=== PATIENT | male | born 1960 | race Caucasian/White ===

== ENCOUNTER 2016-06-16 16:20 | Emergency (ER) | payer MEDICAID ==
[~2016-06-16] VITALS: Ht 177.8 cm; Wt 90.7 kg
[~2016-06-16 16:20] MED LIST: AMITRIPTYLINE100 M2 PO; BREO ELLIPTA1 POW IH; INSULIN GL100 UNITS/ SC; LEVOFLOXACIN 7750 M1 PO; LOVENOX 10100 MG/11 SC; METOPROLOL 25 M25 MG PO; ONDANSETRON8 M1 PO; OXYCODONE SR 2020 MG PO; SENNA8.6 MG PO; TAMSULOSIN HYD0.4 MG PO; VENTOLIN H0.09 MG/AC IH
--- NOTE | 2016-06-16 16:41 | Emergency Room Report ---
History of Present Illness Time Seen by MD Fry Presenting Problem in Triage Pt arrived:Wheelchair Presenting Problem:PT BROUGHT DOWN FROM WOUND CARE C/O DIZZINESS AND FEELING LIGHTHEADED. 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 N Clinical Suspician of Infection? N Mental Status: 1 - Regular (Normal Baseline) Sepsis Risk:Low Sepsis Risk Have you (or family members/close friends) recently traveled outside the [place]? N If Yes, where/when: Have you had exposure to infectious disease within the past month? N TB? Other? Specify: Source patient, RN notes reviewed, RN/MD Exam Limitations no limitations Comment This is a 56-year-old male that was sent to the emergency room for wound care clinic for evaluation of lethargy. Apparently he was in the clinic, for treatment of his diabetic foot, and he was extremely sleepy. Patient drove himself here. He is awake and alert, denies any acute complaints. He does appear somewhat lethargic. ALLERGIES Coded Allergies: Sulfa (Sulfonamide Antibiotics) (01/23/16) Home Medications Reported Medications AMITRIPTYLINE HCL (Amitriptyline Hydrochloride) 100 MG PO DAILY TAMSULOSIN HCL (Tamsulosin 0.4MG) 0.4 MG PO QHS Oxycodone Hcl Sr (Oxycodone Sr 20MG) 10-20 MG PO Q4HP PRN PAIN ONDANSETRON HCL (Ondansetron) 8 MG PO Q8HP PRN N/V Levofloxacin (Levofloxacin 750MG) 750 MG PO DAILY SENNOSIDES (Senna) 2 EACH PO BID INSULIN GLARGINE (Lantus 3ML Solostar Pen) 25 UNITS SC QAM ENOXAPARIN SODIUM (Lovenox) 100 MG SC BID FLUTICASONE/VILANTEROL (Breo Ellipta 100-25 Mcg INH) 1 POW IH DAILY ALBUTEROL (Ventolin Hfa) 2 PUFFS IH Q6H6 Metoprolol Tartrate (Metoprolol 25MG) 25 MG PO BID History Medical History General CAD? No Angina: No [place]: No Hypertension? Yes Hyperlipidemia? Yes CHF? No DVT? Yes PE? No COPD? Yes Asthma? Yes Anemia? No GERD? No Gastric ulcers? No GI Bleed? No Hernia? No Thyroid Problems? No Hypothyroidism? No CVA? No Seizures? No Diabetes? Yes Insulin Dependent: Yes Insulin Pump: No Home FSBS? Yes Renal Insuffiency? No End Stage Renal Disease? No UTI? No Stones? No BPH? Yes GB Disease: No Nephritic Syndrome? No Asplenia? No Hepatitis? No Sickle Cell Disease? No Arthritis? No Migraines? No Cataracts? No Glaucoma? No MRSA? No HIV? No TB? No Anxiety? Yes Depression? Yes Cancer? Yes Site: THROAT More? Yes Additional hx: RHABDOMYOLOSIS, ATRIAL FIB Immunization Hx DT/Tetanus > 10 Years Ago Pneumonia Unknown Surgical Hx Previous Surgery?Y TONSILLECTOMY PEG TUBE Social History Smoking Hx Smoker: Current Every Day Smoker Tobacco: Yes Type Cigarettes Packs/day < 1 Pack Alcohol Alcohol: No Review of Systems All Other Systems Reviewed and Negative Psychiatric/Neurological weakness, other (dizziness) Physical Exam Vital Signs Vital Signs Date Time Temp Pulse Resp B/P Pulse O2 O2 Flow FiO2 Ox Delivery Rate 06/16 1940 97 16 132/86 100 06/16 1906 97 16 132/86 100 06/16 1756 95 18 161/85 100 2 06/16 1718 96 16 130/79 97 06/16 1630 98.5 98 16 128/80 98 General Appearance normal appearance, WD/WN, no apparent distress Neck normal inspection, non-tender, supple, full range of motion Respiratory Status Yes: trachea midline, chest symmetrical, non tender chest. No: respiratory distress. Lung Sounds bilateral: normal breath sounds, lungs clear. 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 No Comment After administration of IV naloxone the patient started waking up gradually. He was able to stand up and walk to the bathroom, asking for food and eventually to be discharged home on reevaluation he appears in absolutely no distress, his mentation is intact. I believe the patient's symptoms are mostly related to that he takes pain medications and benzodiazepines which can obviously make him lethargic. Advised patient to take those medications as needed only from now on. Instructed the patient to see his PCP in the morning for review of his medications and their obvious adverse effects. Results/Orders Laboratory Tests 06/16/16 1722: ABG pH 7.34 L, ABG pCO2 (Temp Corrct 61.7 H, ABG pO2 (Temp Correct 52.6 L, ABG HCO3 32.3 H, ABG Total CO2 34.2 H, ABG O2 Sat (Calculated) 85 *L, ABG Base Excess 6.5 H, Hakeem Test Y, Blood Gas Comments R/R 06/16/16 164: Lactic Acid 1.2 06/16/16 164: Sodium 138, Potassium 4.1, Chloride 98, Carbon Dioxide 36 H, BUN 15, Creatinine 0.8, Estimated Creat Clear 131, Estimated GFR (MDRD) 100, Glucose 109 H, Calcium 9.3, Total Bilirubin 0.4, AST 23, ALT 34, Alkaline Phosphatase 99, Creatine Kinase 26 L, CK-MB (CK-2) Rel Index 3.1, CK and CKMB Interp 0.8, Troponin I < 0.02, Total Protein 7.4, Albumin 3.1 L, Globulin 4.3 H, Albumin/ Globulin Ratio 0.7 L, WBC 8.8, RBC 4.58 L, Hgb 13.8 L, Hct 41.9 L, MCV 91.4, RDW 15.8, Plt Count 366, MPV 8.7, Gran % 73.7, Gran # 6.5, Lymphocytes % 14.8, Monocytes % 5.6, Eosinophils % 5.0, Basophils % 0.9, Lymphocytes # 1.3, Monocytes # 0.5, Eosinophils # 0.4, Basophils # 0.1, PUBS MCHC 32.9, MCH 30.1, Alcohols 0 06/16/16 164: Opiates Screen Cancelled, Urine Methadone Screen Cancelled, Barbiturates Cancelled, Phencyclidine Screen Cancelled, Amphetamines Screen Cancelled, Benzodiazepines Screen Cancelled, Cocaine Screen Cancelled, Marijuana (THC) Screen Cancelled 06/16/16 1630: POC Glucose 144 H Current Medication Orders Sig/Sebastian Start time Last Medication Dose Route Stop Time Status Admin Albuterol/Ipratropium 0 .STK-MED ONE 06/16 1746 DC INH Albuterol/Ipratropium 3 ML ONCE ONE 06/16 1745 DC 06/16 INH 06/16 1746 1745 Naloxone HCl 2 MG ONCE ONE 06/16 1730 DC 06/16 IV 06/16 1731 1720 Naloxone HCl 0 .STK-MED ONE 06/16 1717 DC .ROUTE Sodium Chloride 10 ML PRN PRN 06/16 1645 DCD IV 06/17 1637 Orders Procedure Date/time Status DIET-NOTHING BY MOUTH 06/16 D Active RT REQUEST DUONEB 06/16 1741 Active ARTERIAL BLOOD GAS REQUEST 06/16 1712 Active ORTHOSTATIC B/P 06/16 1641 Active ALCOHOL 06/16 1641 Complete ELECTROCARDIOGRAM REQUEST 06/[address] HEAD REQ 06/16 1638 Complete IV SALINE LOCK 06/16 1638 Active CULTURE, BLOOD 06/16 1638 Active LACTIC ACID 06/16 1638 Complete CBC WITH AUTO DIFF 06/16 1638 Complete CARDIAC ENZYMES 06/16 1638 Complete CHEM 12 PROFILE 06/16 1638 Complete FINGERSTICK BLOOD SUGAR 06/16 1630 Complete 12 LEAD EKG-VENITA (INITIAL) 06/16 UNK Active CM/EKG CM/knifeman Rhythm Normal Sinus Rhythm Rate 85 Ectopy No Comments No acute ischemic changes EKG rate, NSR, rhythm, no evid. of ischemic chgs, no ectopy, normal QRS, normal MI, normal EKG, no EKG for comparison, non-spec. ST/Twave chgs, ST elevation, ST depression, LBBB, RBBB, ectopy, abnormal Q waves XRAY/CT/US XRAY/CT/US [address] interpretation by discussed w/radiologist CT Results normal/NAD, no fracture seen XRAY/CT/US 2 XRAY chest XR interpretation by discussed w/radiologist Xray Results no infiltrates, normal heart size, normal lung inflation darrin Departure Departure Time of Disposition 1915 Disposition DC Home or Self Care(routine) Clinical Impression Primary Impression: Lethargy Condition STABLE Referrals TALYA ANTONIO APRN: Tomorrow-Call Office for re-evaluation of your meds Patient Instructions DI for Adverse Drug Reaction -- Other Additional Instructions Please take your oxycodone, amitriptyline, and Xanax as directed only!!!! This medications can make excessively sleepy. Please see Talya Antonio in the morning for review of your medications, in order to prevent similar episodes in the past where curative doses of above mentioned medications can make excessively sleepy. Discharge Counseling Counseled pt/family regarding diagnosis, test results, medications/RX, home care, follow up needs Comment Please take your oxycodone, amitriptyline, and Xanax as directed only!!!! This medications can make excessively sleepy. Please see Talya Antonio in the morning for review of your medications, in order to prevent similar episodes in the past where curative doses of above mentioned medications can make excessively sleepy. ED Critical Care Critical Care No at [id number]
[2016-06-16 16:56] LABS: HEMOGLOBIN 13.8 g/dL (14.1-18.0); LYMPH # 1.3 K/mm3 (0.7-4.5); LYMPH % 14.8 % (10-50)
[2016-06-16 17:18] LABS: BUN 15 mg/dL (7-18)
--- NOTE | 2016-06-16 17:18 | RADIOLOGY REPORT PS360 ---
CHEST-AP VIEW ONLY HISTORY: Dizziness DIZZY COMPARISON: 01/23/2016 FINDINGS: The cardiomediastinal silhouette and pulmonary vascularity are within normal limits. The lungs are clear without infiltrates, suspicious nodules, or pleural effusions. No acute bony abnormalities. IMPRESSION: Negative chest, no acute finding
--- NOTE | 2016-06-16 17:18 | RADIOLOGY REPORT PS360 ---
CT HEAD W/O CONTRAST HISTORY: Lethargy, dizziness DIZZY COMPARISON: 01/23/2016 TECHNIQUE: Axial images obtained without contrast. Brain and bone windows reviewed. FINDINGS: No midline shift, mass effect, intracranial hemorrhage, hydrocephalus, or extra-axial fluid collection is evident. There is mild generalized atrophy with nonspecific hypoattenuation in the deep white matter consistent with ischemic gliotic change from microvascular disease. The calvarium has an unremarkable appearance. There is moderate opacification left mastoid sinus. Mild mucosal thickening right maxillary sinus... . IMPRESSION: 1. No acute intracranial pathology with no significant change from 1116. 2. Vica-qx-qdyrcvgo atrophy with ischemic gliotic change from microvascular disease. 3. Left mastoid sinus opacification
[2016-06-16 17:19] LABS: GFR (ESTIMATED) 100 ML/MIN (>60)
[2016-06-16 17:24] LABS: ALLEN'S TEST Y; ARTERIAL ABE 6.5 MMOL/L (-2.4-+2.3); ARTERIAL PO2 52.6 MMHG (80-100); ARTERIAL TCO2 34.2 MMOL/L (23-27); OXYGEN R/A
[2016-06-16 19:40] VITALS: BP 132/86
[2016-09-03] MEDS ORDERED: OXYCODONE/APAP1 TA2 PO (00:31)
[2016-09-03] MEDS ORDERED: XANAX 1MG TABLET1 MG PO (12:54)
[2016-09-05] MEDS ORDERED: CLEOCIN HCL300 MG PO (11:09)
[2016-09-05] MEDS ORDERED: LEVOFLOXACIN 7750 M1 PO (11:09)
== END 2016-06-16 19:40 | disposition home or self-care (01) ==
LOC: ER 16:20
PROVIDERS: Emergency Medicine
DX: R53.83 Other fatigue (principal); L97.519 Non-pressure chronic ulcer of other part of right foot with unspecified severity; I10 Essential (primary) hypertension; J44.9 Chronic obstructive pulmonary disease, unspecified; F41.8 Other specified anxiety disorders; I48.91 Unspecified atrial fibrillation; Z72.0 Tobacco use
CPT/HCPCS: G6040; J2310

== ENCOUNTER 2017-03-18 16:49 | Inpatient (IN) | payer MEDICAID ==
[~2017-03-18] VITALS: Ht 180.3 cm; Wt 81.8 kg
[~2017-03-18 16:49] MED LIST changes: +CLEOCIN HCL300 MG PO; +OXYCODONE/APAP1 TA2 PO; +XANAX 1MG TABLET1 MG PO
[2017-03-18 17:09] VITALS: BP 81/52
--- NOTE | 2017-03-18 17:37 | Emergency Room Report ---
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 N Clinical Suspician of Infection? N Mental Status: 1 - Regular (Normal Baseline) Sepsis Risk:Low Sepsis Risk Have you (or family members/close friends) recently traveled outside the [place]? N If Yes, where/when: Have you had exposure to infectious disease within the past month? N TB? Other? Specify: 56 years old white male who is in remission from stage IV cancer, he has been experiencing weakness and repeated falls for the last few days. He presented to the ED and is found to be hypotensive blood pressure 80/50 MMHG. he is sitting in the bed alert and provided history. He has a GASTROSTOMY FEEDING TUBE IN PLACE. Source patient, RN notes reviewed Exam Limitations no limitations ALLERGIES Coded Allergies: Sulfa (Sulfonamide Antibiotics) (03/18/17) Home Medications Active Scripts Levofloxacin (Levofloxacin 750MG) 750 MG PO DAILY #3 TABLET Prov: 09/05/16 Clindamycin Hcl (Cleocin 300MG Capsule) 300 MG PO QID #20 CAP Ref 1 Prov: 09/05/16 Reported Medications Alprazolam (Xanax 1MG) 1 MG PO TID AMITRIPTYLINE HCL (Amitriptyline Hydrochloride) 100 MG PO DAILY TAMSULOSIN HCL (Tamsulosin 0.4MG) 0.4 MG PO QHS ONDANSETRON HCL (Ondansetron) 8 MG PO Q8HP PRN N/V SENNOSIDES (Senna) 2 EACH PO BID INSULIN GLARGINE (Lantus 3ML Solostar Pen) 25 UNITS SC QAM FLUTICASONE/VILANTEROL (Breo Ellipta 100-25 Mcg INH) 1 POW IH DAILY ALBUTEROL (Ventolin Hfa) 2 PUFFS IH Q6H6 OXYCODONE HCL/ACETAMINOPHEN (Oxycodon-Acetaminophen 7.5-325) 1 TAB PO QID History Medical History General CAD? No Angina: No [place]: No Hypertension? Yes Hyperlipidemia? Yes CHF? No DVT? Yes PE? No COPD? Yes Asthma? Yes Anemia? No GERD? No Gastric ulcers? No GI Bleed? No Hernia? No Thyroid Problems? No Hypothyroidism? No CVA? No Seizures? No Diabetes? Yes Insulin Dependent: Yes Insulin Pump: No Home FSBS? Yes Renal Insuffiency? No End Stage Renal Disease? No UTI? No Stones? No BPH? Yes GB Disease: No Nephritic Syndrome? No Asplenia? No Hepatitis? No Sickle Cell Disease? No Arthritis? No Migraines? No Cataracts? No Glaucoma? No MRSA? No HIV? No TB? No Anxiety? Yes Depression? Yes Cancer? Yes Site: THROAT More? Yes Additional hx: RHABDOMYOLOSIS, ATRIAL FIB; REMISSION FROM THROAT CA Immunization Hx Ped.Immunizations UTD Yes DT/Tetanus Unknown Flu Refused Pneumonia Refuses Surgical Hx Previous Surgery?Y TONSILLECTOMY PEG TUBE Social History Smoking Hx Smoker: Current Every Day Smoker Tobacco: Yes Type Cigarettes Packs/day 2 1/2 - 3 Packs Are you/the child exposed to second-hand smoke: Yes Alcohol Alcohol: No Review of Systems All Other Systems Reviewed and Negative Constitutional see HPI, weakness Eyes no symptoms reported ENT no symptoms reported. Respiratory no symptoms reported Cardiovascular no symptoms reported Gastrointestinal no symptoms reported Genitourinary no symptoms reported. Musculoskeletal see HPI, joint pain (HIS HIPS HURTS) Skin no symptoms reported Psychiatric/Neurological no symptoms reported Physical Exam Vital Signs Vital Signs Date Time Temp Pulse Resp B/P Pulse O2 O2 Flow FiO2 Ox Delivery Rate 03/18 1726 97.8 90 18 85/48 96 03/18 1709 97.9 87 18 81/52 93 The patient has multiple bruises on the scalp and the LEFT orbital region. (Melonie LU,Gavin) - WBC >12,000 or <4,000 or 10% bands? 2 or more SIRS Criteria Met? B/P:/48 MAP:61 Creatinine >2.0? UA output<0.5ml/kg/hr for 2 hrs? Platelet count >100,000? Lactate >2.0mmol/1? INR >1.2 or PTT > than 60 sec? Evidence of Organ Dysfunction? Provider documented clinical suspician of infection? N Sepsis Criteria Count: 1 Sepsis Risk: Low Sepsis Risk General Appearance normal appearance, WD/WN Eye Exam - bilateral eye normal exam, bilateral eye PERRL, bilateral eye EOMI Ear, Nose, Throat hearing grossly normal, normal ENT inspection Neck normal inspection, non-tender, supple, full range of motion Respiratory Status Yes: trachea midline, chest symmetrical, non tender chest. No: respiratory distress. Lung Sounds bilateral: normal breath sounds, lungs clear. Cardiovascular normal exam, regular rate/rhythm, no peripheral edema, no gallop, no JVD, no murmur, no rub, normal peripheral pulses Peripheral Pulses Pulses normal Yes Gastrointestinal normal bowel sounds, normal exam, non tender, soft, no organomegaly Back normal inspection, no CVA tenderness, no vertebral tenderness Extremities non-tender, normal range of motion, normal inspection Rectal normal exam, normal rectal tone, RECTUM FULL OF HARD STOOL. 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 No Results/Orders Laboratory Tests 03/18/17 1730: Stool Occult Blood NEGATIVE 03/18/17 1705: Sodium 132 L, Potassium 5.2 H, Chloride 96 L, Carbon Dioxide 29, BUN 64 H, Creatinine 1.8 H, Estimated Creat Clear 49 L, Estimated GFR (MDRD) 39, Glucose 105, Calcium 8.9, Total Bilirubin 0.9, AST 50 H, ALT 29, Alkaline Phosphatase 66, Creatine Kinase 2106 H, CK-MB (CK-2) Rel Index 0.2, CK and CKMB Interp 5.2 H, Troponin I < 0.02, Total Protein 6.8, Albumin 3.2 L, Globulin 3.6 H, Albumin/Globulin Ratio 0.9 L, WBC 13.6 H, RBC 3.66 L, Hgb 10.8 L, Hct 34.7 L, MCV 94.8, RDW 14.3, Plt Count 208, MPV 8.7, Gran % 90.1 H, Gran # 12.2 H, Total Counted Pending, Lymphocytes % 5.2 L, Monocytes % 4.3, Eosinophils % 0.2, Basophils % 0.2, Neutrophils Pending, Lymphocytes (Manual) Pending, Lymphocytes # 0.7, Monocytes # 0.6, Eosinophils # 0.0, Basophils # 0.0, Platelet Estimate Pending, PUBS MCHC 31.2 L, MCH 29.6 Current Medication Orders Sig/Sebastian Start time Last Medication Dose Route Stop Time Status Admin Azithromycin 500 MG ONCE ONE 03/18 1830 AC PO 03/18 1831 Ceftriaxone Sodium 1 GM ONCE ONE 03/18 1830 AC Sodium Chloride 50 ML IV 03/18 1859 Ceftriaxone Sodium 1 GM ONCE ONE 03/18 1830 AC Sodium Chloride 50 ML IV 03/18 185 Sodium Chloride 1,000 ML .Q1H1M 03/18 183 AC IV 03/18 193 Sodium Chloride 10 ML PRN PRN 03/18 183 AC IV 03/19 182 Sodium Chloride 1,000 ML .Q1H1M 03/18 173 DC 03/18 IV 03/18 183 1726 Sodium Chloride 10 ML PRN PRN 03/18 173 AC IV 03/19 1724 Sodium Chloride 10 ML PRN PRN 03/18 173 AC IV 03/19 1725 Sodium Chloride 1,000 ML .STK-MED ONE 03/18 1722 DC IV Orders Procedure Date/time Status DIET-NOTHING BY MOUTH 03/19 B Active CULTURE, SPUTUM 03/18 1826 Active CULTURE, BLOOD 03/18 1826 Active LACTIC ACID 03/[address] HEAD REQ 03/[address] SCAN REQUEST 03/18 1733 Active PELVIS AP ONLY 03/18 1733 Active CHEST-PORTABLE 03/18 1733 Active ABDOMEN-FLAT & UPRIGHT 03/18 1730 Active STOOL OCCULT BLOOD 03/18 1728 Complete ELECTROCARDIOGRAM REQUEST 03/[address] HEAD REQ 03/18 1725 Complete IV SALINE LOCK 03/18 172 Active URINALYSIS/COMPLETE 03/18 1725 Active COMPLETE METABOLIC PANEL 03/18 172 Complete CBC WITH AUTO DIFF 03/18 1725 Active CARDIAC ENZYMES 03/18 1725 Complete DIFFERENTIAL-WBC 03/18 1705 Active CM/EKG CM/EKG EKG NORMAL SINUS RHYTHM 92 PER MINUTE. FIRST DEGREEE av BLOCK NO ACUTE FINDINGS XRAY/CT/US XRAY/CT/US XRAY chest, abdomen, pelvis XR interpretation by reviewed by me Xray Results no fracture seen Comment rll PNEUMONIA CT head CT interpretation by discussed w/radiologist Time results known: 1829 Departure Departure Time of Disposition 1822 Disposition Still a Patient Clinical Impression Primary Impression: Hypotension Secondary Impressions: RML pneumonia Condition STABLE Referrals JANKI ANTONIO APRN (Family) Additional Instructions DISCUSSED WITH DR BUCK WHO AGREED TO ADMIT FOR IV ABX AND IVF Discharge Counseling Counseled pt/family regarding diagnosis, medications/RX, follow up needs ED Critical Care Critical Care No If Critical Care minutes are documented, the time involved in the performance of seperately reportable procedures was not counted toward critical care time documented. I directly delivered medical care to this critically ill and/or injured patient. Timely evaluation and treatment was necessary to address the significant organ system(s) dysfunction present in this patient. at 1831
[2017-03-18 17:46] LABS: LYMPH # 0.7 K/mm3 (0.7-4.5); LYMPH % 5.2 % (10-50)
[2017-03-18 17:51] LABS: STOOL OCCULT BLOOD NEGATIVE (NEG)
[2017-03-18 17:53] LABS: HEMOGLOBIN 10.8 g/dL (14.1-18.0)
--- NOTE | 2017-03-18 18:04 | RADIOLOGY REPORT PS360 ---
CT HEAD WITHOUT CONTRAST CT BONE WINDOWS included ORDERING PHYSICIAN : Gavin Wilhelm MD PATIENT AGE: 56 years GENDER: Male PROCEDURE: Routine axial images headwithout contrast. Brain & bone windows HISTORY: FALLS AND HEADACHE head trauma COMPARISON: July 03, 2016 and September 03, 2016 FINDINGS: No acute intracranial findings. No hemorrhage. No subdural collection. No mass No significant change in June 2016. Subtle low-density periventricular deep white matter cerebral hemispheres stable since prior study. Most likely Reflects chronic small vessel deep white matter ischemic changes despite patient's a relatively younger age. Mild diffuse cerebral atrophy again noted The posterior fossa appear satisfactory and unremarkable. The skull is intact. No skull fracture evident. No prominent scalp hematoma. Mild mucosal thickening with likely small small air-fluid levels at the posterior maxillary sinuses bilaterally. Could reflect cortical sinusitis. Questionable correlation. Opacification LEFT mastoid air cells reflect a left mastoid effusion. This is been seen previously but with slight progression since prior study. Possible developing left mastoiditis.? Requires clinical correlation New finding of Fluid filling middle ear compatible left left otitis media. Correlation required. This is a change since August 2016 Right Mastoid air cells right middle ear appear clear and normal. IACs are unremarkable. IMPRESSION: No acute intracranial findings. Stable CT head since a June and August 2016. Chronic small vessel deep white matter changes cerebral hemispheres bilaterally Fluid fills left middle ear compatible with left otitis media, new since August 2016. Opacification left mastoid air cells with slight progression of this left mastoid effusion. These features require clinical correlation. Also small air-fluid levels in maxillary sinuses partially imaged bilaterally.
[2017-03-18 18:05] LABS: BUN 64 mg/dL (7-18); GFR (ESTIMATED) 39 ML/MIN (>60)
--- NOTE | 2017-03-18 18:15 | RADIOLOGY REPORT PS360 ---
CT CERVICAL SPINE W/O CONT HISTORY: FALL fall with neck pain and headache. Patient Age: 56 years: Male Ordering Physician: Gavin Wilhelm MD TECHNIQUE: Helical CT scanning performed the cervical spine with sagittal and coronal reconstructions on CT workstation COMPARISON :No CT cervical available FINDINGS Cervical spine intact with No acute fracture nor subluxation Prevertebral soft tissues appear satisfactory. Normal. C1-C2 relationships and appears normal. Cervical vertebral bodies intact . There are degenerative changes throughout the cervical spine . C2/3 mild central spurring and disc prominence. C3/4. Disc intact. C4/5. Minor posterior hypertrophic ridging. . C5/6 anterior marginal osteophytes as well as mild posterior endplate hypertrophic spurring/ridging most evident at this level. Slight additional uncovertebral joint hypertrophy to the to the left and right. Features indenting anterior aspect of thecal sac at. Paracentral region C5-C6 C6/7 mild posterior hypertrophic ridging with mild additional central spurring and disc evident. C7/T1 intact T1/T2 minor posterior spurring. The facets appear intact normal relationships with only scant degenerative changes. Patient does has some additional calcifications at the posterior soft tissues at midline thickening posterior to the C5 and C6 level. Apices the lungs with no pneumothorax. COPD changes evident. Again the opacification throughout the left mastoid air cells and left middle ear noted as discussed on head CT report with the left otitis media with progressive left mastoid effusion since prior studies. In the prominent thickness of the aryepiglottic foldsand epiglottis. Require correlation. If the patient hoarseness consider ENT follow-up. Question upper normal/generous thickness at at vocal cords also as well. IMPRESSION: 1. Cervical spine intact with no fracture nor subluxation. 2. Degenerative changes as outlined above. Cervical spondylosis most evident C5/6 followed by C6/7 3. Other observations: -Fluid-filled middle air suggesting left Otitis media, new since prior study Progressive opacification entire left mastoid air cell, reflect progressive mastoid effusion. This requires correlation to exclude developing mastoiditis -Small bilateral air-fluid levels maxillary sinuses may reflect minimal acute maxillary sinusitis -Prominent aryepiglottic folds in generous epiglottis. If Patient has hoarseness consider ENT follow-up
[2017-03-18 18:50] LABS: NEUTROPHILS 69 % (42-76)
[2017-03-18 20:58] VITALS: BP 97/58
[2017-03-18 22:29] VITALS: BP 119/72
[2017-03-18 23:51] VITALS: BP 85/51
[2017-03-19 04:30] VITALS: BP 101/62
--- NOTE | 2017-03-19 07:17 | PHARMACY CLINIC NOTE ---
Patient Demographics Patient Demographics Admission date: 03/18/17 Date: 03/19/17 Time: 0716 Allergies Coded Allergies: Sulfa (Sulfonamide Antibiotics) (03/18/17) HEIGHT- FT: 5 IN: 11.00 [id number] VTE General Information Labs: Laboratory Tests 03/18 1705 Hematology Hgb (14.1 - 18.0 g/dL) 10.8 L Hct (42.0 - 52.0 %) 34.7 L Plt Count (142 - 424 K/mm3) 208 Disclaimer The following section includes nursing documentation that has been pulled in for pharmacy review. Patient's VTE score: 3 Patient's VTE Risk: LOW RISK Clinical trial participant? No VTE prophylaxis NQF [id number] VTE prophylaxis ordered? Yes Type of prophylaxis/treatment: JESSE at 0716
--- NOTE | 2017-03-19 07:47 | HISTORY AND PHYSICAL REPORT ---
Demographics: Admit date: 03/18/17 Chief complaint: Weakness and falls PRIMARY DIAGNOSIS: HYPOTENSION; FALLS; CA; PNEUMONIA Allergies: Coded Allergies: Sulfa (Sulfonamide Antibiotics) (03/18/17) History of present illness: History of present illness: 56-year-old male without a local primary care physician presented to the emergency department yesterday with his sister over concern of frequent falls and weakness. Workup revealed hypotension along with RIGHT lower lobe pneumonia. Patient denied infectious symptoms as well as symptoms of cough, shortness of breath, sputum production. He has a long history of smoking. He has a history of a head and neck cancer diagnosed recently and underwent radiation treatments. He has a PEG tube because of this. However he is still taking foods by mouth. In the emergency department he was started on IV fluids as well as Rocephin and azithromycin to treat community acquired pneumonia and admitted. This morning the patient states he is ready to leave the hospital. He does not like being in hospitals and apparently his sister told the nursing staff the same thing. Past medical history: Family HX Family Hx Insignificant No Immunization HX Ped.Immunizations UTD Yes DT/Tetanus Unknown Flu Refused Pneumonia Refuses TB Test in last year No General CAD? No Angina: No DE: No Hypertension? Yes Hyperlipidemia? Yes CHF? No DVT? Yes PE? No COPD? Yes Asthma? Yes Anemia? No GERD? No Gastric ulcers? No GI Bleed? No Hernia? No Thyroid Problems? No Hypothyroidism? No CVA? No Seizures? No Diabetes? Yes Insulin Dependent: Yes Insulin Pump: No Home FSBS? Yes Renal Insuffiency? No UTI? No Stones? No BPH? Yes GB Disease: No Nephritic Syndrome? No Asplenia? No Hepatitis? No Sickle Cell Disease? No Arthritis? No Migraines? No Cataracts? No Glaucoma? No MRSA? No HIV? No TB? No Anxiety? Yes Depression? Yes Cancer? Yes Site: THROAT More? Yes Additional hx: RHABDOMYOLOSIS, ATRIAL FIB; REMISSION FROM THROAT CA Past Surgical HX Previous Surgery?Y TONSILLECTOMY PEG TUBE Current home meds: Reported Medications Alprazolam (Xanax 1MG) 1 MG PO TID AMITRIPTYLINE HCL (Amitriptyline Hydrochloride) 100 MG PO DAILY INSULIN GLARGINE (Lantus 3ML Solostar Pen) 25 UNITS SC QAM Social Hx: Smoking HX Tobacco Yes Type Cigarettes Packs/day 2 1/2 - 3 PACKS Are you/the child exposed to second-hand smoke: Yes Alcohol Alcohol: No Hx of Drug Use Drug Use? No Patien't marital status is single Review of systems: Constitutional weakness. No: chills, fever. Respiratory no symptoms reported. Cardiovascular no symptoms reported Gastrointestinal/Abdominal no symptoms reported Genitourinary no symptoms reported. Musculoskeletal see HPI. Neurological Yes: no symptoms reported. Exam: Lab data for last 24 hours: Laboratory Tests 03/18/17 2142: Emesis for Blood POSITIVE 03/18/171843: Lactic Acid 1.9 03/18/17 1730: Stool Occult Blood NEGATIVE 03/18/17 1705: Sodium 132 L, Potassium 5.2 H, Chloride 96 L, Carbon Dioxide 29, BUN 64 H, Creatinine 1.8 H, Estimated Creat Clear 49 L, Estimated GFR (MDRD) 39, Glucose 105, Calcium 8.9, Total Bilirubin 0.9, AST 50 H, ALT 29, Alkaline Phosphatase 66, Creatine Kinase 2106 H, CK-MB (CK-2) Rel Index 0.2, CK and CKMB Interp 5.2 H, Troponin I < 0.02, Total Protein 6.8, Albumin 3.2 L, Globulin 3.6 H, Albumin/Globulin Ratio 0.9 L, WBC 13.6 H, RBC 3.66 L, Hgb 10.8 L, Hct 34.7 L, MCV 94.8, RDW 14.3, Plt Count 208, MPV 8.7, Gran % 90.1 H, Gran # 12.2 H, Total Counted 100, Lymphocytes % 5.2 L, Monocytes % 4.3, Eosinophils % 0.2, Basophils % 0.2, Neutrophils 69, Band Neutrophils 14 H, Lymphocytes (Manual) 6 L, Lymphocytes # 0.7, Monocytes (Manual) 8, Monocytes # 0.6, Eosinophils # 0.0, Basophils # 0.0, Metamyelocytes 3 H, Platelet Estimate NORMAL, PUBS MCHC 31.2 L, MCH 29.6 Microbiology 03/18 1844 BLOOD: Anaerobic Blood Culture - RECD 03/18 1844 BLOOD: Aerobic Blood Culture - RECD 03/18 1844 BLOOD: Anaerobic Blood Culture - RECD 03/18 1844 BLOOD: Aerobic Blood Culture - RECD 03/18 1826 SPUTUM: Sputum Culture - ORD 03/18 1826 SPUTUM: Gram Stain - ORD Admission vital signs: 1ST Vital Signs Result Date Time Pulse Ox 93 03/18 1709 B/P 81/52 03/18 1709 Temp 97.9 03/18 1709 Pulse 87 03/18 1709 Resp 18 03/18 1709 O2 Delivery ROOM AIR 03/18 2058 Vital Signs Date Time Temp Pulse Resp B/P Pulse O2 O2 Flow FiO2 Ox Delivery Rate 03/19 0430 98.2 82 18 101/62 93 ROOM AIR 03/18 2351 97.5 92 16 85/51 91 ROOM AIR Exam General appearance: active, awake, no acute distress Eyes: conjunctiva clear ENT: mucous membranes moist Neck: no carotid bruit, no JVD Cardiovascular: regular rate & rhythm Respiratory: clear except for rhonchi at RIGHT lung base ABD: soft, no tenderness, GT site (clean and w/o inflammation) Extremities: moves all Musculoskeletal: motor intact, sensation intact Plan: Problem List 1. RML pneumonia 2. Hypotension 3. Type 2 diabetes mellitus Status Chronic 4. Throat cancer Status Chronic Plan: 1. IV fluids for hypotension 2. Rocephin and azithromycin IV 3. Fingersticks before meals and at bedtime 4. Swallowing evaluation 5. Patient is threatening to leave AGAINST MEDICAL ADVICE. Physically I do not believe he is going to be capable of this without 8 from family. I have recommended he not do that at 0747
--- NOTE | 2017-03-19 07:57 | RADIOLOGY REPORT PS360 ---
PELVIS AP ONLY COMPARISON: AP pelvis 01/23/2016 HISTORY: Pelvic pain after a fall TECHNIQUE: AP pelvis FINDINGS: The iliac bones and pubic bones appear intact. Both hips are normally articulated with no evidence of fracture. The sepsis pubis is somewhat obscured by overlying stool in the rectum but is likely normal. There is degenerative disc disease at the L4-5 level with disc space narrowing and osteophytic spurring. IMPRESSION: Pelvis negative for acute fracture
[2017-03-19] MEDS ORDERED: TAMSULOSIN HCL0.4 MG PO (08:03)
[2017-03-19] MEDS ORDERED: LEVOTHYROXINE0.05 M2 PO (08:03)
[2017-03-19] MEDS ORDERED: CLARITIN 10MG T10 MG PO (08:03)
[2017-03-19] MEDS ORDERED: AMITRIPTYLINE150 M1 PO (08:04)
[2017-03-19] MEDS ORDERED: GABAPENTIN 600600 MG PO (08:04)
[2017-03-19] MEDS ORDERED: METFORMIN ER500 MG PO (08:05)
--- NOTE | 2017-03-19 08:06 | RADIOLOGY REPORT PS360 ---
CHEST-PORTABLE COMPARISON: Portable upright chest 09/02/2016 HISTORY: Chest pain after a fall TECHNIQUE: AP upright chest FINDINGS: The lung coats are well expanded. There is a somewhat ill-defined opacity in right perihilar region and right lower lobe. This could represent a mild diffuse pulmonary contusion but a pneumonic infiltrate is a possibility as well. There is no pneumothorax. Right upper lung field and left lung field are clear. Cardiac size is normal and the vascularity is normal. There are multilevel degenerative changes of the mid and lower thoracic spine. IMPRESSION: Possible right lower lung field, pulmonary contusion versus underlying pneumonic infiltrate and suggest clinical correlation and follow-up films as indicated.
--- NOTE | 2017-03-19 08:09 | RADIOLOGY REPORT PS360 ---
ABDOMEN-FLAT UPRIGHT COMPARISON: None HISTORY: Abdominal pain after a fall TECHNIQUE: KUB and upright abdomen FINDINGS: Is a somewhat curious diffuse opacity overlying the lower mid abdomen likely artifactual. There is a moderate amount stool in the distal transverse colon and splenic flexure and descending colon. There is no significant small bowel gas. Is no free air. There are multilevel degenerative changes of the lumbar spine. IMPRESSION: Probably negative abdomen other than mild constipation
[2017-03-19 08:45] VITALS: BP 101/57
[2017-03-19 08:47] VITALS: BP 101/61
[2017-03-19 12:09] VITALS: BP 101/57
[2017-03-19 16:02] VITALS: BP 94/51
[2017-03-19 20:19] VITALS: BP 110/60
[2017-03-20 04:24] VITALS: BP 115/66
[2017-03-20 08:00] VITALS: BP 145/86
--- NOTE | 2017-03-20 08:08 | Discharge Summary ---
Demographics Admit date: 03/18/17 Discharge date: 03/20/17 Discharge diagnoses Problem List 1. RML pneumonia 2. Hypotension 3. Type 2 diabetes mellitus Status Chronic 4. Throat cancer Status Chronic History of present illness History of present illness 56-year-old male without a local primary care physician presented to the emergency department yesterday with his sister over concern of frequent falls and weakness. Workup revealed hypotension along with RIGHT lower lobe pneumonia. Patient denied infectious symptoms as well as symptoms of cough, shortness of breath, sputum production. He has a long history of smoking. He has a history of a head and neck cancer diagnosed recently and underwent radiation treatments. He has a PEG tube because of this. However he is still taking foods by mouth. In the emergency department he was started on IV fluids as well as Rocephin and azithromycin to treat community acquired pneumonia and admitted. Patient was admitted and rehydrated with normal saline at a rate 150 an hour. After 24 hours of rehydration patient became more alert and was able to ambulate. He actually ambulated off the floor of the hospital to go outside and was suspected of trying to smoke cigarettes. Patient denied shortness of breath. He did not require assistance with ambulating. On the morning of the seventh the patient was able to transfer from laying to sitting to standing under his own power. He was ambulating without assistance. Lung exam continued to have loose rhonchi which I suspect is baseline for the patient due to underlying chronic obstructive pulmonary disease. Patient was discharged home and will finish a course of antibiotics. He is to follow-up with his primary care provider, Talya Antonio, this week Medications Medications: Discharge meds are as noted. Follow up Follow up in office in: 4 DAYS with: TALYA ANTONIO APRN at [phone]
[2017-03-20] MEDS ORDERED: AVPAK AZITHROM250 MG PO (08:09)
[2017-03-20] MEDS ORDERED: TRAMADOL50 M1 PO (08:10)
[2017-03-20 12:00] VITALS: BP 110/65
--- OUTSIDE RECORDS SUMMARY | 2017-03-25 21:24 | External Medical Summary Rpt | CCD ---
Author Author , MACIEJ Organization MACIEJ Address Unknown Phone [email or web address] Care Team Providers Care Silverware Etcher Name Role Phone [facility], ABLECARE Unavailable Unavailable [facility], [facility] Unavailable Unavailable ADVANCED TISSUE Unavailable Unavailable MANAGEMENT, AD[facility] TISSUE MANAGEMENT AD[facility]ANC[facility] TISSUE Unavailable Unavailable MANAGEMENT, ADVANCED TISSUE MANAGEMENT [facility]VINE, Unavailable Unavailable [facility] [place], Unavailable Unavailable [facility] [place] ENZO LOW, ENZO Unavailable Unavailable LOW AOUAD, AOUAD Unavailable Unavailable AOUAD LAN, AOUAD LAN Unavailable Unavailable ARNOLD, ARNOLD Unavailable Unavailable WALE LES, WALE Unavailable Unavailable LES AZIZ, AZIZ Unavailable Unavailable BALE JAIDEN, BALE JAIDEN Unavailable Unavailable BASTIN ADA, BASTIN Unavailable Unavailable ADA JOHN FRA, JOHN Unavailable Unavailable FRA BESSON, BESSON Unavailable Unavailable ALYSA BEAU, Unavailable Unavailable ALYSA BEAU ADAM, ADAM Unavailable Unavailable ADAM ALL, ADAM ALL Unavailable Unavailable [facility] Unavailable Unavailable [facility], [facility] Unavailable [facility], [facility] NEETA, NEETA Unavailable Unavailable NEETA, NEETA Unavailable Unavailable NEETA JAMES, NEETA Unavailable Unavailable JAMES NEETA KEN, NEETA Unavailable Unavailable JAMES SHARI STARLA, MCCARTHY Unavailable Unavailable STARLA EDDA DEE, EDDA Unavailable Unavailable DEE PO[facility] PH[facility], Unavailable Unavailable [facility] Unavailable Unavailable ADULT & PED, [facility] CLARKE JAG, CLARKE Unavailable Unavailable JAG [facility], Unavailable Unavailable [facility] ERICK JR, ERICK Unavailable Unavailable JR ERICK JR ANY, Unavailable Unavailable ERICK JR JESSICA SAVAGE Unavailable Unavailable DIIULIO ELIJAH, DIIULIO Unavailable Unavailable ELIJAH EL KHOULI RIH, EL Unavailable Unavailable KHOULI RIH [facility] Unavailable Unavailable [facility], [facility] ENDEAN, ENDEAN Unavailable Unavailable TORRES BUDDY, Unavailable Unavailable TORRES BUDDY YOU NAN, YOU Unavailable Unavailable NAN FRYMAN, FRYMAN Unavailable Unavailable FRYMAN EUG, FRYMAN Unavailable Unavailable EUG MOURA, JR, MOURA, Unavailable Unavailable JR KAREN STARLA, KAREN Unavailable Unavailable STARLA JJ ROMEL, JJ Unavailable Unavailable ROMEL VINCENT, VINCENT [facility]available Unavailable [facility] Un[facility] Unavailable INC, [facility] Unavailable Unavailable HOSPITAL P, [facility] P POLY MIR, Unavailable Unavailable POLY MIR CURTIS-MURILLO ELSIE, Unavailable Unavailable CURTIS-MURILLO ELSIE [facility], Unavailable Unavailable [facility] MASTERSON, MASTERSON Unavailable Unavailable PACO, PACO Unavailable Unavailable [facility]available [facility]available [place], [facility] Unavailable [facility]available [place], [facility] VONDA BROADDUS CHR, VONDA Unavailable Unavailable BROADDUS CHR JUSTICE, JUSTICE Unavailable Unavailable [facility] Un[facility] Un[facility], [facility] NURSE Unavailable Unavailable PRACTITIONER GR, [facility]MSF NURSE PRACTITIONER GR KUDRIMOTI ASTON, Unavailable Unavailable KUDRIMOTI ASTON [facility], [facility] Un[facility] LAUSE FED, LAUSE FED Unavailable Unavailable [facility], [facility] Unavailable Unavailable MISBAH, MISBAH Unavailable Unavailable MISBAH, MISBAH Unavailable Unavailable LUKINS BRANDON, LUKINS Unavailable Unavailable BRANDON MINION JACK, MINION Unavailable Unavailable JACK MIRRAKHIMOV AIB, Unavailable Unavailable MIRRAKHIMOV AIB PALOMA MONTOYA, Unavailable Unavailable DOWOLGA PIERCE FIDELINA, KARI Unavailable Unavailable FIDELINA CALLIE USM, CALLIE USM Unavailable Unavailable NICKELS JACK, NICKELS Unavailable Unavailable JACK GRACIELA, GRACIELA Unavailable Unavailable GRACIELA KWA, GRACIELA KWA Unavailable Unavailable LUIS NAYELI, LUIS Unavailable Unavailable NAYELI CORDERO BUDDY, CORDERO BUDDY Unavailable Unavailable QUETA BEAU, QUETA BEAU Unavailable [facility]available [facility] PARASRAMKA NOMAN, Unavailable Unavailable PARASRAMKA NOMAN [facility] Unavailable Unavailable EMS, [facility] Unavailable Unavailable EMS, [facility], [facility]available Unavailable PLLC, [facility], [facility] Unavailable Unavailable [facility], [facility], Unavailable Unavailable [facility], [facility]available Unavailable [facility] RENUSCH, RENUSCH Unavailable Unavailable [facility] Unavailable Unavailable [facility], [facility] HYACINTH NAYELI, Unavailable Unavailable HYACINTH NAYELI LIONEL SHARON, LIONEL Unavailable Unavailable SHARON SEKKATH-VEEDU RONNI, Unavailable Unavailable SEKKATH-VEEDU RONNI SELL TON, SELL TON Unavailable Unavailable [facility], [facility] Unavailable Unavailable [facility] Unavailable Unavailable [facility], [facility] Unavailable Unavailable [facility], [facility] SOTINGEANU, Unavailable Unavailable SOTINGEANU [facility] Unavailable Unavailable EMERGENCY PHYS, [facility] CHRISTIAN CAR, CHRISTIAN Unavailable Unavailable CAR [facility] Un[facility], [facility] SHAH STARLA, SHAH Unavailable Unavailable STARLA BAUTISTA JOSUE, BAUTISTA Unavailable Unavailable JOSUE JOSELINE, JOSELINE Unavailable Unavailable JOSELINE ERIKA, JOSELINE ERIKA Unavailable Unavailable SOTO MOL, SOTO MOL Unavailable Unavailable TRUE LILLY, TRUE LILLY Unavailable Unavailable [facility] Unavailable Unavailable HOSPITALS, [facility], Unavailable [facility]available [facility] Un[facility] [place] [facility], [facility] PLUMMER TEREZA, PLUMMER TEREZA Unavailable Unavailable [facility] Unavailable Unavailable [facility], [facility] SUTHERLAND MAN, SUTHERLAND MAN Unavailable Unavailable XENOS JACY, XENOS JACY Unavailable Unavailable ZAGUROVSKAYA MAR, Unavailable Unavailable ZAGUROVSKAYA MAR Purpose Continuity of Care Document - 07-13-2013 through 2016 Problems Code Diagnosis DOS Provider Status E1165 TYPE 2 02-19-2017 [facility] DIAB[facility]ES [facility] MELLITUS SOLUTIONS WITH IN HYPERGLYCEM IA E782 MIXED 02-19-2017 [facility] HYPERLIPIDE HEALTH MARIA TERESA SOLUTIONS IN N400 BENIGN 02-19-2017 [facility] PROSTATIC HEALTH HYPERPLASIA SOLUTIONS WO LW URIN IN TRACT SX D485 NEOPLASM OF 02-08-2017 [facility] UNCERTAIN HEALTH BEHAVIOR OF SOLUTIONS SKIN IN J301 ALLERGIC 02-08-2017 [facility] RHINITIS HEALTH DUE TO SOLUTIONS POLLEN IN L84 CORNS AND 02-08-2017 [facility] CALLOSITIES HEALTH SOLUTIONS IN C760 MALIGNANT 01-13-2017 INF[facility]ION NEOPLASM OF PARTNERS OF HEAD FACE [place] AND NECK C159 MALIGNANT 11-20-2016 [facility] NEOPLASM OF HOME ESOPHAGUS MEDICAL UNSPECIFIED EQUIPME J449 CHRONIC 11-20-2016 [facility] OBSTRUCTIVE HOME PULMONARY MEDICAL DISEASE UNS EQUIPME C321 MALIGNANT 11-19-2016 [facility] NEOPLASM OF [facility]ARE H[facility]PITALS SUPRAGLOTTI S E1141 TYPE 2 11-06-2016 [facility] DIABETES HEALTH MELLITUS SOLUTIONS W/DIAB IN MONONEUROPA THY C140 MALIGNANT 09-03-2016 [facility] NEOPLASM OF [facility]OS[facility] PHARYNX INC UNSPECIFIED E119 TYPE 2 09-03-2016 [facility] DIABETES [facility] MELLITUS INC WITHOUT COMPLICATIO NS J189 PNEUMONIA 09-03-2016 [place] UNSPECIFIED MEDICAL ORGANISM IMAGING ASS J432 CENTRILOBUL 09-03-2016 [place] MEDICAL EMPHYSEMA IMAGING ASS R05 COUGH 09-03-2016 [facility] R0902 HYPOXEMIA 09-03-2016 [facility] [id number] POISONING 09-03-2016 [facility] UNS [facility] NARCOTICS INC ACCIDENTAL INIT ENC Z931 GASTROSTOMY 09-03-2016 [facility] STATUS [facility] INC C101 MALIGNANT 09-02-2016 [place] [facility] SERV ANTERIOR [facility]ATION SURFACE EPIGLOTTIS C7989 SECONDARY 09-02-2016 [place] [facility] MAL[place] SERV NEOPLASM FOUNDATION OT SPECIFIED SITES I10 ESSENTIAL 09-02-2016 [facility] N R404 TRANSIENT 09-02-2016 [facility] AWARENESS R413 OTHER 09-02-2016 [place] AMNESIA MEDICAL IMAGING ASS R4182 ALTERED 09-02-2016 [facility] MENTAL PHYSICIANS, STATUS PLLC UNSPECIFIED Z08 ENCOUNTER 09-02-2016 [place] [facility] F/U EXAM SERV AFTER CMPL FOUNDATION TX MALIG NEOPLASM Z8619 PERSONAL 09-02-2016 [place] [facility] H[place] OTH SERV INFECTIOUS FOUNDATION & PARASITIC DZ Z923 PERSONAL 09-02-2016 [place] [facility] [place] OF SERV IRRADIATION FOUNDATION P65654 WRIST DROP 08-19-2016 [facility] PHYS Q17014 PAIN IN 08-19-2016 [facility] RIGHT WRIST HEALTH SOLUTIONS IN U35474 PAIN IN 08-19-2016 [facility] [place] [facility] FOREARM R04327 PAIN IN 08-19-2016 [facility] RIGHT HAND HEALTH SOLUTIONS IN M19715 PAIN IN 08-12-2016 [facility] RIGHT ARM [facility] INC R202 PARESTHESIA 08-12-2016 [facility] OF SKIN [facility] INC I9589 OTHER 07-28-2016 [facility] HYPOTENSION HEALTH SOLUTIONS IN F85590 FLAIL JOINT 07-28-2016 [facility] RIGHT HEALTH WRIST SOLUTIONS IN D210 SAIRA 07-21-2016 [facility] NEOPLASM HEALTH CNCTV OTH SOLUTIONS SOFT TISS IN HEAD FACE NECK R000 TACHYCARDIA 07-21-2016 [facility] UNSPECIFIED SOLUTIONS IN G68871 NON-PRSS 07-08-2016 [facility]OS[facility]ITALS UNS FOOT UNS SEVERITY I348 OTHER 07-04-2016 [place] [facility] NONRHEUMATI SERV C MITRAL FOUNDATION VALVE DISORDERS I350 NONRHEUMATI 07-04-2016 [place] [facility] C AORTIC SERV VALVE FOUNDATION STENOSIS I4891 UNSPECIFIED 07-04-2016 [place] [facility] ATRIAL SERV FIBRILLATIO FOUNDATION N A45143 FACIAL 07-04-2016 [place] [facility] WEAKNESS SERV [facility] R531 WEAKNESS 07-04-2016 [place] [facility] E1169 TYPE 2 07-03-2016 [facility] DIABETES PHYSICIANS, MELLITUS PLLC W/OTH SPEC COMPLICATIO N E669 OBESITY 07-03-2016 [facility] UNSPECIFIED PHYSICIANS, PLLC G459 TRANSIENT 07-03-2016 [place] [facility] CEREBRAL SERV ISCHEMIC FOUNDATION ATTACK UNSPECIFIED G8191 HEMIPLEGIA 07-03-2016 [facility] P RIGHT DOMINANT SIDE I440 ATRIOVENTRI 07-03-2016 [place] [facility] CULAR BLOCK SERV FIRST FOUND[facility] DEGREE I498 OTHER 07-03-2016 [place] [facility] SPECIFIED SERV CARDIAC FOUNDATION ARRHYTHMIAS I639 CEREBRAL 07-03-2016 [facility] INFARCTION PHYSICIANS, UNSPECIFIED PLLC I6523 OCCLUSION & 07-03-2016 [place] [facility] STENOSIS SERV BILATERAL FOUNDATION CAROTID ARTERIES J984 OTHER 07-03-2016 [place] [facility] DISORDERS SERV OF LUNG FOUNDATION R9431 ABNORMAL 07-03-2016 [place] [facility] [place]LECTROCARD SERV IOGRAM FOUNDATION Z720 TOBACCO USE 07-03-2016 [facility] P Z7401 BED 07-03-2016 [facility] CONFINEMENT [place] STATUS Z794 CIVIL RIGHTS INVESTIGATOR 07-03-2016 [place] CURRENT USE MEM [facility] OF INSULIN INC T31146 NON-PRSS 06-16-2016 [facility] P FT W/UNS SEVERITY R42 DIZZINESS 06-16-2016 [facility] AND PHYSICIANS, GIDDINESS PLLC R5383 OTHER 06-16-2016 [facility] FATIGUE PHYSICIANS, PLLC G8929 OTHER 05-27-2016 [facility] O05401 OTHER 05-27-2016 [place] [facility] SECONDARY SERV CATARACT FOUNDATION LEFT EYE Z961 PRESENCE OF 05-27-2016 [place] [facility] INTRAOCULAR [facility]OUND[facility] LENS E1100 TYPE 2 DM 05-18-2016 [facility] W/HYPEROSMO PHYSICIANS LARITY W/O GROUP NKHC I739 PERIPHERAL 05-18-2016 [facility] VASCULAR PHYSICIANS DISEASE GROUP UNSPECIFIED R221 LOCALIZED 04-22-2016 [facility] MASS AND LUMP NECK R599 ENLARGED 04-22-2016 [place] [facility] LYMPH NODES SERV FOUNDATION UNSPECIFIED E99125 TYPE 2 04-08-2016 [place] [facility] DIABETES SERV MELLITUS FOUNDATION WITH OTHER SKIN ULCER R490 DYSPHONIA 04-08-2016 [facility] C770 SEC & UNS 04-03-2016 [facility] LYMPH NODES HOSPITALS HEAD FACE & NECK J3489 OTHER 04-03-2016 [place] [facility] SPECIFIED SERV DISORDERS FOUNDATION NOSE AND NASAL SINUSES R1310 DYSPHAGIA 04-03-2016 [facility] R918 OTHER 04-03-2016 [place] [facility] NONSPECIFIC SERV ABNORMAL FOUNDATION FINDING OF LUNG FIELD M6281 MUSCLE 03-16-2016 [facility] GENERALIZED AGENCY N23780 OTHER ACUTE 03-16-2016 [facility] OSTEOMYELIT AGENCY IS RIGHT ANKLE AND FOOT R269 UNSPECIFIED 03-16-2016 [facility] ABNORMALITI AGENCY ES OF GAIT AND MOBILITY A72930F UNSPECIFIED 03-16-2016 [facility] W[facility] HEALTH RIGHT FOOT AGENCY SUBSEQUENT ENC Z431 ENCOUNTER 03-16-2016 [facility] ATTENTION AGENCY TO GASTROSTOMY Z4800 ENCOUNTER 03-16-2016 [facility] CHANGE/[facility] RINKU NONSURG AGENCY WOUND DRESSING M1990 UNSPECIFIED 03-12-2016 [facility] OSTEOARTHRI TIS UNSPECIFIED SITE P97807 ACQUIRED 03-12-2016 [place] [facility] ABSENCE OF SERV OTHER RIGHT FOUNDATION TOES A419 SEPSIS 02-19-2016 [facility] UNSPECIFIED PRACTITIONE ORGANISM R GR C4442 SQUAMOUS 02-19-2016 [facility]SE CELL PRACTITIONE CARCINOMA R GR OF SKIN OF SCALP & NECK I17699 TYPE 2 02-19-2016 [facility] N[facility]SE DIABETES PRACTITIONE MELLITUS R GR WITH FOOT ULCER E41783 OTHER 02-18-2016 [place] [facility] CHRONIC SERV OSTEOMYELIT FOUNDATION IS RIGHT ANKLE AND FOOT R609 EDEMA 02-18-2016 [place] [facility] UNSPECIFIED SERV FOUNDATION R7989 OTHER SPEC 02-18-2016 [place] [facility] ABNORMAL SERV FINDINGS [facility] BLOOD CHEMISTRY E1140 TYPE 2 DM 02-14-2016 [facility] DIABETIC NEUROPATHY UNSPECIFIED M2011 HALLUX 02-14-2016 [place] [facility] VALGUS SERV ACQUIRED FOUNDATION RIGHT FOOT M609 MYOSITIS 02-14-2016 [place] [facility] UNSPECIFIED SERV FOUNDATION M7989 OTHER 02-14-2016 [place] [facility] SPECIFIED SERV SOFT TISSUE FOUNDATION DISORDERS R600 LOCALIZED 02-14-2016 [place] [facility] EDEMA SERV [facility]OUNDATION I214 NON-ST 02-13-2016 [place] [facility] E[place]ATION SERV MYOCARDIAL FOUNDATION INFARCTION I2510 [facility] [place] 02-13-2016 [place] [facility] CORONARY SERV 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 I959 HYPOTENSION 02-13-2016 [facility] JAMES UNSPECIFIED T53781 PERSONAL 02-13-2016 [place] [facility] HISTORY SERV OTHER FOUNDATION MALIGNANT NEOPLASM SKIN A21042 PERSONAL 02-13-2016 [place] [facility] OF SERV PULMONARY FOUNDATION EMBOLISM E1122 TYPE 2 01-24-2016 [facility] DIABETES PHYSICIANS MELLITUS GROUP W/DIAB CHRON KIDNEY DZ I129 HYPERTENSIV 01-24-2016 [facility] E CKD PHYSICIANS W/STAGE 1-4 GROUP CKD OR UNS CKD N189 CHRONIC 01-24-2016 [facility] KIDNEY PHYSICIANS DISEASE GROUP UNSPECIFIED D649 ANEMIA 01-23-2016 [facility] UNSPECIFIED PHYSICIANS, PLLC M1711 UNILATERAL 01-23-2016 [place] PRIMARY [facility]ICAL OSTEOARTHRI IMAGING ASS TIS RIGHT KNEE M57443 PAIN IN 01-23-2016 [place] UNSPECIFIED MEDICAL HIP IMAGING ASS K87668 PAIN IN 01-23-2016 [place] RIGHT KNEE MEDICAL IMAGING ASS N289 DISORDER OF 01-23-2016 [facility] KIDNEY AND PHYSICIANS, URETER PLLC UNSPECIFIED R079 CHEST PAIN 01-23-2016 [place] UNSPECIFIED MEDICAL IMAGING ASS R51 HEADACHE 01-23-2016 [place] [facility] ASS T4847EL UNSPECIFIED 01-23-2016 [place] INJURY OF MEDICAL HEAD IMAGING ASS INITIAL ENCOUNTER Q9433UM UNSPECIFIED 01-23-2016 [place] INJURY OF MEDICAL PELVIS IMAGING ASS INITIAL ENCOUNTER Z90532E LACERATION 01-23-2016 [place] W/O FOREIGN MEDICAL BODY RT IMAGING ASS KNEE INITIAL ENC T148 OTHER 01-23-2016 [facility] INJURY OF PHYSICIANS, UNSPECIFIED PLLC BODY REGION Z9181 HISTORY OF 01-23-2016 [facility] INC A4189 OTHER 01-03-2016 [place] [facility] SPECIFIED SERV SEPSIS FOUNDATION I6782 CEREBRAL 01-03-2016 [place] [facility] ISCHEMIA SERV FOUNDATION J341 CYST AND 01-03-2016 [place] [facility] MUCOCELE OF SERV NOSE AND FOUNDATION NASAL SINUS L598 OTH SPEC 01-03-2016 [place] [facility] D/O THE SERV SKIN & SUBQ FOUNDATION TISS RELATED TO RAD L8990 PRESSURE 01-03-2016 [facility] UNS AMBULANCE SITE UNSPECIFIED STAGE F21207 SPONDYLOSIS 01-03-2016 [place] [facility] W/O SERV MYELOPATH/R FOUNDATION ADICULOPATH Y LUMB RGN M869 OSTEOMYELIT 01-03-2016 [place] [facility] IS SERV UNSPECIFIED FOUNDATION N179 ACUTE 01-03-2016 [place] [facility] [place]ID[place] SERV FAILURE FOUNDATION UNSPECIFIED B05OVVR UNSPECIFIED 01-03-2016 [place] [facility] FALL SERV INITIAL FOUNDATION ENCOUNTER Z043 ENCOUNTER 01-03-2016 [place] [facility] EXAM & SERV OBSERVATION FOUNDATION FOLLOW OTH ACCIDENT I82C12 ACUTE 01-02-2016 [place] [facility] EMBOLISM & SERV THROMB LT FOUNDATION INTERNAL JUGULAR VEIN M6282 RHABDOMYOLY 01-02-2016 [facility] SIS N170 ACUTE RENAL 01-02-2016 [place] [facility] FAILURE [place] WITH FOUNDATION TUBULAR NECROSIS T31596 CELLULITIS 12-30-2015 [place] [facility] OF RIGHT SERV LOWER LIMB FOUNDATION D696 THROMBOCYTO 12-24-2015 [place] [facility] PENIA SERV UNSPECIFIED FOUNDATION J690 PNEUMONITIS 12-24-2015 [place] [facility] DUE TO SERV INHALATION FOUNDATION OF FOOD AND VOMIT R63JKXD RADIATION 12-23-2015 [place] [facility] SICKNESS SERV UNSPECIFIED FOUNDATION INITIAL ENCOUNTER E876 HYPOKALEMIA 12-20-2015 [place] [facility] R509 FEVER 12-16-2015 [place] [facility] UNSPECIFIED SERV FOUNDATION K121 OTHER FORMS 12-15-2015 [place] [facility] OF SERV STOMATITIS FOUNDATION R339 RETENTION 12-15-2015 [place] [facility] OF URINE SERV UNSPECIFIED FOUNDATION I64808 NON-PRSS 12-10-2015 [place] [facility] CHR ULCR SERV UNS PART RT FOUNDATION LOW LEG UNS SEV I96 GANGRENE 12-03-2015 [place] [facility] NOT [place] ELSEWHERE FOUNDATION CLASSIFIED M868X6 OTHER 12-03-2015 [place] [facility] OSTEOMYELIT SERV IS LOWER FOUNDATION LEG C4492 SQUAMOUS 12-02-2015 [place] [facility] CELL [place] CARCINOMA FOUNDATION OF SKIN, UNSPECIFIED K82162 ACUTE 12-02-2015 [place] [facility] EMBOLISM & SERV THROMBOSIS FOUNDATION DEEP VEINS LT UP EXT K5909 OTHER 12-02-2015 [place] [facility] CONSTIPATIO SERV N FOUNDATION I56715 PERSONAL 12-02-2015 [place] [facility] H[place] OF SERV NICOTINE FOUNDATION DEPENDENCE Z466 ENCOUNTER 12-01-2015 [place] [facility] [place] SERV ADJUSTMENT FOUNDATION URINARY DEVICE N44449 PAIN IN 11-30-2015 [place] [facility] LEFT SERV FOREARM FOUNDATION M868X7 OTHER 11-28-2015 [place] [facility] OSTEOMYELIT SERV IS ANKLE FOUNDATION AND FOOT R740 NONSPECIFIC 11-21-2015 [place] [facility] E[place] SERV LEVELS FOUNDATION TRANSAMINAS E & LDH I444 LEFT 11-20-2015 [place] [facility] ANTERIOR SERV FASCICULAR FOUNDATION BLOCK G8918 OTHER ACUTE 11-19-2015 [place] [facility] [place] POSTPROCEDU FOUNDATION RAL PAIN L929 GRANULOMATO 11-19-2015 [place] [facility] THE SKIN & HOSPI SUBQ TISS UNS V17532 ELEVATED 11-18-2015 [place] [facility] WHITE BLOOD SERV CELL COUNT FOUNDATION UNSPECIFIED G92 TOXIC 11-18-2015 [facility] THY B27078 PRIMARY 11-18-2015 [place] [facility] OSTEOARTHRI SERV TIS RIGHT FOUNDATION ANKLE AND FOOT R6520 SEVERE 11-18-2015 [place] [facility] SEPSIS SERV WITHOUT FOUNDATION SEPTIC SHOCK R748 ABNORMAL 11-18-2015 [place] [facility] LEVELS OF SERV OTHER SERUM FOUNDATION ENZYMES W183PED TRAUMATIC 11-18-2015 [facility] S EMPHYSEMA INITIAL ENCNTR Z510 ENCOUNTER 11-15-2015 [facility] ANTINEOPLAS TIC RADIATION THERAPY C320 MALIGNANT 11-12-2015 NEETA JAMES NEOPLASM OF GLOTTIS M545 LOW BACK 11-12-2015 NEET[facility] JAMES PAIN G893 NEOPLASM 11-07-2015 [facility] NURSE RELATED PRACTITIONE PAIN ACUTE R GR CHRONIC Z809 FAMILY 11-07-2015 [facility] NURSE HISTORY OF PRACTITIONE MALIGNANT R GR NEOPLASM UNSPECIFIED D020 CARCINOMA 10-22-2015 [place] [facility] IN SITU OF SERV LARYNX FOUNDATION D0008 CARCINOMA 10-08-2015 [facility] S[facility] OF [facility] PHARYNX C100 MALIGNANT 10-02-2015 [place] NEOPLASM OF [facility] J387 OTHER 10-02-2015 [place] DISEASES OF PHYSCIAN LARYNX PRACTICE LL R590 LOCALIZED 10-02-2015 [place] ENLARGED PHYSCIAN LYMPH NODES PRACTICE LL T85221 PRESSURE 09-24-2015 PROGR[facility] ULCER OF PODIATRY OTHER SITE STAGE 3 B351 TINEA 07-25-2015 PROGRESSIVE UNGUIUM PODIATRY I890 LYMPHEDEMA 07-25-2015 PRO[facility] NOT PODIATRY ELSEWHERE CLASSIFIED T59262 SPONTANEOUS 07-25-2015 PROGRESSIVE RUPTURE PODIATRY FLEXOR TENDONS RT ANKLE FOOT W04500 PAIN IN 07-25-2015 [facility] RIGHT FOOT PODIATRY E51811 PAIN IN 07-25-2015 [facility] RIGHT TOES PODIATRY E69132 PAIN IN 07-25-2015 [facility] LEFT TOES PODIATRY K24299 FURUNCLE 07-16-2015 [facility] RIGHT HAND M7731 CALCANEAL 07-04-2015 [facility] SPUR RIGHT MEDICAL FOOT IMAGING ASS R07939 NON-PRSS 05-29-2015 [facility] ULCR TISSUE OTH PART RT MANAGEMENT FOOT NECROS MUSC G629 POLYNEUROPA 05-24-2015 NEETA RAMIREZ THY UNSPECIFIED N3281 OVERACTIVE 05-02-2015 [facility] [place] [facility] P[facility] N3941 URGE 05-02-2015 [facility] INCONTINENC [place] E ADULT & PED E18017 POSTPROCEDU 05-02-2015 [facility] RAL [place] URETHRAL ADULT & PED STRICTURE MALE MEATAL R3914 FEELING OF 05-02-2015 [facility] INCOMPLETE [place] BLADDER ADULT & PED EMPTYING N401 BENIGN 04-11-2015 [facility] PROSTATIC [place] HYPERPLASIA ADULT & PED LW URINARY TRACT SX G4700 INSOMNIA 04-08-2015 NEETA RAMIREZ UNSPECIFIED G5790 UNSPECIFIED 04-03-2015 [facility] MONONEUROPA THY UNS LOWER LIMB 63210 DIAB W/O 03-13-2015 [facility] COMP TYPE II/UNS NOT STATED UNCNTRL 3572 POLYNEUROPA 03-13-2015 [facility] THY IN DIABETES 6827 CELLULITIS 03-13-2015 [facility] AND ABSCESS OF FOOT EXCEPT TOES 56502 ULCER OF 03-13-2015 [facility] OTHER PART OF FOOT 17093 SECONDARY 02-25-2015 [facility] DM W/OTH TISSUE SPEC MANAGEMENT MANIFEST NOT UNCONTROL 4011 ESSENTIAL 01-31-2015 NEETA RAMIREZ HYPERTENSIO N, BENIGN 7242 LUMBAGO 01-31-2015 NEETA RAMIREZ 01897 INSOMNIA 01-31-2015 NEETA RAMIREZ UNSPECIFIED 07477 HORDEOLUM 01-01-2015 NEET[facility] RAMIREZ EXTERNUM 6826 CELLULITIS 10-09-2014 NEETA RAMIREZ AND ABSCESS OF LEG EXCEPT FOOT 65406 HYPERTROPHY 09-14-2014 NEETA RAMIREZ PROSTATE W/O UR OBST & OTH LUTS 30719 UNSPECIFIED 08-20-2014 NEETA RAMIREZ ARTHROPATHY SITE UNSPECIFIED 7264 ENTHESOPATH 05-25-2014 NEETA RAMIREZ Y OF WRIST AND CARPUS 1101 DERMATOPHYT 05-08-2014 [facility] OSIS OF NAIL 7295 PAIN IN 04-27-2014 NEETAREZA RAMIREZ SOFT TISSUES OF LIMB 4779 ALLERGIC 03-30-2014 NEETA JAMES RHINITIS CAUSE UNSPECIFIED 2724 OTHER AND 03-08-2014 [place] UNSPECIFIED [facility] HYPERLIPIDE MARIA TERESA 4619 ACUTE 07-24-2013 PRIMARY SINUSITIS, [place] [id number] OTHER AND 07-13-2013 [place] [facility] FORMS OF [employer] SENILE CATARACT Allergies, Adverse Reactions, Alerts Clinical Alert Notifications Alert Diabetes: no A1C in the last 6 months Diabetes: no eye exam in the last 365 days Diabetes: no influenza vaccine in the last 365 days Medications Na ND Rx Da Fi Fi Am Da Di Ph RX Ph St me C No te ll ll ou ys ag ar # ys at rm s nt no ma ic us Or Da si cy ia de te s n re d LE 00 09 10 20 20 00 CA Ac VO 78 -1 -0 .0 00 RL ti TH 15 2- 6- 00 00 IS ve YR 18 20 20 78 LE OX 11 17 17 [address] Chon UG 50 S MC G TA BL ET NA 68 09 09 60 30 00 CA Ac IN 46 -0 -2 .0 00 RL ti OX 20 5- 9- 00 00 IS ve EN 19 20 20 78 LE 00 17 17 02 50 5 95 0 UG MG S TA BL ET ME 23 09 09 60 30 00 CA Ac TF 15 -0 -2 .0 00 RL ti OR 50 5- 9- 00 00 IS ve NJ 10 20 20 78 LE N 21 17 [address] L UG 50 S 0 MG TA BL ET AL 59 09 09 90 30 00 CA Ac IN 76 -0 -2 .0 00 RL ti AZ 23 5- 9- 00 00 IS ve OL 72 20 20 78 LE AM 10 17 17 [address] UG MG S TA BL ET GA 69 09 09 90 30 00 CA Ac BA 09 -0 -2 .0 00 RL ti PE 70 2- 9- 00 00 IS ve NT 81 20 20 77 LE IN 21 17 [address] 60 UG 0 S MG TA BL ET TA 57 09 09 60 30 00 CA Ac MS 23 -0 -2 .0 00 RL ti UL 70 2- 9- 00 00 IS ve OS 01 20 20 77 LE IN 40 17 [address] DAVIS UG L S 0. 4 MG CA PS UL E LO 45 08 09 30 30 00 CA Ac RA 80 -2 -2 .0 00 RL ti TA 20 8- 2- 00 00 IS ve DI 65 20 20 77 LE NE 08 17 [address] 10 UG S MG TA BL ET LE 55 08 09 10 10 00 CA Ac VO 11 -2 -2 .0 00 RL ti FL 10 8- 2- 00 00 IS ve OX 28 20 20 77 LE AC 05 17 17 98 IN 0 95 UG 50 S 0 MG TA BL ET AM 16 08 09 30 30 00 CA Ac IT 72 -3 -2 .0 00 RL ti RI 90 0- 2- 00 00 IS ve PT 17 20 20 77 LE YL 60 17 [address] Chon BACH HC S L 15 0 MG TA B CH 00 08 09 53 28 00 CA Ac AN 06 -2 -2 .0 00 RL ti TI 90 9- 2- 00 00 IS ve X 47 [address] 10 17 [address] THORNTON UG NG S MO NT H KYM X TA 57 08 09 36 18 00 CA Ac MS 23 -1 -0 .0 00 RL ti UL 70 6- 8- 00 00 IS ve OS 01 20 20 77 LE IN 40 17 17 75 5 98 HC UG L S 0. 4 MG CA PS UL E AL 59 08 09 90 30 00 CA Ac IN 76 -0 -0 .0 00 RL ti AZ 23 8- 1- 00 00 IS ve OL 72 20 20 77 LE AM 10 17 17 89 1 3 03 UG MG S TA BL ET [place] 00 08 09 [address] 60 -0 -0 0. 00 RL ti AT 31 8- 1- 00 00 IS ve IN 48 20 20 0 77 LE 15 17 17 [address] 0, UG 00 S 0 UN IT /M L AVENDANO SP CE 00 08 09 40 10 00 CA Ac PH 09 -0 -0 .0 00 RL ti AL 33 8- 1- 00 00 IS ve EX 14 20 20 77 LE IN 70 17 [address] 50 UG 0 S MG CA PS UL E GA 68 08 09 90 30 00 CA Ac BA 46 -0 -0 .0 00 RL ti PE 20 4- 1- 00 00 IS ve NT 12 20 20 77 LE IN 60 17 [address] 60 UG 0 S MG TA BL ET AM 16 08 09 30 30 00 CA Ac IT 72 -0 -0 .0 00 RL ti RI 90 4- 1- 00 00 IS ve PT 17 20 20 77 LE YL 60 17 17 [address] Chon B[facility] HC S L 15 0 MG TA B TA 00 07 08 60 30 00 CA Ac MS 78 -2 -1 .0 00 RL ti UL 12 0- 8- 00 00 IS ve OS 07 20 20 77 LE IN 60 17 [address] DAVIS UG L S 0. 4 MG CA PS UL E GL 70 07 08 46 30 00 IN Ac UC 07 -1 21 05 FU ti ER 40 4- 1- 5. 00 SI ve NA 53 20 20 00 10 ON 53 17 17 0 61 1. 5 26 PA 5 RT CA NE L RS LI QU OF ID LE XI NG TO N GA 68 07 08 90 30 00 CA Ac BA 46 -0 -1 .0 00 RL ti PE 20 6- 1- 00 00 IS ve NT 12 20 20 77 LE IN 60 17 17 34 5 26 60 UG 0 S MG TA BL ET AM 16 07 08 30 30 00 CA Ac IT 72 -0 -1 .0 00 RL ti RI 90 6- 1- 00 00 IS ve PT 17 20 20 77 LE YL 60 17 17 [address] Chon BACH HC S L 15 0 MG TA B AL 59 07 08 90 30 00 CA Ac IN 76 -1 -0 .0 00 RL ti AZ 23 0- 4- 00 00 IS ve OL 72 20 20 77 LE AM 10 17 17 75 1 3 83 UG MG S TA BL ET CE 16 07 08 30 30 00 CA Ac TI 57 -1 -0 .0 00 RL ti RI 10 0- 4- 00 00 IS ve ZI 40 20 20 77 LE NE 25 17 17 75 0 84 HC UG L S 10 MG TA BL ET [place] 00 07 08 15 [address] 60 -1 -0 0. 00 RL ti AT 31 0- 4- 00 00 IS ve IN 48 20 20 0 77 LE 15 17 17 75 10 8 85 0, UG 00 S 0 UN IT /M L AVENDANO SP TA 00 06 07 60 30 00 CA Ac MS 78 -1 -1 .0 00 RL ti UL 12 6- 4- 00 00 IS ve OS 07 20 20 76 LE IN 60 17 [address] DAVIS UG L S 0. 4 MG CA PS UL E OX 65 06 07 56 14 00 ME Ac YC 16 -0 -0 .0 00 DI ti OD 20 8- 7- 00 06 CI ve ON 20 20 20 73 NE -A 75 17 [address] TA OP [place] NO PH PH AR EN MA CY 7. 5- 32 5 AL 59 06 07 90 30 00 CA Ac IN 76 -0 -0 .0 00 RL ti AZ 23 9- 7- 00 00 IS ve OL 72 20 20 77 LE AM 10 17 17 61 1 3 72 UG MG S TA BL ET GA 68 06 07 90 30 00 CA Ac BA 46 -0 -0 .0 00 RL ti PE 20 8- 7- 00 00 IS ve NT 12 20 20 77 LE IN 60 17 17 34 5 26 60 UG 0 S MG TA BL ET AM 16 06 07 30 30 00 CA Ac IT 72 -0 -0 .0 00 RL ti RI 90 8- 7- 00 00 IS ve PT 17 20 20 77 LE YL 60 17 17 [address] Chon B[facility] HC S L 15 0 MG TA B GA 68 05 06 90 30 00 CA Ac BA 46 -1 -0 .0 00 RL ti PE 20 1- 9- 00 00 IS ve NT 12 20 20 77 LE IN 60 17 17 34 5 26 60 UG 0 S MG TA BL ET AM 00 05 06 30 30 00 CA Ac IT 78 -1 -0 .0 00 RL ti RI 11 2- 9- 00 00 IS ve PT 49 20 20 77 LE YL 10 17 17 [address] Chon B[facility] HC S L 15 0 MG TA B CI 16 05 06 20 10 00 CA Ac IN 57 -1 -0 .0 00 RL ti OF 10 2- 9- 00 00 IS ve LO 41 20 20 77 LE XA 25 17 [address] Valderrama UG HC S L 50 0 MG TA B CE 16 05 06 14 14 00 CA Ac TI 57 -1 -0 .0 00 RL ti RI 10 2- 9- 00 00 IS ve ZI 40 20 20 77 LE NE 25 17 17 48 0 04 HC UG L S 10 MG TA BL ET AL 59 05 06 90 30 00 CA Ac IN 76 -1 -0 .0 00 RL ti AZ 23 2- 9- 00 00 IS ve OL 72 20 20 77 LE AM 10 17 17 48 1 3 09 UG MG S TA BL ET AM 16 05 05 30 30 00 CA Ac IT 72 -0 -2 .0 00 RL ti RI 90 1- 6- 00 00 IS ve PT 17 20 20 76 LE YL 50 17 17 [address] Chon BACH HC S L 10 0 MG TA B AL 00 04 05 30 30 00 ME Ac LE 90 -2 -2 .0 00 DI ti RG 45 8- 6- 00 06 CI ve Y 72 20 20 73 NE 10 88 17 [address] MG OP TA PH BL AR ET MA CY TA 00 04 05 60 30 00 CA Ac MS 78 -2 -1 .0 00 RL ti UL 12 5- 9- 00 00 IS ve OS 07 20 20 76 LE IN 60 17 17 47 1 97 HC UG L S 0. 4 MG CA PS UL E GL 70 04 05 46 30 00 IN Ac UC 2 -1 21 05 FU ti ER 40 0- 9- 5. 00 SI ve NA 53 20 20 00 10 ON 53 17 17 0 61 1. 5 26 PA 5 RT CA NE L RS LI QU OF ID LE XI NG TO N AL 59 04 05 90 30 00 CA Ac IN 76 -1 -1 .0 00 RL ti AZ 23 4- 2- 00 00 IS ve OL 72 20 20 77 LE AM 10 17 17 34 1 3 24 UG MG S TA BL ET BD 08 04 04 10 30 00 CA Ac 29 -0 -2 0. 00 RL ti UL 03 4- 8- 00 00 IS ve TR 20 20 20 0 76 LE A- 10 17 17 49 FI 9 74 NE UG S PE N ND L 8M MX 31 G BA 00 04 04 15 30 00 CA Ac SA 00 -0 -2 .0 00 RL ti GL 27 4- 8- 00 00 IS ve AR 71 20 20 77 LE 55 17 17 [address] 0 UG UN S IT /M L KW IK PE N AM 16 04 04 30 30 00 CA Ac IT 72 -0 -2 .0 00 RL ti RI 90 4- 8- 00 00 IS ve PT 17 20 20 76 LE YL 50 17 [address] Givens UG HC S L 10 0 MG TA B GA 68 04 04 90 30 00 CA Ac BA 46 -0 -2 .0 00 RL ti PE 20 4- 8- 00 00 IS ve NT 12 20 20 76 LE IN 60 17 [address] 60 UG 0 S MG TA BL ET CL 00 03 04 20 5 00 CA Ac IN 71 -2 -2 .0 00 RL ti DA 35 5- 1- 00 00 IS ve MY 25 20 20 77 LE CI 60 17 [address] HC UG L S 30 0 MG CA PS UL E LE 55 03 04 3. 3 00 CA Ac VO 11 -2 -2 00 00 RL ti FL 10 5- 1- 0 00 IS ve OX 28 20 20 77 LE AC 13 17 [address] UG 75 S 0 MG TA BL ET [place] 51 03 04 30 [address] 67 -2 -1 0. 00 RL ti AT 24 2- 4- 00 00 IS ve IN 11 20 20 0 77 LE 70 17 17 [address] 0, UG 00 S 0 UN IT /M L AVENDANO SP OX 47 03 04 84 21 00 CA Ac YC 78 -2 -1 .0 00 RL ti OD 10 2- 4- 00 00 IS ve ON 22 20 20 77 LE -A 90 17 17 22 CE 5 45 TA UG NJ S NO PH EN 7. 5- 32 5 AL 59 03 04 90 30 00 CA Ac IN 76 -1 -1 .0 00 RL ti AZ 23 7- 4- 00 00 IS ve OL 72 20 20 77 LE AM 10 17 17 [address] UG MG S TA BL ET TA 00 02 03 60 30 00 CA Ac MS 78 -2 -2 .0 00 RL ti UL 12 8- 4- 00 00 IS ve OS 07 20 20 76 LE IN 60 17 17 47 1 97 HC UG L S 0. 4 MG CA PS UL E LA 00 02 03 15 30 00 CA Ac NT 08 -2 -2 .0 00 RL ti US 82 8- 4- 00 00 IS ve 21 20 20 76 LE SO 90 17 [address] UG AR S 10 0 UN IT /M L GA 68 02 03 90 30 00 CA Ac BA 46 -2 -2 .0 00 RL ti PE 20 8- 4- 00 00 IS ve NT 12 20 20 76 LE IN 60 17 [address] 60 UG 0 S MG TA BL ET AM 16 02 03 30 30 00 CA Ac IT 72 -2 -2 .0 00 RL ti RI 90 8- 4- 00 00 IS ve PT 17 20 20 76 LE YL 50 17 [address] hCon UG HC S L 10 0 MG TA B GL 70 02 03 46 30 00 IN Ac UC 07 -2 -2 21 05 FU ti ER 40 2- 4- 5. 00 SI ve NA 53 20 20 00 10 ON 53 17 17 0 61 1. 5 26 PA 5 RT CA NE L RS LI QU OF ID LE XI NG TO N AL 59 02 03 90 30 00 CA Ac IN 76 -2 -1 .0 00 RL ti AZ 23 0- 7- 00 00 IS ve OL 72 20 20 77 LE AM 10 17 17 [address] UG MG S TA BL ET AM 65 02 03 20 10 00 CA Ac OX 86 -2 -1 0. 00 RL ti IC 20 0- 7- 00 00 IS ve IL 07 20 20 0 77 LE LI 10 17 17 06 N 1 05 40 UG 0 S MG /5 ML AVENDANO SP AM 16 02 02 30 30 00 CA Ac IT 72 -0 -2 .0 00 RL ti RI 90 1- 4- 00 00 IS ve PT 17 20 20 76 LE YL 50 17 17 [address] Givens UG HC S L 10 0 MG TA B TA 00 01 02 60 30 00 CA Ac MS 78 -3 -2 .0 00 RL ti UL 12 1- 4- 00 00 IS ve OS 07 20 20 76 LE IN 60 17 17 47 1 97 HC UG L S 0. 4 MG CA PS UL E GA 68 01 02 90 30 00 CA Ac BA 46 -3 -2 .0 00 RL ti PE 20 1- 4- 00 00 IS ve NT 12 20 20 76 LE IN 60 17 17 48 5 02 60 UG 0 S MG TA BL ET LA 00 01 02 15 30 00 CA Ac NT 08 -3 -2 .0 00 RL ti US 82 1- 4- 00 00 IS ve 21 20 20 76 LE SO 90 17 17 [address] UG AR S 10 0 UN IT /M L AL 59 01 02 90 30 00 CA Ac IN 76 -2 -1 .0 00 RL ti AZ 23 0- 7- 00 00 IS ve OL 72 20 20 76 LE AM 10 17 17 90 1 3 11 UG MG S TA BL ET AM 00 01 02 20 10 00 ME Ac OX 14 -1 -1 .0 00 DI ti IC 39 7- 0- 00 06 CI ve IL 95 20 20 72 NE LI 10 17 [address] 87 OP 5 MG PH AR TA MA BL CY ET IN 00 01 02 12 2 00 ME Ac OM 60 -1 -1 0. 00 DI ti ET 31 7- 0- 00 06 CI ve CELESTIN 58 20 20 0 72 NE ZI 65 17 17 [address] -D OP M SY PH RU AR P MA CY AM 00 01 02 18 18 00 CA Ac IT 37 -1 -0 .0 00 RL ti RI 82 1- 3- 00 00 IS ve PT 68 20 20 76 LE YL 50 17 [address] Chon BACH HC S L 10 0 MG TA B GL 70 12 01 46 30 00 IN Ac UC 07 -2 -2 21 05 FU ti ER 40 7- 7- 5. 00 SI ve NA 53 20 20 00 10 ON 53 16 17 0 61 1. 5 26 PA 5 RT CA NE L RS LI QU OF ID LE XI NG TO N TA 00 12 01 60 30 00 CA Ac MS 78 -3 -2 .0 00 RL ti UL 12 0- 7- 00 00 IS ve OS 07 20 20 76 LE IN 60 16 17 47 1 97 HC UG L S 0. 4 MG CA PS UL E GA 68 12 01 90 30 00 CA Ac BA 46 -3 -2 .0 00 RL ti PE 20 0- 7- 00 00 IS ve NT 12 20 20 76 LE IN 60 16 [address] 60 UG 0 S MG TA BL ET LA 00 12 01 15 30 00 CA Ac NT 08 -3 -2 .0 00 RL ti US 82 0- 7- 00 00 IS ve 21 20 20 76 LE SO 90 16 17 [address] UG AR S 10 0 UN IT /M L AM 65 12 01 20 10 00 CA Ac OX 86 -2 -2 .0 00 RL ti IC 20 3- 0- 00 00 IS ve IL 01 20 20 76 LE LI 50 16 17 [address] 87 UG 5 S MG TA BL ET IN 00 12 01 11 6 00 CA Ac OM 60 -2 -2 8. 00 RL ti ET 31 3- 0- 00 00 IS ve CELESTIN 58 20 20 0 76 LE ZI 65 16 17 [address] -Mary Lou UG M S SY RU P AL 59 12 01 90 30 00 CA Ac IN 76 -2 -2 .0 00 RL ti AZ 23 3- 0- 00 00 IS ve OL 72 20 20 76 LE AM 10 16 17 77 1 3 99 UG MG S TA BL ET OX 68 12 01 12 30 00 ME Ac YC 38 -1 -1 0. 00 DI ti OD 20 5- 3- 00 06 CI ve ON 79 20 20 0 71 NE E 40 16 [address] L OP 10 PH MG AR MA TA CY BL ET AM 00 12 01 30 30 00 CA Ac IT 37 -1 -0 .0 00 RL ti RI 82 2- 9- 00 00 IS ve PT 68 20 20 75 LE YL 50 16 [address] Givens UG HC S L 10 0 MG TA B Results Labs Lab Lab Date Result Refere Interp Status Commen Order Detail nces retati t Range on Hemoglobin.gastrointestinal [Presence] in Stool (03-18-2017 17:30) Hemoglo NEGATIV NEG complet bin.gas 017 E ed trointe 17:30 stinal [Presen ce] in Stool --1st specime n Differential panel, method unspecified - (03-18-2017 17:05) LYMPH 6 % 10% - Low complet 017 50% ed 17:05 Platele NORMAL complet ts 017 ed [Presen 17:05 ce] in Blood by Light microsc opy Prealb SerPl-mCnc (11-19-2016 15:56) Prealb 20.0 20-41 complet SerPl-m 017 mg/dL ed Cnc 15:56 TSH SerPl DL<=0.005 mIU/L-aCnc (11-19-2016 15:56) TSH 5.83 0.4-4.2 complet SerPl 017 uIU/mL ed DL<=0.0 15:56 05 mIU/L-a Cnc T4 Free SerPl-mCnc (09-02-2016 11:39) T4 Free 1.0 0.8-1.7 complet 017 ng/dL ed SerPl-m 11:39 Cnc TSH SerPl DL<=0.005 mIU/L-aCnc (09-02-2016 11:39) TSH 3.67 0.4-4.2 complet SerPl 017 uIU/mL ed DL<=0.0 11:39 05 mIU/L-a Cnc T3 SerPl-mCnc (09-02-2016 11:39) T3 82 87-187 complet SerPl-m 017 ng/dL ed Cnc 11:39 Procedures Procedure DOS Code Location Performer Comment COLLECTIO [id number] [facility] [place] N VENOUS 7 HEALTH BLOOD SOLUTIONS VENIPUNCT IN URE TOBACCO 1000F SANDY [place]IO USE 7 HEALTH ASSESSED SOLUTIONS IN CURRENT 1034F [place] [place] TOBACCO 7 HEALTH SMOKER SOLUTIONS IN BODY MASS 3008F [facility] INDEX 7 HEALTH DOCUMENTE SOLUTIONS D IN HOME [place]; S9341 INFUSION INFUSION ENTERAL 7 PARTNERS PARTNERS NUTRITION OF OF [place]; [employer]; [id number] INFUSION INFUSION ENTERAL 7 [employer] NUTRITION OF OF [place]; [employer]; [id number] INFUSION INFUSION ENTERAL 7 [employer]NERS PARTNERS NUTRITION OF OF [place]; [place]; [id number] INFUSION INFUSION ENTERAL 7 [employer]NERS PARTNERS NUTRITION OF OF [place]; [place]; [id number] INFUSION INFUSION ENTERAL 7 [employer]NERS PARTNERS NUTRITION OF OF [place]; [place]; [id number] INFUSION INFUSION ENTERAL 7 [employer]NERS PARTNERS NUTRITION OF OF [place]; [place]; [id number] INFUSION INFUSION ENTERAL 7 [employer]NERS PARTNERS NUTRITION OF OF [place]; [place]; [id number] INFUSION INFUSION ENTERAL 7 [employer]NERS PARTNERS NUTRITION OF OF [place]; [place]; [id number] INFUSION INFUSION ENTERAL 7 [employer] PARTNERS NUTRITION OF OF [place]; [employer]; [id number] INFUSION INFUSION ENTERAL 7 [employer] PARTNERS NUTRITION OF OF [place]; [place]; [id number] INFUSION INFUSION ENTERAL 7 [employer]NERS PARTNERS NUTRITION OF OF [place]; [id number] INFUSION INFUSION ENTERAL 7 [employer]ERS PARTNERS NUTRITION OF OF [place]; [place]; S9341 INFUSION INFUSION ENTERAL 7 [employer]NERS PARTNERS NUTRITION OF OF [place]; [place] [place]; [id number] INFUSION INFUSION ENTERAL 7 [employer]ERS PARTNERS NUTRITION OF OF [place]; S934 INFUSION INFUSION ENTERAL 7 [employer]ERS PARTNERS NUTRITION OF OF [place]; [employer]; S934 INFUSION INFUSION ENTERAL 7 [employer]ERS PARTNERS NUTRITION OF OF [place]; [employer]; S934 INFUSION INFUSION ENTERAL 7 [employer]ERS PARTNERS NUTRITION OF OF [place]; [place] [place]; S9341 INFUSION INFUSION ENTERAL 7 [employer] PARTNERS NUTRITION OF OF [place]; [place] [place]; S934 INFUSION INFUSION ENTERAL 7 [employer]ERS PARTNERS NUTRITION OF OF [place]; [place] [place]; S9341 INFUSION INFUSION ENTERAL 7 [employer]ERS PARTNERS NUTRITION OF OF [place]; [place] [place]; S934 INFUSION INFUSION ENTERAL 7 [employer]NERS NUTRITION OF OF [place]; [place] [place]; S934 INFUSION INFUSION ENTERAL 7 [employer] PARTNERS NUTRITION OF OF [place]; [place] [place]; S934 INFUSION INFUSION ENTERAL 7 [employer] PARTNERS NUTRITION OF OF [place]; [place] [place]; S934 INFUSION INFUSION ENTERAL 7 [employer]NERS NUTRITION OF OF [place]; [place] [place]; S934 INFUSION INFUSION ENTERAL 7 [employer]ERS PARTNERS NUTRITION OF OF [place]; [place] [place]; S9341 INFUSION INFUSION ENTERAL 7 [employer]ERS PARTNERS NUTRITION OF OF [place]; [place]; S9341 INFUSION INFUSION ENTERAL 7 PARTNERS PARTNERS NUTRITION OF OF [place]; [place]; S9341 INFUSION INFUSION ENTERAL 7 [employer]ERS PARTNERS NUTRITION OF OF [place]; [place] [place]; S9341 INFUSION INFUSION ENTERAL 7 [employer]ERS PARTNERS NUTRITION OF OF [place]; [place] [place]; S9341 INFUSION INFUSION ENTERAL 7 [employer] NUTRITION OF OF [place]; [facility] HOS BED E0260 [facility] SEMI-ELEC 7 HOME HOME W/ANY MEDICAL MEDICAL TYPE SIDE EQUIPME EQUIPME RAIL W/[place] [address] [place] THYROID 7 HEALTHCAR HEALTHCAR STIMULATI E E NG [facility] HORMONE TSH RENAL 79745 [place] FUNCTION 7 HEALTHCAR [facility]ALTHCAR PANEL E [facility] COLLECTIO 34825 [place] N VENOUS 7 HEALTHCAR HEALTHCAR BLOOD E E VENIPUNCT [facility] URE PREALBUMI 58062 [place] N 7 HEALTHCAR HEALTHCAR E E [facility] BLOOD 83013 [facility] COUNT 7 HEALTHCAR HEALTHCAR COMPLETE E E AUTO&AUTO [facility] DIFRNTL WBC FOOT 2027F S[place]Y [place] EXAMINATI 7 HEALTH ON SOLUTIONS PERFORMED IN HOME [place]; S9341 INFUSION INFUSION ENTERAL 7 [employer] NUTRITION OF OF [place]; [place]; S9341 INFUSION INFUSION ENTERAL 7 [employer]ERS PARTNERS NUTRITION OF OF [place]; [place]; S9341 INFUSION INFUSION ENTERAL 7 [employer]ERS PARTNERS NUTRITION OF OF [place]; [place]; S9341 INFUSION INFUSION ENTERAL 7 [employer]NERS PARTNERS NUTRITION OF OF [place] [place]; S9341 INFUSION INFUSION ENTERAL 7 PARTNERS PARTNERS NUTRITION OF OF [place]; [place]; S9341 INFUSION INFUSION ENTERAL 7 [employer]NERS PARTNERS NUTRITION OF OF [place]; [place]; S9341 INFUSION INFUSION ENTERAL 7 PARTNERS PARTNERS NUTRITION OF OF [place]; [place] [place]; S9341 INFUSION INFUSION ENTERAL 7 [employer]NERS PARTNERS NUTRITION OF OF [place]; [place]; S9341 INFUSION INFUSION ENTERAL 7 PARTNERS PARTNERS NUTRITION OF OF [place]; [place] [place]; S9341 INFUSION INFUSION ENTERAL 7 [employer]NERS PARTNERS NUTRITION OF OF [place] [place]; S9341 INFUSION INFUSION ENTERAL 7 [employer] PARTNERS NUTRITION OF OF [place]; [place] [place]; S9341 INFUSION INFUSION ENTERAL 7 [employer] PARTNERS NUTRITION OF OF [place]; [place] [place]; S9341 INFUSION INFUSION ENTERAL 7 [employer] PARTNERS NUTRITION OF OF [place]; [place] [place]; S9341 INFUSION INFUSION ENTERAL 7 [employer]ERS NUTRITION OF OF [place]; [employer] [facility] BED E0260 [facility] SHEPHERD SEMI-ELEC 7 HOME HOME W/ANY MEDICAL MEDICAL TYPE SIDE EQUIPME EQUIPME RAIL W/MATTRSS [place]; S9341 INFUSION INFUSION ENTERAL 7 [employer]ERS NUTRITION OF OF [place]; [place] [place]; S9341 INFUSION INFUSION ENTERAL 7 PARTNERS PARTNERS NUTRITION OF OF [place]; [place] [place]; S9341 INFUSION INFUSION ENTERAL 7 PARTNERS PARTNERS NUTRITION OF OF [place]; [place] [place]; S9341 INFUSION INFUSION ENTERAL 7 [employer]ERS PARTNERS NUTRITION OF OF [place]; [place] [place]; S9341 INFUSION INFUSION ENTERAL 7 [employer]ERS PARTNERS NUTRITION OF OF [place]; [place] [place]; S9341 INFUSION INFUSION ENTERAL 7 [employer] PARTNERS NUTRITION OF OF [place]; [place] [place]; S9341 INFUSION INFUSION ENTERAL 7 [employer]NERS PARTNERS NUTRITION OF OF [place]; [place] [place]; S9341 INFUSION INFUSION ENTERAL 7 [employer]NERS PARTNERS NUTRITION OF OF [place]; [place] [place]; S9341 INFUSION INFUSION ENTERAL 7 [employer] PARTNERS NUTRITION OF OF [place]; [place] [place]; S9341 INFUSION INFUSION ENTERAL 7 [employer]ERS PARTNERS NUTRITION OF OF [place]; [place] [place]; S9341 INFUSION INFUSION ENTERAL 7 [employer]NERS PARTNERS NUTRITION OF OF [place]; [place] [place]; S9341 INFUSION INFUSION ENTERAL 7 [employer]NERS PARTNERS NUTRITION OF OF [place]; [place] [place]; S9341 INFUSION INFUSION ENTERAL 7 [employer]NERS PARTNERS NUTRITION OF OF [place]; [place] [place]; S9341 INFUSION INFUSION ENTERAL 7 [employer]ERS NUTRITION OF OF [place]; [employer] [facility] BED E0260 [facility] [place] SEMI-ELEC 7 HOME HOME W/ANY MEDICAL MEDICAL TYPE SIDE EQUIPME EQUIPME RAIL W/MATTRSS [place]; S9341 INFUSION INFUSION ENTERAL 7 [employer] NUTRITION OF OF [place]; [place] [place]; S9341 INFUSION INFUSION ENTERAL 7 [employer]ERS NUTRITION OF OF [place]; [place] [place]; S9341 INFUSION INFUSION ENTERAL 7 [employer] PART[employer]ERS NUTRITION OF OF [place]; [place] [place]; S9341 INFUSION INFUSION ENTERAL 7 [employer] PARTNERS NUTRITION OF OF [place]; [place] [place]; S9341 INFUSION INFUSION ENTERAL 7 [employer] PART[employer]ERS NUTRITION OF OF [place]; [place] [place]; S9341 INFUSION INFUSION ENTERAL 7 [employer] PART[employer]ERS NUTRITION OF OF [place]; [place] [place]; S9341 INFUSION INFUSION ENTERAL 7 [employer]ERS NUTRITION OF OF [place]; [place]; S9341 INFUSION INFUSION ENTERAL 7 [employer] NUTRITION OF OF [place]; [employer] FINAL RPT [id number] [place] [address]/MRI 7 MEDICAL CHEST/NCK IMAGING /U/S NO ASS THR NOD<1.[address] THORAX [id number] [employer] ADAM 7 MEDICAL W/CONTRAS IMAGING T ASS MATERIAL FINAL G9638 MIHAI ADAM REPORTS 7 MEDICAL W/O DOC IMAGING 1/MORE ASS DOSE REDUCTION TECH FINAL G9638 MIHAI ADAM REPORTS 7 MEDICAL W/O DOC IMAGING 1/MORE ASS DOSE REDUCTION TECH GROUND A0425 [facility] MILEAGE 7 [facility] STATUTE EMS EMS MILE AMBULANCE A0429 [facility] SERVICE 7 [facility] EMS TRANSPORT COLLECTIO 27659 [place] N VENOUS 7 HEALTHCAR HEALTHCAR BLOOD E E VENIPUNCT [facility] URE COMPREHEN 01785 [place] SIVE 7 HEALTHCAR HEALTHCAR METABOLIC E E PANEL [facility] BLOOD 09192 [place] COUNT 7 HEALTHCAR HEALTHCAR COMPLETE E E AUTO&AUTO [facility] DIFRNTL WBC CRITICAL 69304 [facility] 7 PHYSICIAN ILL/INJUR S, [facility] ED PATIENT INIT 30-[address] [place] [address] MIHAI ADAM HEAD/BRAI 7 MEDICAL N W/O IMAGING CONTRAST ASS MATERIAL RADIOLOGI 10597 MIHAI ADAM C 7 MEDICAL EXAMINATI IMAGING ON [place] [address] [place] TRIIODOTH 7 HEALTHCAR HEALTHCAR YRONINE E E T3 TOTAL [facility] [place] [place] [address] [facility] THYROID 7 HEALTHCAR HEALTHCAR STIMULATI E E NG [facility] [place] [address] [facility] FREE 7 HEALTHCAR HEALTHCAR THYROXINE E E [facility] [place]; S9341 INFUSION INFUSION ENTERAL 7 [employer] NUTRITION OF OF [place]; [facility] [place]; S9341 INFUSION INFUSION ENTERAL 7 [employer] NUTRITION OF OF [place]; [facility] [place]; S9341 INFUSION INFUSION ENTERAL 7 [employer] NUTRITION OF OF [place]; [facility] [place]; S9341 INFUSION INFUSION ENTERAL 7 [employer] NUTRITION OF OF [place]; [facility] [place]; S9341 INFUSION INFUSION ENTERAL 7 [employer] NUTRITION OF OF [place]; [facility] [place]; S9341 INFUSION INFUSION ENTERAL 7 [employer] NUTRITION OF OF [place]; [facility] [place]; S9341 INFUSION INFUSION ENTERAL 7 [employer] NUTRITION OF OF [place]; [facility] [place]; S9341 INFUSION INFUSION ENTERAL 7 [employer] NUTRITION OF OF [place]; [facility] [place]; S9341 INFUSION INFUSION ENTERAL 7 [employer] NUTRITION OF OF [place]; [facility] [place]; S9341 INFUSION INFUSION ENTERAL 7 [employer] NUTRITION OF OF [place]; [facility] [place]; S9341 INFUSION INFUSION ENTERAL 7 [employer] NUTRITION OF OF [place]; [facility] [place]; S9341 INFUSION INFUSION ENTERAL 7 [employer] NUTRITION OF OF [place]; [facility] [place]; S9341 INFUSION INFUSION ENTERAL 7 [employer]ERS NUTRITION OF OF [place]; [facility] [place]; S9341 INFUSION INFUSION ENTERAL 7 [employer] NUTRITION OF OF [place]; [facility] HOS BED E0260 [facility]PH[facility]D SEMI-ELEC 7 HOME HOME W/ANY MEDICAL MEDICAL TYPE SIDE EQUIPME EQUIPME RAIL W/MATTRSS HOME [place]; S9341 INFUSION INFUSION ENTERAL 7 [employer] NUTRITION OF OF [place]; [facility] RADEX 98006 [facility] [place] [facility] HAND 7 RADIOLOGY MINIMUM 3 VIEWS RADEX 46677 [facility] [place] [facility] FOREARM 2 7 RADIOLOGY VIEWS RADEX 77573 [facility] [place] [facility] WRIST 7 RADIOLOGY COMPLETE MINIMUM 3 VIEWS GROUND [id number] [facility]BULANCE A[address] [facility] EMS TRANSPORT HOME [place]; S9341 INFUSION INFUSION ENTERAL 7 [employer] NUTRITION OF OF [place]; [facility] [place]; S9341 INFUSION INFUSION ENTERAL 7 [employer] NUTRITION OF OF [place]; [facility] [place]; S9341 INFUSION INFUSION ENTERAL 7 [employer] NUTRITION OF OF [place]; [facility] [place]; S9341 INFUSION INFUSION ENTERAL 7 [employer] NUTRITION OF OF [place]; [facility] [place]; S9341 INFUSION INFUSION ENTERAL 7 [employer] NUTRITION OF OF [place]; [facility] THERAPEUT 87849 MARY HERNANDEZ IC PX 1/> 7 [facility] AREAS INC INC EACH 15 MIN EXERCISES MANUAL 02093 MARY HERNANDEZ THERAPY 7 MEM H[facility] TQS 1/> INC INC REGIONS EACH 15 MINUTES HOS BED E0260 CORA SHEPHERD SEMI-ELEC 7 HOME HOME W/ANY MEDICAL MEDICAL TYPE SIDE EQUIPME EQUIPME RAIL W/MATTRSS DUP-SCAN 26962 [facility] LXTR [address] [facility] ART/ARTL E E [facility] COMPL BI STUDY HOME [place]; S9341 INFUSION INFUSION ENTERAL 7 PARTNERS PARTNERS NUTRITION OF OF [place]; [facility] [place] HOME [place]; S9341 INFUSION JUSTICE ENTERAL 7 PARTNERS NUTRITION OF [place]; [facility] HOME [place]; S9341 INFUSION INFUSION ENTERAL 7 PARTNERS PARTNERS NUTRITION OF OF [place]; [place] [place] HOME [place]; S9341 INFUSION INFUSION ENTERAL 7 PARTNERS PARTNERS NUTRITION OF OF [place]; [employer] TA[employer]OR ECHO 27243 NARENDRA SHEPHERD [facility] R-T 7 MEDICAL 2D SERV W/WOM-MOD FOUNDATIO E COMPL N SPEC&COLR D OBSERVATI 24307 NARENDRA CRAWLEY ON/INPATI 7 MEDICAL ENT SERV HOSPITAL FOUNDATIO CARE 55 N MINUTES CRITICAL 96214 JOHN NOONAN 7 PHYSICIAN JR ILL/INJUR S, PLLC ED PATIENT INIT 30-74 MIN BLOOD 49198 MARY HERNANDEZ COUNT 7 [facility] COMPLETE INC INC AUTO&[place] [address] MARY HERNANDEZ TROPONIN 7 [facility]OSP QUANTITAT INC INC JOJO GLUC BLD 57644 MARY HERNANDEZ GLUC MNTR 7 [facility]OSP DEV INC INC CLEARED FDA SPEC HOME USE ECG 89854 MARY LINARESSON ROUTINE 7 [facility] W/LEAST P 12 LDS I&R ONLY COMPREHEN 41936 MARY HERNANDEZ SIVE 7 [facility]OSP METABOLIC INC INC PANEL FINAL G9638 MIHAI LOPEZ REPORTS 7 MEDICAL W/O DOC IMAGING 1/MORE ASS DOSE REDUCTION TECH [place]; S9341 INFUSION INFUSION ENTERAL 7 PARTNERS PARTNERS NUTRITION OF OF [place]; [employer] TA[employer] AMB A0431 AIR AIR SERVICE 7 METHODS METHODS CONVNTION [facility] AIR SRVC TRANSP[place] [address] [place] [address] [place] ANGIOGRAP 7 MEDICAL HY HEAD SERV W/CONTRAS FOUNDAT[place] T/[place] [address] [place] ANGIOGRAP 7 MEDICAL HY NECK SERV W/CONTRAS FOUNDATIO T/NONCONT N RAST CREATINE 59437 MARY HERNANDEZ KINASE MB 7 [facility]OSP FRACTION INC INC ONLY ECG 93781 MARY HERNANDEZ ROUTINE 7 [facility] ECG INC INC W/LEAST 12 LDS TRCG ONLY W/O I&R THER 73033 MARY HERNANDEZ PROPH/DX 7 [facility]OSP NJX IV INC INC PUSH SINGLE/1S T SBST/DRUG THROMBOPL 37037 MARY HERNANDEZ ASTIN 7 [facility] TIME INC INC PARTIAL PLASMA/WH OLE BLOOD CREATINE 88530 MARY HERNANDEZ KINASE 7 [facility] TOTAL INC INC PROTHROMB 03461 MARY HERNANDEZ IN TIME 7 [facility] INC INC RADIOLOGI 12874 [place] JESSICA C 7 MEDICAL EXAMINATI IMAGING [place] [address] MIHAI LORENZANACHER HEAD/BRAI 7 MEDICAL N W/O IMAGING CONTRAST ASS MATERIAL HOME [place]; S9341 INFUSION INFUSION ENTERAL 7 [employer]ERS PARTNERS NUTRITION OF OF [place]; [place] [place]; S9341 INFUSION INFUSION ENTERAL 7 PARTNERS PARTNERS NUTRITION OF OF [place]; [place] [place]; S9341 INFUSION INFUSION ENTERAL 7 PARTNERS PARTNERS NUTRITION OF OF [place]; [facility] [place]; S9341 INFUSION INFUSION ENTERAL 7 PARTNERS PARTNERS NUTRITION OF OF [place]; [facility] [place] HOME [place]; S9341 INFUSION INFUSION ENTERAL 7 PARTNERS PARTNERS NUTRITION OF OF [place]; [facility] HOS BED E0260 CORA SHEPHERD SEMI-ELEC 7 HOME HOME W/ANY MEDICAL MEDICAL TYPE SIDE EQUIPME EQUIPME RAIL W/[place] [address] MIHAI ADAM HEAD/BRAI 7 MEDICAL N W/O IMAGING CONTRAST ASS MATERIAL RADIOLOGI 79199 [place] ADAM C 7 MEDICAL EXAMINATI IMAGING ON CHEST ASS SINGLE VIEW FRONTAL ECG 35080 JOE SWEENEY ROUTINE 7 PHYSICIAN U ECG S, PLLC W/LEAST 12 LDS I&R ONLY HOME [place]; S9341 INFUSION INFUSION ENTERAL 6 PARTNERS PARTNERS NUTRITION OF OF [place]; [facility] [place]; S9341 INFUSION INFUSION ENTERAL 6 PARTNERS PARTNERS NUTRITION OF OF [place]; [facility] [place]; S9341 INFUSION INFUSION ENTERAL 6 PARTNERS PARTNERS NUTRITION OF OF [place]; [facility] [place]; S9341 INFUSION INFUSION ENTERAL 6 PARTNERS PARTNERS NUTRITION OF OF [place] [address] [place] THYROID 6 HEALTHCAR HEALTHCAR STIMULATI E E [facility] [place] TSH POST-TRINITY 61566 NARENDRA SUAREZ RACT 6 MEDICAL JR LASER SERV SURGERY FOUNDATIO N COMPREHEN 89273 [place] SIVE [address] [facility] METABOLIC E E PANEL [facility] BLOOD 64959 [place] COUNT [address] [facility] COMPLETE E E AUTO&AUTO [facility] DIFRNTL WBC HOS BED E0260 CORA SHEPHERD SEMI-ELEC 6 HOME HOME W/ANY MEDICAL MEDICAL TYPE SIDE EQUIPME EQUIPME RAIL W/MATTRSS HOME [place]; S9341 INFUSION INFUSION ENTERAL 6 PARTNERS PARTNERS NUTRITION OF OF [place]; [place]; S9341 INFUSION INFUSION ENTERAL 6 PARTNERS PARTNERS NUTRITION OF OF [place]; [employer] TA[employer] DRUG TST G0477 MARY HERNANDEZ PRESUMP;C 6 [facility] PBL BEING [place] O[place] [address] MAYR HERNANDEZ FREE 6 [facility] [place] [address] MARY HERNANDEZ THYROID 6 [facility] STIMULATI INC INC NG HORMONE TSH ALBUMIN 41754 MARY HERNANDEZ URINE 6 [facility] MICROALBU INC INC MIN QUANTIATI VE BLOOD 30248 MARY HERNANDEZ COUNT 6 [facility] COMPLETE INC INC AUTO&AUTO DIFRNTL WBC HEMOGLOBI 46911 MARY HERNANDEZ N 6 [facility] GLYCOSYLA INC INC JESSE A1C COMPREHEN 52397 MARY HERNANDEZ SIVE 6 [facility] METABOLIC INC INC PANEL LIPID 78422 MARY HERNANDEZ PANEL 6 [facility]OS[facility] INC INC HOME [place]; S9341 INFUSION INFUSION ENTERAL 6 PARTNERS PARTNERS NUTRITION OF [place]; [place]; S9341 INFUSION INFUSION ENTERAL 6 PARTNERS PARTNERS NUTRITION OF OF [place]; [place]; S9341 INFUSION INFUSION ENTERAL 6 PARTNERS PARTNERS NUTRITION OF OF [place]; [place]; S9341 INFUSION INFUSION ENTERAL 6 PARTNERS PARTNERS NUTRITION OF OF [place]; [place]; S9341 INFUSION INFUSION ENTERAL 6 PARTNERS PARTNERS NUTRITION OF OF [place]; [place] [place]; S934 INFUSION INFUSION ENTERAL 6 PARTNERS PARTNERS NUTRITION OF OF [place]; [place] [place]; S9341 INFUSION INFUSION ENTERAL 6 PARTNERS PARTNERS NUTRITION OF OF [place]; [place]; S9341 INFUSION INFUSION ENTERAL 6 PARTNERS PARTNERS NUTRITION OF OF [place]; [place]; S9341 INFUSION INFUSION ENTERAL 6 PARTNERS PARTNERS NUTRITION OF OF [place]; [facility] [place]; S934 INFUSION INFUSION ENTERAL 6 PARTNERS PARTNERS NUTRITION OF OF [place]; [facility] [place] HOME [place]; S934 INFUSION INFUSION ENTERAL 6 PARTNERS PARTNERS NUTRITION OF OF [place]; [facility] [place]; S934 INFUSION INFUSION ENTERAL 6 PARTNERS PARTNERS NUTRITION OF [place]; [facility] [place]; S934 INFUSION INFUSION ENTERAL 6 PARTNERS PARTNERS NUTRITION OF OF [place]; [place] [place]; S934 INFUSION INFUSION ENTERAL 6 PARTNERS PARTNERS NUTRITION OF OF [place]; [facility] [place]; S9341 INFUSION INFUSION ENTERAL 6 PARTNERS PARTNERS NUTRITION OF OF [place]; [place]; S9341 INFUSION INFUSION ENTERAL 6 PARTNERS PARTNERS NUTRITION OF OF [place]; [place] [place]; S9341 INFUSION INFUSION ENTERAL 6 PARTNERS PARTNERS NUTRITION OF [place]; [facility] [place]; S9341 INFUSION INFUSION ENTERAL 6 PARTNERS PARTNERS NUTRITION OF OF [place]; [facility] [place]; S9341 INFUSION INFUSION ENTERAL 6 PARTNERS PARTNERS NUTRITION OF OF [place]; [facility] [place]; S9341 INFUSION INFUSION ENTERAL 6 PARTNERS PARTNERS NUTRITION OF OF [place]; [facility] [place]; S9341 INFUSION INFUSION ENTERAL 6 PARTNERS PARTNERS NUTRITION OF OF [place]; [facility] [place] HOME [place]; S9341 INFUSION INFUSION ENTERAL 6 PARTNERS PARTNERS NUTRITION OF OF [place]; [facility] [place]; S9341 INFUSION INFUSION ENTERAL 6 PARTNERS PARTNERS NUTRITION OF OF [place]; [facility] [place] HOME [place]; S9341 INFUSION INFUSION ENTERAL 6 PARTNERS PARTNERS NUTRITION OF OF [place]; [facility] [place]; S9341 INFUSION INFUSION ENTERAL 6 PARTNERS PARTNERS NUTRITION OF OF [place]; [facility] [place] HOME [place]; S9341 INFUSION INFUSION ENTERAL 6 PARTNERS PARTNERS NUTRITION OF OF [place]; [facility] HOS BED E0260 CORA SHEPHERD SEMI-ELEC 6 HOME HOME W/ANY MEDICAL MEDICAL TYPE SIDE EQUIPME EQUIPME RAIL W/MATTRSS FLUORODEO A9552 [facility] XYGLUCOSE 6 Y Y F-18 FDG [facility] DX UP TO 45 MCI PET 27762 NARENDRA YANG IMAGING [address] [place] [address] CT SERV ATTENUATI FOUNDATIO ON SKULL N BASE [place]; S9341 INFUSION INFUSION ENTERAL 6 PARTNERS PARTNERS NUTRITION OF [place]; [facility] [place] HOME [place]; S9341 INFUSION INFUSION ENTERAL 6 PARTNERS PARTNERS NUTRITION OF OF [place]; [facility] [place]; S9341 INFUSION INFUSION ENTERAL 6 PARTNERS PARTNERS NUTRITION OF [place]; [facility] [place] HOME [place]; S9341 INFUSION INFUSION ENTERAL 6 PARTNERS PARTNERS NUTRITION OF [place]; [facility] [place] HOME [place]; S9341 INFUSION INFUSION ENTERAL 6 PARTNERS PARTNERS NUTRITION OF OF [place]; [facility] [place] HOME [place]; S9341 INFUSION INFUSION ENTERAL 6 PARTNERS PARTNERS NUTRITION OF OF [place]; [facility] [place]; S9341 INFUSION INFUSION ENTERAL 6 PARTNERS PARTNERS NUTRITION OF OF [place]; [facility] [place] HOME [place]; S934 INFUSION INFUSION ENTERAL 6 PARTNERS PARTNERS NUTRITION OF OF [place]; [facility] [place] HOME [place]; S9341 INFUSION INFUSION ENTERAL 6 PARTNERS PARTNERS NUTRITION OF [place]; [place] [place]; S9341 INFUSION INFUSION ENTERAL 6 PARTNERS PARTNERS NUTRITION OF [place]; [facility] [place]; S9341 INFUSION INFUSION ENTERAL 6 PARTNERS PARTNERS NUTRITION OF [place]; [facility] [place]; S934 INFUSION INFUSION ENTERAL 6 PARTNERS PARTNERS NUTRITION OF OF [place]; [facility] HOME [place]; S9341 INFUSION INFUSION ENTERAL 6 PARTNERS PARTNERS NUTRITION OF OF [place]; [facility]; S934 INFUSION INFUSION ENTERAL 6 PARTNERS PARTNERS NUTRITION OF OF [place]; [employer] TA[employer]OR COLLECTIO 35962 [facility] VENOUS 6 Y Y [facility] HOME [place]; S9341 INFUSION INFUSION ENTERAL 6 PARTNERS PARTNERS NUTRITION OF OF [place]; [facility] [place]; S9341 INFUSION INFUSION ENTERAL 6 PARTNERS PARTNERS NUTRITION OF OF [place]; [facility] HOME [place]; S9341 INFUSION INFUSION ENTERAL 6 PARTNERS PARTNERS NUTRITION OF OF [place]; [facility]; S9341 INFUSION INFUSION ENTERAL 6 PARTNERS PARTNERS NUTRITION OF [place]; [facility]; S9341 INFUSION INFUSION ENTERAL 6 [employer]ERS PARTNERS NUTRITION OF OF [place]; [employer] TA[employer] VOICE G9172 [place] FUNCT 6 HEALTHCAR HEALTHCAR LIMIT E E PROJ GOAL [facility] STATUS [place] EPISODE LARYNGOSC 99563 [facility] OPY 6 HEALTHCAR HEALTHCAR FLX/RGD E E TELESCOPI [facility] C W/STROBOS COPY LOCM Q9967 [facility] [phone] 6 HEALTHCAR HEALTHCAR MG/ML E E [facility]INE [facility] CONCEN[facility] TION PER ML VOICE G9173 [place] FUNCT 6 HEALTHCAR HEALTHCAR LIMIT E E DISCHARGE [facility] STATUS D/C FROM [place] VOICE G9171 [facility] FUNCT 6 HEALTHCAR HEALTHCAR LIMIT E E CURR [facility] STATUS [place] EPISODE OUTSET CREATININ 86306 [facility] E BLOOD 6 HEALTHCAR HEALTHCAR E E [facility] THORAX [address]0890 [place] MASTERSON 6 MEDICAL W/CONTRAS SERV T FOUNDATIO MATERIAL N BEHAVIORA 45900 [facility] L & 6 HEALTHCAR HEALTHCAR QUALIT E E ANALYSIS [facility] VOICE AND RESONANCE CT SOFT 73016 [place] GRAC[place] KWA TISSUE 6 MEDICAL NECK SERV W/CONTRAS FOUNDATIO T N MATERIAL HOME TX; S934 INFUSION INFUSION ENTERAL 6 PART[employer]ERS PARTNERS NUTRITION OF OF [place]; [facility] [place]; S9341 INFUSION INFUSION ENTERAL 6 PARTNERS PARTNERS NUTRITION OF OF [place]; [facility] [place] HOME [place]; S9341 INFUSION INFUSION ENTERAL 6 PARTNERS PARTNERS NUTRITION OF OF [place]; [facility] [place] HOME [place]; S9341 INFUSION INFUSION ENTERAL 6 PARTNERS PARTNERS NUTRITION OF OF [place]; [facility] [place] HOME [place]; S9341 INFUSION INFUSION ENTERAL 6 PARTNERS PARTNERS NUTRITION OF OF [place]; [facility] [place]; S9341 INFUSION INFUSION ENTERAL 6 [employer]NERS PARTNERS NUTRITION OF OF [place]; [facility]; S9341 INFUSION INFUSION ENTERAL 6 PARTNERS PARTNERS NUTRITION OF OF [place]; [facility] [place]; S9341 INFUSION INFUSION ENTERAL 6 PARTNERS PARTNERS NUTRITION OF OF [place]; [facility] HOME [place]; S9341 INFUSION INFUSION ENTERAL 6 [employer]NERS PARTNERS NUTRITION OF OF [place]; [facility] HOS BED E0260 [facility]A SHEPHERD SEMI-ELEC 6 HOME HOME W/ANY MEDICAL MEDICAL TYPE SIDE EQUIPME EQUIPME RAIL W/MATTRSS DIRECT G0299 ABHINAV PEREZ RN 6 HOME HOME HOME HEALTH [facility]/ AGENCY AGENCY SPICE SET EA 15 MIN DEBRIDEME 84631 [facility] NT OPEN 6 Y Y WOUND 20 [facility] SQ CM/< DIRECT G0299 ABHINAV PEREZ RN 6 HOME HOME HOME HEALTH [facility]ALTH/ AGENCY AGENCY SPICE SET EA 15 MIN DIRECT G0299 ABHINAV PEREZ RN 6 HOME HOME HOME HEALTH [facility]/ AGENCY AGENCY SPICE SET EA 15 MIN DIRECT G0299 ABHINAV PEREZ RN 6 HOME HOME HOME [facility]/ AGENCY AGENCY SPICE SET EA 15 MIN HOME [place]; S9341 INFUSION INFUSION ENTERAL 6 [employer] PART[employer]ERS NUTRITION OF OF [place]; [place] [place] HOME [place]; S9341 INFUSION INFUSION ENTERAL 6 [employer]ERS PARTNERS NUTRITION OF OF [place]; [facility] [place] HOME [place]; S9341 INFUSION INFUSION ENTERAL 6 PARTNERS PARTNERS NUTRITION OF OF [place]; [facility] [place] HOME [place]; S9341 INFUSION INFUSION ENTERAL 6 PARTNERS PARTNERS NUTRITION OF OF [place]; [facility] [place] HOME [place]; S9341 INFUSION INFUSION ENTERAL 6 [employer]ERS PARTNERS NUTRITION OF OF [place]; [employer] TA[employer] DIRECT G0299 ABHINAV PEREZ RN 6 HOME HOME HOME HEALTH [facility]/ AGENCY AGENCY SPICE SET EA 15 MIN HOME [place]; S9341 INFUSION INFUSION ENTERAL 6 [employer]ERS PARTNERS NUTRITION OF OF [place]; [place] [place] HOME [place]; S9341 INFUSION INFUSION ENTERAL 6 [employer]ERS PARTNERS NUTRITION OF OF [place]; [facility] [place] HOME [place]; S9341 INFUSION INFUSION ENTERAL 6 [employer]ERS PARTNERS NUTRITION OF OF [place]; [facility] [place] HOME [place]; S9341 INFUSION INFUSION ENTERAL 6 [employer]ERS PARTNERS NUTRITION OF OF [place]; [employer] TA[employer] DIRECT G0299 ABHINAV PEREZ RN 6 HOME HOME HOME [facility]/ AGENCY AGENCY SPICE SET EA 15 MIN HOME TX; S9341 INFUSION INFUSION ENTERAL 6 PARTNERS PARTNERS NUTRITION OF OF [place]; [place] [place] HOME [place]; S9341 INFUSION INFUSION ENTERAL 6 PARTNERS PARTNERS NUTRITION OF OF [place]; [facility] [place] HOME [place]; S9341 INFUSION INFUSION ENTERAL 6 [employer]NERS PARTNERS NUTRITION OF OF [place]; [facility] HOS BED E0260 [facility] SEMI-ELEC 6 HOME HOME W/ANY MEDICAL MEDICAL TYPE SIDE EQUIPME EQUIPME RAIL W/MATTRSS DIRECT G0299 ABHINAV PEREZ RN 6 HOME HOME HOME [facility]/ AGENCY AGENCY SPICE SET EA 15 MIN HOME TX; S9341 INFUSION INFUSION ENTERAL 6 [employer]ERS PARTNERS NUTRITION OF OF [place]; [facility] [place] HOME [place]; S9341 INFUSION INFUSION ENTERAL 6 [employer]ERS PARTNERS NUTRITION OF OF [place]; [facility] [address] [facility] [place] [facility] DISCHARGE 6 NURSE DAY PRACTITIO MANAGEMEN NER GR T 30 MIN/< SBSQ 36714 [place] [address] MEDICAL BEAU CARE/DAY SERV 15 FOUNDATIO MINUTES N HOME [place]; S9341 INFUSION INFUSION ENTERAL 6 [employer]ERS NUTRITION OF OF [place]; [facility] [place] HOME [place]; S9341 INFUSION INFUSION ENTERAL 6 [employer]ERS PARTNERS NUTRITION OF OF [place]; SH[employer] TAILOR SBSQ 78829 [place] [address] MEDICAL JAG CARE/DAY SERV 15 FOUNDATIO MINUTES N MRI ANY [address] [facility] 6 MEDICAL Y JUS EXTREM SERV W/O & FOUNDATIO W/CONTRAS N T MATRL SBSQ 36554 [place] [address] MEDICAL JAG CARE/DAY SERV 15 FOUNDATIO MINUTES N HOME [place]; S9341 INFUSION INFUSION ENTERAL 6 [employer]ERS PARTNERS NUTRITION OF OF [place]; [facility] [place] HOME [place]; S9341 INFUSION INFUSION ENTERAL 6 [employer]NERS PARTNERS NUTRITION OF OF [place]; SH[employer] TAILOR SBSQ 52146 NARENDRA [facility] 6 MEDICAL JAG CARE/DAY SERV 25 FOUNDATIO MINUTES N HOME TX; S9341 INFUSION INFUSION ENTERAL 6 PARTNERS PARTNERS NUTRITION OF OF [place]; [employer] TAILOR INITIAL 10744 [facility] 6 NURSE BROADDUS CARE/DAY PRACTITIO CHR 50 NER GR MINUTES RADEX 78595 [place] MONTGOMER FOOT 6 MEDICAL Y JUS COMPLETE SERV MINIMUM [address] [place] [address] [place] NICKELS ANGIOGRAP 6 MEDICAL JACK HY CHEST SERV W/CONTRAS FOUNDATIO T/NONCONT N RAST RADIOLOGI 71229 [place] TRUE LILLY C EXAM 6 MEDICAL CHEST 2 SERV VIEWS FOUNDATIO FRONTAL&L N ATERAL ECG 36483 [place] YOU ROUTINE 6 MEDICAL NAN ECG SERV W/LEAST FOUNDATIO 12 LDS N I&R ONLY HOME TX; S9341 INFUSION INFUSION ENTERAL 6 [employer]ERS PARTNERS NUTRITION OF OF [place]; [facility] TA[place] HOME [place]; S9341 INFUSION INFUSION ENTERAL 6 PARTNERS PARTNERS NUTRITION OF OF [place]; [facility] TA[place] HOME [place]; S9341 INFUSION INFUSION ENTERAL 6 PARTNERS PARTNERS NUTRITION OF OF [place]; [facility] TA[place] HOME [place]; S9341 INFUSION INFUSION ENTERAL 6 PARTNERS PARTNERS NUTRITION OF OF [place]; [facility] TA[employer] HOME [place]; S9341 INFUSION INFUSION ENTERAL 6 PARTNERS PARTNERS NUTRITION OF OF [place]; [facility] TAIL[place] HOME [place]; S9341 INFUSION INFUSION ENTERAL 6 PARTNERS PARTNERS NUTRITION OF OF [place]; [facility] TAIL[place] HOME [place]; S9341 INFUSION INFUSION ENTERAL 6 PARTNERS PARTNERS NUTRITION OF OF [place]; [facility] TA[place] HOME [place]; S9341 INFUSION INFUSION ENTERAL 6 PARTNERS PARTNERS NUTRITION OF OF [place]; [facility] TAIL[place] HOME [place]; S9341 INFUSION INFUSION ENTERAL 6 PARTNERS PARTNERS NUTRITION OF OF [place]; [facility] TAIL[place] HOME [place]; S9341 INFUSION INFUSION ENTERAL 6 PARTNERS PARTNERS NUTRITION OF OF [place]; [facility] TA[facility] HOME [place]; S9341 INFUSION INFUSION ENTERAL 6 [employer]ERS PARTNERS NUTRITION OF OF [place]; [employer] TA[employer] DIRECT G0299 LEXADELINE PEREZ RN 6 HOME HOME HOME [facility] AGENCY AGENCY SPICE SET EA 15 MIN HOME TX; S9341 INFUSION INFUSION ENTERAL 6 PARTNERS PARTNERS NUTRITION OF OF [place]; [facility] TA[place] HOME [place]; S9341 INFUSION INFUSION ENTERAL 6 PARTNERS PARTNERS NUTRITION OF OF [place]; [facility] TA[employer] HOME [place]; S9341 INFUSION INFUSION ENTERAL 6 PARTNERS PARTNERS NUTRITION OF OF [place]; SH[employer] TAILOR BLOOD 48383 [facility] COUNT 6 Y Y COMPLETE [facility] AUTOMATED COLLECTIO 28640 [facility] N VENOUS 6 Y Y BLOOD [facility] VENIPUNCT URE LARYNGOSC 60965 [facility] OPY 6 Y Y FLEXIBLE [facility] DIAGNOSTI C COMPREHEN 53963 [facility] SIVE 6 Y Y METABOLIC [facility] PANEL DIRECT [id number] ABHINAV PEREZ RN 6 HOME HOME [facility] AGENCY AGENCY SPICE SET EA 15 [place] [id number] [facility] FREE 6 Y Y THYROXINE [facility] [place] [address] [facility] THYROID 6 Y Y STIMULATI [facility] NG [facility] HOME [place]; S9341 INFUSION INFUSION ENTERAL 6 PARTNERS PARTNERS NUTRITION OF OF [place]; [place]; S9341 INFUSION INFUSION ENTERAL 6 PARTNERS PARTNERS NUTRITION OF OF [place]; [place]; S9341 INFUSION INFUSION ENTERAL 6 PARTNERS PARTNERS NUTRITION OF OF [place]; SH[employer] TAILOR GLUC BLD 35102 MARY HERNANDEZ GLUC MNTR 6 [facility] DEV INC INC CLEARED FDA SPEC HOME USE BLOOD 72414 MARY STYLESON COUNT 6 [facility] COMPLETE INC INC AUTO&[place] [address] MARY MARY TROPONIN 6 [facility] QUANTITAT INC INC JOJO NONINVASI 27408 MARY HERNANDEZ VE 6 [facility] EAR/P[place]SE [place] [address] MARY HERNANDEZ INFUSION 6 [facility] THERAPY/P INC INC ROPHYLAXI S /DX 1ST TO 1 HR COLLECTIO 08225 MARY HERNANDEZ N VENOUS 6 [facility] BLOOD INC INC VENIPUNCT URE OBSERVATI 45952 [facility] FRYMAN ON/INPATI 6 PHYSICIAN EUG ENT S [facility] C[facility] 50 MINUTES CREATINE 62156 MARY HERNANDEZ KINASE MB 6 [facility] FRACTION INC INC [facility] [id number] MARY HERNA[facility]DEZ OBSERVATI 6 [facility] [place] [address] MARY HERNANDEZ INFUSION 6 [facility] THERAPY INC INC PROPHYLAX IS/DX EA HOUR PHYSICAL 51158 MARY HERNANDEZ THERAPY 6 [facility] EVALUATIO INC INC N BASIC 58093 MARY HERNANDEZ METABOLIC 6 [facility] PANEL INC INC CALCIUM TOTAL CREATINE 52002 MARY HERNANDEZ KINASE 6 [facility] TOTAL INC INC CREATINE 17640 MARY HERNANDEZ KINASE 6 [facility] TOTAL INC INC RADIOLOGI 73189 [place] ADAM ALL C 6 MEDICAL EXAMINATI IMAGING ON KNEE 3 ASS VIEWS RADIOLOGI 35033 [place] ADAM ALL C 6 MEDICAL EXAMINATI IMAGING [place] [address] [place] ADAM ALL HEAD/BRAI 6 MEDICAL N W/O IMAGING CONTRAST ASS MATERIAL PROTHROMB 82841 MARY HERNANDEZ IN TIME 6 [facility] INC INC CREATINE 61854 MARY HERNANDEZ KINASE MB 6 [facility] FRACTION INC INC ONLY RADIOLOGI 04067 [place] ADAM ALL C 6 MEDICAL EXAMINATI IMAGING ON PELVIS ASS 1/2 VIEWS COLLECTIO 83596 MARY HERNANDEZ N VENOUS 6 [facility] BLOOD INC INC VENIPUNCT URE COMPREHEN 87818 MARY HERNANDEZ SIVE 6 [facility] [address] MARY HERNANDEZ TROPONIN 6 [facility] QUANTITAT INC INC JOJO BLOOD 87900 MARY HERNANDEZ COUNT 6 [facility] COMPLETE INC INC AUTO&AUTO DIFRNTL WBC HOME [place]; S9341 INFUSION INFUSION ENTERAL 6 PARTNERS PARTNERS NUTRITION OF OF [place]; [place]; S9341 INFUSION INFUSION ENTERAL 6 PARTNERS PARTNERS NUTRITION OF OF [place]; SHOP TAILOR HOME [place]; S9341 INFUSION INFUSION ENTERAL 6 PARTNERS PARTNERS NUTRITION OF OF [facility] [place] [facility]; SHOP TAILOR LARYNGOSC 59837 [facility] 6 Y [facility] DIAGNOSTI C BEHAVIORA 38951 [facility] & 6 Y Y [facility] HOSPITAL ANALYSIS VOICE AND RESONANCE HOME [place]; S9341 INFUSION INFUSION ENTERAL 6 PARTNERS PARTNERS NUTRITION OF OF [place]; [place]; S9341 INFUSION INFUSION ENTERAL 6 PARTNERS PARTNERS NUTRITION OF OF [place]; [place] HOME [place]; S9341 INFUSION INFUSION ENTERAL 6 PARTNERS PARTNERS NUTRITION OF OF [place]; [place] HOME [place]; S9341 INFUSION INFUSION ENTERAL 6 PARTNERS PARTNERS NUTRITION OF [place]; [place]; S9341 INFUSION INFUSION ENTERAL 6 PARTNERS PARTNERS NUTRITION OF OF [place]; SHOP TAILOR TAPE A4450 [facility] NON-WATER 6 HOME HOME PROOF PER HEALTH HEALTH 18 AGENCY AGENCY SQUARE INCHES STERILE A4217 [facility] WATER/NATHANAEL 6 HOME HOME INE 500 HEALTH HEALTH ML AGENCY AGENCY GAUZE A6402 [facility] NON-IMPRE 6 HOME HOME [facility] 16 SQ/< AGENCY AGENCY W/O ADHES BORDR CONFORMIN A6446 ABHINAV BURNETTCO G BANDGE 6 HOME HOME [facility] AGENCY AGENCY KNITTED/W OVEN [place] DIRECT G0299 ABHINAV LA SNS RN 6 HOME HOME HOME [facility] AGENCY AGENCY SPICE SET EA 15 MIN HOME [place]; S9341 INFUSION INFUSION ENTERAL 6 PARTNERS PARTNERS NUTRITION OF [place]; [place]; S9341 INFUSION INFUSION ENTERAL 6 PARTNERS PARTNERS NUTRITION OF OF [place]; SHOP TAILOR DIRECT G0299 ABHINAV LA SNS RN 6 HOME HOME HOME [facility] AGENCY AGENCY SPICE SET EA 15 MIN HOME TX; S9341 INFUSION INFUSION ENTERAL 6 PARTNERS PARTNERS NUTRITION OF OF [place]; [place] HOME [place]; S9341 INFUSION INFUSION ENTERAL 6 PARTNERS PARTNERS NUTRITION OF OF [place]; SHOP TAILOR DIRECT G0299 ABHINAV LA SNS RN 6 HOME HOME HOME [facility] AGENCY AGENCY SPICE SET EA 15 MIN DIRECT G0299 ABHINAV LA SNS RN 6 HOME HOME HOME [facility] AGENCY AGENCY SPICE SET EA 15 MIN HOME TX; S9341 INFUSION INFUSION ENTERAL 6 PARTNERS PARTNERS NUTRITION OF OF [place]; [place]; S9341 INFUSION INFUSION ENTERAL 6 PARTNERS PARTNERS NUTRITION OF OF [place] [facility] [address] [place] [facility] DIS[facility] 6 MEDICAL HNSTON DAY SERV ELSIE MANAGEMEN FOUNDATIO T > 30 N MIN HOME TX; S9341 INFUSION INFUSION ENTERAL 6 PARTNERS PARTNERS NUTRITION OF OF [place]; SHOP TAILOR GROUND A0425 [place] 6 [facility]RO METRO [place] [address] [place] GIOVANNY HEAD/BRAI 6 MEDICAL BRANDON N W/O SERV CONTRAST FOUNDATIO MATERIAL N RADEX HIP 99226 [place] JOHN 6 MEDICAL FRA UNILATERA SERV L WITH FOUNDATIO PELVIS N 2-3 VIEWS RADEX 60925 [place] JOHN SPINE 6 MEDICAL FRA LUMBOSACR SERV AL 2/3 FOUNDATIO VIEWS N COMMODE E0163 [facility] ABLECARE CHAIR 6 MOBILE OR STATIONAR Y W/FIXED ARMS SBSQ 04345 [place] [address] MEDICAL HNSTON CARE/DAY SERV ELSIE 25 FOUNDATIO MINUTES N SBSQ 63050 [place] [address] MEDICAL HN[place] CARE/DAY SERV ELSIE 25 FOUNDATIO MINUTES N SBSQ 93263 [place] [address] MEDICAL HNSTON CARE/DAY SERV ELSIE 25 FOUNDATIO MINUTES N SBSQ 38667 [place] [address] MEDICAL CARE/DAY SERV 25 FOUNDATIO MINUTES N SBSQ 95698 [place] [address] MEDICAL CARE/DAY SERV 25 FOUNDATIO MINUTES N SBSQ 83963 [place] [address] MEDICAL CARE/DAY SERV 25 FOUNDATIO MINUTES N SBSQ 98092 [place] [address] MEDICAL CARE/DAY SERV 25 FOUNDATIO MINUTES N SBSQ 62368 [place] [address] MEDICAL CARE/DAY SERV 25 FOUNDATIO MINUTES N SBSQ 88360 [place] [address] MEDICAL CARE/DAY SERV 25 FOUNDATIO MINUTES N INSERTION [id number] 6 Y Y [facility] SUPERIOR VENA CAVA PERQ INSERTION [id number] [facility] FEEDING 6 Y Y DEVICE HOSPITAL [facility] STOMACH PERQ APPROACH EGD 91758 [facility] PERCUTANE 6 MEDICAL JOSUE OUS SERV PLACEMENT FOUNDATIO N GASTROSTO MY TUBE SBSQ 49331 [place] [address] MEDICAL CARE/DAY SERV 25 FOUNDATIO MINUTES N INITIAL 31177 [facility] INPATIENT 6 MEDICAL JOSUE CONSULT SERV NEW/ESTAB FOUNDATIO PT 80 N MIN SBSQ 43392 [place] [facility] 6 MEDICAL HNSTON CARE/DAY SERV ELSIE 25 FOUNDATIO MINUTES N SBSQ 02792 [place] [address] MEDICAL HN[place] CARE/DAY SERV ELSIE 25 FOUNDATIO MINUTES N SBSQ 74231 [place] [address] MEDICAL HNSTON CARE/DAY SERV ELSIE 25 FOUNDATIO MINUTES N SBSQ 25571 [place] [address] MEDICAL HNSTON CARE/DAY SERV ELSIE 25 FOUNDATIO MINUTES N SBSQ 44335 [place] [address] MEDICAL HNSTON CARE/DAY SERV ELSIE 25 FOUNDATIO MINUTES N SBSQ 41384 [place] [address] MEDICAL HNSTON CARE/DAY SERV ELSIE 25 FOUNDATIO MINUTES N RADIOLOGI 71040 [facility] 6 MEDICAL AYA MAR CHEST 2 SERV VIEWS FOUNDATIO FRONTAL&L N ATERAL SBSQ 62079 [place] [address] MEDICAL A NOMAN CARE/DAY SERV 25 FOUNDATIO MINUTES N SBSQ 44769 [place] [address] MEDICAL CARE/DAY SERV 25 FOUNDATIO MINUTES N RADIOLOGI 71502 [facility] 6 MEDICAL EXAMINATI SERV ON CHEST FOUNDATIO SINGLE N VIEW FRONTAL SBSQ 54735 [place] [address] MEDICAL CARE/DAY SERV 25 FOUNDATIO MINUTES N SBSQ 40592 [place] [address] MEDICAL A NOMAN CARE/DAY SERV 15 FOUNDATIO MINUTES N SBSQ 95097 [place] [address] MEDICAL A NOMAN CARE/DAY SERV 25 FOUNDATIO MINUTES N SBSQ 64245 [place] [address] MEDICAL A NOMAN CARE/DAY SERV 25 FOUNDATIO MINUTES N SBSQ 70276 [place] [address] MEDICAL A NOMAN CARE/DAY SERV 25 FOUNDATIO MINUTES N SBSQ 87340 [place] [address] MEDICAL A NOMAN CARE/DAY SERV 25 FOUNDATIO MINUTES N SBSQ 46500 [place] [address] MEDICAL SHARON CARE/DAY SERV 25 FOUNDATIO MINUTES N SBSQ 41568 [place] [address] MEDICAL SHARON CARE/DAY SERV 25 FOUNDATIO MINUTES N SBSQ 30676 [place] [address] MEDICAL SHARON CARE/DAY SERV 25 FOUNDATIO MINUTES N SBSQ 67913 [facility] 6 MEDICAL CARE/DAY SERV 25 FOUNDATIO MINUTES N SBSQ 31122 [place] [address] MEDICAL SHARON CARE/DAY SERV 25 FOUNDATIO MINUTES N SBSQ 77656 [place] [address] MEDICAL SHARON CARE/DAY SERV 25 FOUNDATIO MINUTES N SBSQ 63918 [place] [address] MEDICAL SHARON CARE/DAY SERV 25 FOUNDATIO MINUTES N SBSQ 41869 [place] [address] MEDICAL EEDU RONNI CARE/DAY SERV 25 FOUNDATIO MINUTES N INITIAL 69645 [place] ENZO INPATIENT 6 MEDICAL LOW CONSULT SERV NEW/ESTAB FOUNDATIO PT [address] SOFT 60929 [place] LUK[place] TISSUE 6 MEDICAL BRANDON NECK W/O SERV CONTRAST FOUNDATIO MATERIAL N CT THORAX 96553 [place] MCCARTHY W/O 6 MEDICAL STARLA CONTRAST SERV MATERIAL FOUNDATIO N INSJ TEMP 13731 [facility] 6 MEDICAL BUDDY BLADDER SERV CATHETER FOUNDATIO SIMPLE N SBSQ 36994 [place] [address] MEDICAL BUDDY CARE/DAY SERV 15 FOUNDATIO MINUTES N DUP-SCAN 84499 [place] CORDERO BUDDY XTR VEINS 6 MEDICAL SERV UNILATERA FOUNDATIO L/LIMITED N STUDY SBSQ 45466 [place] [address] MEDICAL EEDU RONNI CARE/DAY SERV 25 FOUNDATIO MINUTES N RADEX 32651 [place] JOHN FOREARM 2 6 MEDICAL FRA VIEWS SERV FOUNDATIO N SBSQ 57899 [facility] 6 MEDICAL EEDU RONNI CARE/DAY SERV 25 FOUNDATIO MINUTES N SBSQ 88550 [place] [address] MEDICAL EEDU RONNI CARE/DAY SERV 25 FOUNDATIO MINUTES N SBSQ 03384 [place] [address] MEDICAL EEDU RONNI CARE/DAY SERV 25 FOUNDATIO MINUTES N SBSQ 70719 [place] [address] MEDICAL EEDU RONNI CARE/DAY SERV 25 FOUNDATIO MINUTES N SBSQ 67794 [place] [address] MEDICAL HNSTON CARE/DAY SERV ELSIE 25 FOUNDATIO MINUTES N SBSQ 73916 [place] [address] MEDICAL HNSTON CARE/DAY SERV ELSIE 25 FOUNDATIO MINUTES N SBSQ 17033 [place] [address] MEDICAL HNSTON CARE/DAY SERV ELSIE 25 FOUNDATIO MINUTES N SBSQ 60287 [place] [address] MEDICAL HNSTON CARE/DAY SERV ELSI[place] [address] [place] ABDOMINAL 6 MEDICAL REAL SERV TIME FOUNDATIO W/IMAGE N DOCUMENTA TION ECG 61849 [place] YOU ROUTINE 6 MEDICAL NAN ECG SERV W/LEAST FOUNDATIO 12 LDS N I&R ONLY INJECTION 18612 [place] [address] MEDICAL CAR ANESTHETI SERV C AGENT FOUNDATIO SCIATIC N NRV SINGLE INJECTION 63171 [place] [address] MEDICAL CAR ANESTHETI SERV C AGENT FOUNDAT[place] [address] [facility] SOTO MOL SURG 6 Y OF PATHOLOGY [place] [facility] GROSS&STARLA ROSCOPIC EXAM DECALCIFI 83578 [facility] SOTO MOL CATION 6 Y OF PROCEDURE [place] [facility] DETACHMEN [id number] [facility] AT 6 Y Y [facility] FOOT PARTIAL 3RD RAY OPEN DETACHMEN [id number] [facility] AT 6 Y Y [facility] FOOT PARTIAL 4TH RAY OPEN INTRO [id number] [facility] 6 Y Y [facility] PERIPH NERVES PLEXI PERQ ANES OPEN 79460 [place] SELL TON PROC 6 MEDICAL BONES SERVICES LOWER LEG/ANKLE /FOOT NOS AMPUTATIO 50541 [place] ENDEAN N 6 MEDICAL METATARSA SERV L W/TOE FOUNDATIO SINGLE N INITIAL 96250 [place] [facility] 6 MEDICAL OV AIB CARE/DAY SERV 70 FOUNDATIO MINUTES N RADEX 56275 [place] TRUE LILLY FOOT 6 MEDICAL COMPLETE SERV MINIMUM 3 FOUNDATIO VIEWS N RADIOLOGI 60002 [place] TRUE LILLY C 6 MEDICAL EXAMINATI SERV ON CHEST FOUNDATIO SINGLE N VIEW FRONTAL INITIAL 04781 [place] XENOS JACY INPATIENT 6 MEDICAL CONSULT SERV NEW/ESTAB FOUNDATIO PT 55 N MIN ECG 92216 [place] HAM CHI ROUTINE 6 MEDICAL ECG SERV W/LEAST FOUNDATIO 12 LDS N I&R ONLY STEREOSCO G6002 [place] KUDRIMOTI PIC X-RAY 6 MEDICAL [facility] GUID SERV LOCALIZ FOUNDATIO TRG VOL N DEL RT INTENSITY 26338 [place] [address] Y Y [facility] RADIATION TX DLVR COMPLEX INTENSITY 55724 [place] [address] Y Y [facility] RADIATION TX DLVR COMPLEX STEREOSCO G6002 [place] KUDRIMOTI PIC X-RAY 6 [facility] GUID SERV LOCALIZ FOUNDATIO TRG VOL N DEL RT STEREOSCO G6002 [place] KUDRIMOTI PIC X-RAY 6 [facility]ICAL [facility] GUID SERV LOCALIZ FOUNDATIO TRG VOL N DEL RT INTENSITY 74101 [place] [address] Y Y [facility] RADIATION TX DLVR COMPLEX INTENSITY 98576 [place] [address] Y Y [facility] RADIATION TX DLVR COMPLEX STEREOSCO G6002 [place] KUDRIMOTI PIC X-RAY 6 [facility] GUID SERV LOCALIZ FOUNDATIO TRG VOL N DEL [place] 60092 [facility] 6 Y Y [facility] FIELD SETTING SIMPLE NTSTY 43896 [place] [address] Y Y [facility] PLN DOSE-VOL HISTOS MLC IMRT 19490 [facility] 6 Y [facility] ION PER IMRT PLAN BASIC 55893 [place] [address] Y Y [facility] [place] [address] [facility]ICES 6 Y Y [facility] [place] [address] [facility] DEVICES 6 Y Y DESIGN & [facility] CONSTRUCT ION COMPLEX CONSLTJ&R 23900 [facility] LUIS EPRT 6 Y OF NAYELI SLIDES [place] PREPARED [facility] ELSEWHERE CT THORAX 69343 [facility] 6 Y Y W/[facility] T MATERIAL CREATININ 70856 [facility] E BLOOD 6 Y Y [facility] LOCM Q9967 [facility] [phone] 6 Y Y MG/ML [facility] IODINE [place] [address] [facility] IMAGING [address] [facility] ATTENUATI ON SKULL BASE MID-THIGH FLUORODEO A9552 [facility] XYGLUCOSE 6 Y Y F-18 FDG [facility] DX UP TO 45 MCI LARYNGOSC 66823 [facility] OPY 6 Y Y FLEXIBLE [facility] HOSPITAL DIAGNOSTI C BEHAVIORA 62836 [facility] L & 6 Y Y QUALIT [facility] ANALYSIS VOICE AND RESONANCE ANES 55778 [facility] ESOPH 6 ANESTHESI FIDELINA THYRD A GROUP LARYNX PS TRACH & LYMPH NECK 1YR CYTP EVAL 20561 [facility], FINE 6 [facility] NEEDLE ASPIRATE INTERP & [place] [address] [facility], SURG 6 [facility] PATHOLOGY GROSS&STARLA ROSCOPIC EXAM COLLECTIO 33907 [facility] N VENOUS [address] [place] [address] VENIPUNCT URE CREATININ 43812 [facility] E BLOOD [address] [place] [address] [place] [address] [facility] UREA [address] [place] [address] [place] [address] [facility] UREA [address] [place] [address] SOFT 91427 [facility] TISSUE [address] [place] [address] W/[facility] T MATERIAL CREATININ 15449 [facility] E BLOOD [address] [place] [address] GONADOTRO 34591 [facility] PIN 6 [facility] COLLECTIO 04238 [facility] N VENOUS [address] [place] [address] VENIPUNCT URE PROSTATE G0103 [facility] CANCER [address] [place] [address] ; PSA TEST LARYNGOSC 47815 [facility] 6 [facility] C ELECTROLY 41456 [facility] TE PANEL 6 [facility] LOCM Q9967 [facility] [phone] 6 [facility] MG/ML [facility] IODINE CONCENTRA TION PER ML HEMOGLOBI 81210 [facility] N [address] [place] [address] JESSE A1C BLOOD 34408 [facility] COUNT [address] [place] [address] AUTOMATED DEBRIDEME 57334 PROGRESSI PROGRESSI NT 6 VE VE SUBCUTANE PODIATRY PODIATRY OUS TISSUE 20 SQ CM/< DEBRIDEME 67054 EDDA EDDA NT 6 DEE DEE SUBCUTANE OUS TISSUE 20 SQ CM/< DEBRIDEME 51405 EDDA EDDA NT 6 DEE DEE SUBCUTANE OUS TISSUE 20 SQ CM/< DEBRIDEME 07035 EDDA EDDA NT NAIL 6 DEE DEE ANY METHOD 6/> ADD LW L2275 PROGRESSI PROGRESSI EXTRM 6 VE VE VARUS/VUL PODIATRY PODIATRY TANGELA MATTY PLSTC MOD PADD/LN AFO L1970 PROGRESSI PROGRESSI PLASTIC 6 VE VE WITH PODIATRY PODIATRY ANKLE JOINT CUSTOM FABRICATE D RADIOLOGI 89072 [place] [facility] C 6 MEDICAL EXAMINATI IMAGING ON FOOT 2 ASS VIEWS DEBRIDEME 84039 EDDA EDDA NT 6 DEE DEE SUBCUTANE OUS TISSUE 20 SQ CM/< RADEX 45327 M[facility] HERNANDEZ FOOT 6 [facility] COMPLETE INC INC MINIMUM 3 VIEWS DEBRIDEME 25549 EDDA EDDA NT 6 DEE DEE SUBCUTANE OUS TISSUE 20 SQ CM/< GAUZE A6266 ADVANCED ADVANCED IMPREG 5 TISSUE TISSUE NOT H2O MANAGEMEN MANAGEMEN SALINE/ZI T T NC PASTE LINR YD HYDROGEL A6248 ADVANCED ADVANCED DRESSING 5 TISSUE TISSUE 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 T T GEL PER FL OZ GAUZE A6402 ADVANCED ADVANCED NON-IMPRE 5 TISSUE TISSUE G STERL MANAGEMEN MANAGEMEN 16 SQ/< T T W/O ADHES BORDR DEBRIDEME 12754 EDDA EDDA NT 5 DEE DEE SUBCUTANE OUS TISSUE 20 SQ CM/< DEBRIDEME 17596 EDDA EDDA NT 5 DEE DEE SUBCUTANE OUS TISSUE 20 SQ CM/< DEBRIDEME 81229 EDDA EDDA NT 5 DEE DEE SUBCUTANE OUS TISSUE 20 SQ CM/< SIMPLE 46110 [facility] UROFLOMET 5 [place] [facility] RY [facility] PED CYSTO 57641 [facility] CALIBRATI 5 [place] PHIL ON DILAT ADULT & URTL PED STRIX/DONN NOSIS SIMPLE 66731 [facility] CYSTOMETR 5 [place] PHIL OGRAM ADULT & PED GAUZE A6402 ADVANCED ADVANCED NON-IMPRE 5 TISSUE TISSUE G STERL MANAGEMEN MANAGEMEN 16 SQ/< T T W/O ADHES BORDR GAUZE A6266 ADVANCED ADVANCED IMPREG 5 TISSUE TISSUE NOT H2O MANAGEMEN MANAGEMEN SALINE/ZI T T NC PASTE LINR YD COLLAGEN A6021 ADVANCED ADVANCED DRESSING 5 TISSUE TISSUE STERILE MANAGEMEN MANAGEMEN SIZE 16 T T SQ IN/LESS EA WALKING L4360 EDDA EDDA BOOT 5 DEE DEE PNEUMATC &/ VACUUM PREFAB CUSTM FIT ENMANUEL 03425 [facility] POST-VOID [facility] PHIL ING ADULT & RESIDUAL PED URINE&/BL ADDER CAP DRUG SCR G0434 [facility] NOT 5 [facility] PHIL CHROMATOG ADULT & RAPHIC; PED ANY NUMBER PT ENC GAUZE A6266 ADVANCED ADVANCED IMPREG 5 TISSUE TISSUE NOT H2O MANAGEMEN MANAGEMEN SALINE/ZI T T NC PASTE LINR YD GAUZE A6402 ADVANCED ADVANCED NON-IMPRE 5 TISSUE TISSUE G STERL MANAGEMEN MANAGEMEN 16 SQ/< T T W/O ADHES BORDR GAUZE A6402 ADVANCED ADVANCED NON-IMPRE 5 TISSUE TISSUE G STERL MANAGEMEN MANAGEMEN 16 SQ/< T T W/O ADHES BORDR GAUZE A6266 ADVANCED ADVANCED IMPREG 5 TISSUE TISSUE NOT H2O MANAGEMEN MANAGEMEN SALINE/ZI T T NC PASTE LINR YD TAPE A4450 ADVANCED ADVANCED NON-WATER 5 TISSUE TISSUE PROOF PER MANAGEMEN MANAGEMEN 18 T T SQUARE INCHES COLLAGEN A6021 ADVANCED ADVANCED DRESSING 5 TISSUE TISSUE STERILE MANAGEMEN MANAGEMEN SIZE 16 T T SQ IN/LESS EA TAPE A4452 ADVANCED ADVANCED WATERPROO 5 TISSUE TISSUE F PER 18 MANAGEMEN MANAGEMEN SQUARE T T INCHES GAUZE A6402 ADVANCED ADVANCED NON-IMPRE 5 TISSUE TISSUE G STERL MANAGEMEN MANAGEMEN 16 SQ/< T T W/O ADHES BORDR GAUZE A6266 ADVANCED ADVANCED IMPREG 5 TISSUE TISSUE NOT H2O MANAGEMEN MANAGEMEN SALINE/ZI T T NC PASTE LINR YD GAUZE A6266 ADVANCED ADVANCED IMPREG 5 TISSUE TISSUE NOT H2O MANAGEMEN MANAGEMEN SALINE/ZI T T NC PASTE LINR YD GAUZE A6402 ADVANCED ADVANCED NON-IMPRE 5 TISSUE TISSUE G STERL MANAGEMEN MANAGEMEN 16 SQ/< T T W/O ADHES BORDR TAPE A4452 ADVANCED ADVANCED WATERPROO 5 TISSUE TISSUE F PER 18 MANAGEMEN MANAGEMEN SQUARE T T INCHES COLLAGEN A6021 ADVANCED ADVANCED DRESSING 5 TISSUE TISSUE STERILE MANAGEMEN MANAGEMEN SIZE 16 T T SQ IN/LESS EA COLLAGEN A6021 ADVANCED ADVANCED DRESSING 5 TISSUE TISSUE STERILE MANAGEMEN MANAGEMEN SIZE 16 T T SQ IN/LESS EA TAPE A4452 ADVANCED ADVANCED WATERPROO 5 TISSUE TISSUE F PER 18 MANAGEMEN MANAGEMEN SQUARE T T INCHES GAUZE A6402 ADVANCED ADVANCED NON-IMPRE 5 TISSUE TISSUE G STERL MANAGEMEN MANAGEMEN 16 SQ/< T T W/O ADHES BORDR GAUZE A6266 ADVANCED ADVANCED IMPREG 5 TISSUE TISSUE NOT H2O MANAGEMEN MANAGEMEN SALINE/ZI T T NC PASTE LINR YD RADEX 72030 LAUSE FED LAUSE FED FOOT 5 COMPLETE MINIMUM 3 VIEWS ALBUMIN 48711 [facility] URINE 5 [facility] MIN QUANTIATI VE BASIC 48726 [facility] METABOLIC 5 [facility] CALCIUM TOTAL COLLECTIO 81800 [facility] N VENOUS 5 [facility] VENIPUNCT URE HEMOGLOBI 82062 [facility] N 5 [facility] JESSE A1C HEMOGLOBI 20141 [facility] N 4 [facility] JESSE A1C PROSTATE G0103 [facility] CANCER [address] [place] [address] ; PSA TEST COLLECTIO 50950 [facility] N VENOUS 4 [facility] VENIPUNCT URE LIPID 47213 [facility] PANEL [address] [place] [address] HEPATIC 16087 [facility]CTION 4 [facility] BASIC 60944 [facility] METABOLIC [address] [place] [address] CALCIUM TOTAL ALBUMIN 74248 [facility] URINE 4 [facility] MIN QUANTIATI VE FOR DIAB A5512 [place] ONLY MX 4 MEDICAL MEDICAL DNSITY SUPPLY SUPPLY [employer] FORMD PRFAB EA DIAB ONLY A5500 [place] FIT CSTM 4 MEDICAL MEDICAL PREP&SPL SUPPLY SUPPLY SHOE [employer] DNSITY INSRT CATARACT 41509 [place] ERICK REMOVAL 4 MEDICAL JR ANY INSERTION SERV OF LENS FOUNDATIO Encounters Encounter Start End Date Code Location Performer Type Date OFFICE 33291 [facility] 7 7 HEALTH T VISIT SOLUTIONS 25 IN MINUTES OFFICE 31415 [facility] T V[facility] 5 E MINUTES [facility] 7 7 [facility] OUTPATIEN E T HOSPITALS OFFICE 27055 [facility] 7 7 HEALTH T VISIT SOLUTIONS 15 IN MINUTES [facility] - 7 7 [facility] INPATIENT INC OFFICE 90873 NARENDRA RUEDAUAMary Lou [facility] 7 7 MEDICAL T VISIT SERV 15 FOUNDATIO MINUTES N [facility]OSP[facility] - 7 7 [facility] OUTPATIEN E T HOSPITALS OFFICE 45561 NARENDRA TREVIZO [facility] 7 7 MEDICAL T VISIT SERV 25 FOUNDATIO MINUTES N OFFICE 87555 OUTPATIEN 7 7 HEALTHCAR T VISIT 5 E MINUTES HOSPITALS OFFICE 95464 [facility] 7 7 HEALTH T VISIT SOLUTIONS 25 IN MINUTES EMERGENCY 54206 [facility] 7 7 GRACIE DEPARTMEN EMERGENCY T VISIT PHYS HIGH/URGE NT SEVERITY HOSPITAL [facility] - 7 7 [facility] OUT[facility] T OFFICE 26985 [facility] 7 7 HEALTH T VISIT SOLUTIONS 15 IN MINUTES OFFICE 39693 [facility] 7 7 HEALTH T VISIT SOLUTIONS 25 IN MINUTES [facility] - 7 7 [facility]ALTHCAR OUTPATIEN E T [facility] MARY - 7 7 [facility] OUTPATIEN INC T EMERGENCY 42567 NARENDRA LOVE DEPT 7 7 MEDICAL VISIT SERV HIGH FOUNDATIO SEVERITY& N THREAT FUNCJ EMERGENCY 73368 [facility] 7 7 [facility] DEPARTMEN INC T VISIT HIGH/URGE NT SEVERITY EMERGENCY 69416 JOE SWEENEY DEPT 7 7 PHYSICIAN U VISIT S, PLLC HIGH SEVERITY& THREAT FUNCJ OFFICE 94298 [facility] T VISIT 5 E MINUTES [facility] [place] - 6 6 HEALTHCAR OUTPATIEN E T HOSPITALS OFFICE 35481 [facility] [place] ROM[place] T VISIT PHYSICIAN 25 S ASSIST MINUTES [facility] - 6 6 [facility] OUTPATIEN E T HOSPITALS OFFICE 60664 OUTPATIEN 6 6 HEALTHCAR T VISIT 5 E MINUTES HOSPITALS OFFICE 04455 [facility] 6 6 PHYSICIAN T VISIT S GROUP 25 MINUTES [facility] - 6 6 [facility] [address]268 [place] [facility] 6 6 MEDICAL T VISIT SERV 25 FOUNDATIO MINUTES N OFFICE 13435 [facility] 6 6 Y T VISIT 5 HOSPITAL MINUTES OFFICE 99295 [facility] 6 6 [place] ADA T VISIT PHYSICIAN 25 S ASSIST MINUTES [facility]OSP[facility] - 6 6 [facility]ALTHCAR OUTPATIEN E HOSPITALS OFFICE 69689 [facility] EMERGENCY DEPARTMENT 6 6 HEALTHCAR T VISIT 5 E MINUTES HOSPITALS HOME [facility], 6 6 HOME [facility] 14985 [place] [facility] 6 6 MEDICAL JACK T VISIT SERV 10 FOUNDATIO MINUTES N OFFICE 83667 [facility] 6 6 Y T VISIT 5 HOSPITAL MINUTES HOME [facility] 6 6 HOME INPATIENT [facility]ALTH [facility] UNIVERSIT - 6 6 Y INPATIENT HOSPITAL EMERGENCY 44885 [place] HYACINTH DEPT 6 6 MEDICAL NAYELI VISIT SERV HIGH FOUNDATIO SEVERITY& N [facility] OFF[facility] 63257 [facility] JAMES JAMES T VISIT 15 MINUTES OFFICE 87825 [facility] 6 6 Y T VISIT 5 HOSPITAL MINUTES HOME [facility], 6 6 HOME INPATIENT HEALTH AGENCY EMERGENCY 00046 JOE JONES DEPT 6 6 PHYSICIAN STARLA VISIT S, PLLC HIGH SEVERITY& THREAT [facility] MARY - 6 6 [facility] OUTPATIEN INC T EMERGENCY 61213 [facility] 6 6 [facility] DEPARTMEN INC T VISIT HIGH/URGE NT SEVERITY OFFICE 81559 [facility] 6 6 JAMES JAMES T VISIT 15 MINUTES HOSPITAL UNIVERSIT - 6 6 Y [facility] T OFFICE 55015 [facility] 6 6 [place] ADA T VISIT PHYSICIAN 15 S ASSIST MINUTES HOSPITAL UNIVERSIT [facility] 6 6 Y [facility] T OFFICE 77245 [facility] 6 6 Y T VISIT 5 HOSPITAL MINUTES HOME [facility], 6 6 HOME INPATIENT [facility] - 6 6 Y INPATIENT HOSPITAL EMERGENCY [id number] NARENDRA SHAH DEPT 6 6 MEDICAL STARLA VISIT SERV HIGH FOUNDATIO SEVERITY& N THREAT [facility] Y [facility] - 6 6 [facility] 33136 [facility]ANTA[facility] OUT[facility] 6 6 JAMES JAMES T VISIT 15 MINUTES OFFICE 02662 [facility] 6 6 NURSE MIR T VISIT PRACTITIO 25 NER GR MINUTES [facility] UNIVERS - 6 6 Y [facility] UNIVERSIT - 6 6 Y [facility] UNIVERSIT - 6 6 [facility] T OFFICE 48784 [facility] 6 6 Y T VISIT 5 HOSPITAL MINUTES OFFICE 44534 N[facility]ENDRA JAMES [facility] 6 6 MEDICAL T NEW 45 SERV MINUT[facility] 6 6 [facility] T OFFICE 34038 NARENDRA MONTENEGRO [facility] 6 6 MEDICAL T VISIT SERV 25 [facility] 6 Y [facility] T OFFICE 08737 [facility] 6 6 [place] ADA ION PHYSICIAN NEW/ESTAB S ASSIST PATIENT 60 MIN OFFICE 32841 [facility] PHYSCIAN LES T VISIT PRACTICE 15 LL MINUTES OFFICE 49860 [facility] J[facility] J[facility] T VISIT 15 MINUTES [facility] [place] [facility] 6 6 [facility] [place] - 6 6 [facility] T OFFICE 06212 [place] [facility] 6 6 PHYSCIAN LES ION PRACTICE NEW/ESTAB LL PATIENT 60 MIN OFFICE 63457 NE[facility] SANTACRUZ OUTPATIEN 6 6 JAMES JAMES T VISIT 15 MINUTES OFFICE 62283 [facility] SANTACRUZ OUTPATIEN 6 6 JAMES JAMES T VISIT 15 MINUTES OFFICE 63649 [facility] NEETA OUTPATI[facility] 6 6 T VISIT 15 MINUTES HOSPITAL [facility] - 6 6 [facility] T OFFICE 40789 NEETA NEETA OUTPATIEN 5 5 JAMES JAMES T VISIT 15 MINUTES OFFICE 82695 [facility] T VISIT ADULT & 25 PED MINUTES OFFICE 95463 [facility] 5 5 [facility] VILLARREAL ION ADULT & NEW/ESTAB PED PATIENT 60 MIN OFFICE 60247 NEETA NEETA OUTPATIEN 5 5 JAMES JAMES T VISIT 15 MINUTES OFFICE 45926 [facility] OUTPATIEN 5 5 T VISIT 15 MINUTES OFFICE 53132 [facility] OUTPATIEN 5 5 T VISIT 15 MINUTES OFFICE 59649 [facility] OUTPATIEN 5 5 T VISIT 15 MINUTES OFFICE 22663 [facility] FED OUTPATIEN 5 5 T VISIT 15 MINUTES OFFICE 22617 NEETA NEETA OUTPATIEN 5 5 JAMES JAMES T VISIT 15 MINUTES OFFICE 44599 [facility] FED OUTPATIEN 5 5 T VISIT 15 MINUTES OFFICE 04779 [facility] FED OUTPATIEN 5 5 T VISIT 15 MINUTES OFFICE 22313 NEETA NEETA OUTPATIEN 5 5 JAMES JAMES T VISIT 25 MINUTES OFFICE 81264 [facility] FED OUTPATIEN 5 5 T VISIT 15 MINUTES OFFICE 69330 [facility] FED LAUSE FED OUTPATIEN 5 5 T VISIT 15 MINUTES OFFICE 64168 NEETA NEETA OUTPATIEN 5 5 JAMES JAMES T VISIT 15 MINUTES OFFICE 24325 [facility] LAUSE FED OUTPATIEN 5 5 T VISIT 15 MINUTES OFFICE 22032 [facility] FED LAUSE FED OUTPATIEN 5 5 T VISIT 15 MINUTES OFFICE 48853 NEETA NEETA OUTPATIEN 5 5 JAMES JAMES T VISIT 15 MINUTES OFFICE 23181 NEETA NEETA OUTPATIEN 5 5 JAMES JAMES T VISIT 25 MINUTES OFFICE 23600 [facility]ETA NEETA OUTPATIEN 5 5 JAMES JAMES T VISIT 15 MINUTES OFFICE 69727 NEETA NEETA OUTPATIEN 5 5 [facility]AMES JAMES T VISIT 15 MINUTES [facility] [place] [facility] 5 5 [facility] T OFFICE 03309 NEETA NEETA OUTPATIEN 5 5 JAMES JAMES T VISIT 15 MINUTES OFFICE 04112 NEETA NEETA OUTPATIEN 4 4 JAMES JAMES T VISIT 15 MINUTES OFFICE 16413 [facility] FED LAUSE FED OUTPATIEN 4 4 T NEW 30 MINUTES OFFICE 93513 NEETA NEETA OUTPATIEN 4 4 JAMES JAMES T VISIT 15 MINUTES OFFICE 20754 NEETA NEETA OUTPATIEN 4 4 JAMES JAMES T VISIT 15 MINUTES [facility] [place] [facility] 4 4 [facility] T OFFICE 79088 PRIMARY NEETA OUTPATIEN 4 4 [facility]ALTH [facility] T VISIT ASSOCIATE 15 S PS MINUTES OFFICE 45002 PRIMARY [facility] OUTPATIEN 4 4 [facility] T VISIT ASSOCIATE 15 S PS MINUTES
--- OUTSIDE RECORDS SUMMARY | 2017-03-25 21:24 | External Medical Summary Rpt | CCD ---
Author Author , MACIEJ Organization MACIEJ Address Unknown Phone [email or web address] Care Team Providers Care Hearing Specialist Name Role Phone [facility], ABLECARE Unavailable Unavailable [facility], [facility] Unavailable Unavailable [facility] Unavailable Unavailable MANAGEMENT, [facility] MANAGEMENT [facility] Unavailable Unavailable MANAGEMENT, [facility] MANAGEMENT [facility], Unavailable Unavailable [facility] [place], Unavailable Unavailable [facility] [place] ENZO LOW, ENZO Unavailable Unavailable LOW AOUAD, [...] Unavailable ADAM ALL, ADAM ALL Unavailable Unavailable [facility] Unavailable Unavailable HOSPITAL, [facility] Unavailable Unavailable [facility], [facility] NEETA, NEETA Unavailable Unavailable NEETA, NEETA Unavailable Unavailable NEETA JAMES, NEETA Unavailable Unavailable JAMES NEETA KEN, NEETA Unavailable Unavailable JAMES SHARI STARLA, MCCARTHY Unavailable Unavailable STARLA EDDA DEE, EDDA Unavailable Unavailable DEE POZO PHIL, Unavailable Unavailable PO[facility] PHIL [facility] Unavailable Unavailable ADULT & PED, [facility] CLARKE JAG, CLARKE [...] Unavailable ROMEL VINCENT, VINCENT Unavailable Unavailable [facility] Unavailable Unavailable INC, [facility] Unavailable Unavailable HOSPITAL P, [facility] POLY MIR, Unavailable Unavailable POLY MIR CURTIS-MURILLO ELSIE, Unavailable Unavailable CURTIS-MURILLO ELSIE [facility], Unavailable Unavailable [facility] MASTERSON, MASTERSON Unavailable Unavailable PACO, PACO Unavailable Unavailable [facility] Unavailable [facility]available [place], [facility] Unavailable Unavailable [place], [facility] VONDA BROADDUS CHR, VONDA Unavailable Unavailable BROADDUS CHR JUSTICE, JUSTICE Unavailable Unavailable [facility] Unavailable Unavailable [facility], [facility] NURSE Unavailable Unavailable [...] Unavailable Unavailable PARASRAMKA NOMAN [facility] Unavailable Unavailable EMS, [facility] Unavailable Unavailable EMS, [facility], Unavailable Unavailable PLLC, [facility], [facility] Unavailable Unavailable ASSOCIATES PS, [facility], Unavailable Unavailable [facility], Unavailable Unavailable [facility] RENUSCH, RENUSCH Unavailable Unavailable [facility] Unavailable Unavailable [facility], [facility] HYACINTH NAYELI, Unavailable Unavailable [facility] NAYELI LIONEL SHARON, LIONEL Unavailable Unavailable SHARON [facility] RONNI, Unavailable Unavailable [facility]ONNI SELL TON, SELL TON Unavailable Unavailable CORA, CORA Unavailable Unavailable [facility] Unavailable Unavailable [facility], [facility] Unavailable Unavailable [facility], [facility] SOTINGEANU, Unavailable Unavailable SOTINGEANU [facility] Unavailable Unavailable EMERGENCY PHYS, [facility] CHRISTIAN CAR, CHRISTIAN Unavailable Unavailable CAR [facility] Unavailable Unavailable [facility], [facility] SHAH STARLA, SHAH Unavailable Unavailable STARLA BAUTISTA JOSUE, BAUTISTA Unavailable Unavailable JOSUE JOSELINE, JOSELINE Unavailable Unavailable JOSELINE ERIKA, JOSELINE ERIKA Unavailable Unavailable SOTO MOL, SOTO MOL Unavailable Unavailable TRUE LILLY, TRUE LILLY Unavailable Unavailable [facility] Unavailable Unavailable HOSPITALS, [facility], Unavailable Unavailable [facility] Unavailable [place] [facility], [facility] PLUMMER TEREZA, PLUMMER TEREZA Unavailable Unavailable [...] INC WITHOUT COMPLICATIO NS J189 PNEUMONIA 09-03-2016 [place] UNSPECIFIED [facility] ORGANISM [facility]ING ASS J432 CENTRILOBUL 09-03-2016 [place] AR [facility]ICAL EMPHYSEMA IMAGING ASS R05 COUGH 09-03-2016 [facility] R0902 HYPOXEMIA 09-03-2016 [facility] ASS [id number] POISONING 09-03-2016 [facility] NARCOT[facility] INC ACCIDENTAL INIT ENC Z931 GASTROSTOMY 09-03-2016 [facility] INC C101 MALIGNANT 09-02-2016 [place] [facility] NEOP[facility] SERV ANTERIOR FOUNDATION SURFACE EPIGLOTTIS C7989 SECONDARY 09-02-2016 [facility] MALIGNANT SERV NEOPLASM FOUNDATION OT SPECIFIED SITES I10 ESSENTIAL 09-02-2016 [facility] N R404 TRANSIENT 09-02-2016 [facility] EMS AWARENESS R413 OTHER 09-02-2016 [place] [facility] ASS R4182 ALTERED 09-02-2016 [facility] MENTAL PH[facility], STATUS PLLC UNSPECIFIED Z08 ENCOUNTER 09-02-2016 [place] [facility] F/U EXAM SERV AFTER CMPL FOUNDATION [place] MALIG NEOPLASM Z8619 PERSONAL 09-02-2016 [place] [facility] HISTORY OTH SERV INFECTIOUS FOUNDATION & PARASITIC DZ Z923 PERSONAL 09-02-2016 [place] [facility] H[facility] OF SERV IRRADIATION FOUNDATION B24388 WRIST DROP 08-19-2016 [facility] PHYS P96112 PAIN IN 08-19-2016 [facility] RIGHT WRIST HEALTH SOLUTIONS IN Q55206 PAIN IN 08-19-2016 [facility] [place] RIGHT RADIOLOGY FOREARM X35573 PAIN IN 08-19-2016 [facility] RIGHT HAND HEALTH SOLUTIONS IN G14413 PAIN IN 08-12-2016 [facility] ARM [facility] INC R202 PARESTHESIA 08-12-2016 [facility] OF SKIN [facility] INC I9589 OTHER 07-28-2016 [facility] HYPOTENSION HEALTH SOLUTIONS IN O88777 FLAIL JOINT 07-28-2016 [facility] RIGHT HEALTH WRIST SOLUTIONS IN D210 SAIRA 07-21-2016 [facility] NEOPLASM HEALTH CNCTV OTH SOLUTIONS SOFT TISS IN HEAD FACE NECK R000 TACHYCARDIA 07-21-2016 [facility] UNSPECIFIED SOLUTIONS IN N31414 NON-PRSS 07-08-2016 [facility] O[facility] PART HOSPITALS UNS FOOT UNS SEVERITY I348 OTHER 07-04-2016 ID MEDICAL NONRHEUMATI SERV C MITRAL FOUNDATION VALVE DISORDERS I350 NONRHEUMATI 07-04-2016 [place] [facility] C AORTIC SERV VALVE FOUNDATION STENOSIS I4891 UNSPECIFIED 07-04-2016 [facility] ATRIAL SERV FIBRILLATIO FOUNDATION N L94883 FACIAL 07-04-2016 [facility] WEAKNESS SERV FOUNDATION R531 WEAKNESS 07-04-2016 [facility] SERV [facility] E1169 TYPE 2 07-03-2016 [facility] DIABETES PHYSICIANS, MELLITUS PLLC W/OTH SPEC COMPLICATIO N E669 OBESITY 07-03-2016 [facility] UNSPECIFIED PHYSICIANS, PLLC G459 TRANSIENT 07-03-2016 [facility] CEREBRAL SERV ISCHEMIC FOUNDATION ATTACK UNSPECIFIED G8191 HEMIPLEGIA 07-03-2016 [facility] P RIGHT DOMINANT SIDE I440 ATRIOVENTRI 07-03-2016 [facility] CULAR BLOCK SERV FIRST FOUNDATION DEGREE I498 OTHER 07-03-2016 [facility] SPECIFIED SERV CARDIAC FOUNDATION ARRHYTHMIAS I639 CEREBRAL 07-03-2016 [facility] INFARCTION PHYSICIANS, UNSPECIFIED PLLC I6523 OCCLUSION & 07-03-2016 [place] [facility] STENOSIS SERV BILATERAL FOUNDATION CAROTID ARTERIES J984 OTHER 07-03-2016 [facility] DISORDERS SERV OF LUNG FOUNDATION R9431 ABNORMAL 07-03-2016 [facility] ELECTROCARD SERV IOGRAM FOUNDATION Z720 TOBACCO USE 07-03-2016 [facility] P Z7401 BED 07-03-2016 [facility] CONFINEMENT [place] STATUS Z794 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 07-03-2016 [facility] OF INSULIN INC D40924 NON-PRSS 06-16-2016 [facility] P FT W/UNS SEVERITY R42 DIZZINESS 06-16-2016 [facility] AND PHYSICIANS, GIDDINESS PLLC R5383 OTHER 06-16-2016 [facility] FATIGUE PHYSICIANS, PLLC G8929 OTHER 05-27-2016 [facility] D03062 OTHER 05-27-2016 [facility] MEDICAL SECONDARY SERV CATARACT FOUNDATION LEFT EYE Z961 PRESENCE OF 05-27-2016 [facility] SERV INTRAOCULAR FOUNDATION LENS E1100 TYPE 2 DM 05-18-2016 [facility] W/HYPEROSMO PHYSICIANS LARITY W/O GROUP NKHC I739 PERIPHERAL 05-18-2016 [facility] VASCULAR PHYSICIANS DISEASE GROUP UNSPECIFIED R221 LOCALIZED 04-22-2016 [facility] MASS AND LUMP NECK R599 ENLARGED 04-22-2016 ID MEDICAL LYMPH NODES SERV FOUNDATION UNSPECIFIED C72906 TYPE 2 04-08-2016 [facility] MED[facility] DIABETES SERV MELLITUS FOUNDATION WITH OTHER SKIN ULCER R490 DYSPHONIA 04-08-2016 [facility] C770 SEC & UNS 04-03-2016 [facility] LYMPH NODES HOSPITALS HEAD FACE & NECK J3489 OTHER 04-03-2016 [facility] SPECIFIED SERV DISORDERS FOUNDATION NOSE AND NASAL SINUSES R1310 DYSPHAGIA 04-03-2016 [facility] R918 OTHER 04-03-2016 [facility] NONSPECIFIC SERV ABNORMAL FOUNDATION FINDING OF LUNG FIELD M6281 MUSCLE 03-16-2016 [facility] GENERALIZED AGENCY F79191 OTHER ACUTE 03-16-2016 [facility] OSTEOMYELIT AGENCY IS RIGHT ANKLE AND FOOT R269 UNSPECIFIED 03-16-2016 [facility] ABNORMALITI AGENCY ES OF GAIT AND MOBILITY [id number] UNSPECIFIED 03-16-2016 [facility] OPEN WOUND HEALTH RIGHT FOOT AGENCY SUBSEQUENT ENC Z431 ENCOUNTER 03-16-2016 [facility] FOR [facility] ATTENTION AGENCY TO GASTROSTOMY Z4800 ENCOUNTER 03-16-2016 [facility] CHANGE/[facility] NONSURG AGENCY WOUND DRESSING M1990 UNSPECIFIED 03-12-2016 [facility] OSTEOARTHRI TIS UNSPECIFIED SITE Y45018 ACQUIRED 03-12-2016 [facility] ABSENCE OF SERV OTHER RIGHT FOUNDATION TOES A419 SEPSIS 02-19-2016 [facility] NURSE UNSPECIFIED PRACTITIONE ORGANISM R GR C4442 SQUAMOUS 02-19-2016 [facility] NURSE CELL PRACTITIONE CARCINOMA R GR OF SKIN OF SCALP & NECK K33515 TYPE 2 02-19-2016 [facility] NURSE DIABETES PRACTITIONE MELLITUS R GR WITH FOOT ULCER E49804 OTHER 02-18-2016 [facility]ICAL CHRONIC SERV OSTEOMYELIT FOUNDATION IS RIGHT ANKLE AND FOOT R609 EDEMA 02-18-2016 ID MEDICAL UNSPECIFIED SERV FOUNDATION R7989 OTHER SPEC 02-18-2016 [facility] ABNORMAL SERV FINDINGS FOUNDATION BLOOD CHEMISTRY E1140 TYPE 2 DM 02-14-2016 [facility] DIABETIC NEUROPATHY UNSPECIFIED M2011 HALLUX 02-14-2016 [facility] VALGUS SERV ACQUIRED FOUNDATION RIGHT FOOT M609 MYOSITIS 02-14-2016 [place] [facility] UNSPECIFIED SERV FOUNDATION M7989 OTHER 02-14-2016 [place] [facility] SPECIFIED SERV SOFT TISSUE FOUNDATION DISORDERS R600 LOCALIZED 02-14-2016 [facility] EDEMA SERV FOUNDATION I214 NON-ST 02-13-2016 [facility] ELEVATION SERV MYOCARDIAL FOUNDATION INFARCTION I2510 ASHD [place] 02-13-2016 [place] [facility] CORONARY SERV 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 I959 HYPOTENSION 02-13-2016 NEETA JAMES UNSPECIFIED W58606 PERSONAL 02-13-2016 [place] [facility] HISTORY SERV OTHER FOUNDATION MALIGNANT NEOPLASM SKIN X31667 PERSONAL 02-13-2016 [place] [facility] OF SERV PULMONARY FOUNDATION EMBOLISM E1122 TYPE 2 01-24-2016 [facility] DIABETES PHYSICIANS MELLITUS GROUP W/DIAB CHRON KIDNEY DZ I129 HYPERTENSIV 01-24-2016 [facility] E CKD PHYSICIANS W/STAGE 1-4 GROUP CKD OR UNS CKD N189 CHRONIC 01-24-2016 [facility] KIDNEY PHYSICIANS DISEASE GROUP UNSPECIFIED D649 ANEMIA 01-23-2016 [facility] UNSPECIFIED PHYSICIANS, PLLC M1711 UNILATERAL 01-23-2016 [place] [facility] OSTEOARTHRI IMAGING ASS TIS RIGHT KNEE Q60566 PAIN IN 01-23-2016 [place] UNSPECIFIED MEDICAL HIP IMAGING ASS Y24216 PAIN IN 01-23-2016 [place] RIGHT KNEE MEDICAL IMAGING ASS N289 DISORDER OF 01-23-2016 [facility] KIDNEY AND PHYSICIANS, URETER PLLC UNSPECIFIED R079 CHEST PAIN 01-23-2016 [place] UNSPECIFIED MEDICAL IMAGING ASS R51 HEADACHE 01-23-2016 [place] [facility] IM[facility] ASS U6130EF UNSPECIFIED 01-23-2016 [place] INJURY OF MEDICAL HEAD IMAGING ASS INITIAL ENCOUNTER C4945YL UNSPECIFIED 01-23-2016 [place] INJURY OF MEDICAL PELVIS IMAGING ASS INITIAL ENCOUNTER C73689W LACERATION 01-23-2016 [place] W/O FOREIGN MEDICAL BODY RT IMAGING ASS KNEE INITIAL ENC T148 OTHER 01-23-2016 [facility] INJURY OF PHYSICIANS, UNSPECIFIED PLLC BODY REGION Z9181 HISTORY OF 01-23-2016 [facility] A4189 OTHER 01-03-2016 [facility] SPECIFIED SERV SEPSIS FOUNDATION I6782 CEREBRAL 01-03-2016 [facility] ISCHEMIA SERV FOUNDATION J341 CYST AND 01-03-2016 ID MEDICAL MUCOCELE OF SERV NOSE AND FOUNDATION NASAL SINUS L598 OTH SPEC 01-03-2016 [facility] D/O THE SERV SKIN & SUBQ FOUNDATION TISS RELATED TO RAD L8990 PRESSURE 01-03-2016 [facility]ER UNS AMBULANCE SITE UNSPECIFIED STAGE V32183 SPONDYLOSIS 01-03-2016 [facility] W/O SERV MYELOPATH/R FOUNDATION ADICULOPATH Y LUMB RGN M869 OSTEOMYELIT 01-03-2016 [facility] IS SERV UNSPECIFIED FOUNDATION N179 ACUTE 01-03-2016 [facility] KIDNEY SERV FAILURE FOUNDATION UNSPECIFIED S33PXYF UNSPECIFIED 01-03-2016 [facility] FALL SERV INITIAL FOUNDATION ENCOUNTER Z043 ENCOUNTER 01-03-2016 [place] [facility] EXAM & SERV OBSERVATION FOUNDATION FOLLOW OTH ACCIDENT I82C12 ACUTE 01-02-2016 [place] [facility] EMBOLISM & SERV THROMB LT FOUNDATION INTERNAL JUGULAR VEIN M6282 RHABDOMYOLY 01-02-2016 [facility] SIS N170 ACUTE RENAL 01-02-2016 [facility] FAILURE SERV WITH FOUNDATION TUBULAR NECROSIS U72293 CELLULITIS 12-30-2015 ID MEDICAL OF RIGHT SERV LOWER LIMB FOUNDATION D696 THROMBOCYTO 12-24-2015 ID MEDICAL PENIA SERV UNSPECIFIED FOUNDATION J690 PNEUMONITIS 12-24-2015 ID MEDICAL DUE TO SERV INHALATION FOUNDATION OF FOOD AND VOMIT Q91UGBP RADIATION 12-23-2015 ID MEDICAL SICKNESS SERV UNSPECIFIED FOUNDATION INITIAL ENCOUNTER E876 HYPOKALEMIA 12-20-2015 [facility] SERV [facility] R509 FEVER 12-16-2015 [place] [facility] UNSPECIFIED SERV FOUNDATION K121 OTHER FORMS 12-15-2015 ID MEDICAL OF SERV STOMATITIS FOUNDATION R339 RETENTION 12-15-2015 ID MEDICAL OF URINE SERV UNSPECIFIED FOUNDATION Y56872 NON-PRSS 12-10-2015 ID MEDICAL CHR ULCR SERV UNS PART RT FOUNDATION LOW LEG UNS SEV I96 GANGRENE 12-03-2015 [place] [facility] NOT SERV ELSEWHERE FOUNDATION CLASSIFIED [id number] OTHER 12-03-2015 ID MEDICAL OSTEOMYELIT SERV IS LOWER FOUNDATION LEG C4492 SQUAMOUS 12-02-2015 ID MED[facility] CELL SERV CARCINOMA FOUNDATION OF SKIN, UNSPECIFIED Q62437 ACUTE 12-02-2015 ID [facility] EMBOLISM & SERV THROMBOSIS FOUNDATION DEEP VEINS LT UP EXT K5909 OTHER 12-02-2015 [facility] CONSTIPATIO SERV N FOUNDATION E34865 PERSONAL 12-02-2015 ID MEDICAL HISTORY OF SERV NICOTINE FOUNDATION DEPENDENCE Z466 ENCOUNTER 12-01-2015 ID MED[facility] FITTING AND SERV ADJUSTMENT FOUNDATION URINARY DEVICE D82585 PAIN IN 11-30-2015 [facility] MEDICAL LEFT SERV FOREARM FOUNDATION [id number] OTHER 11-28-2015 ID MEDICAL OSTEOMYELIT SERV IS ANKLE FOUNDATION AND FOOT R740 NONSPECIFIC 11-21-2015 [place] [facility] E[place]ATION SERV LEVELS FOUNDATION TRANSAMINAS E & LDH I444 LEFT 11-20-2015 [facility]ICAL ANTERIOR SERV FASCICULAR FOUNDATION BLOCK G8918 OTHER ACUTE 11-19-2015 [facility] MEDICAL SERV POSTPROCEDU FOUNDATION RAL PAIN L929 GRANULOMATO 11-19-2015 [facility] [place] THE SKIN & HOSPI SUBQ TISS UNS B08354 ELEVATED 11-18-2015 ID MEDICAL WHITE BLOOD SERV CELL COUNT FOUNDATION UNSPECIFIED G92 TOXIC 11-18-2015 [facility] THY S96738 PRIMARY 11-18-2015 ID MEDICAL OSTEOARTHRI SERV TIS RIGHT FOUNDATION ANKLE AND FOOT R6520 SEVERE 11-18-2015 [facility] MED[facility] SEPSIS SERV WITHOUT FOUNDATION SEPTIC SHOCK R748 ABNORMAL 11-18-2015 ID MEDICAL LEVELS OF SERV OTHER SERUM FOUNDATION ENZYMES R922TAV TRAUMATIC 11-18-2015 [facility] S EMPHYSEMA INITIAL ENCNTR Z510 ENCOUNTER 11-15-2015 [facility] ANTINEOPLAS TIC RADIATION THERAPY C320 MALIGNANT 11-12-2015 NEETA JAMES NEOPLASM OF GLOTTIS M545 LOW BACK 11-12-2015 NEETA JAMES PAIN G893 NEOPLASM 11-07-2015 [facility] NURSE RELATED PRACTITIONE PAIN ACUTE R GR CHRONIC Z809 FAMILY 11-07-2015 [facility] NURSE HISTORY OF PRACTITIONE MALIGNANT R GR NEOPLASM UNSPECIFIED D020 CARCINOMA 10-22-2015 [facility]ICAL IN SITU OF SERV LARYNX FOUNDATION D0008 CARCINOMA 10-08-2015 [facility] PHARYNX C100 MALIGNANT 10-02-2015 [place] NEOPLASM OF [facility] J387 OTHER 10-02-2015 [place] DISEASES OF PHYSCIAN LARYNX PRACTICE LL R590 LOCALIZED 10-02-2015 [place] ENLARGED PHYSCIAN LYMPH NODES PRACTICE LL H12628 PRESSURE 09-24-2015 PROGRESSIVE ULCER OF PODIATRY OTHER SITE STAGE 3 B351 TINEA 07-25-2015 PROGRESSIVE UNGUIUM PODIATRY I890 LYMPHEDEMA 07-25-2015 PROGRESSIVE NOT PODIATRY ELSEWHERE CLASSIFIED N06104 SPONTANEOUS 07-25-2015 PROGRESSIVE RUPTURE PODIATRY FLEXOR TENDONS RT ANKLE FOOT C16515 PAIN IN 07-25-2015 PRO[facility] RIGHT FOOT PODIATRY F85573 PAIN IN 07-25-2015 PRO[facility] RIGHT TOES PODIATRY D03864 PAIN IN 07-25-2015 PRO[facility] LEFT TOES PODIATRY K30687 FURUNCLE 07-16-2015 NEETA RIGHT HAND M7731 CALCANEAL 07-04-2015 [facility] RIGHT MEDICAL FOOT IMAGING ASS J59498 NON-PRSS 05-29-2015 [facility] ULCR TISSUE OTH PART RT MANAGEMENT FOOT NECROS MUSC G629 POLYNEUROPA 05-24-2015 NEETA RAMIREZ THY UNSPECIFIED N3281 OVERACTIVE 05-02-2015 [facility] [place] ADULT [facility] PED N3941 URGE 05-02-2015 [facility] INCONTINENC [place] E ADULT & PED R47328 POSTPROCEDU 05-02-2015 [facility] RAL [place] URETHRAL ADULT & PED STRICTURE MALE MEATAL R3914 FEELING OF 05-02-2015 [facility] INCOMPLETE [place] BLADDER ADULT & PED EMPTYING N401 BENIGN 04-11-2015 [facility] PROSTATIC [place] HYPERPLASIA ADULT & PED LW URINARY TRACT SX G4700 INSOMNIA 04-08-2015 NEETA RAMIREZ UNSPECIFIED G5790 UNSPECIFIED 04-03-2015 [facility] MONONEUROPA THY UNS LOWER LIMB 83580 DIAB W/O 03-13-2015 [facility] COMP TYPE II/UNS NOT STATED UNCNTRL 3572 POLYNEUROPA 03-13-2015 [facility] THY IN DIABETES 6827 CELLULITIS 03-13-2015 [facility] AND ABSCESS OF FOOT EXCEPT TOES 39938 ULCER OF 03-13-2015 [facility] OTHER PART OF FOOT 95525 SECONDARY 02-25-2015 [facility]ED DM W/OTH TISSUE SPEC MANAGEMENT MANIFEST NOT UNCONTROL 4011 ESSENTIAL 01-31-2015 NEETA RAMIREZ HYPERTENSIO N, BENIGN 7242 LUMBAGO 01-31-2015 NEETA RAMIREZ 97446 INSOMNIA 01-31-2015 NET[facility] RAMIREZ UNSPECIFIED 29329 HORDEOLUM 01-01-2015 NEETA RAMIREZ EXTERNUM 6826 CELLULITIS 10-09-2014 NEETA RAMIREZ AND ABSCESS OF LEG EXCEPT FOOT 84262 HYPERTROPHY 09-14-2014 NEETA RAMIREZ PROSTATE W/O UR OBST & OTH LUTS 44521 UNSPECIFIED 08-20-2014 NEETA RAMIREZ ARTHROPATHY SITE UNSPECIFIED 7264 ENTHESOPATH 05-25-2014 NEETA RAMIREZ Y OF WRIST AND CARPUS 1101 DERMATOPHYT 05-08-2014 [facility] OSIS OF NAIL 7295 PAIN IN 04-27-2014 NEETAREZA RAMIREZ SOFT TISSUES OF LIMB 4779 ALLERGIC 03-30-2014 NEETA JAMES RHINITIS CAUSE UNSPECIFIED 2724 OTHER AND 03-08-2014 [place] UNSPECIFIED [facility] HYPERLIPIDE MARIA TERESA 4619 ACUTE 07-24-2013 PRIMARY SINUSITIS, [place] [address] OTHER AND 07-13-2013 [place] [facility] COMBINED SERV [...] 09 09 60 30 00 CA Ac OH 46 -0 -2 .0 00 RL ti OX 20 5- 9- 00 00 IS ve EN 19 20 20 78 LE 00 17 17 02 50 5 95 0 UG MG S TA BL ET ME 23 09 09 60 30 00 CA Ac TF 15 -0 -2 .0 00 RL ti OR 50 5- 9- 00 00 IS ve NM 10 20 20 78 LE N 21 17 [address] L UG 50 S 0 MG TA BL ET AL 59 09 09 90 30 00 CA Ac OH 76 -0 -2 .0 00 RL ti [...] 08 09 90 30 00 CA Ac OH 76 -0 -0 .0 00 RL ti [...] 07 08 90 30 00 CA Ac OH 76 -1 -0 .0 00 RL ti [...] [address] TA OP NM NO PH PH AR EN MA CY 7. 5- 32 5 AL 59 06 07 90 30 00 CA Ac OH 76 -0 -0 .0 00 RL ti [...] 05 06 20 10 00 CA Ac OH 57 -1 -0 .0 00 RL ti [...] 05 06 90 30 00 CA Ac OH 76 -1 -0 .0 00 RL ti [...] 04 05 90 30 00 CA Ac OH 76 -1 -1 .0 00 RL ti [...] 17 22 CE 5 45 TA UG NM S NO PH EN 7. 5- 32 5 AL 59 03 04 90 30 00 CA Ac OH 76 -1 -1 .0 00 RL ti [...] 17 [address] Chon UG HC S L 10 0 MG [...] 02 03 90 30 00 CA Ac OH 76 -2 -1 .0 00 RL ti [...] 01 02 90 30 00 CA Ac OH 76 -2 -1 .0 00 RL ti [...] PH AR TA MA BL CY ET OH 00 01 02 12 2 00 ME [...] UG 5 S MG TA BL ET OH 00 12 01 11 6 00 CA Ac OM 60 -2 -2 8. 00 RL ti ET 31 3- 0- 00 00 IS ve CELESTIN 58 20 20 0 76 LE ZI 65 16 [address] -Mary Lou UG M S SY RU P AL 59 12 01 90 30 00 CA Ac OH 76 -2 -2 .0 00 RL ti [...] Procedure DOS Code Location Performer Comment COLLECTIO 90525 [facility] PACO N VENOUS 7 HEALTH BLOOD SOLUTIONS VENIPUNCT IN URE TOBACCO 1000F SANDY ANTONIO USE 7 HEALTH ASSESSED SOLUTIONS IN CURRENT 1034F S[facility]Y PACO TOBACCO 7 HEALTH SMOKER SOLUTIONS IN BODY MASS 3008F [facility] INDEX 7 HEALTH DOCUMENTE SOLUTIONS D IN HOME [place]; S9341 INFUSION INFUSION ENTERAL 7 PARTNERS PARTNERS NUTRITION OF OF VIA [place] GRAVITY; PROVIDER ENGAGEMENT EXECUTIVE HOME [place]; S9341 INFUSION INFUSION ENTERAL 7 PARTNERS PARTNERS NUTRITION OF OF VIA [place]RA[place]ITY; PROVIDER ENGAGEMENT EXECUTIVE HOME [place]; S9341 INFUSION INFUSION ENTERAL 7 PARTNERS PARTNERS NUTRITION OF OF VIA [place] GRAVITY; PROVIDER ENGAGEMENT EXECUTIVE HOME [place]; S9341 INFUSION INFUSION ENTERAL 7 PARTNERS PARTNERS NUTRITION OF OF VIA [place] GRAVITY; PROVIDER ENGAGEMENT EXECUTIVE HOME [place]; S9341 INFUSION INFUSION ENTERAL 7 PARTNERS PARTNERS NUTRITION OF OF VIA [place] GRAVITY; PROVIDER ENGAGEMENT EXECUTIVE HOME [place]; S9341 INFUSION INFUSION ENTERAL 7 PARTNERS PARTNERS NUTRITION OF OF VIA [place] GRAVITY; PROVIDER ENGAGEMENT EXECUTIVE HOME [place]; S9341 INFUSION INFUSION ENTERAL 7 PARTNERS PARTNERS NUTRITION OF OF VIA [place]RAVITY; PROVIDER ENGAGEMENT EXECUTIVE HOME [place]; S9341 INFUSION INFUSION ENTERAL 7 PARTNERS PARTNERS NUTRITION OF OF VIA [place]RAVITY; PROVIDER ENGAGEMENT EXECUTIVE HOME [place]; S9341 INFUSION INFUSION ENTERAL 7 PARTNERS PARTNERS NUTRITION OF OF VIA [place]RA[place]ITY; PROVIDER ENGAGEMENT EXECUTIVE HOME [place]; S9341 INFUSION INFUSION ENTERAL 7 PARTNERS PARTNERS NUTRITION OF OF VIA [place]RA[place]ITY; PROVIDER ENGAGEMENT EXECUTIVE HOME [place]; S9341 INFUSION INFUSION ENTERAL 7 [employer]ERS PARTNERS NUTRITION OF OF [place]; PROVIDER ENGAGEMENT EXECUTIVE HOME [place]; S9341 INFUSION INFUSION ENTERAL 7 [employer]ERS PARTNERS NUTRITION OF OF [place]; PROVIDER ENGAGEMENT EXECUTIVE HOME [place]; S9341 INFUSION INFUSION ENTERAL 7 PART[employer]ERS PARTNERS NUTRITION OF OF [place]; PROVIDER ENGAGEMENT EXECUTIVE HOME [place]; S9341 INFUSION INFUSION ENTERAL 7 PARTNERS PARTNERS NUTRITION OF OF [place]; PROVIDER ENGAGEMENT EXECUTIVE HOME [place]; S934 INFUSION INFUSION ENTERAL 7 [employer]ERS PARTNERS NUTRITION OF OF [place]; PROVIDER ENGAGEMENT EXECUTIVE HOME [place]; S934 INFUSION INFUSION ENTERAL 7 [employer]ERS PARTNERS NUTRITION OF OF [place]; PROVIDER ENGAGEMENT EXECUTIVE HOME [place]; S934 INFUSION INFUSION ENTERAL 7 [employer]ERS PARTNERS NUTRITION OF OF [place]; PROVIDER ENGAGEMENT EXECUTIVE HOME [place]; S9341 INFUSION INFUSION ENTERAL 7 [employer]ERS PARTNERS NUTRITION OF OF [place]; PROVIDER ENGAGEMENT EXECUTIVE HOME [place]; S934 INFUSION INFUSION ENTERAL 7 [employer]ERS PARTNERS NUTRITION OF OF [place]; PROVIDER ENGAGEMENT EXECUTIVE HOME [place]; S9341 INFUSION INFUSION ENTERAL 7 [employer]ERS PARTNERS NUTRITION OF OF [place]; PROVIDER ENGAGEMENT EXECUTIVE HOME [place]; S934 INFUSION INFUSION ENTERAL 7 [employer]ERS PARTNERS NUTRITION OF OF [place]; PROVIDER ENGAGEMENT EXECUTIVE HOME [place]; S934 INFUSION INFUSION ENTERAL 7 [employer]ERS PARTNERS NUTRITION OF OF [place]; PROVIDER ENGAGEMENT EXECUTIVE HOME [place]; S934 INFUSION INFUSION ENTERAL 7 [employer]ERS PARTNERS NUTRITION OF OF [place]; PROVIDER ENGAGEMENT EXECUTIVE HOME [place]; S934 INFUSION INFUSION ENTERAL 7 [employer]ERS PARTNERS NUTRITION OF OF [place]; PROVIDER ENGAGEMENT EXECUTIVE HOME [place]; S934 INFUSION INFUSION ENTERAL 7 [employer]ERS PARTNERS NUTRITION OF OF [place]; PROVIDER ENGAGEMENT EXECUTIVE HOME [place]; S9341 INFUSION INFUSION ENTERAL 7 [employer]ERS PARTNERS NUTRITION OF OF [place]; PROVIDER ENGAGEMENT EXECUTIVE HOME [place]; S9341 INFUSION INFUSION ENTERAL 7 PARTNERS PARTNERS NUTRITION OF OF [place] [employer]; PROVIDER ENGAGEMENT EXECUTIVE HOME [place]; S9341 INFUSION INFUSION ENTERAL 7 PARTNERS PARTNERS NUTRITION OF OF [place]; PROVIDER ENGAGEMENT EXECUTIVE HOME [place]; S9341 INFUSION INFUSION ENTERAL 7 PARTNERS PARTNERS NUTRITION OF OF [place]; PROVIDER ENGAGEMENT EXECUTIVE HOME [place]; S9341 INFUSION INFUSION ENTERAL 7 PARTNERS PARTNERS NUTRITION OF OF [place]; PROVIDER ENGAGEMENT EXECUTIVE HOS BED E0260 CORA SHEPHERD SEMI-ELEC 7 HOME HOME W/ANY MEDICAL MEDICAL TYPE SIDE EQUIPME EQUIPME RAIL W/[place] [address] [place] THYROID 7 HEALTHCAR HEALTHCAR STIMULATI E E NG [facility] TSH RENAL 63231 [place] FUNCTION 7 [facility] PANEL E E [facility] COLLECTIO 28900 [place] N VENOUS 7 [facility] HEALTHCAR BLOOD E E VENIPUNCT [facility] URE PREALBUMI 86262 [place] UK N 7 HEALTHCAR HEALTHCAR E E [facility] BLOOD 21777 [facility] 7 [facility]CAR COMPLETE E E AUTO&AUTO [facility] DIFRNTL WBC FOOT 2027F [place] EXAMINATI 7 HEALTH ON SOLUTIONS PERFORMED IN HOME [place]; S9341 INFUSION INFUSION ENTERAL 7 PARTNERS PARTNERS NUTRITION OF OF [place]; PROVIDER ENGAGEMENT EXECUTIVE HOME [place]; S9341 INFUSION INFUSION ENTERAL 7 PARTNERS PARTNERS NUTRITION OF OF [place]; PROVIDER ENGAGEMENT EXECUTIVE HOME [place]; S9341 INFUSION INFUSION ENTERAL 7 PARTNERS PARTNERS NUTRITION OF OF [place]; PROVIDER ENGAGEMENT EXECUTIVE HOME [place]; S9341 INFUSION INFUSION ENTERAL 7 PARTNERS PARTNERS NUTRITION OF OF [place]; PROVIDER ENGAGEMENT EXECUTIVE HOME [place]; S9341 INFUSION INFUSION ENTERAL 7 PARTNERS PARTNERS NUTRITION OF OF [place]; PROVIDER ENGAGEMENT EXECUTIVE HOME [place]; S9341 INFUSION INFUSION ENTERAL 7 PARTNERS PARTNERS NUTRITION OF OF [place]; PROVIDER ENGAGEMENT EXECUTIVE HOME [place]; S9341 INFUSION INFUSION ENTERAL 7 PARTNERS PARTNERS NUTRITION OF OF [place]; PROVIDER ENGAGEMENT EXECUTIVE HOME [place]; S9341 INFUSION INFUSION ENTERAL 7 PARTNERS PARTNERS NUTRITION OF OF [place]; PROVIDER ENGAGEMENT EXECUTIVE HOME [place]; S9341 INFUSION INFUSION ENTERAL 7 PARTNERS PARTNERS NUTRITION OF OF [place]; PROVIDER ENGAGEMENT EXECUTIVE HOME [place]; S9341 INFUSION INFUSION ENTERAL 7 PARTNERS PARTNERS NUTRITION OF OF [place]; PROVIDER ENGAGEMENT EXECUTIVE HOME [place]; S9341 INFUSION INFUSION ENTERAL 7 PARTNERS PARTNERS NUTRITION OF OF [place]; PROVIDER ENGAGEMENT EXECUTIVE HOME [place]; S9341 INFUSION INFUSION ENTERAL 7 PARTNERS PARTNERS NUTRITION OF OF [place]; PROVIDER ENGAGEMENT EXECUTIVE HOME [place]; S9341 INFUSION INFUSION ENTERAL 7 PARTNERS PARTNERS NUTRITION OF OF [place]; PROVIDER ENGAGEMENT EXECUTIVE HOME [place]; S9341 INFUSION INFUSION ENTERAL 7 PARTNERS PARTNERS NUTRITION OF OF [place]; PROVIDER ENGAGEMENT EXECUTIVE [facility] BED E0260 CORA SHEPHERD SEMI-ELEC 7 HOME HOME W/ANY MEDICAL MEDICAL TYPE SIDE EQUIPME EQUIPME RAIL W/MATTRSS HOME [place]; S9341 INFUSION INFUSION ENTERAL 7 PARTNERS PARTNERS NUTRITION OF OF [place]; PROVIDER ENGAGEMENT EXECUTIVE HOME [place]; S9341 INFUSION INFUSION ENTERAL 7 PARTNERS PARTNERS NUTRITION OF OF [place]; PROVIDER ENGAGEMENT EXECUTIVE HOME [place]; S9341 INFUSION INFUSION ENTERAL 7 PARTNERS PARTNERS NUTRITION OF OF [place]; PROVIDER ENGAGEMENT EXECUTIVE HOME [place]; S9341 INFUSION INFUSION ENTERAL 7 PARTNERS PARTNERS NUTRITION OF OF [place]; PROVIDER ENGAGEMENT EXECUTIVE HOME [place]; S9341 INFUSION INFUSION ENTERAL 7 PARTNERS PARTNERS NUTRITION OF OF [place]; PROVIDER ENGAGEMENT EXECUTIVE HOME [place]; S9341 INFUSION INFUSION ENTERAL 7 PARTNERS PARTNERS NUTRITION OF OF [place]; PROVIDER ENGAGEMENT EXECUTIVE HOME [place]; S9341 INFUSION INFUSION ENTERAL 7 PARTNERS PARTNERS NUTRITION OF OF [place]; PROVIDER ENGAGEMENT EXECUTIVE HOME [place]; S9341 INFUSION INFUSION ENTERAL 7 PARTNERS PARTNERS NUTRITION OF OF [place]; PROVIDER ENGAGEMENT EXECUTIVE HOME [place]; S9341 INFUSION INFUSION ENTERAL 7 PARTNERS PARTNERS NUTRITION OF OF [place]; PROVIDER ENGAGEMENT EXECUTIVE HOME [place]; S9341 INFUSION INFUSION ENTERAL 7 PARTNERS PARTNERS NUTRITION OF OF [place]; PROVIDER ENGAGEMENT EXECUTIVE HOME [place]; S9341 INFUSION INFUSION ENTERAL 7 PARTNERS PARTNERS NUTRITION OF OF [place] [employer]; PROVIDER ENGAGEMENT EXECUTIVE HOME [place]; S9341 INFUSION INFUSION ENTERAL 7 PARTNERS PARTNERS NUTRITION OF OF [place]; PROVIDER ENGAGEMENT EXECUTIVE HOME [place]; S9341 INFUSION INFUSION ENTERAL 7 PARTNERS PARTNERS NUTRITION OF OF [place] [employer]; PROVIDER ENGAGEMENT EXECUTIVE HOME [place]; S9341 INFUSION INFUSION ENTERAL 7 PARTNERS PARTNERS NUTRITION OF OF [place]; PROVIDER ENGAGEMENT EXECUTIVE [facility] B[facility] E0260 CORA CORA SEMI-ELEC 7 HOME HOME W/ANY MEDICAL MEDICAL TYPE SIDE EQUIPME EQUIPME RAIL W/MATTRSS HOME [place]; S9341 INFUSION INFUSION ENTERAL 7 PARTNERS PARTNERS NUTRITION OF OF [place]; PROVIDER ENGAGEMENT EXECUTIVE HOME [place]; S9341 INFUSION INFUSION ENTERAL 7 PARTNERS PARTNERS NUTRITION OF OF [place]; PROVIDER ENGAGEMENT EXECUTIVE HOME [place]; S9341 INFUSION INFUSION ENTERAL 7 PARTNERS PARTNERS NUTRITION OF OF [place]; PROVIDER ENGAGEMENT EXECUTIVE HOME [place]; S9341 INFUSION INFUSION ENTERAL 7 PARTNERS PARTNERS NUTRITION OF OF [place]; PROVIDER ENGAGEMENT EXECUTIVE HOME [place]; S9341 INFUSION INFUSION ENTERAL 7 PARTNERS PARTNERS NUTRITION OF OF [place]; PROVIDER ENGAGEMENT EXECUTIVE HOME [place]; S9341 INFUSION INFUSION ENTERAL 7 PARTNERS PARTNERS NUTRITION OF OF [place] [employer]; PROVIDER ENGAGEMENT EXECUTIVE HOME [place]; S9341 INFUSION INFUSION ENTERAL 7 PARTNERS PARTNERS NUTRITION OF OF [place]; PROVIDER ENGAGEMENT EXECUTIVE HOME [place]; S9341 INFUSION INFUSION ENTERAL 7 PARTNERS PARTNERS NUTRITION OF OF [place] [employer]; PROVIDER ENGAGEMENT EXECUTIVE FINAL RPT G[address] [place] [address]/MRI 7 MEDICAL CHEST/NCK IMAGING /U/S NO ASS THR NOD<1.[address] THORAX 11894 [place] ADAM 7 MEDICAL W/CONTRAS IMAGING T ASS MATERIAL FINAL G9638 MIHAI ADAM REPORTS 7 MEDICAL W/O DOC IMAGING 1/MORE ASS DOSE REDUCTION TECH FINAL G9638 MIHAI ADAM REPORTS 7 MEDICAL W/O DOC IMAGING 1/MORE ASS DOSE REDUCTION TECH GROUND A0425 [facility] MILEAGE 7 [facility] EMS MILE AMBULANCE A0429 [facility] SERVICE 7 [facility] EMERGENCY EMS EMS TRANSPORT COLLECTIO 88880 [facility] N VENOUS 7 HEALTHCAR HEALTHCAR BLOOD E E VENIPUNCT [facility] URE COMPREHEN 08659 [place] SIVE 7 [facility]ALTHCAR HEALTHCAR METABOLIC E E PANEL [facility] BLOOD 46416 [place] COUNT 7 HEALTHCAR HEALTHCAR COMPLETE E E AUTO&AUTO [facility] DIFRNTL WBC CRITICAL 33170 [facility] 7 PHYSICIAN ILL/INJUR S, [facility] ED PATIENT INIT 30-[address] [address] MIHAI ADAM HEAD/BRAI 7 MEDICAL N W/O IMAGING CONTRAST ASS MATERIAL RADIOLOGI 26303 MIHAI ADAM C 7 MEDICAL EXAMINATI IMAGING ON CHEST [place] [address] UK TRIIODOTH 7 HEALTHCAR HEALTHCAR YRONINE E E T3 TOTAL [facility] [place] [place] [address] [place] [address] [facility] THYROID 7 HE[facility]CAR HEALTHCAR STIMULATI E E NG [facility] [place] [address] [facility] FREE 7 HEALTHCAR HEALTHCAR THYROXINE E E HOSPITALS HOSPITALS HOME [place]; S9341 INFUSION INFUSION ENTERAL 7 PARTNERS PARTNERS NUTRITION OF OF [place]; PROVIDER ENGAGEMENT EXECUTIVE HOME [place]; S9341 INFUSION INFUSION ENTERAL 7 PARTNERS PARTNERS NUTRITION OF OF [place]; PROVIDER ENGAGEMENT EXECUTIVE HOME [place]; S9341 INFUSION INFUSION ENTERAL 7 PARTNERS PARTNERS NUTRITION OF OF [place]; PROVIDER ENGAGEMENT EXECUTIVE HOME [place]; S9341 INFUSION INFUSION ENTERAL 7 PARTNERS PARTNERS NUTRITION OF OF [place]; PROVIDER ENGAGEMENT EXECUTIVE HOME [place]; S9341 INFUSION INFUSION ENTERAL 7 PARTNERS PARTNERS NUTRITION OF OF [place]; PROVIDER ENGAGEMENT EXECUTIVE HOME [place]; S9341 INFUSION INFUSION ENTERAL 7 PARTNERS PARTNERS NUTRITION OF OF [place]; PROVIDER ENGAGEMENT EXECUTIVE HOME [place]; S9341 INFUSION INFUSION ENTERAL 7 PARTNERS PARTNERS NUTRITION OF OF [place]; PROVIDER ENGAGEMENT EXECUTIVE HOME [place]; S9341 INFUSION INFUSION ENTERAL 7 PARTNERS PARTNERS NUTRITION OF OF [place]; PROVIDER ENGAGEMENT EXECUTIVE HOME [place]; S9341 INFUSION INFUSION ENTERAL 7 PARTNERS PARTNERS NUTRITION OF OF [place]; PROVIDER ENGAGEMENT EXECUTIVE HOME [place]; S9341 INFUSION INFUSION ENTERAL 7 PARTNERS PARTNERS NUTRITION OF OF [place]; PROVIDER ENGAGEMENT EXECUTIVE HOME [place]; S9341 INFUSION INFUSION ENTERAL 7 PARTNERS PARTNERS NUTRITION OF OF [place]; PROVIDER ENGAGEMENT EXECUTIVE HOME [place]; S9341 INFUSION INFUSION ENTERAL 7 PARTNERS PARTNERS NUTRITION OF OF [place]; PROVIDER ENGAGEMENT EXECUTIVE HOME [place]; S9341 INFUSION INFUSION ENTERAL 7 PARTNERS PARTNERS NUTRITION OF OF [place]; PROVIDER ENGAGEMENT EXECUTIVE HOME [place]; S9341 INFUSION INFUSION ENTERAL 7 PARTNERS PARTNERS NUTRITION OF OF [place]; PROVIDER ENGAGEMENT EXECUTIVE HOS BED E0260 [facility] SHEPHERD SEMI-ELEC 7 HOME HOME W/ANY MEDICAL MEDICAL TYPE SIDE EQUIPME EQUIPME RAIL W/MATTRSS HOME TX; S9341 INFUSION INFUSION ENTERAL 7 PARTNERS PARTNERS NUTRITION OF OF [place]; PROVIDER ENGAGEMENT EXECUTIVE RADEX 31143 [facility] [place] [facility] HAND 7 RADIOLOGY MINIMUM 3 VIEWS RADEX 11217 [facility] [place] [facility] FOREARM 2 7 RADIOLOGY VIEWS RADEX 75113 [facility] [place] [facility] WRIST 7 RADIOLOGY COMPLETE MINIMUM 3 VIEWS GROUND A[address] [facility] MILE AMBULANCE A[address] EMERGENCY EMS EMS TRANSPORT HOME [place]; S9341 INFUSION INFUSION ENTERAL 7 PARTNERS PARTNERS NUTRITION OF OF [place]; PROVIDER ENGAGEMENT EXECUTIVE HOME [place]; S9341 INFUSION INFUSION ENTERAL 7 PARTNERS PARTNERS NUTRITION OF OF [place]; PROVIDER ENGAGEMENT EXECUTIVE HOME [place]; S9341 INFUSION INFUSION ENTERAL 7 PARTNERS PARTNERS NUTRITION OF OF [place]; PROVIDER ENGAGEMENT EXECUTIVE HOME [place]; S9341 INFUSION INFUSION ENTERAL 7 PARTNERS PARTNERS NUTRITION OF OF [place] [employer]; PROVIDER ENGAGEMENT EXECUTIVE HOME [place]; S9341 INFUSION INFUSION ENTERAL 7 PARTNERS PARTNERS NUTRITION OF OF [place] [employer]; PROVIDER ENGAGEMENT EXECUTIVE THERAPEUT 69100 MARY HERNANDEZ IC PX 1/> 7 [facility] AREAS INC INC EACH 15 MIN EXERCISES MANUAL 27019 MARY HERNANDEZ THERAPY 7 MEM H[facility] TQS 1/> INC INC REGIONS EACH 15 MINUTES HOS BED E0260 [facility] SHEPHERD SEMI-ELEC 7 HOME HOME W/ANY MEDICAL MEDICAL TYPE SIDE EQUIPME EQUIPME RAIL W/MATTRSS DUP-SCAN 98725 [facility] LXTR 7 [facility] ART/ARTL E E [facility] COMPL BI STUDY HOME [place]; S9341 INFUSION INFUSION ENTERAL 7 PARTNERS PARTNERS NUTRITION OF OF [place]; PROVIDER ENGAGEMENT EXECUTIVE HOME [place]; S9341 INFUSION JUSTICE ENTERAL 7 PARTNERS NUTRITION OF [place]; PROVIDER ENGAGEMENT EXECUTIVE HOME [place]; S9341 INFUSION INFUSION ENTERAL 7 PARTNERS PARTNERS NUTRITION OF OF [place] [employer]; PROVIDER ENGAGEMENT EXECUTIVE HOME [place]; S9341 INFUSION INFUSION ENTERAL 7 PARTNERS PARTNERS NUTRITION OF OF [place] [employer]; PROVIDER ENGAGEMENT EXECUTIVE ECHO 55843 NARENDRA SHEPHERD [facility] R-T 7 MEDICAL 2D SERV W/WOM-MOD FOUNDATIO E COMPL N SPEC&COLR D OBSERVATI 67679 NARENDRA CRAWLEY ON/INPATI 7 MEDICAL ENT SERV HOSPITAL FOUNDATIO CARE 55 N MINUTES CRITICAL 01248 JOHN NOONAN 7 PHYSICIAN JR ILL/INJUR S, PLLC ED PATIENT INIT 30-74 MIN BLOOD 73961 MARY HERNANDEZ COUNT 7 [facility] HOSP COMPLETE INC INC AUTO&[place] [address] MARY HERNANDEZ TROPONIN 7 [facility] HOSP QUANTITAT INC INC JOJO GLUC BLD 86610 MARY HERNANDEZ GLUC MNTR 7 [facility] HOSP DEV INC INC CLEARED FDA SPEC HOME USE ECG 73237 MARY LINARESSON ROUTINE 7 [facility] W/LEAST P 12 LDS I&R ONLY COMPREHEN 45747 MARY HERNANDEZ SIVE 7 [facility] HOSP METABOLIC INC INC PANEL FINAL G9638 MIHAI LOPEZ REPORTS 7 MEDICAL W/O DOC IMAGING 1/MORE ASS DOSE REDUCTION TECH [place]; S9341 INFUSION INFUSION ENTERAL 7 PARTNERS PARTNERS NUTRITION OF OF [place] [employer]; PROVIDER ENGAGEMENT EXECUTIVE AMB A0431 AIR AIR SERVICE 7 METHODS METHODS CONVNTION [facility] AIR SRVC TRAN[place] [address] [place] [address] [place] ANGIOGRAP 7 MEDICAL HY HEAD SERV W/CONTRAS FOUNDATIO T/[place] [address] [place] ANGIOGRAP 7 MEDICAL HY NECK SERV W/CONTRAS FOUNDATIO T/NONCONT N RAST CREATINE 75058 MARY HERNANDEZ KINASE MB 7 [facility] HOSP FRACTION INC INC ONLY ECG 32495 MARY HERNANDEZ ROUTINE 7 [facility] ECG INC INC W/LEAST 12 LDS TRCG ONLY W/O I&R THER 60693 MARY HERNANDEZ PROPH/DX 7 [facility]OSP NJX IV INC INC PUSH SINGLE/1S T SBST/DRUG THROMBOPL 26869 MARY HERNANDEZ ASTIN 7 [facility] TIME INC INC PARTIAL PLASMA/WH OLE BLOOD CREATINE 04288 MARY HERNANDEZ KINASE 7 [facility] TOTAL INC INC PROTHROMB 30999 MARY HERNANDEZ IN TIME 7 [facility] INC INC RADIOLOGI 20889 [place] JESSICA C 7 MEDICAL EXAMINATI IMAGING [place] [address] MIHAI LORENZANACHER HEAD/BRAI 7 MEDICAL N W/O IMAGING CONTRAST ASS MATERIAL HOME TX; S9341 INFUSION INFUSION ENTERAL 7 PARTNERS PARTNERS NUTRITION OF OF [place]; PROVIDER ENGAGEMENT EXECUTIVE HOME [place]; S9341 INFUSION INFUSION ENTERAL 7 PARTNERS PARTNERS NUTRITION OF OF [place]; PROVIDER ENGAGEMENT EXECUTIVE HOME [place]; S9341 INFUSION INFUSION ENTERAL 7 PARTNERS PARTNERS NUTRITION OF OF [place]; PROVIDER ENGAGEMENT EXECUTIVE HOME [place]; S9341 INFUSION INFUSION ENTERAL 7 PARTNERS PARTNERS NUTRITION OF OF [place]; PROVIDER ENGAGEMENT EXECUTIVE HOME [place]; S9341 INFUSION INFUSION ENTERAL 7 PARTNERS PARTNERS NUTRITION OF OF [place] [employer]; PROVIDER ENGAGEMENT EXECUTIVE HOS BED E0260 CORA SHEPHERD SEMI-ELEC 7 HOME HOME W/ANY MEDICAL MEDICAL TYPE SIDE EQUIPME EQUIPME RAIL W/[place] [address] MIHAI ADAM HEAD/BRAI 7 MEDICAL N W/O IMAGING CONTRAST ASS MATERIAL RADIOLOGI 35334 [place] ADAM C 7 MEDICAL EXAMINATI IMAGING ON CHEST ASS SINGLE VIEW FRONTAL ECG 00657 JOE SWEENEY ROUTINE 7 PHYSICIAN U ECG S, PLLC W/LEAST 12 LDS I&R ONLY HOME TX; S9341 INFUSION INFUSION ENTERAL 6 PARTNERS PARTNERS NUTRITION OF OF [place]; PROVIDER ENGAGEMENT EXECUTIVE HOME [place]; S9341 INFUSION INFUSION ENTERAL 6 PARTNERS PARTNERS NUTRITION OF OF [place]; PROVIDER ENGAGEMENT EXECUTIVE HOME [place]; S9341 INFUSION INFUSION ENTERAL 6 PARTNERS PARTNERS NUTRITION OF OF [place]; PROVIDER ENGAGEMENT EXECUTIVE HOME [place]; S9341 INFUSION INFUSION ENTERAL 6 PARTNERS PARTNERS NUTRITION OF OF [place] [employer]; [place] [address] [place] UK THYROID 6 HEALTHCAR HEALTHCAR STIMULATI E E [facility] [place] TSH POST-TRINITY 53980 NARENDRA SUAREZ RACT 6 MEDICAL JR LASER SERV SURGERY FOUNDATIO N COMPREHEN 55849 [place] UK SIVE 6 [facility] METABOLIC E E PANEL [facility] BLOOD 40796 UK [place] COUNT 6 [facility] COMPLETE E E AUTO&AUTO [facility] DIFRNTL WBC HOS BED E0260 CORA SHEPHERD SEMI-ELEC 6 HOME HOME W/ANY MEDICAL MEDICAL TYPE SIDE EQUIPME EQUIPME RAIL W/MATTRSS HOME TX; S9341 INFUSION INFUSION ENTERAL 6 PARTNERS PARTNERS NUTRITION OF OF [place]; PROVIDER ENGAGEMENT EXECUTIVE HOME [place]; S9341 INFUSION INFUSION ENTERAL 6 PARTNERS PARTNERS NUTRITION OF OF [place]; PROVIDER ENGAGEMENT EXECUTIVE DRUG TST G0477 MARY HERNANDEZ PRESUMP;C 6 [facility] PBL BEING [place] [address] MARY HERNANDEZ FREE 6 [facility] [place] [address] MARY HERNANDEZ THYROID 6 [facility] MEM HOSP STIMULATI INC INC NG HORMONE TSH ALBUMIN 98745 MARY HERNANDEZ URINE 6 MEM [facility]OS[facility] MICROALBU INC INC MIN QUANTIATI VE BLOOD 65062 MARY HERNANDEZ COUNT 6 [facility]OSP COMPLETE INC INC AUTO&AUTO DIFRNTL WBC HEMOGLOBI 32509 MARY HERNANDEZ N 6 [facility] HOS[facility] GLYCOSYLA INC INC JESSE A1C COMPREHEN 07174 MARY HERNANDEZ SIVE 6 [facility]OS[facility] METABOLIC INC INC PANEL LIPID 84132 MARY HERNANDEZ PANEL 6 [facility]OS[facility] INC INC HOME [place]; S9341 INFUSION INFUSION ENTERAL 6 PARTNERS PARTNERS NUTRITION OF OF [place]ITY; PROVIDER ENGAGEMENT EXECUTIVE HOME [place]; S9341 INFUSION INFUSION ENTERAL 6 PARTNERS PARTNERS NUTRITION OF OF [place]; PROVIDER ENGAGEMENT EXECUTIVE HOME [place]; S9341 INFUSION INFUSION ENTERAL 6 PARTNERS PARTNERS NUTRITION OF OF [place]; PROVIDER ENGAGEMENT EXECUTIVE HOME [place]; S9341 INFUSION INFUSION ENTERAL 6 PARTNERS PARTNERS NUTRITION OF OF [place]; PROVIDER ENGAGEMENT EXECUTIVE HOME [place]; S9341 INFUSION INFUSION ENTERAL 6 PARTNERS PARTNERS NUTRITION OF OF [place]; PROVIDER ENGAGEMENT EXECUTIVE HOME [place]; S934 INFUSION INFUSION ENTERAL 6 PARTNERS PARTNERS NUTRITION OF OF [place]; PROVIDER ENGAGEMENT EXECUTIVE HOME [place]; S9341 INFUSION INFUSION ENTERAL 6 PARTNERS PARTNERS NUTRITION OF OF [place]; PROVIDER ENGAGEMENT EXECUTIVE HOME [place]; S9341 INFUSION INFUSION ENTERAL 6 PARTNERS PARTNERS NUTRITION OF OF [place]; PROVIDER ENGAGEMENT EXECUTIVE HOME [place]; S9341 INFUSION INFUSION ENTERAL 6 PARTNERS PARTNERS NUTRITION OF OF [place]; PROVIDER ENGAGEMENT EXECUTIVE HOME [place]; S934 INFUSION INFUSION ENTERAL 6 PARTNERS PARTNERS NUTRITION OF OF [place]; PROVIDER ENGAGEMENT EXECUTIVE HOME [place]; S934 INFUSION INFUSION ENTERAL 6 PARTNERS PARTNERS NUTRITION OF OF [place]RA[place]ITY; PROVIDER ENGAGEMENT EXECUTIVE HOME [place]; S934 INFUSION INFUSION ENTERAL 6 PARTNERS PARTNERS NUTRITION OF OF [place]; PROVIDER ENGAGEMENT EXECUTIVE HOME [place]; S934 INFUSION INFUSION ENTERAL 6 PARTNERS PARTNERS NUTRITION OF OF [place]; PROVIDER ENGAGEMENT EXECUTIVE HOME [place]; S934 INFUSION INFUSION ENTERAL 6 PARTNERS PARTNERS NUTRITION OF OF [place]; PROVIDER ENGAGEMENT EXECUTIVE HOME [place]; S9341 INFUSION INFUSION ENTERAL 6 PARTNERS PARTNERS NUTRITION OF OF [place]RA[place]; PROVIDER ENGAGEMENT EXECUTIVE HOME [place]; S9341 INFUSION INFUSION ENTERAL 6 PARTNERS PARTNERS NUTRITION OF OF [place]; PROVIDER ENGAGEMENT EXECUTIVE HOME [place]; S9341 INFUSION INFUSION ENTERAL 6 PARTNERS PARTNERS NUTRITION OF OF [place]RAVITY; PROVIDER ENGAGEMENT EXECUTIVE HOME [place]; S9341 INFUSION INFUSION ENTERAL 6 PARTNERS PARTNERS NUTRITION OF OF [place]RAVITY; PROVIDER ENGAGEMENT EXECUTIVE HOME [place]; S9341 INFUSION INFUSION ENTERAL 6 PARTNERS PARTNERS NUTRITION OF OF [place]RAVITY; PROVIDER ENGAGEMENT EXECUTIVE HOME [place]; S9341 INFUSION INFUSION ENTERAL 6 PARTNERS PARTNERS NUTRITION OF OF [place]RAVITY; PROVIDER ENGAGEMENT EXECUTIVE HOME [place]; S9341 INFUSION INFUSION ENTERAL 6 PARTNERS PARTNERS NUTRITION OF OF [place]RAVITY; PROVIDER ENGAGEMENT EXECUTIVE HOME [place]; S9341 INFUSION INFUSION ENTERAL 6 PARTNERS PARTNERS NUTRITION OF OF [place]RAVITY; PROVIDER ENGAGEMENT EXECUTIVE HOME [place]; S9341 INFUSION INFUSION ENTERAL 6 PARTNERS PARTNERS NUTRITION OF OF [place]RAVITY; PROVIDER ENGAGEMENT EXECUTIVE HOME [place]; S9341 INFUSION INFUSION ENTERAL 6 PARTNERS PARTNERS NUTRITION OF OF [place]RAVITY; PROVIDER ENGAGEMENT EXECUTIVE HOME [place]; S9341 INFUSION INFUSION ENTERAL 6 PARTNERS PARTNERS NUTRITION OF OF [place] GRAVITY; PROVIDER ENGAGEMENT EXECUTIVE HOME [place]; S9341 INFUSION INFUSION ENTERAL 6 [employer] NUTRITION OF [facility] [place] [employer]; PROVIDER ENGAGEMENT EXECUTIVE HOS BED [id number] [facility]A SHEPHERD SEMI-ELEC 6 HOME HOME W/ANY MEDICAL MEDICAL TYPE SIDE EQUIPME EQUIPME RAIL W/MATTRSS FLUORODEO [id number] [facility] XYGLUCOSE 6 Y Y F-18 FDG [facility] DX UP TO 45 MCI PET [id number] [facility] [address] [place] [address] CT SERV ATTENUATI FOUNDATIO ON SK[place] N B[place]; S9341 INFUSION INFUSION ENTERAL 6 [employer] NUTRITION OF [facility] [place] [employer]; PROVIDER ENGAGEMENT EXECUTIVE HOME [place]; S9341 INFUSION INFUSION ENTERAL 6 [employer] NUTRITION OF [facility] [place] [employer]; PROVIDER ENGAGEMENT EXECUTIVE HOME [place]; S9341 INFUSION INFUSION ENTERAL 6 [employer] NUTRITION OF [facility] [place] [employer]; PROVIDER ENGAGEMENT EXECUTIVE HOME [place]; S9341 INFUSION INFUSION ENTERAL 6 [employer] PART[employer] NUTRITION OF [facility] [place] [employer]; PROVIDER ENGAGEMENT EXECUTIVE HOME [place]; S9341 INFUSION INFUSION ENTERAL 6 [employer] PARTNERS NUTRITION OF [facility] [place] [employer]; PROVIDER ENGAGEMENT EXECUTIVE HOME [place]; S9341 INFUSION INFUSION ENTERAL 6 [employer] PART[employer]ERS NUTRITION OF [facility] [place] [employer]; PROVIDER ENGAGEMENT EXECUTIVE HOME [place]; S9341 INFUSION INFUSION ENTERAL 6 [employer] PARTNERS NUTRITION OF [facility] [place] [employer]; PROVIDER ENGAGEMENT EXECUTIVE HOME [place]; S934 INFUSION INFUSION ENTERAL 6 [employer] PART[employer]ERS NUTRITION OF [facility] [place] [employer]; PROVIDER ENGAGEMENT EXECUTIVE HOME [place]; S9341 INFUSION INFUSION ENTERAL 6 [employer] PART[employer]ERS NUTRITION OF [facility] [place] [employer]; PROVIDER ENGAGEMENT EXECUTIVE HOME [place]; S9341 INFUSION INFUSION ENTERAL 6 [employer] PARTNERS NUTRITION OF [facility] [place] [employer]; PROVIDER ENGAGEMENT EXECUTIVE HOME [place]; S9341 INFUSION INFUSION ENTERAL 6 [employer] PART[employer]ERS NUTRITION OF [facility] [place] [employer]; PROVIDER ENGAGEMENT EXECUTIVE HOME [place]; S934 INFUSION INFUSION ENTERAL 6 [employer]ERS NUTRITION OF [facility] [place] [employer]; PROVIDER ENGAGEMENT EXECUTIVE HOME [place]; S9341 INFUSION INFUSION ENTERAL 6 [employer]ERS NUTRITION OF [facility] [place] [employer]; PROVIDER ENGAGEMENT EXECUTIVE HOME [place]; S934 INFUSION INFUSION ENTERAL 6 [employer] NUTRITION OF [facility] [place] [employer]; PROVIDER ENGAGEMENT EXECUTIVE COLLECTIO [id number] [facility] VENOUS 6 Y Y [facility] HOME [place]; S9341 INFUSION INFUSION ENTERAL 6 [employer] NUTRITION OF [facility] [place] [place] [employer]; PROVIDER ENGAGEMENT EXECUTIVE HOME [place]; S9341 INFUSION INFUSION ENTERAL 6 [employer] NUTRITION OF [facility] [place] [employer]; PROVIDER ENGAGEMENT EXECUTIVE HOME [place]; S9341 INFUSION INFUSION ENTERAL 6 [employer] NUTRITION OF [facility] [place] [employer]; PROVIDER ENGAGEMENT EXECUTIVE HOME [place]; S9341 INFUSION INFUSION ENTERAL 6 [employer] NUTRITION OF [facility] [place] [employer]; PROVIDER ENGAGEMENT EXECUTIVE HOME [place]; S9341 INFUSION INFUSION ENTERAL 6 [employer] NUTRITION OF [facility] [place] [employer]; PROVIDER ENGAGEMENT EXECUTIVE VOICE [id number] [facility] 6 [facility]ALTH[facility] HEALTHCAR LIMIT E E PROJ GOAL [facility] STATUS [place] EPISODE LARYNGOSC 31535 [facility] 6 [facility] FLX/RGD E E TELESCOPI [facility] C W/STROBOS COPY LOCM Q9967 [facility] [phone] [facility] HE[facility]CAR MG/ML E E IODINE [facility] CONCENTRA TION PER ML VOICE G9173 [place] FUNCT 6 [facility] LIMIT E E DISCHARGE HOSPITALS HOSPITALS STATUS D/C FROM [place] VOICE G9171 [facility] LIMIT E E CURR [facility] HOSPITALS STATUS [place] EPISODE OUTSET CREATININ 32416 [facility] BLOOD 6 [facility] E E [facility]ALS HOSPITALS CT THORAX [address]3693 [place] MASTERSON 6 MEDICAL W/CONTRAS SERV T FOUNDATIO MATERIAL N BEHAVIORA 40706 [facility] L & 6 [facility] QUALIT E E ANALYSIS [facility] HOSPITALS VOICE AND RESONANCE CT SOFT 44093 [place] GRACIELA KWA TISSUE 6 MEDICAL NECK SERV W/CONTRAS FOUNDATIO T N MATERIAL HOME [place]; S934 INFUSION INFUSION ENTERAL 6 PARTNERS PARTNERS NUTRITION OF OF [place]IA [place] GRAVITY; PROVIDER ENGAGEMENT EXECUTIVE HOME [place]; S9341 INFUSION INFUSION ENTERAL 6 PARTNERS PARTNERS NUTRITION OF OF [place]; PROVIDER ENGAGEMENT EXECUTIVE HOME [place]; S9341 INFUSION INFUSION ENTERAL 6 PARTNERS PARTNERS NUTRITION OF OF [place]RAV[place]; PROVIDER ENGAGEMENT EXECUTIVE HOME [place]; S9341 INFUSION INFUSION ENTERAL 6 PARTNERS PARTNERS NUTRITION OF OF [place]RAVITY; PROVIDER ENGAGEMENT EXECUTIVE HOME [place]; S9341 INFUSION INFUSION ENTERAL 6 PARTNERS PARTNERS NUTRITION OF OF [place]RAV[place]; PROVIDER ENGAGEMENT EXECUTIVE HOME [place]; S9341 INFUSION INFUSION ENTERAL 6 PARTNERS PARTNERS NUTRITION OF OF [place]RAV[place]; PROVIDER ENGAGEMENT EXECUTIVE HOME [place]; S9341 INFUSION INFUSION ENTERAL 6 PARTNERS PARTNERS NUTRITION OF OF [place]RAV[place]; PROVIDER ENGAGEMENT EXECUTIVE HOME [place]; S9341 INFUSION INFUSION ENTERAL 6 PARTNERS PARTNERS NUTRITION OF OF [place]; PROVIDER ENGAGEMENT EXECUTIVE HOME [place]; S9341 INFUSION INFUSION ENTERAL 6 [employer]NERS PARTNERS NUTRITION OF OF [place] [employer]; PROVIDER ENGAGEMENT EXECUTIVE HOS BED E0260 CORA SHEPHERD SEMI-ELEC 6 HOME HOME W/ANY MEDICAL MEDICAL TYPE SIDE EQUIPME EQUIPME RAIL W/MATTRSS DIRECT G0299 ABHINAV PEREZ RN 6 HOME HOME [facility]/ AGENCY AGENCY SPICE SET EA 15 MIN DEBRIDEME 03102 [facility] NT OPEN 6 Y Y WOUND 20 [facility] SQ CM/< DIRECT G0299 ABHINAV PEREZ RN 6 HOME HOME HOME [facility]/ AGENCY AGENCY SPICE SET EA 15 MIN DIRECT G0299 ABHINAV PEREZ RN 6 HOME HOME [facility]/ AGENCY AGENCY SPICE SET EA 15 MIN DIRECT G0299 ABHINAV PEREZ RN 6 HOME HOME HOME [facility]/ AGENCY AGENCY SPICE SET EA 15 MIN HOME [place]; S9341 INFUSION INFUSION ENTERAL 6 PARTNERS PARTNERS NUTRITION OF OF [place]; PROVIDER ENGAGEMENT EXECUTIVE HOME [place]; S9341 INFUSION INFUSION ENTERAL 6 PARTNERS PARTNERS NUTRITION OF OF [place]; PROVIDER ENGAGEMENT EXECUTIVE HOME [place]; S9341 INFUSION INFUSION ENTERAL 6 PARTNERS PARTNERS NUTRITION OF OF [place]RAV[employer]; PROVIDER ENGAGEMENT EXECUTIVE HOME [place]; S9341 INFUSION INFUSION ENTERAL 6 PARTNERS PARTNERS NUTRITION OF OF [place] [employer]; PROVIDER ENGAGEMENT EXECUTIVE HOME [place]; S9341 INFUSION INFUSION ENTERAL 6 PARTNERS PARTNERS NUTRITION OF OF [place] [employer]; PROVIDER ENGAGEMENT EXECUTIVE DIRECT G0299 ABHINAV PEREZ RN 6 HOME HOME HOME [facility]/ AGENCY AGENCY SPICE SET EA 15 MIN HOME [place]; S9341 INFUSION INFUSION ENTERAL 6 PARTNERS PARTNERS NUTRITION OF OF [place]; PROVIDER ENGAGEMENT EXECUTIVE HOME [place]; S9341 INFUSION INFUSION ENTERAL 6 PARTNERS PARTNERS NUTRITION OF OF [place]RAV[employer]; PROVIDER ENGAGEMENT EXECUTIVE HOME [place]; S9341 INFUSION INFUSION ENTERAL 6 PARTNERS PARTNERS NUTRITION OF OF [place]RAV[employer]; PROVIDER ENGAGEMENT EXECUTIVE HOME [place]; S9341 INFUSION INFUSION ENTERAL 6 PARTNERS PARTNERS NUTRITION OF OF [place] [employer]RAV[employer]; PROVIDER ENGAGEMENT EXECUTIVE DIRECT G0299 ABHINAV PEREZ RN 6 HOME HOME HOME [facility]/ AGENCY AGENCY SPICE SET EA 15 MIN HOME [place]; S9341 INFUSION INFUSION ENTERAL 6 PARTNERS PARTNERS NUTRITION OF OF [place]; PROVIDER ENGAGEMENT EXECUTIVE HOME [place]; S9341 INFUSION INFUSION ENTERAL 6 PARTNERS PARTNERS NUTRITION OF OF [place]; PROVIDER ENGAGEMENT EXECUTIVE HOME [place]; S9341 INFUSION INFUSION ENTERAL 6 PARTNERS PARTNERS NUTRITION OF OF [place]RAV[employer]; PROVIDER ENGAGEMENT EXECUTIVE HOS BED E0260 CORA CORA SEMI-ELEC 6 HOME HOME W/ANY MEDICAL MEDICAL TYPE SIDE EQUIPME EQUIPME RAIL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 [facility]ANT[facility]CR[facility] 6 6 JAMES JAMES T VISIT 15 MINUTES [facility] 29062 [facility] 6 6 [place] ADA T VISIT PHYSICIAN 15 S ASSIST MINUTES [facility]OSP[facility] 53649 [facility] 6 6 Y T VISIT 5 HOSPITAL MINUTES [facility], 6 6 HOME [facility] - 6 6 Y INPATIENT HOSPITAL EMERGENCY 22692 NARENDRA SHAH DEPT 6 6 MEDICAL STARLA VISIT SERV HIGH FOUNDATIO SEVERITY& N THREAT [facility] - 6 [facility] 45594 NEET[facility] SANTACRUZ OUT[facility]EN 6 6 JAMES JAMES T VISIT 15 MINUTES OFFICE 13029 [facility] 6 6 NURSE MIR T VISIT PRACTITIO 25 NER GR MINUTES [facility] - 6 6 [facility] 6 6 [facility] T OFFICE 45824 [facility] 6 6 Y T VISIT 5 HOSPITAL MINUTES OFFICE 16140 NARENDRA JAMES [facility] 6 6 MEDICAL T NEW 45 SERV MINUTES [facility] 6 6 [facility] T OFFICE 11421 NARENDRA MONTENEGRO [facility] 6 6 MEDICAL T VISIT SERV [address] [facility] - 6 [facility] 90280 [facility] 6 6 [place] ADA ION PHYSICIAN NEW/ESTAB S ASSIST PATIENT 60 MIN OFFICE 05808 [facility]OSPARKLE [facility] 6 6 PHYSCIAN LES T VISIT PRACTICE 15 LL MINUTES OFFICE 11924 [facility]ANT[facility]CR[facility] 6 6 JAMES JAMES T VISIT 15 MINUTES [facility] [facility] 6 6 [facility] - 6 6 [facility] T OFFICE 64695 [facility] 6 6 PHYSCIAN LES ION PRACTICE NEW/ESTAB LL PATIENT 60 MIN OFFICE 45661 [facility] SANTACR[facility] OUTPAT[facility] 6 6 JAMES JAMES T VISIT 15 MINUTES OFFICE 37325 [facility] OUT[facility] 6 6 JAMES JAMES T VISIT 15 MINUTES OFFICE 15750 [facility] OUTPAT[facility] 6 6 T VISIT 15 MINUTES HOSPITAL [facility] - 6 6 [facility] OUTPATIEN INC T OFFICE 59829 [facility]PAT[facility] 5 5 JAMES JAMES T VISIT 15 MINUTES OFFICE 06366 [facility] 5 5 [facility] T VISIT ADULT & 25 PED MINUTES OFFICE 25718 [facility]ON ADULT & NEW/ESTAB PED PATIENT 60 MIN OFFICE 18965 [facility] 5 5 JAMES JAMES T VISIT 15 MINUTES OFFICE 00828 [facility] OUTPATIEN 5 5 T VISIT 15 MINUTES OFFICE 99167 [facility] OUTPATI[facility] 5 5 T VISIT 15 MINUTES OFFICE 29031 [facility] OUTPATI[facility] 5 5 T VISIT 15 MINUTES OFFICE 14600 [facility] OUTPAT[facility] 5 5 T VISIT 15 MINUTES OFFICE 68486 [facility] OUTPAT[facility] 5 5 JAMES JAMES T VISIT 15 MINUTES OFFICE 62427 [facility] OUTPATIEN 5 5 T VISIT 15 MINUTES OFFICE 35781 [facility] OUTPATIEN 5 5 T VISIT 15 MINUTES OFFICE 35942 [facility] OUTPAT[facility] 5 5 JAMES JAMES T VISIT 25 MINUTES OFFICE 40442 [facility] OUTPATIEN 5 5 T VISIT 15 MINUTES OFFICE 27542 [facility] OUTPATIEN 5 5 T VISIT 15 MINUTES OFFICE 01113 [facility] OUTPAT[facility] 5 5 JAMES JAMES T VISIT 15 MINUTES OFFICE 10937 [facility] OUTPATIEN 5 5 T VISIT 15 MINUTES OFFICE 25507 [facility] OUTPATIEN 5 5 T VISIT 15 MINUTES OFFICE 96354 [facility] 5 5 JAMES JAMES T VISIT 15 MINUTES OFFICE 32838 [facility] OUTPATI[facility] 5 5 JAMES JAMES T VISIT 25 MINUTES OFFICE 39153 [facility] 5 5 JAMES JAMES T VISIT 15 MINUTES OFFICE 43369 [facility] 5 5 JAMES JAMES T VISIT 15 MINUTES [facility] - 5 5 [facility] T OFFICE 15267 [facility] OUTPATIEN 5 5 JAMES JAMES T VISIT 15 MINUTES OFFICE 69436 [facility] 4 4 JAMES JAMES T VISIT 15 MINUTES OFFICE 06489 [facility] OUTPATIEN 4 4 T NEW 30 MINUTES OFFICE 20687 [facility] OUTPATI[facility] 4 4 JAMSE JAMES T VISIT 15 MINUTES OFFICE 04669 [facility] 4 4 JAMES JAMES T VISIT 15 MINUTES [facility] 4 4 [facility] T OFFICE 30003 PRIMARY NEETA OUTPATIEN 4 4 HEALTH JAMES T VISIT ASSOCIATE 15 S PS MINUTES OFFICE 19901 [facility] OUTPATI[facility] 4 4 HEALTH [facility]AMES T VISIT ASSOCIATE 15 S PS MINUTES
--- OUTSIDE RECORDS SUMMARY | 2017-03-25 21:35 | External Medical Summary Rpt | CCD ---
Author Author , MACIEJ Organization [facility] Address Unknown Phone [email or web address] Care Team Providers Care Care Coordinator Name Role Phone [facility], [facility] Unavailable Unavailable [facility], [facility] Unavailable Unavailable [facility] Unavailable Unavailable MANAGEMENT, [facility] MANAGEMENT [facility] Unavailable Unavailable MANAGEMENT, [facility] MANAG[facility] [place], Unavailable Unavailable [facility] [place] [facility] [place], Unavailable Unavailable [facility] [...] Unavailable ADAM ALL, ADAM ALL Unavailable Unavailable [facility] Unavailable Unavailable [facility], [facility] Unavailable [facility]available [facility], [facility] NEETA, NEETA Unavailable Unavailable NEETA, NEETA Unavailable Unavailable NETEA JAMES, NEETA Unavailable Unavailable JAMES NEETA JAMES, NEETA Unavailable Unavailable JAMES MCCARTHY STARLA, MCCARTHY Unavailable Unavailable STARLA EDDA DEE, EDDA Unavailable Unavailable DEE [facility], Unavailable Unavailable [facility] Unavailable Unavailable ADULT & PED, [facility] CLARKE JAG, CLARKE Unavailable [...] JR KAREN STARLA, KAREN Unavailable Unavailable STARLA MELANIE RHO, MELANIE Unavailable Unavailable RHO JJ ROMEL, JJ Unavailable Unavailable ROMEL VINCENT, VINCENT Unavailable Unavailable [facility] Unavailable Unavailable INC, [facility] Unavailable Unavailable HOSPITAL P, [facility] POLY MIR, Unavailable Unavailable POLY MIR CURTIS-MURILLO ELSIE, Unavailable Unavailable CURTIS-MURILLO ELSIE [facility], Unavailable Unavailable [facility] MASTERSON, MASTERSON Unavailable Unavailable PACO, PACO Unavailable Unavailable [facility] [place] Unavailable Unavailable [place], [facility] VONDA BROADDUS CHR, VONDA Unavailable Unavailable BROADDUS CHR JUSTICE, JUSTICE Unavailable Unavailable [facility] Unavailable Unavailable [facility], [facility] NURSE Unavailable Unavailable PRACTITIONER [...] MISBAH Unavailable Unavailable MISBAH, MISBAH Unavailable Unavailable LEEDY JEROME, LEEDY JEROME Unavailable Unavailable LUKINS BRANDON, LUKINS Unavailable Unavailable BRANDON MINION JACK, MINION Unavailable Unavailable JACK MIRRAKHIMOV AIB, Unavailable Unavailable MIRRAKHIMOV AIB PALOMA MONTOYA, Unavailable Unavailable PALOMA PIERCE FIDELINA, KARI Unavailable Unavailable FIDELINA CALLIE USM, CALLIE USM Unavailable Unavailable NICKELS JACK, NICKELS Unavailable Unavailable JACK GRACIELA, GRACIELA Unavailable Unavailable LUIS NAYELI, LUIS Unavailable Unavailable NAYELI CORDERO BUDDY, CORDERO BUDDY Unavailable Unavailable QUETA BEAU, QUETA BEAU Unavailable Unavailable [facility] PARASRAMKA NOMAN, Unavailable Unavailable PARASRAMKA NOMAN [facility] Unavailable Unavailable EMS, [facility] Unavailable [facility]available EMS[facility] Unavailable [facility]available [facility], [facility] Un[facility], [facility] Unavailable Unavailable [facility] Unavailable Unavailable [facility] RENUSCH, RENUSCH Unavailable Unavailable [facility], [facility] Unavailable [facility], [facility] HYACINTH NAYELI, Unavailable Unavailable HYACINTH NAYELI LIONEL SHARON, LIONEL Unavailable Unavailable SHARON SEKKATH-VEEDU RONNI, Unavailable Unavailable SEKKATH-VEEDU RONNI SELL TON, SELL TON Unavailable Unavailable RIVAS ANW, RIVAS Unavailable Unavailable ANW CORA, CORA Unavailable Unavailable [facility] Unavailable Unavailable [facility], [facility] Unavailable Unavailable [facility], [facility] SOTINGEANU, Unavailable Unavailable SOTINGEANU [facility] Unavailable Unavailable [facility], [facility] CHRISTIAN CAR, CHRISTIAN Unavailable Unavailable [facility] Unavailable Un[facility] SHAH STARLA, SHAH Unavailable Unavailable STARLA BAUTISTA JOSUE, BAUTISTA Unavailable Unavailable JOSUE JOSELINE, JOSELINE Unavailable Unavailable JOSELINE ERIKA, JOSELINE ERIKA Unavailable Unavailable SOTO MOL, SOTO MOL Unavailable Unavailable TRUE LILLY, TRUE LILLY Unavailable Unavailable [facility] Unavailable Unavailable HOSPITALS, [facility], Unavailable Unavailable [facility] Unavailable Unavailable [place] [facility], [facility] PLUMMER TEREZA, PLUMMER TEREZA Unavailable Unavailable [facility] Unavailable Unavailable [facility], [facility] SUTHERLAND MAN, SUTHERLAND MAN Unavailable Unavailable XENOS JACY, XENOS JACY Unavailable Unavailable YOUNG STARLA, YOUNG STARLA Unavailable Unavailable ZAGUROVSKAYA MAR, Unavailable Unavailable ZAGUROVSKAYA [...] MEDICAL EMPHYSEMA IMAGING ASS R05 COUGH 09-03-2016 [facility] R0902 HYPOXEMIA 09-03-2016 [facility] [id number] POISONING 09-03-2016 [facility] ACCIDENTAL INIT ENC Z931 GASTROSTOMY 09-03-2016 [facility] C101 MALIGNANT 09-02-2016 [place] [facility] NE[facility] ANTERIOR [facility] SURFACE EPIGLOTTIS C7989 SECONDARY 09-02-2016 [place] [facility] MALIG[place] SERV NEOPLASM [facility] OTH SPECIFIED SITES I10 ESSENTIAL 09-02-[address] [facility] N R404 TRANSIENT 09-02-2016 [facility] AWARENESS R413 OTHER 09-02-2016 [place] [facility] R4182 ALTERED 09-02-2016 [facility] M[facility], STATUS PLLC UNSPECIFIED Z08 ENCOUNTER 09-02-2016 [place] [facility] F/U EXAM SERV AFTER CMPL FOUNDATION TX MALIG NEOPLASM Z8619 PERSONAL 09-02-2016 [place] [facility] HISTORY OTH SERV INFECTIOUS FOUNDATION & PARASITIC DZ Z923 PERSONAL 09-02-2016 [place] [facility] H[place] OF SERV IRRADIATION FOUNDATION R69176 WRIST DROP 08-19-2016 [facility] PH[facility] J07919 PAIN IN 08-19-2016 [facility] W[facility] HEALTH SOLUTIONS IN J97798 PAIN IN 08-19-2016 [facility] [place] RIGHT RADIOLOGY FOREARM T73938 PAIN IN 08-19-2016 [facility] RIGHT HAND HEALTH SOLUTIONS IN E11308 PAIN IN 08-12-2016 [facility] ARM [facility] INC R202 PARESTHESIA 08-12-2016 [facility] SKIN [facility] INC I9589 OTHER 07-28-2016 [facility] HYPOTENSION HEALTH SOLUTIONS IN X57159 FLAIL JOINT 07-28-2016 [facility] RIGHT HEALTH WRIST SOLUTIONS IN D210 SAIRA 07-21-2016 [facility] NEOPLASM HEALTH CNCTV OTH SOLUTIONS SOFT TISS IN HEAD FACE NECK R000 TACHYCARDIA 07-21-2016 [facility] UNSPECIFIED SOLUTIONS IN R56312 NON-PRSS 07-08-2016 [facility] UNS FOOT UNS SEVERITY I348 OTHER 07-04-2016 [facility] NONRHEUMATI SERV C MITRAL FOUNDATION VALVE DISORDERS I350 NONRHEUMATI 07-04-2016 [place] [facility] C AORTIC SERV VALVE FOUNDATION STENOSIS I4891 UNSPECIFIED 07-04-2016 [facility] ATRIAL SERV FIBRILLATIO FOUNDATION N P64975 FACIAL 07-04-2016 [facility] WEAKNESS SERV [facility] R531 WEAKNESS 07-04-2016 [facility] SERV [facility] E1169 TYPE 2 07-03-2016 [facility] DIABETES [facility]YSICIANS, MELLITUS PLLC W/OTH SPEC COMPLICATIO N E669 OBESITY 07-03-2016 [facility] UNSPECIFIED PHYSICIANS, PLLC G459 TRANSIENT 07-03-2016 [facility] CEREBRAL SERV ISCHEMIC FOUNDATION ATTACK UNSPECIFIED G8191 HEMIPLEGIA 07-03-2016 [facility] P RIGHT DOMINANT SIDE I440 ATRIOVENTRI 07-03-2016 [facility] CULAR BLOCK SERV FIRST FOUNDATION DEGREE I498 OTHER 07-03-2016 [facility] SPECIFIED SERV CARDIAC FOUNDATION ARRHYTHMIAS I639 CEREBRAL 07-03-2016 [facility] INFARCTION PHYSICIANS, UNSPECIFIED PLLC I6523 OCCLUSION & 07-03-2016 [facility] STENOSIS SERV BILATERAL FOUNDATION CAROTID ARTERIES J984 OTHER 07-03-2016 [facility] DISORDERS SERV OF LUNG FOUNDATION R9431 ABNORMAL 07-03-2016 [facility] ELECTROCARD SERV IOGRAM FOUNDATION Z720 TOBACCO USE 07-03-2016 [facility] P Z7401 BED 07-03-2016 [facility] CONFINEMENT [place] STATUS Z794 MCC 07-03-2016 [facility] OF INSULIN INC H62122 NON-PRSS 06-16-2016 [facility] P FT W/UNS SEVERITY R42 DIZZINESS 06-16-2016 [facility] AND PHYSICIANS, GIDDINESS PLLC R5383 OTHER 06-16-2016 [facility] FATIGUE [facility], PLLC G8929 OTHER 05-27-2016 [facility] D65813 OTHER 05-27-2016 [facility] SECONDARY SERV CATARACT FOUNDATION LEFT EYE Z961 PRESENCE OF 05-27-2016 [facility] INTRAOCULAR [facility] LENS E1100 TYPE 2 DM 05-18-2016 [facility] W/HYPEROSMO PHYSICIANS LARITY W/O GROUP NKHHC I739 PERIPHERAL 05-18-2016 [facility] VASCULAR PHYSICIANS DISEASE GROUP UNSPECIFIED R221 LOCALIZED 04-22-2016 [facility] MASS AND LUMP NECK R599 ENLARGED 04-22-2016 [facility] LYMPH NODES SERV FOUNDATION UNSPECIFIED P25346 TYPE 2 04-08-2016 [facility] DIABETES SERV MELLITUS FOUNDATION WITH OTHER SKIN ULCER R490 DYSPHONIA 04-08-2016 [facility] C770 SEC & UNS 04-03-2016 [facility] LYMPH NODES [facility] HEAD FACE & NECK J3489 OTHER 04-03-2016 [facility] SPECIFIED SERV DISORDERS FOUNDATION NOSE AND NASAL SINUSES R1310 DYSPHAGIA 04-03-2016 [facility] R918 OTHER 04-03-2016 [place] [facility] NONSPECIFIC SERV ABNORMAL FOUNDATION FINDING OF LUNG FIELD M6281 MUSCLE 03-16-2016 [facility] GENERALIZED AGENCY X57698 OTHER ACUTE 03-16-2016 [facility] OSTEOMYELIT AGENCY IS RIGHT ANKLE AND FOOT R269 UNSPECIFIED 03-16-2016 [facility] ABNORMALITI AGENCY ES OF GAIT AND MOBILITY E59397O UNSPECIFIED 03-16-2016 [facility] OPEN WOUND HEALTH RIGHT FOOT AGENCY SUBSEQUENT ENC Z431 ENCOUNTER 03-16-2016 [facility] ATT[facility]ENC[facility] TO GASTROSTOMY Z4800 ENCOUNTER 03-16-2016 [facility] CHANGE/[facility] NONSURG AGENCY WOUND DRESSING M1990 UNSPECIFIED 03-12-2016 [facility] OSTEOARTHRI TIS UNSPECIFIED SITE W14148 ACQUIRED 03-12-2016 [facility] ABSENCE OF SERV OTHER RIGHT FOUNDATION TOES A419 SEPSIS 02-19-2016 [facility] N[facility]SE UNSPECIFIED PRACTITIONE ORGANISM R GR C4442 SQUAMOUS 02-19-2016 [facility] NURSE CELL PRACTITIONE CARCINOMA R GR OF SKIN OF SCALP & NECK N93233 TYPE 2 02-19-2016 [facility] NURSE DIABETES PRACTITIONE MELLITUS R GR WITH FOOT ULCER U53964 OTHER 02-18-2016 [facility] CHRONIC SERV OSTEOMYELIT FOUNDATION IS RIGHT ANKLE AND FOOT R609 EDEMA 02-18-2016 [facility] UNSPECIFIED SERV FOUNDATION R7989 OTHER SPEC 02-18-2016 [place] [facility] ABNORMAL [facility] FINDINGS [facility] BLOOD CHEMISTRY E1140 TYPE 2 DM 02-14-2016 [facility] DIABETIC NEUROPATHY UNSPECIFIED M2011 HALLUX 02-14-2016 [place] [facility] VALGUS SERV ACQUIRED FOUNDATION RIGHT FOOT M609 MYOSITIS 02-14-2016 [place] [facility] UNSPECIFIED SERV FOUNDATION M7989 OTHER 02-14-2016 [place] [facility] SPECIFIED SERV SOFT TISSUE FOUNDATION DISORDERS R600 LOCALIZED 02-14-2016 [place] [facility] EDEMA SERV FOUNDATION I214 NON-ST 02-13-2016 [place] [facility] E[place]ATION SERV MYOCARDIAL FOUNDATION INFARCTION I2510 ASHD MAN[place]OTAK 02-13-2016 [place] [facility] CORONARY SERV 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 I959 HYPOTENSION 02-13-2016 [facility] JAMES UNSPECIFIED E32712 PERSONAL 02-13-2016 [place] [facility] HISTORY SERV OTHER FOUNDATION MALIGNANT NEOPLASM SKIN E50478 PERSONAL 02-13-2016 [facility] OF SERV PULMONARY FOUNDATION EMBOLISM E1122 TYPE 2 01-24-2016 [facility] DIABETES PHYSICIANS MELLITUS GROUP W/DIAB CHRON KIDNEY DZ I129 HYPERTENSIV 01-24-2016 [facility] E CKD PHYSICIANS W/STAGE 1-4 GROUP CKD OR UNS CKD N189 CHRONIC 01-24-2016 [facility] KIDNEY PHYSICIANS DISEASE GROUP UNSPECIFIED D649 ANEMIA 01-23-2016 [facility] UNSPECIFIED PHYSICIANS, PLLC M1711 UNILATERAL 01-23-2016 [place] [facility]IMARY [facility] OSTEOARTHRI IMAGING ASS TIS RIGHT KNEE B40887 PAIN IN 01-23-2016 [place] UNSPECIFIED MEDICAL HIP IMAGING ASS C21827 PAIN IN 01-23-2016 [place] RIGHT KNEE MEDICAL IMAGING ASS N289 DISORDER OF 01-23-2016 [facility] KIDNEY AND PHYSICIANS, URETER PLLC UNSPECIFIED R079 CHEST PAIN 01-23-2016 [place] UNSPECIFIED MEDICAL IMAGING ASS R51 HEADACHE 01-23-2016 [place] [facility] IMAGING ASS B1757KF UNSPECIFIED 01-23-2016 [place] INJURY OF MEDICAL HEAD IMAGING ASS INITIAL ENCOUNTER I8525WN UNSPECIFIED 01-23-2016 [place] INJURY OF MEDICAL PELVIS IMAGING ASS INITIAL ENCOUNTER H24802R LACERATION 01-23-2016 [place] W/O FOREIGN MEDICAL BODY RT IMAGING ASS KNEE INITIAL ENC T148 OTHER 01-23-2016 [facility] INJURY OF PHYSICIANS, UNSPECIFIED PLLC BODY REGION Z9181 HISTORY OF 01-23-2016 [facility] A4189 OTHER 01-03-2016 [place] [facility] SPECIFIED SERV SEPSIS FOUNDATION I6782 CEREBRAL 01-03-2016 [place] [facility] ISCHEMIA SERV FOUNDATION J341 CYST AND 01-03-2016 [place] [facility] MUCOCELE OF SERV NOSE AND FOUNDATION NASAL SINUS L598 OTH SPEC 01-03-2016 [place] [facility] D/O THE SERV SKIN & SUBQ FOUNDATION TISS RELATED TO RAD L8990 PRESSURE 01-03-2016 [facility] UNS AMBULANCE SITE UNSPECIFIED STAGE W03138 SPONDYLOSIS 01-03-2016 [place] [facility] W/O SERV MYELOPATH/R FOUNDATION ADICULOPATH Y LUMB RGN M869 OSTEOMYELIT 01-03-2016 [place] [facility] IS SERV UNSPECIFIED FOUNDATION N179 ACUTE 01-03-2016 [place] [facility] KIDNEY SERV FAILURE FOUNDATION UNSPECIFIED M01DGQM UNSPECIFIED 01-03-2016 [place] [facility] FALL SERV INITIAL FOUNDATION ENCOUNTER Z043 ENCOUNTER 01-03-2016 [place] [facility] EXAM & SERV OBSERVATION FOUNDATION FOLLOW OTH ACCIDENT I82C12 ACUTE 01-02-2016 [facility] EMBOLISM & SERV THROMB LT FOUNDATION INTERNAL JUGULAR VEIN M6282 RHABDOMYOLY 01-02-2016 [facility] SIS N170 ACUTE RENAL 01-02-2016 [place] [facility] FAILURE [facility] WITH FOUNDATION TUBULAR NECROSIS E13008 CELLULITIS 12-30-2015 [facility] OF RIGHT SERV LOWER LIMB FOUNDATION D696 THROMBOCYTO 12-24-2015 [facility] PENIA SERV UNSPECIFIED FOUNDATION J690 PNEUMONITIS 12-24-2015 [facility] DUE TO SERV INHALATION FOUNDATION OF FOOD AND VOMIT C52UFED RADIATION 12-23-2015 [facility] SICKNESS SERV UNSPECIFIED FOUNDATION INITIAL ENCOUNTER E876 HYPOKALEMIA 12-20-2015 [place] [facility] SERV [facility] R509 FEVER 12-16-2015 [place] [facility] UNSPECIFIED SERV FOUNDATION K121 OTHER FORMS 12-15-2015 [facility] OF SERV STOMATITIS FOUNDATION R339 RETENTION 12-15-2015 [facility] OF URINE SERV UNSPECIFIED FOUNDATION E77522 NON-PRSS 12-10-2015 [facility] CHR ULCR SERV UNS PART RT FOUNDATION LOW LEG UNS SEV I96 GANGRENE 12-03-2015 [place] [facility] NOT SERV ELSEWHERE FOUNDATION CLASSIFIED M868X6 OTHER 12-03-2015 [facility] OSTEOMYELIT SERV IS LOWER FOUNDATION LEG C4492 SQUAMOUS 12-02-2015 [facility] CELL SERV CARCINOMA FOUNDATION OF SKIN, UNSPECIFIED N75648 ACUTE 12-02-2015 [facility] EMBOLISM & SERV THROMBOSIS FOUNDATION DEEP VEINS LT UP EXT K5909 OTHER 12-02-2015 [facility] CONSTIPATIO SERV N FOUNDATION Z43728 PERSONAL 12-02-2015 [facility] HISTORY OF SERV NICOTINE FOUNDATION DEPENDENCE Z466 ENCOUNTER 12-01-2015 [facility] FITTING AND SERV ADJUSTMENT FOUNDATION URINARY DEVICE G32355 PAIN IN 11-30-2015 [place] [facility] LEFT SERV FOREARM FOUNDATION M868X7 OTHER 11-28-2015 [facility] OSTEOMYELIT SERV IS ANKLE FOUNDATION AND FOOT R740 NONSPECIFIC 11-21-2015 [place] [facility] E[place] SERV LEVELS FOUNDATION TRANSAMINAS E & LDH I444 LEFT 11-20-2015 [facility] ANTERIOR SERV FASCICULAR FOUNDATION BLOCK G8918 OTHER ACUTE 11-19-2015 [facility] SERV POSTPROCEDU FOUNDATION RAL PAIN L929 GRANULOMATO 11-19-2015 [facility] DISORDER OF [place] THE SKIN & HOSPI SUBQ TISS UNS W98334 ELEVATED 11-18-2015 [facility] WHITE BLOOD SERV CELL COUNT FOUNDATION UNSPECIFIED G92 TOXIC 11-18-2015 [facility] THY X97901 PRIMARY 11-18-2015 [facility] OSTEOARTHRI SERV TIS RIGHT FOUNDATION ANKLE AND FOOT R6520 SEVERE 11-18-2015 [facility] SEPSIS SERV WITHOUT FOUNDATION SEPTIC SHOCK R748 ABNORMAL 11-18-2015 [facility] LEVELS OF SERV OTHER SERUM FOUNDATION ENZYMES H121KMR TRAUMATIC 11-18-2015 [facility] S EMPHYSEMA INITIAL ENCNTR Z510 ENCOUNTER 11-15-2015 [facility] ANTINEOPLAS TIC RADIATION THERAPY C320 MALIGNANT 11-12-2015 NEETA JAMES NEOPLASM OF GLOTTIS M545 LOW BACK 11-12-2015 NEETA JAMES PAIN G893 NEOPLASM 11-07-2015 [facility] NURSE RELATED PRACTITIONE PAIN ACUTE R GR CHRONIC Z809 FAMILY 11-07-2015 [facility] NURSE HISTORY OF PRACTITIONE MALIGNANT R GR NEOPLASM UNSPECIFIED D020 CARCINOMA 10-22-2015 [facility] IN [facility]ITU OF SERV LARYNX FOUNDATION D0008 CARCINOMA 10-08-2015 [facility] OF [facility] PHARYNX C100 MALIGNANT 10-02-2015 [place] NEOPLASM OF [facility] J387 OTHER 10-02-2015 [place] DISEASES OF PHYSCIAN LARYNX PRACTICE LL R590 LOCALIZED 10-02-2015 [place] ENLARGED PHYSCIAN LYMPH NODES PRACTICE LL P30478 PRESSURE 09-24-2015 PRO[facility] ULCER OF PODIATRY OTHER SITE STAGE 3 B351 TINEA 07-25-2015 PROGR[facility] UNGUIUM PODIATRY I890 LYMPHEDEMA 07-25-2015 PRO[facility] NOT PODIATRY ELSEWHERE CLASSIFIED T15214 SPONTANEOUS 07-25-2015 PROGR[facility] RUPTURE PODIATRY FLEXOR TENDONS RT ANKLE FOOT K34825 PAIN IN 07-25-2015 [facility] RIGHT FOOT PODIATRY A87564 PAIN IN 07-25-2015 [facility] RIGHT TOES PODIATRY O63474 PAIN IN 07-25-2015 [facility] LEFT TOES PODIATRY S30533 FURUNCLE 07-16-2015 [facility] RIGHT HAND M7731 CALCANEAL 07-04-2015 [place] [facility] MEDICAL FOOT IMAGING ASS F42775 NON-PRSS 05-29-2015 [facility] ULCR TISSUE OTH PART RT MANAGEMENT FOOT NECROS MUSC G629 POLYNEUROPA 05-24-2015 NEETA RAMIREZ THY UNSPECIFIED N3281 OVERACTIVE 05-02-2015 [facility] N3941 URGE 05-02-2015 [facility] INCONTINENC [facility] E ADULT & PED W07195 POSTPROCEDU 05-02-2015 [facility] RAL [facility] URETHRAL ADULT & PED STRICTURE MALE MEATAL R3914 FEELING OF 05-02-2015 [facility] INCOMPLETE [place] [facility] ADULT & PED EMPTYING N401 BENIGN 04-11-2015 [facility] PROSTATIC [facility] HYPERPLASIA ADULT & PED LW URINARY TRACT SX G4700 INSOMNIA 04-08-2015 NEETA RAMIREZ UNSPECIFIED G5790 UNSPECIFIED 04-03-2015 [facility] MONONEUROPA THY UNS LOWER LIMB 40700 DIAB W/O 03-13-2015 [facility] COMP TYPE II/UNS NOT STATED UNCNTRL 3572 POLYNEUROPA 03-13-2015 [facility] THY IN DIABETES 6827 CELLULITIS 03-13-2015 [facility] AND ABSCESS OF FOOT EXCEPT TOES 45811 ULCER OF 03-13-2015 [facility] OTHER PART OF FOOT 06415 SECONDARY 02-25-2015 [facility] DM W/OTH TISSUE SPEC MANAGEMENT MANIFEST NOT UNCONTROL 4011 ESSENTIAL 01-31-2015 NEETA RAMIREZ HYPERTENSIO N, BENIGN 7242 LUMBAGO 01-31-2015 NEETA RAMIREZ 81677 INSOMNIA 01-31-2015 [facility]ET[facility] RAMIREZ UNSPECIFIED 94169 HORDEOLUM 01-01-2015 NEET[facility] RAMIREZ EXTERNUM 6826 CELLULITIS 10-09-2014 [facility]ET[facility] RAMIREZ AND ABSCESS OF LEG EXCEPT FOOT 38177 HYPERTROPHY 09-14-2014 NEETA ARMIREZ PROSTATE W/O UR OBST & OTH LUTS 19231 UNSPECIFIED 08-20-2014 [facility] RAMIREZ ARTHROPATHY SITE UNSPECIFIED 7264 ENTHESOPATH 05-25-2014 [facility] RAMIREZ Y OF WRIST AND CARPUS 1101 DERMATOPHYT 05-08-2014 [facility] OSIS OF NAIL 7295 PAIN IN 04-27-2014 [facility]ET[facility] RAMIREZ SOFT TISSUES OF LIMB 4779 ALLERGIC 03-30-2014 NEETA RAMIREZ RHINITIS CAUSE UNSPECIFIED 2724 OTHER AND 03-08-2014 [place] UNSPECIFIED [facility] HYPERLIPIDE MARIA TERESA 4619 ACUTE 07-24-2013 PRIMARY SINUSITIS, [place] [address] OTHER AND 07-13-2013 [facility] COMBINED SERV FORMS OF FOUNDATIO SENILE CATARACT Medications Na ND Rx Da Fi Fi [...] 17 [address] E UG 50 S MC G TA BL ET GA 69 09 09 [...] 40 17 [address] HC UG L S 0. 4 MG CA PS UL E NA 68 09 09 60 30 00 CA Ac KS 46 -0 -2 .0 00 RL ti OX 20 5- 9- 00 00 IS ve EN 19 20 20 78 LE 00 17 [address] 0 UG MG S TA BL ET ME 23 09 09 60 30 00 CA Ac TF 15 -0 -2 .0 00 RL ti OR 50 5- 9- 00 00 IS ve GA 10 20 20 78 LE N 21 17 [address] Fartun UG 50 S 0 MG TA BL ET AL 59 09 09 90 30 00 CA Ac KS 76 -0 -2 .0 00 RL ti AZ 23 5- 9- 00 00 IS ve OL 72 20 20 78 LE AM 10 17 17 02 1 3 97 UG MG S TA BL ET LO 45 08 09 30 30 00 [...] 05 17 [address] UG 50 S 0 MG TA BL ET CH 00 08 09 53 28 00 CA Ac AN 06 -2 -2 .0 00 RL ti TI 90 9- 2- 00 00 IS ve X 47 [address] 10 17 [address] NORBERTO BACH NG S MO NT H KYM X AM 16 08 09 30 30 00 CA Ac IT 72 -3 -2 .0 00 RL ti RI 90 0- 2- 00 00 IS ve PT 17 20 20 77 LE YL 60 17 [address] Chon BACH HC S L 15 0 MG TA B TA 57 08 09 36 18 00 [...] IN 60 17 17 48 5 01 60 UG 0 S MG TA BL ET AM 16 08 09 30 30 00 CA Ac IT 72 -0 -0 .0 00 RL ti RI 90 4- 1- 00 00 IS ve PT 17 20 20 77 LE YL 60 17 [address] Chon BACH HC S L 15 0 MG TA B AL 59 08 09 90 30 00 CA Ac KS 76 -0 -0 .0 00 RL ti [...] 0 S MG CA PS UL E TA 00 07 08 60 30 00 CA Ac MS 78 -2 -1 .0 00 RL ti UL 12 0- 8- 00 00 IS ve OS 07 20 20 77 LE IN 60 17 [address] HC UG L S 0. 4 MG CA PS UL E GA 68 07 08 90 30 00 CA Ac BA 46 -0 -1 .0 00 RL ti PE 20 6- 1- 00 00 IS ve NT 12 20 20 77 LE IN 60 17 [address] 60 UG 0 S MG TA BL ET AM 16 07 08 30 30 00 CA Ac IT 72 -0 -1 .0 00 RL ti RI 90 6- 1- 00 00 IS ve PT 17 20 20 77 LE YL 60 17 [address] E UG HC S L 15 0 MG TA B GL 70 07 08 46 30 00 IN Ac UC 07 21 05 FU ti ER 40 4- 1- 5. 00 SI ve NA 53 20 20 00 10 ON 53 17 17 0 61 1. 5 26 PA 5 RT CA NE L RS LI QU OF ID LE XI NG TO N AL 59 07 08 90 30 00 CA Ac KS 76 -1 -0 .0 00 RL ti [...] NE 25 17 [address] HC UG L S 10 MG TA BL ET [place] 00 07 08 [address] 60 -1 -0 0. 00 RL ti AT 31 0- 4- 00 00 IS ve IN 48 20 20 0 77 LE 15 17 [address] 0, UG 00 S 0 UN IT /M L AVENDANO SP TA 00 06 07 60 30 00 CA Ac MS 78 -1 -1 .0 00 RL ti UL 12 6- 4- 00 00 IS ve OS 07 20 20 76 LE IN 60 17 [address] HC UG L S 0. 4 MG CA PS UL E GA 68 06 07 90 30 00 CA Ac BA 46 -0 -0 .0 00 RL ti PE 20 8- 7- 00 00 IS ve NT 12 20 20 77 LE IN 60 17 [address] 60 UG 0 S MG TA BL ET AM 16 06 07 30 30 00 CA Ac IT 72 -0 -0 .0 00 RL ti RI 90 8- 7- 00 00 IS ve PT 17 20 20 77 LE YL 60 17 [address] Chon BACH HC S L 15 0 MG TA B OX 65 06 07 56 14 00 ME Ac YC 16 -0 -0 .0 00 DI ti OD 20 8- 7- 00 06 CI ve ON 20 20 20 73 NE -A 75 17 [address] TA OP GA NO PH PH AR EN MA CY 7. 5- 32 5 AL 59 06 07 90 30 00 CA Ac KS 76 -0 -0 .0 00 RL ti AZ 23 9- 7- 00 00 IS ve OL 72 20 20 77 LE AM 10 17 17 61 1 3 72 UG MG S TA BL ET GA 68 05 06 90 30 00 [...] 05 06 20 10 00 CA Ac KS 57 -1 -0 .0 00 RL ti OF 10 2- 9- 00 00 IS ve LO 41 20 20 77 LE XA 25 17 17 [address] Lavelle BACH HC S L 50 0 MG TA [...] 05 06 90 30 00 CA Ac KS 76 -1 -0 .0 00 RL ti AZ 23 2- 9- 00 00 IS ve OL 72 20 20 77 LE AM 10 17 17 48 1 3 09 UG MG S TA BL ET AL 00 04 05 30 30 00 ME Ac LE 90 -2 -2 .0 00 DI ti RG 45 8- 6- 00 06 CI ve Y 72 20 20 73 NE 10 88 17 [address] MG OP TA PH BL AR ET MA CY AM 16 05 05 30 30 00 CA Ac IT 72 -0 -2 .0 00 RL ti RI 90 1- 6- 00 00 IS ve PT 17 20 20 76 LE YL 50 17 17 [address] Chon BACH HC S L 10 0 MG TA B GL 70 04 05 46 30 00 IN Ac UC 07 -2 -1 21 05 FU ti ER 40 0- 9- 5. 00 SI ve NA 53 20 20 00 10 ON 53 17 17 0 61 1. 5 26 PA 5 RT CA NE L RS LI QU OF ID LE XI NG TO N TA 00 04 05 60 30 00 CA Ac MS 78 -2 -1 .0 00 RL ti UL 12 5- 9- 00 00 IS ve OS 07 20 20 76 LE IN 60 17 [address] DAVIS UG L S 0. 4 MG CA PS UL E AL 59 04 05 90 30 00 CA Ac KS 76 -1 -1 .0 00 RL ti AZ 23 4- 2- 00 00 IS ve OL 72 20 20 77 LE AM 10 17 17 34 1 3 24 UG MG S TA BL ET AM 16 04 04 30 30 00 [...] UG 0 S MG TA BL ET BD 08 04 04 [...] IT /M L KW IK PE N CL 00 03 04 20 5 00 [...] 17 17 [address] BACH 75 S 0 MG TA BL ET AL 59 03 04 90 30 00 CA Ac KS 76 -1 -1 .0 00 RL ti AZ 23 7- 4- 00 00 IS ve OL 72 20 20 77 LE AM 10 17 17 [address] BACH MG S TA BL ET [place] 51 03 04 [...] 90 17 [address] SAUL BACH GA S NO PH EN 7. 5- 32 5 GL 70 02 03 46 30 00 IN Ac UC 07 -2 -2 21 05 FU ti ER 40 2- 4- 5. 00 SI ve NA 53 20 20 00 10 ON 53 17 17 0 61 1. 5 26 PA 5 RT CA NE L RS LI QU OF ID LE XI NG TO N AM 16 02 03 30 30 00 CA Ac IT 72 -2 -2 .0 00 RL ti RI 90 8- 4- 00 00 IS ve PT 17 20 20 76 LE YL 50 17 [address] Chon BACH HC S L 10 0 MG TA B TA 00 02 03 60 30 00 [...] 17 [address] GARRIDO AR S 10 0 UN IT /M L GA 68 02 03 90 30 00 CA Ac BA 46 -2 -2 .0 00 RL ti PE 20 8- 4- 00 00 IS ve NT 12 20 20 76 LE IN 60 17 [address] 60 UG 0 S MG TA BL ET AL 59 02 03 90 30 00 CA Ac KS 76 -2 -1 .0 00 RL ti [...] 10 17 [address] 40 UG 0 S MG /5 ML AVENDANO SP TA 00 01 02 60 30 00 CA Ac MS 78 -3 -2 .0 00 RL ti UL 12 1- 4- 00 00 IS ve OS 07 20 20 76 LE IN 60 17 [address] HC UG L S 0. 4 MG [...] 10 0 UN IT /M L AM 16 02 02 30 30 00 CA Ac IT 72 -0 -2 .0 00 RL ti RI 90 1- 4- 00 00 IS ve PT 17 20 20 76 LE YL 50 17 [address] E UG HC S L 10 0 MG TA B AL 59 01 02 90 30 00 CA Ac KS 76 -2 -1 .0 00 RL ti [...] PH AR TA MA BL CY ET KS 00 01 02 12 2 00 ME [...] 17 [address] E UG HC S L 10 0 MG [...] IN 60 16 [address] HC UG L S 0. 4 MG [...] UG 5 S MG TA BL ET KS 00 12 01 11 6 00 CA Ac OM 60 -2 -2 8. 00 RL ti ET 31 3- 0- 00 00 IS ve CELESTIN 58 20 20 0 76 LE ZI 65 16 [address] -D UG M S SY RU P AL 59 12 01 90 30 00 CA Ac KS 76 -2 -2 .0 00 RL ti AZ 23 3- 0- 00 00 IS ve OL 72 20 20 76 LE AM 10 16 17 [address] UG MG S TA BL ET OX [...] -0 .0 00 RL ti RI 82 - 9 00 IS ve PT 68 20 20 75 LE YL 50 16 [address] Chon BACH HC S L 10 0 MG TA B Procedures Procedure DOS Code Location Performer Comment COLLECTIO 91476 [employer] N VENOUS 7 HEALTH BLOOD SOLUTIONS VENIPUNCT IN URE BODY MASS 3008F UNI5 INDEX 7 HEALTH DOCUMENTE SOLUTIONS D IN CURRENT 1034F UNI5 TOBACCO 7 HEALTH SMOKER SOLUTIONS IN TOBACCO 1000F UNI5 USE 7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 INFUSION ENTERAL 6 PARTNERS PARTNERS NUTRITION OF OF [place]; 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 HOME [place]; S9341 INFUSION INFUSION ENTERAL 6 PARTNERS PARTNERS NUTRITION OF OF [place]; 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 HOME [place]; S9341 INFUSION INFUSION ENTERAL 6 PARTNERS PARTNERS NUTRITION OF OF [place]; 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 HOS BED E0260 [facility] SEMI-ELEC 6 HOME HOME W/ANY MEDICAL MEDICAL TYPE SIDE EQUIPME EQUIPME RAIL W/MATTRSS DIRECT G0299 ABHINAV PEREZ RN 6 HOME HOME HOME [facility]/ AGENCY AGENCY SPICE SET EA 15 MIN HOME TX; S9341 INFUSION INFUSION ENTERAL 6 PARTNERS PARTNERS NUTRITION OF OF [place]; 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 HOME [place]; S9341 INFUSION INFUSION ENTERAL 6 PARTNERS PARTNERS NUTRITION OF OF [place]; 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 87630 [facility] [place] [facility] DIS[facility]GE 6 NURSE DAY PRACTITIO MANAGEMEN NER GR T 30 MIN/< SBSQ 12633 [place] [address] MEDICAL BEAU CARE/DAY SERV 15 FOUNDATIO MINUTES N HOME TX; S9341 INFUSION INFUSION ENTERAL 6 PARTNERS PARTNERS NUTRITION OF OF [place]; 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 HOME [place]; S9341 INFUSION INFUSION ENTERAL 6 PARTNERS PARTNERS NUTRITION OF OF [place]; 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 SBSQ 00888 [place] [address] MEDICAL JAG CARE/DAY SERV 15 FOUNDATIO [place] [address] [place] [facility] 6 MEDICAL Y JUS EXTREM SERV W/O & FOUNDATIO W/CONTRAS N T MATRL SBSQ 88721 [facility] 6 MEDICAL JAG CARE/DAY SERV 15 FOUNDATIO MINUTES N HOME TX; S9341 INFUSION INFUSION ENTERAL 6 PARTNERS PARTNERS NUTRITION OF OF [place]; 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 HOME [place]; S9341 INFUSION INFUSION ENTERAL 6 PARTNERS PARTNERS NUTRITION OF OF [place]; 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 SBSQ 40364 [facility] 6 MEDICAL JAG CARE/DAY SERV 25 FOUNDATIO MINUTES N RADEX [address] [place] [facility] 6 MEDICAL Y JUS COMPLETE SERV MINIMUM 3 FOUNDATIO VIEWS N HOME [place]; S9341 INFUSION INFUSION ENTERAL 6 PARTNERS PARTNERS NUTRITION OF OF [place]; 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 INITIAL 25058 [facility] 6 NURSE BROADDUS CARE/DAY PRACTITIO CHR 50 NER GR MINUTES RADIOLOGI 86412 [place] [facility]ILL[facility] C EXAM 6 MEDICAL CHEST 2 SERV VIEWS FOUNDATIO FRONTAL&L N ATERAL HOME [place]; S9341 INFUSION INFUSION ENTERAL 6 PARTNERS PARTNERS NUTRITION OF OF 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 [address] NARENDRA NICKELS ANGIOGRAP 6 MEDICAL JACK HY CHEST SERV W/CONTRAS FOUNDATIO T/NONCONT N RAST ECG 08979 [place] [facility]OUT[facility] 6 MEDICAL NAN ECG SERV W/LEAST FOUNDATIO 12 LDS N I&R ONLY HOME TX; S9341 INFUSION INFUSION ENTERAL 6 PARTNERS PARTNERS NUTRITION OF OF [place]; 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 HOME [place]; S9341 INFUSION INFUSION ENTERAL 6 PARTNERS PARTNERS NUTRITION OF OF [place]; 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 HOME [place]; S9341 INFUSION INFUSION ENTERAL 6 PARTNERS PARTNERS NUTRITION OF OF [place]; 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 HOME [place]; S9341 INFUSION INFUSION ENTERAL 6 PARTNERS PARTNERS NUTRITION OF OF [place]; 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 HOME [place]; S9341 INFUSION INFUSION ENTERAL 6 PARTNERS PARTNERS NUTRITION OF OF [place]; 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 HOME [place]; S9341 INFUSION INFUSION ENTERAL 6 PARTNERS PARTNERS NUTRITION OF OF [place]; 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 HOME [place]; S9341 INFUSION INFUSION ENTERAL 6 PARTNERS PARTNERS NUTRITION OF OF [place]; 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 HOME [place]; S9341 INFUSION INFUSION ENTERAL 6 PARTNERS PARTNERS NUTRITION OF OF [place]; 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 HOME [place]; S9341 INFUSION INFUSION ENTERAL 6 PARTNERS PARTNERS NUTRITION OF OF [place]; 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 HOME [place]; S9341 INFUSION INFUSION ENTERAL 6 PARTNERS PARTNERS NUTRITION OF OF [place]; 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 DIRECT G0299 ABHINAV PEREZ RN 6 HOME HOME HOME [facility] AGENCY SPICE SET EA 15 MIN HOME TX; S9341 INFUSION INFUSION ENTERAL 6 PARTNERS PARTNERS NUTRITION OF OF [place]; 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 HOME [place]; S9341 INFUSION INFUSION ENTERAL 6 PARTNERS PARTNERS NUTRITION OF OF [place]; 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 HOME [place]; S9341 INFUSION INFUSION ENTERAL 6 PARTNERS PARTNERS NUTRITION OF OF [place]; 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 DIRECT G0299 ABHINAV PEREZ RN 6 HOME HOME HOME [facility]/ AGENCY AGENCY SPICE SET EA 15 MIN LARYNGOSC 69597 [facility] OPY 6 Y Y FLEXIBLE [facility] DIAGNOSTI C BLOOD 43839 [facility] COUNT 6 Y Y COMPLETE [facility] [place] [address] [facility] THYROID 6 Y Y STIMULATI [facility] [place] [address] [facility] FREE 6 Y Y THYROXINE [facility] COLLECTIO 34405 [facility] N VENOUS 6 Y Y BLOOD [facility] VENIPUNCT URE COMPREHEN 27486 [facility] SIVE 6 Y Y METABOLIC [facility] PANEL HOME TX; S9341 INFUSION INFUSION ENTERAL 6 PARTNERS PARTNERS NUTRITION OF OF [place]; 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 HOME [place]; S9341 INFUSION INFUSION ENTERAL 6 PARTNERS PARTNERS NUTRITION OF OF [place]; 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 HOME [place]; S9341 INFUSION INFUSION ENTERAL 6 PARTNERS PARTNERS NUTRITION OF OF [place]; 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 COLLECTIO 66380 MARY HERNANDEZ N VENOUS 6 [facility] BLOOD INC INC VENIPUNCT [facility] G0378 MARY HERNANDEZ OBSERVATI 6 [facility] ON INC INC SERVICE PER HOUR CREATINE 94801 MARY HERNANDEZ KINASE MB 6 [facility] [place] [address] MARY HERNANDEZ TROPONIN 6 [facility] QUANTITAT INC INC JOJO BLOOD 81291 MARY HERNANDEZ COUNT 6 [facility] COMPLETE INC INC AUTO&AUTO DIFRNTL WBC NONINVASI 09006 MARY HERNANDEZ VE 6 [facility] EAR/PULSE [place] [address] MARY HERNANDEZ INFUSION 6 [facility] THERAPY/P INC INC ROPHYLAXI S /DX 1ST TO 1 HR PHYSICAL 97309 MARY HERNANDEZ THERAPY 6 [facility] [address] MARY HERNANDEZ INFUSION 6 [facility] THERAPY INC INC PROPHYLAX IS/DX EA HOUR GLUC BLD 62490 MARY HERNANDEZ GLUC MNTR 6 [facility] DEV INC INC CLEARED FDA SPEC HOME USE CREATINE 39063 MARY HERNANDEZ KINASE 6 [facility] TOTAL INC INC BASIC 87465 MARY HERNANDEZ METABOLIC 6 [facility] PANEL INC INC CALCIUM TOTAL OBSERVATI 70765 [facility] FRYMAN ON/INPATI 6 PHYSICIAN EUG ENT [facility] 50 MINUTES RADIOLOGI 53372 MARY HERNANDEZ C 6 [facility] EXAMINATI INC INC ON PELVIS 1/2 VIEWS CREATINE 51102 MARY HERNANDEZ KINASE 6 [facility] TOTAL INC INC PROTHROMB 02684 MARY HERNANDEZ IN TIME 6 [facility] INC INC BLOOD 85129 MARY HERNANDEZ COUNT 6 [facility] COMPLETE INC INC AUTO&[place] [address] MARY HERNANDEZ TROPONIN 6 [facility] QUANTITAT INC INC JOJO RADIOLOGI 94958 MARY HERNANDEZ C 6 [facility] EXAMINATI INC INC ON KNEE 3 VIEWS RADIOLOGI 89727 MARY HERNANDEZ C 6 [facility] EXAMINATI INC [place] [address] MARY HERNANDEZ HEAD/BRAI 6 [facility] N W/O INC INC CONTRAST MATERIAL CREATINE 28742 MARY HERNANDEZ KINASE MB 6 [facility] FRACTION INC INC ONLY COLLECTIO 62711 MARY HERNANDEZ N VENOUS 6 [facility] BLOOD INC INC VENIPUNCT URE COMPREHEN 05586 MARY HERNANDEZ SIVE 6 [facility]OS[facility] METABOLIC INC INC PANEL HOME [place]; S9341 INFUSION INFUSION ENTERAL 6 PART[employer]ERS PARTNERS NUTRITION OF OF [place]RAVITY; 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 HOME [place]; S9341 INFUSION INFUSION ENTERAL 6 [employer]ERS PARTNERS NUTRITION OF OF [place]; 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 HOME [place]; S9341 INFUSION INFUSION ENTERAL 6 [employer]NERS PARTNERS NUTRITION OF OF [place]RA[place]ITY; 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 BEHAVIORA 397[address] [facility] & 6 Y Y [facility] ANALYSIS VOICE AND RESONANCE LARYNGOSC 08314 [facility] 6 Y [facility] DIAGNOSTI C HOME [place]; S9341 INFUSION INFUSION ENTERAL 6 PARTNERS PARTNERS NUTRITION OF OF [place]RAVITY; 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 HOME [place]; S9341 INFUSION INFUSION ENTERAL 6 PARTNERS PARTNERS NUTRITION OF OF [place]; 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 HOME [place]; S9341 INFUSION INFUSION ENTERAL 6 PARTNERS PARTNERS NUTRITION OF OF [place]RA[place]ITY; 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 HOME [place]; S9341 INFUSION INFUSION ENTERAL 6 PARTNERS PARTNERS NUTRITION OF OF [place]; 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 HOME [place]; S9341 INFUSION INFUSION ENTERAL 6 [employer]NERS PARTNERS NUTRITION OF OF [place]; 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 STERILE A4217 [facility] WATER/NATHANAEL 6 HOME HOME INE 500 HEALTH HEALTH ML AGENCY AGENCY TAPE A4450 [facility] NON-WATER 6 HOME HOME PROOF PER HEALTH HEALTH 18 AGENCY AGENCY SQUARE INCHES CONFORMIN A6446 [facility] G BANDGE 6 HOME HOME [facility] AGENCY AGENCY KNITTED/W OVEN STERL DIRECT G0299 ABHINAV BURNETTCO SNS RN 6 HOME HOME HOME HEALTH HEALTH HEALTH/ AGENCY AGENCY SPICE SET EA 15 MIN GAUZE A6402 [facility] NON-IMPRE 6 HOME HOME G [facility] 16 SQ/< AGENCY AGENCY W/O ADHES BORDR HOME [place]; S9341 INFUSION INFUSION ENTERAL 6 [employer]ERS PARTNERS NUTRITION OF OF [place]RAVITY; [employer] INTERNS[facility] HOME [place]; S9341 INFUSION INFUSION ENTERAL 6 [employer]ERS PARTNERS NUTRITION OF OF [place]RAVITY; [employer] DIRECT G0299 ABHINAV BURNETTCO SNS RN 6 HOME HOME HOME [facility]/ AGENCY AGENCY SPICE SET EA 15 MIN HOME TX; S9341 INFUSION INFUSION ENTERAL 6 [employer]ERS PARTNERS NUTRITION OF OF [place]RAVITY; ENG[employer]ER INTERNSHIP HOME [place]; S9341 INFUSION INFUSION ENTERAL 6 PARTNERS PARTNERS NUTRITION OF OF [place]RA[place]ITY; [employer] DIRECT G0299 ABHINAV BURNETTCO SNS RN 6 HOME HOME HOME HEALTH HEALTH HEALTH/ AGENCY AGENCY SPICE SET EA 15 MIN DIRECT G0299 ABHINAV BURNETTCO SNS RN 6 HOME HOME HOME HEALTH HEALTH HEALTH/ AGENCY AGENCY SPICE SET EA 15 MIN HOME TX; S9341 INFUSION INFUSION ENTERAL 6 PARTNERS PARTNERS NUTRITION OF OF [place] GRAVITY; ENGINEER INTERNSHIP HOME [place]; S9341 INFUSION INFUSION ENTERAL 6 PARTNERS PARTNERS NUTRITION OF OF [place]RAVITY; ENG[employer] INTERNSHIP HOME [place]; S9341 INFUSION INFUSION ENTERAL 6 [employer]NERS PARTNERS NUTRITION OF OF [place]RA[place]ITY; [facility] [employer] RADEX HIP 15886 [place] [facility] 6 MEDICAL FRA UNILATERA SERV L WITH FOUNDATIO PELVIS N 2-3 VIEWS GROUND 07-22-201 A0425 [place] 6 [facility] PER AMBULANCE AMBULANCE STATUTE MILE RADEX 22859 [place] [facility] 6 MEDICAL FRA LUMBOSACR SERV AL 2/3 FOUNDATIO VIEWS N [facility] [address] [facility] 6 MEDICAL [place] DAY SERV ELSIE MANAGEMEN FOUNDATIO T > [address] [place] [address] [place] [facility] HEAD/BRAI 6 MEDICAL BR[place] N W/O SERV CONTRAST FOUNDATIO MATERIAL N SBSQ 13102 [place] [address] MEDICAL [place] CARE/DAY SERV ELSIE 25 FOUNDATIO MINUTES N COMMODE [id number] [facility] CHAIR 6 MOBILE OR STATIONAR Y W/FIXED ARMS SBSQ 74198 [place] [address] MEDICAL [place] CARE/DAY SERV ELSIE 25 FOUNDATIO MINUTES N SBSQ 70024 [place] [address] MEDICAL [place] CARE/DAY SERV ELSIE 25 FOUNDATIO MINUTES N SBSQ [address]8570 [place] [address] MEDICAL CARE/DAY SERV 25 FOUNDATIO MINUTES N SBSQ 54768 [place] [address] MEDICAL CARE/DAY SERV 25 FOUNDATIO MINUTES N SBSQ 43413 [place] [address] MEDICAL CARE/DAY SERV 25 FOUNDATIO MINUTES N SBSQ 08303 [place] [address] MEDICAL CARE/DAY SERV 25 FOUNDATIO MINUTES N SBSQ [address]7499 [place] [address] MEDICAL CARE/DAY SERV 25 FOUNDATIO MINUTES N SBSQ 87831 [facility] 6 MEDICAL CARE/DAY SERV 25 FOUNDATIO MINUTES N [facility]ION [id number] 6 Y [facility] SUPERIOR VENA CAVA PERQ INSERTION [id number] [facility] FEEDING 6 Y Y [facility] STOMACH PERQ APPROACH SBSQ 98333 [facility] 6 MEDICAL CARE/DAY SERV 25 FOUNDATIO MINUTES N EGD 06067 [place] [facility] [facility] 6 MEDICAL JOSUE OUS SERV PLACEMENT FOUNDATIO N GASTROSTO MY TUBE INITIAL 29381 [facility] INPATIENT 6 MEDICAL JOSUE CONSULT SERV NEW/ESTAB FOUNDATIO PT 80 N MIN SBSQ 34471 [place] [address] MEDICAL [place] CARE/DAY SERV ELSIE 25 FOUNDATIO MINUTES N SBSQ 64509 [place] [address] MEDICAL [place] CARE/DAY SERV ELSIE 25 FOUNDATIO MINUTES N SBSQ 42243 [place] [address] MEDICAL [place] CARE/DAY SERV ELSIE 25 FOUNDATIO MINUTES N SBSQ 33598 [place] [address] MEDICAL [place] CARE/DAY SERV ELSIE 25 FOUNDATIO MINUTES N SBSQ 12282 [place] [address] MEDICAL [place] CARE/DAY SERV ELSIE 25 FOUNDATIO MINUTES N SBSQ 25940 [place] [address] MEDICAL [place] CARE/DAY SERV ELSIE 25 FOUNDATIO MINUTES N RADIOLOGI 41287 [facility] 6 MEDICAL AYA MAR CHEST 2 SERV VIEWS FOUNDATIO FRONTAL&L N ATERAL SBSQ 67944 [place] [address] MEDICAL A NOMAN CARE/DAY SERV 25 FOUNDATIO MINUTES N SBSQ 79150 [place] [address] MEDICAL CARE/DAY SERV 25 FOUNDATIO MINUTES N RADIOLOGI 35095 [facility] MEDICAL EXAMINATI SERV ON CHEST FOUNDATIO SINGLE N VIEW FRONTAL SBSQ 78274 [facility] 6 MEDICAL CARE/DAY SERV 25 FOUNDATIO MINUTES N SBSQ 96670 [place] [address] MEDICAL A NOMAN CARE/DAY SERV 15 FOUNDATIO MINUTES N SBSQ 17712 [place] [address] MEDICAL A NOMAN CARE/DAY SERV 25 FOUNDATIO MINUTES N SBSQ 27565 [facility] 6 MEDICAL CARE/DAY SERV 25 FOUNDATIO MINUTES N SBSQ 98388 [facility] 6 MEDICAL A NOMAN CARE/DAY SERV 25 FOUNDATIO MINUTES N SBSQ 84486 [facility] 6 MEDICAL A NOMAN CARE/DAY SERV 25 FOUNDATIO MINUTES N SBSQ 03547 [place] [address] MEDICAL SHARON CARE/DAY SERV 25 FOUNDATIO MINUTES N SBSQ 05248 [place] [address] MEDICAL SHARON CARE/DAY SERV 25 FOUNDATIO MINUTES N SBSQ 44937 [place] [address] MEDICAL [place]ON CARE/DAY SERV 25 FOUNDATIO MINUTES N SBSQ 45101 [facility] 6 MEDICAL CARE/DAY SERV 25 FOUNDATIO MINUTES N SBSQ 76585 [place] [address] MEDICAL SHARON CARE/DAY SERV 25 FOUNDATIO MINUTES N SBSQ 17461 [place] [address] MEDICAL SHARON CARE/DAY SERV 25 FOUNDATIO MINUTES N SBSQ 39104 [place] [address] MEDICAL SHARON CARE/DAY SERV 25 FOUNDATIO MINUTES N SBSQ 47941 [place] [address] MEDICAL EEDU RONNI CARE/DAY SERV [address] SOFT 54980 [facility] TISSUE 6 MEDICAL BRANDON NECK W/O SERV CONTRAST FOUNDATIO MATERIAL N INITIAL 23205 [facility] INPATIENT 6 MEDICAL LOW CONSULT SERV NEW/ESTAB FOUNDATIO PT [address] [place] [address] [place] MCCARTH[place] W/O 6 MEDICAL STARLA CONTRAST SERV MATERIAL FOUNDATIO N INSJ TEMP 40705 [facility] NDWELL 6 MEDICAL BUDDY BLADDER SERV CATHETER FOUNDATIO SIMPLE N SBSQ 76348 [place] [address] MEDICAL EEDU RONNI CARE/DAY SERV 25 FOUNDATIO MINUTES N DUP-SCAN 18950 [place] CORDERO BUDDY XTR VEINS 6 MEDICAL SERV UNILATERA FOUNDATIO L/LIMITED N STUDY SBSQ 98867 [place] [address] MEDICAL BUDDY CARE/DAY SERV 15 FOUNDATIO MINUTES N RADEX 31561 [place] JOHN FOREARM 2 6 MEDICAL FRA VIEWS SERV FOUNDATIO N SBSQ 61381 [place] [address] MEDICAL EEDU RONNI CARE/DAY SERV 25 FOUNDATIO MINUTES N SBSQ 96409 [place] [address] MEDICAL EEDU RONNI CARE/DAY SERV 25 FOUNDATIO MINUTES N SBSQ 49485 [place] [address] MEDICAL EEDU RONNI CARE/DAY SERV 25 FOUNDATIO MINUTES N SBSQ 65452 [place] [address] MEDICAL EEDU RONNI CARE/DAY SERV 25 FOUNDATIO MINUTES N SBSQ 78462 [place] [address] MEDICAL HNSTON CARE/DAY SERV ELSIE 25 FOUNDATIO MINUTES N SBSQ 11966 [place] [address] MEDICAL HNSTON CARE/DAY SERV ELSIE 25 FOUNDATIO MINUTES N SBSQ 14362 [place] [address] MEDICAL HNSTON CARE/DAY SERV ELSIE 25 FOUNDATIO MINUTES N SBSQ 93062 [place] [address] MEDICAL HNSTON CARE/DAY SERV [place] 25 [place] [address] [place] MISBAH ABDOMINAL 6 MEDICAL REAL SERV TIME FOUNDATIO W/IMAGE N DOCUMENTA TION ECG 40965 [place] YOU ROUTINE 6 MEDICAL NAN ECG SERV W/LEAST FOUNDATIO 12 LDS N I&R ONLY ANES OPEN 72530 [place] [facility] PROC 6 MEDICAL BONES SERVICES LOWER LEG/ANKLE /[place] [address] [facility] SURG 6 Y OF PATHOLOGY [place] [facility] GROSS&STARLA ROSCOPIC EXAM DECALCIFI 39026 [facility] MOL CATION 6 Y OF PROCEDURE [place] [facility] INJECTION [address] [facility] 6 MEDICAL CAR ANESTHETI SERV C AGENT FOUNDATIO SCIATIC N NRV SINGLE INJECTION [address] [facility] 6 MEDICAL CAR ANESTHETI SERV C AGENT FOUNDATIO FEMORAL N NERVE SINGLE DETACHMEN [id number] [facility] T AT 6 Y Y [facility] FOOT PARTIAL 3RD RAY OPEN DETACHMEN [id number] [facility] T AT 6 Y Y [facility] FOOT PARTIAL 4TH RAY OPEN INTRO [id number] [facility] 6 Y Y [facility] PERIPH NERVES PLEXI PERQ AMPUTATIO 85823 [place] ENDEAN N 6 MEDICAL METATARSA SERV L W/TOE FOUNDATIO SINGLE N INITIAL 85126 [place] [facility] 6 MEDICAL OV AIB CARE/DAY SERV 70 FOUNDATIO MINUTES N RADEX 37333 [place] TRUE LILLY FOOT 6 MEDICAL COMPLETE SERV MINIMUM 3 FOUNDATIO VIEWS N INITIAL 42051 [place] XENOS JACY INPATIENT 6 MEDICAL CONSULT SERV NEW/ESTAB FOUNDATIO PT 55 N MIN RADIOLOGI 40985 [place] TRUE LILLY C 6 MEDICAL EXAMINATI SERV ON CHEST FOUNDATIO SINGLE N VIEW FRONTAL ECG 08880 [place] HAM CHI ROUTINE 6 MEDICAL ECG SERV W/LEAST FOUNDATIO 12 LDS N I&R ONLY STEREOSCO G6002 [place] KUDRIMOTI PIC X-RAY 6 [facility] GUID SERV LOCALIZ FOUNDATIO TRG VOL N DEL RT INTENSITY 24124 [place] [address] Y Y [facility] RADIATION TX DLVR COMPLEX INTENSITY 79542 [place] [address] Y Y [facility] RADIATION TX DLVR COMPLEX STEREOSCO G6002 [place] KUDRIMOTI PIC X-RAY 6 [facility] GUID SERV LOCALIZ FOUNDATIO TRG VOL N DEL RT STEREOSCO G6002 [place] KUDRIMOTI PIC X-RAY 6 [facility] GUID SERV LOCALIZ FOUNDATIO TRG VOL N DEL RT INTENSITY 16349 [facility] 6 Y Y [facility] RADIATION TX DLVR COMPLEX INTENSITY 47381 [place] [address] Y Y [facility] RADIATION TX DLVR COMPLEX STEREOSCO G6002 [place] KUDRIMOTI PIC X-RAY 6 [facility] GUID SERV LOCALIZ FOUNDATIO TRG VOL N DEL RT THER RAD 77173 [facility] 6 Y Y [facility] FIELD SETTING SIMPLE NTSTY 12683 [facility] 6 Y Y [facility] PLN DOSE-VOL HISTOS BASIC 37060 [facility] RADIATION 6 Y Y [facility] DOSIMETRY CALCULATI ON MLC IMRT 26317 [facility] & 6 Y Y [facility] [place] [address] [facility] DEVICES 6 Y Y DESIGN & [facility] [place] [address] [facility] DEVICES 6 Y Y [facility] CONSTRUCT ION COMPLEX LOCM Q9967 [facility] [phone] Y Y MG/ML [facility] IODINE CONCENTRA TION PER ML CONSLTJ&R 30305 [facility] LUIS EPRT 6 Y OF NAYELI SLIDES [place] [facility] ELSEWHERE CREATININ 89057 [facility] E BLOOD 6 Y Y [facility] CT THORAX 52406 [facility] 6 Y Y W/[facility] T MATERIAL FLUORODEO A9552 [facility] XYGLUCOSE 6 Y Y F-18 FDG [facility] DX UP TO 45 MCI PET 51611 [facility] IMAGING [address] [place] ATTENUATI HOSPI ON SKULL BASE [facility] 23579 [facility] L & 6 Y Y [facility] ANALYSIS VOICE AND RESONANCE LARYNGOSC 18163 [facility] 6 Y Y [facility] DIAGNOSTI C ANES 72861 [facility] ESOPH 6 ANESTHESI FIDELINA THYRD A GROUP LARYNX PS TRACH & LYMPH NECK 1YR CYTP EVAL 77858 [facility], FINE 6 [facility] NEEDLE ASPIRATE INTERP & [place] [address] [facility], SURG 6 [facility] PATHOLOGY GROSS&STARLA ROSCOPIC EXAM COLLECTIO 12620 BHARGAVI BURK N VENOUS [address] [place] [address] [place] [address] [facility] UREA [address] [place] [address] QUANTITAT JOJO CREATININ 83741 [facility] E BLOOD [address] [place] [address] GONADOTRO 45552 [facility] PIN 6 [facility] HORMONE CREATININ 50862 [facility]LOOD [address] [place] [address] BLOOD 51759 [place] BHARGAVI COUNT [address] [place] [address] AUTOMATED HEMOGLOBI 72065 [facility] N [address] [place] [address] SOFT 85[address] [facility] [place] TISSUE 6 RADIOLOGY RHO NECK W/[place] [address] [facility] [place] UREA [address] [place] [address] QUANTITAT JOJO COLLECTIO 08085 [facility] N VENOUS [address] [place] [address] VENIPUNCT URE LOCM Q9967 [facility] [phone] [facility] MG/ML [facility] IODINE CONCENTRA TION PER ML LARYNGOSC 47316 [facility] WALE OPY 6 PHYSCIAN LES FLEXIBLE PRACTICE DIAGNOSTI LL C PROSTATE G0103 [facility] CANCER [address] [place] [address] ; PSA TEST ELECTROLY 20351 [facility] TE PANEL [address] [place] [address] [place]EM[place] 99993 PROGRESSI PROGRESSI NT 6 VE VE SUBCUTANE PODIATRY PODIATRY OUS TISSUE 20 SQ CM/< DEBR[place]EM[place] 86993 EDDA EDDA NT 6 DEE DEE SUBCUTANE OUS TISSUE 20 SQ CM/< DE[place]EM[place] 75467 EDDA EDDA NT 6 DEE DEE SUBCUTANE OUS TISSUE 20 SQ CM/< [place]EM[place] 18465 EDDA EDDA NT NAIL 6 DEE DEE ANY METHOD 6/> ADD LW L2275 PROGRESSI PROGRESSI EXTRM 6 VE VE VARUS/VUL PODIATRY PODIATRY TANGELA MATTY PLSTC MOD PADD/LN AFO L1970 PROGRESSI PROGRESSI PLASTIC 6 VE VE WITH PODIATRY PODIATRY ANKLE JOINT CUSTOM FABRICATE D RADIOLOGI 12858 [place] [facility] ALL C 6 MEDICAL EXAMINATI IMAGING ON FOOT 2 ASS VIEWS DEBRIDEME 24717 EDDA EDDA NT 6 DEE DEE SUBCUTANE OUS TISSUE 20 SQ CM/< RADEX 45306 [facility] HERNANDEZ FOOT 6 [facility] COMPLETE INC INC MINIMUM 3 VIEWS DEBR[place]EME 81474 EDDA EDDA NT 6 DEE DEE SUBCUTANE OUS TISSUE 20 SQ CM/< HYDROGEL A6248 [facility]VANCED DRESSING 5 TISSUE TISSUE 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 T T GEL PER FL OZ GAUZE A6266 [facility]VANCED IMPREG 5 TISSUE TISSUE NOT H2O MANAGEMEN MANAGEMEN SALINE/ZI T T NC PASTE LINR YD GAUZE A6402 ADVANCED ADVANCED NON-IMPRE 5 TISSUE TISSUE G STERL MANAGEMEN MANAGEMEN 16 SQ/< T T W/O ADHES BORDR DEBR[place] 99678 EDDADULCE BAINSANT NT 5 DEE DEE SUBCUTANE OUS TISSUE 20 SQ CM/< DEBRIDEME 11521 EDDA EDDA NT 5 DEE DEE SUBCUTANE OUS TISSUE 20 SQ CM/< DEBRIDEME 03073 EDDA EDDA NT 5 DEE DEE SUBCUTANE OUS TISSUE 20 SQ CM/< SIMPLE 32719 [facility] CYSTOMETR 5 [place] [facility] OGRAM ADULT & PED CYSTO 50970 [facility] CALIBRATI 5 [place] PHIL ON DILAT ADULT & URTL PED STRIX/DONN NOSIS SIMPLE 19804 [facility] UROFLOMET 5 [place] PHIL RY ADULT & PED GAUZE A6266 ADVANCED ADVANCED IMPREG 5 TISSUE TISSUE NOT H2O MANAGEMEN MANAGEMEN SALINE/ZI T T NC PASTE LINR YD GAUZE A6402 ADVANCED ADVANCED NON-IMPRE 5 TISSUE TISSUE G STERL MANAGEMEN MANAGEMEN 16 SQ/< T T W/O ADHES BORDR COLLAGEN A6021 ADVANCED ADVANCED DRESSING 5 TISSUE TISSUE STERILE MANAGEMEN MANAGEMEN SIZE 16 T T SQ IN/LESS EA WALKING L4360 EDDA MEJÍAOT 5 DEE DEE PNEUMATC &/ VACUUM PREFAB CUSTM FIT ENMANUEL 22479 [facility] POST-VOID 5 [place] PHIL ING ADULT & RESIDUAL PED URINE&/BL ADDER CAP DRUG SCR G0434 [facility] NOT 5 [facility] CHROMATOG ADULT & RAPHIC; PED ANY [...] SIZE 16 T T SQ IN/LESS EA GAUZE A6266 ADVANCED ADVANCED IMPREG 5 TISSUE TISSUE NOT H2O MANAGEMEN MANAGEMEN SALINE/ZI T T NC PASTE LINR YD GAUZE A6402 ADVANCED ADVANCED NON-IMPRE 5 TISSUE TISSUE G STERL MANAGEMEN MANAGEMEN 16 SQ/< T T W/O ADHES BORDR TAPE A4452 ADVANCED ADVANCED [place] 5 TISSUE TISSUE F PER 18 MANAGEMEN MANAGEMEN SQUARE T T INCHES TAPE A4452 ADVANCED ADVANCED [place] 5 TISSUE [...] SIZE 16 T T SQ IN/LESS EA GAUZE A6266 ADVANCED ADVANCED IMPREG 5 TISSUE TISSUE NOT H2O MANAGEMEN MANAGEMEN SALINE/ZI T T NC PASTE LINR YD GAUZE A6402 ADVANCED ADVANCED NON-IMPRE 5 TISSUE TISSUE G STERL MANAGEMEN MANAGEMEN 16 SQ/< T T W/O ADHES BORDR TAPE A4452 ADVANCED ADVANCED [place] 5 TISSUE TISSUE F PER 18 MANAGEMEN MANAGEMEN SQUARE T T INCHES RADEX 52092 [facility] FED LAUSE FED FOOT 5 COMPLETE MINIMUM 3 VIEWS COLLECTIO 81800 [facility] N VENOUS 5 [facility] VENIPUNCT URE HEMOGLOBI 44450 [facility] N 5 [facility] JESSE A1C ALBUMIN 99745 [facility] URINE 5 [facility] MIN QUANTIATI VE BASIC 72922 [facility] METABOLIC [address] [place] [address] CALCIUM TOTAL BASIC 65835 [facility] METABOLIC [address] [place] [address] CALCIUM TOTAL PROSTATE G0103 [facility] CANCER [address] [place] [address] ; PSA TEST LIPID 03076 [facility] PANEL [address] [place] [address] HEPATIC 39047 [facility] FUNCTION [address] [place] [address] ALBUMIN 49855 [facility] URINE [address] [place] [address] MIN QUANTIATI VE HEMOGLOBI 25237 [facility] N [address] [place] [address] JESSE A1C COLLECTIO 62465 [facility] VENOUS 4 [facility] VENIPUNCT URE DIAB ONLY A5500 [place] FIT CSTM 4 MEDICAL MEDICAL PREP&SPL SUPPLY SUPPLY [employer] DNSITY INSRT FOR DIAB A5512 [place] ONLY MX 4 MEDICAL MEDICAL DNSITY SUPPLY SUPPLY INSRT DIR LLC LLC FORMD PRFAB EA CATARACT 67516 [place] ERICK REMOVAL 4 MEDICAL JR ANY INSERTION SERV OF LENS FOUNDATIO Encounters Encounter Start End Date Code Location Performer Type Date OFFICE 03488 [facility] 7 7 HEALTH T VISIT SOLUTIONS 25 IN MINUTES [facility] OUTPATIEN E [facility] 46169 [facility] T V[facility] 5 E MINUTES [facility] OFFICE 93084 [facility] 7 7 HEALTH T VISIT SOLUTIONS 15 IN MINUTES HOSPITAL [facility] - 7 7 MEM H[facility]P INPATIENT INC OFFICE 01909 NARENDRA JOSELINE OUTPATIEN 7 7 MEDICAL T VISIT SERV 25 FOUNDATIO MINUTES N [facility] - 7 7 [facility] OUTPATIEN E T HOSPITALS OFFICE 57909 NAERNDRA RUEDAUAMary Lou [facility] MEDICAL T VISIT SERV 15 FOUNDATIO MINUTES N OFFICE 71144 OUTPATIEN 7 7 HEALTHCAR T VISIT 5 E MINUTES HOSPITALS EMERGENCY 97131 [facility] 7 7 GRACIE DEPARTMEN EMERGENCY T VISIT PHYS HIGH/URGE NT SEVERITY OFFICE 79156 [facility] 7 7 HEALTH T VISIT SOLUTIONS 25 IN MINUTES HOSPITAL [facility] - 7 7 [facility] OUTPATIEN INC T OFFICE 26770 [facility] 7 7 HEALTH T VISIT SOLUTIONS 15 IN MINUTES OFFICE 50478 [facility] 7 7 HEALTH T VISIT SOLUTIONS 25 IN MINUTES [facility]OSP[facility] - 7 7 [facility]ALTHCAR OUTPATIEN E T HOSPITALS EMERGENCY 56449 NARENDRA NGUYENIZ DEPT 7 7 MEDICAL VISIT SERV HIGH FOUNDATIO SEVERITY& N THREAT [facility] MARY - 7 7 MEM HOS[facility] OUTPATIEN INC T EMERGENCY 54521 [facility] 7 7 MEM HOSP DEPARTMEN INC T VISIT HIGH/URGE NT SEVERITY EMERGENCY 70786 [facility] DEPT 7 7 PHYSICIAN U VISIT S, PLLC HIGH SEVERITY& THREAT FUNCJ OFFICE 86535 [facility] OUT[facility] 6 6 HEALTHCAR T VISIT 5 E MINUTES [facility] - 6 6 [facility]ALTHCAR OUTPATIEN E T [facility] - 6 6 [facility]ALTHCAR OUTPATIEN E T HOSPITALS OFFICE 10378 OUTPATIEN 6 6 HEALTHCAR T VISIT 5 E MINUTES HOSPITALS OFFICE 03835 [facility] 6 6 [place] ROMEL T VISIT PHYSICIAN 25 S ASSIST MINUTES OFFICE 06141 [facility] 6 6 PHYSICIAN T VISIT S GROUP 25 MINUTES HOSPITAL M[facility] - 6 6 [facility] 6 6 Y [facility] 56607 [facility] 6 6 Y T VISIT 5 HOSPITAL MINUTES OFFICE 01093 [place] JOSELINE [facility] 6 6 MEDICAL T VISIT SERV 25 FOUNDATIO MINUTES N OFFICE 13206 [facility] [place] 6 6 [place] ADA T VISIT PHYSICIAN 25 S ASSIST MINUTES OFFICE 14272 [facility] 6 6 HEALTH[facility] T VISIT 5 E MINUTES [facility] - 6 6 HEALTHCAR OUTPATIEN E T HOSPITALS HOME [facility], 6 6 HOME INPATIENT [facility]ALTH [facility] - 6 6 [facility] OFF[facility] 26445 [facility] 6 6 Y T VISIT 5 HOSPITAL MINUTES OFFICE 43991 [place] MINION [facility] 6 6 MEDICAL JACK T VISIT SERV 10 FOUNDATIO MINUTES N HOME [facility], 6 6 HOME [facility] 6 Y INPATIENT HOSPITAL OFFICE 10568 [facility] SANT[facility]CRUZ OUTPATIEN 6 6 JAMES JAMES T VISIT 15 MINUTES EMERGENCY 05157 NARENDRA CLAROS DEPT 6 6 MEDICAL NAYELI VISIT SERV HIGH FOUNDATIO SEVERITY& N THREAT [facility], 6 6 HOME INPATIENT HEALTH AGENCY OFFICE 30066 [facility] 6 6 Y T VISIT 5 HOSPITAL MINUTES EMERGENCY 60425 M[facility] 6 6 MEM HOSP DEPARTMEN INC T VISIT HIGH/URGE NT SEVERITY EMERGENCY 78953 JOE JONES DEPT 6 6 PHYSICIAN STARLA VISIT S, PLLC HIGH SEVERITY& THREAT [facility] MARY - 6 6 MEM HOSP OUTPATIEN INC T OFFICE 63060 NEETA NEETA OUTPATIEN 6 6 JAMES JAMES T VISIT 15 MINUTES HOSPITAL [facility]ERS[facility] - 6 6 Y [facility] T OFFICE 64818 [facility] 6 6 [place] ADA T VISIT PHYSICIAN 15 S ASSIST MINUTES OFFICE 87855 [facility] 6 6 Y T VISIT 5 HOSPITAL MINUTES [facility] - 6 6 [facility] T HOME [facility], 6 6 HOME [facility] - 6 6 Y INPATIENT HOSPITAL EMERGENCY 32440 NARENDRA SHAH DEPT 6 6 MEDICAL STARLA VISIT SERV HIGH FOUNDATIO SEVERITY& N THREAT [facility] - 6 6 Y [facility] 6 6 [facility] - 6 6 Y [facility] T OFFICE 23419 NE[facility]A SHANKARHENRY [facility] 6 6 JAMES JAMES T VISIT 15 MINUTES [facility] - 6 6 Y [facility] T OFFICE 54775 KMSF POLY [facility] 6 6 NURSE MIR T VISIT PRACTITIO 25 NER [address] [facility]IVERSIT - [address] [facility] - 6 6 Y [facility] T OFF[facility] 89966 [facility] 6 6 Y T VISIT 5 HOSPITAL [facility] UN[facility]ERSIT - 6 6 Y [facility] T OFFICE 59456 NARENDRA JAMES [facility] 6 6 MEDICAL T NEW 45 SERV MINUTES FOUNDATIO [facility] - 6 6 Y [facility] T OFFICE 52595 NARENDRA MASONMary Lou LAN [facility] 6 6 MEDICAL T VISIT SERV 25 FOUNDATIO MINUTES N OFFICE 83572 [facility] CONS[facility] 6 6 [place] ADA ION PHYSICIAN NEW/ESTAB S ASSIST PATIENT 60 MIN [facility] - 6 6 Y [facility] T OFFICE 99829 BHARGAVI ECHEVARRIA [facility] 6 6 PHYSCIAN LES T VISIT PRACTICE 15 LL MINUTES OFFICE 02351 NEETANARENDRA SANTACRUZ [facility] 6 6 JAMES JAMES T VISIT 15 MINUTES [facility] [place] [address] 6 [facility] T OFFICE 62542 [facility] 6 6 PHYSCIAN LES ION PRACTICE NEW/ESTAB LL PATIENT 60 MIN [facility] - 6 [facility] T OFFICE 71477 NEET[facility]ET[facility] OUTPATIEN 6 6 JAMES JAMES T VISIT 15 MINUTES OFFICE 73583 [facility] 6 6 JAMES JAMES T VISIT 15 MINUTES OFFICE 71955 [facility] OUTPATI[facility] 6 6 T VISIT 15 MINUTES [facility] MARY - 6 6 [facility] OUTPATIEN INC T OFFICE 85355 [facility] OUTPATI[facility] 5 5 JAMES JAMES T VISIT 15 MINUTES OFFICE 72826 [facility] 5 5 [facility] VILL[facility]REAL T VISIT ADULT & 25 PED MINUTES OFFICE 90765 [facility] 5 5 [facility] VILL[facility]REAL ION ADULT & NEW/ESTAB PED PATIENT 60 MIN OFFICE 32768 [facility] OUTPATI[facility] 5 5 JAMES JAMES T VISIT 15 MINUTES OFFICE 64926 [facility] OUTPATIEN 5 5 T VISIT 15 MINUTES OFFICE 14962 [facility] OUTPATIEN 5 5 T VISIT 15 MINUTES OFFICE 93446 [facility] OUTPATIEN 5 5 T VISIT 15 MINUTES OFFICE 90742 [facility] FED [facility] FED OUTPATIEN 5 5 T VISIT 15 MINUTES OFFICE 40683 NEETA NEETA OUTPATIEN 5 5 JAMES JAMES T VISIT 15 MINUTES OFFICE 72083 LA[facility] FED [facility] FED OUTPATIEN 5 5 T VISIT 15 MINUTES OFFICE 34396 LAUSE FED LAUSE FED OUTPATIEN 5 5 T VISIT 15 MINUTES OFFICE 95771 NEETA [facility]A OUTPATIEN 5 5 JAMES JAMES T VISIT 25 MINUTES OFFICE 44540 [facility] FED [facility] FED OUTPATIEN 5 5 T VISIT 15 MINUTES OFFICE 00580 LAUSE FED [facility]USE FED OUTPATIEN 5 5 T VISIT 15 MINUTES OFFICE 26621 NEETA NEETA OUTPATIEN 5 5 JAMES JAMES T VISIT 15 MINUTES OFFICE 51490 LAUSE FED LAUSE FED OUTPATIEN 5 5 T VISIT 15 MINUTES OFFICE 88366 LAUSE FED LAUSE FED OUTPATIEN 5 5 T VISIT 15 MINUTES OFFICE 33860 NEETA NEETA OUTPATIEN 5 5 JAMES JAMES T VISIT 15 MINUTES OFFICE 03615 NEETA [facility]ETA OUTPATIEN 5 5 JAMES JAMES T VISIT 25 MINUTES OFFICE 57889 [facility] OUTPATIEN 5 5 JAMES JAMES T VISIT 15 MINUTES OFFICE 05980 [facility] OUTPATIEN 5 5 JAMES AJMES T VISIT 15 MINUTES [facility] - 5 5 [facility] T OFFICE 85382 NEETA NEETA OUTPATIEN 5 5 JAMES JAMES T VISIT 15 MINUTES OFFICE 22456 [facility]A OUTPATIEN 4 4 JAMES JAMES T VISIT 15 MINUTES OFFICE 56527 LAUSE FED LAUSE FED OUTPATIEN 4 4 T NEW 30 MINUTES OFFICE 05012 [facility] OUTPATIEN 4 4 JAMES JAMES T VISIT 15 MINUTES OFFICE 62504 NEETA NEETA OUTPATIEN 4 4 JAMES JAMES T VISIT 15 MINUTES [facility] - 4 4 [facility] T OFFICE 67316 PRIMARY NEETA OUTPATIEN 4 4 HEALTH JAMES T VISIT ASSOCIATE 15 S PS MINUTES OFFICE 34086 PR[facility] OUTPATIEN 4 4 HEALTH JAMES T VISIT ASSOCIATE 15 S PS MINUTES
--- OUTSIDE RECORDS SUMMARY | 2017-03-25 21:35 | External Medical Summary Rpt | CCD ---
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 GRAVITY; PUBLIC EVENTS FACILITIES RENTAL MANAGER HOME [place]; S9341 INFUSION INFUSION ENTERAL 6 PARTNERS PARTNERS NUTRITION OF OF [place] GRAVITY; PUBLIC EVENTS FACILITIES RENTAL MANAGER SBSQ 34090 [place] [address] MEDICAL JAG CARE/DAY SERV 15 FOUNDATIO MINUTES N MRI ANY [address] IN [facility] 6 MEDICAL Y JUS EXTREM SERV W/O & FOUNDATIO W/CONTRAS N T MATRL SBSQ 13890 [facility] 6 MEDICAL JAG CARE/DAY SERV 15 FOUNDATIO MINUTES N HOME [place]; S9341 INFUSION INFUSION ENTERAL 6 PARTNERS PARTNERS NUTRITION OF OF [place] GRAVITY; PUBLIC EVENTS FACILITIES RENTAL MANAGER HOME [place]; S9341 INFUSION INFUSION ENTERAL 6 PARTNERS PARTNERS NUTRITION OF OF [place] GRAVITY; PUBLIC EVENTS FACILITIES RENTAL MANAGER SBSQ 53186 [facility] 6 MEDICAL JAG CARE/DAY SERV 25 FOUNDATIO MINUTES N RADEX 30285 [place] [facility] 6 MEDICAL Y JUS COMPLETE SERV MINIMUM 3 FOUNDATIO VIEWS N HOME [place]; S9341 INFUSION INFUSION ENTERAL 6 PARTNERS PARTNERS NUTRITION OF OF [place] GRAVITY; PUBLIC EVENTS FACILITIES RENTAL MANAGER INITIAL 62439 [facility] 6 NURSE BROADDUS CARE/DAY PRACTITIO CHR 50 NER GR MINUTES RADIOLOGI 83276 [place] TRUE LILLY C EXAM 6 MEDICAL CHEST 2 SERV VIEWS FOUNDATIO FRONTAL&L N ATERAL HOME [place]; S9341 INFUSION INFUSION ENTERAL 6 PARTNERS PARTNERS NUTRITION OF OF [place]RA[place]; [place] [address] NARENDRA NICKELS ANGIOGRAP 6 MEDICAL JACK HY CHEST SERV W/CONTRAS FOUNDATIO T/NONCONT N RAST ECG 68056 [place] YOU ROUTINE 6 MEDICAL NAN ECG SERV W/LEAST FOUNDATIO 12 LDS N I&R ONLY HOME [place]; S9341 INFUSION INFUSION ENTERAL 6 PARTNERS PARTNERS NUTRITION OF OF [place] GRAVITY; PUBLIC EVENTS FACILITIES RENTAL MANAGER HOME [place]; S9341 INFUSION INFUSION ENTERAL 6 PARTNERS PARTNERS NUTRITION OF OF [place] GRAVITY; PUBLIC EVENTS FACILITIES RENTAL MANAGER HOME [place]; S9341 INFUSION INFUSION ENTERAL 6 PARTNERS PARTNERS NUTRITION OF OF [place] GRAVITY; PUBLIC EVENTS FACILITIES RENTAL MANAGER HOME [place]; S9341 INFUSION INFUSION ENTERAL 6 PARTNERS PARTNERS NUTRITION OF OF [place] GRAVITY; PUBLIC EVENTS FACILITIES RENTAL MANAGER HOME [place]; S9341 INFUSION INFUSION ENTERAL 6 PARTNERS PARTNERS NUTRITION OF OF [place] GRAVITY; PUBLIC EVENTS FACILITIES RENTAL MANAGER HOME [place]; S9341 INFUSION INFUSION ENTERAL 6 PARTNERS PARTNERS NUTRITION OF OF [place] GRAVITY; PUBLIC EVENTS FACILITIES RENTAL MANAGER HOME [place]; S9341 INFUSION INFUSION ENTERAL 6 PARTNERS PARTNERS NUTRITION OF OF [place] GRAVITY; PUBLIC EVENTS FACILITIES RENTAL MANAGER HOME [place]; S9341 INFUSION INFUSION ENTERAL 6 PARTNERS PARTNERS NUTRITION OF OF [place] GRAVITY; PUBLIC EVENTS FACILITIES RENTAL MANAGER HOME [place]; S9341 INFUSION INFUSION ENTERAL 6 PARTNERS PARTNERS NUTRITION OF OF [place]RAVITY; PUBLIC EVENTS FACILITIES RENTAL MANAGER HOME [place]; S9341 INFUSION INFUSION ENTERAL 6 PARTNERS PARTNERS NUTRITION OF OF [place] GRAVITY; PUBLIC EVENTS FACILITIES RENTAL MANAGER DIRECT G0299 ABHINAV PEREZ RN [address] [facility] AGENCY SPICE SET EA 15 MIN HOME [place]; S9341 INFUSION INFUSION ENTERAL 6 PARTNERS PARTNERS NUTRITION OF OF [place] GRAVITY; PUBLIC EVENTS FACILITIES RENTAL MANAGER HOME [place]; S9341 INFUSION INFUSION ENTERAL 6 PARTNERS PARTNERS NUTRITION OF OF [place] GRAVITY; PUBLIC EVENTS FACILITIES RENTAL MANAGER HOME [place]; S9341 INFUSION INFUSION ENTERAL 6 PARTNERS PARTNERS NUTRITION OF OF [place] GRAVITY; PUBLIC EVENTS FACILITIES RENTAL MANAGER DIRECT G0299 ABHINAV PEREZ RN 6 HOME HOME HOME [facility]/ AGENCY AGENCY SPICE SET EA 15 MIN LARYNGOSC 27483 [facility] OPY 6 Y Y FLEXIBLE [facility] DIAGNOSTI C BLOOD 72576 [facility] COUNT 6 Y Y COMPLETE [facility] [place] [place] [address] [facility] THYROID 6 Y Y STIMULATI [facility] [place] [address] [facility] FREE 6 Y Y THYROXINE [facility] COLLECTIO 36631 [facility] N VENOUS 6 Y Y BLOOD [facility] VENIPUNCT URE COMPREHEN 73201 [facility] SIVE 6 Y Y METABOLIC [facility] PANEL HOME [place]; S9341 INFUSION INFUSION ENTERAL 6 PARTNERS PARTNERS NUTRITION OF OF [place] GRAVITY; PUBLIC EVENTS FACILITIES RENTAL MANAGER HOME [place]; S9341 INFUSION INFUSION ENTERAL 6 PARTNERS PARTNERS NUTRITION OF OF [place] GRAVITY; PUBLIC EVENTS FACILITIES RENTAL MANAGER HOME [place]; S9341 INFUSION INFUSION ENTERAL 6 PARTNERS PARTNERS NUTRITION OF OF [place]RAVITY; PUBLIC EVENTS FACILITIES RENTAL MANAGER COLLECTIO 29602 MARY HERNANDEZ N VENOUS 6 [facility] BLOOD INC INC VENIPUNCT [facility] G0378 [facility]ARY HERNANDEZ OBSERVATI 6 [facility] ON INC INC SERVICE PER HOUR CREATINE 84006 MARY HERNANDEZ KINASE MB 6 [facility] [place] [address] MARY HERNANDEZ TROPONIN 6 [facility] QUANTITAT INC INC JOJO BLOOD 71991 MARY HERNANDEZ COUNT 6 [facility] COMPLETE INC INC AUTO&AUTO DIFRNTL WBC NONINVASI 15553 MARY HERNANDEZ VE 6 [facility] EAR/PULSE [place] [address] MARY HERNANDEZ INFUSION 6 [facility] THERAPY/P INC INC ROPHYLAXI S /DX 1ST TO 1 HR PHYSICAL 47677 MARY HERNANDEZ THERAPY 6 [facility] [place] [address] MARY HERNANDEZ INFUSION 6 [facility] THERAPY INC INC PROPHYLAX IS/DX EA HOUR GLUC BLD 61499 MARY HERNANDEZ GLUC MNTR 6 [facility] DEV INC INC CLEARED FDA SPEC HOME USE CREATINE 18124 MARY HERNANDEZ KINASE 6 [facility] TOTAL INC INC BASIC 51721 MARY HERNANDEZ METABOLIC 6 [facility] PANEL INC INC CALCIUM TOTAL OBSERVATI 72066 [facility] FRYMAN ON/INPATI 6 PHYSICIAN EUG [facility] 50 MINUTES RADIOLOGI 03703 MARY HERNANDEZ C 6 [facility] EXAMINATI INC INC ON PELVIS 1/2 VIEWS CREATINE 28700 MARY HERNANDEZ KINASE 6 [facility] TOTAL INC INC PROTHROMB 37850 MARY HERNANDEZ IN TIME 6 [facility] MEM HOSP INC INC BLOOD 95089 MARY HERNANDEZ COUNT 6 [facility] COMPLETE INC INC AUTO&[place] [address] MARY HERNANDEZ TROPONIN 6 [facility] QUANTITAT INC INC JOJO RADIOLOGI 45363 MARY HERNANDEZ C 6 [facility] EXAMINATI INC INC ON KNEE 3 VIEWS RADIOLOGI 60724 MARY HERNANDEZ C 6 [facility] EXAMINATI INC [place] [address] MARY HERNANDEZ HEAD/BRAI 6 [facility] N W/O INC INC CONTRAST MATERIAL CREATINE 89345 MARY HERNANDEZ KINASE MB 6 [facility] FRACTION INC INC ONLY COLLECTIO 49722 MARY HERNANDEZ N VENOUS 6 [facility] BLOOD INC INC VENIPUNCT URE COMPREHEN 63558 MARY HERNANDEZ SIVE 6 [facility] METABOLIC INC INC PANEL HOME [place]; S9341 INFUSION INFUSION ENTERAL 6 PARTNERS PARTNERS NUTRITION OF OF [place] GRAVITY; PUBLIC EVENTS FACILITIES RENTAL MANAGER HOME [place]; S9341 INFUSION INFUSION ENTERAL 6 PARTNERS PARTNERS NUTRITION OF OF [place]RAVITY; PUBLIC EVENTS FACILITIES RENTAL MANAGER HOME [place]; S9341 INFUSION INFUSION ENTERAL 6 PARTNERS PARTNERS NUTRITION OF OF [place] GRAVITY; PUBLIC EVENTS FACILITIES RENTAL MANAGER BEHAVIORA 31394 [facility] & 6 Y Y [facility] ANALYSIS VOICE AND RESONANCE LARYNGOSC 41021 [facility] 6 Y ELIJAH [facility] DIAGNOSTI C HOME [place]; S9341 INFUSION INFUSION ENTERAL 6 PARTNERS PARTNERS NUTRITION OF OF [place] GRAVITY; PUBLIC EVENTS FACILITIES RENTAL MANAGER HOME [place]; S9341 INFUSION INFUSION ENTERAL 6 PARTNERS PARTNERS NUTRITION OF OF [place] GRAVITY; PUBLIC EVENTS FACILITIES RENTAL MANAGER HOME [place]; S9341 INFUSION INFUSION ENTERAL 6 PARTNERS PARTNERS NUTRITION OF OF [place] GRAVITY; PUBLIC EVENTS FACILITIES RENTAL MANAGER HOME [place]; S9341 INFUSION INFUSION ENTERAL 6 PARTNERS PARTNERS NUTRITION OF OF [place] GRAVITY; PUBLIC EVENTS FACILITIES RENTAL MANAGER HOME [place]; S9341 INFUSION INFUSION ENTERAL 6 PARTNERS PARTNERS NUTRITION OF OF [place] GRAVITY; PUBLIC EVENTS FACILITIES RENTAL MANAGER STERILE A4217 [facility] 6 HOME [...] NUTRITION OF OF [place] GRAVITY; PUBLIC EVENTS FACILITIES RENTAL MANAGER HOME [place]; S9341 INFUSION INFUSION ENTERAL 6 PARTNERS PARTNERS NUTRITION OF OF [place]RAVITY; PUBLIC EVENTS FACILITIES RENTAL MANAGER DIRECT G0299 ABHINAV BURNETTCO SNS RN 6 HOME HOME HOME HEALTH [facility] HEALTH/ AGENCY AGENCY SPICE SET EA 15 MIN HOME [place]; S9341 INFUSION INFUSION ENTERAL 6 PARTNERS PARTNERS NUTRITION OF OF [place] GRAVITY; PUBLIC EVENTS FACILITIES RENTAL MANAGER HOME [place]; S9341 INFUSION INFUSION ENTERAL 6 PARTNERS PARTNERS NUTRITION OF OF [place] GRAVITY; PUBLIC EVENTS FACILITIES RENTAL MANAGER DIRECT G0299 ABHINAV BURNETTCO SNS RN 6 HOME HOME HOME HEALTH HEALTH HEALTH/ AGENCY AGENCY SPICE SET EA 15 MIN DIRECT G0299 ABHINAV BURNETTCO SNS RN 6 HOME HOME HOME HEALTH HEALTH HEALTH/ AGENCY AGENCY SPICE SET EA 15 MIN HOME [place]; S9341 INFUSION INFUSION ENTERAL 6 PARTNERS PARTNERS NUTRITION OF OF [place] GRAVITY; PUBLIC EVENTS FACILITIES RENTAL MANAGER HOME [place]; S9341 INFUSION INFUSION ENTERAL 6 PARTNERS PARTNERS NUTRITION OF OF [place] GRAVITY; PUBLIC EVENTS FACILITIES RENTAL MANAGER HOME [place]; S9341 INFUSION INFUSION ENTERAL 6 PARTNERS PARTNERS NUTRITION OF OF [place] GRAVITY; PUBLIC EVENTS FACILITIES RENTAL MANAGER RADEX HIP 48862 [place] JOHN 6 MEDICAL FRA UNILATERA SERV L WITH FOUNDATIO PELVIS N 2-3 VIEWS GROUND 07-22-201 A0425 [place] [facility] 6 METRO METRO PER AMBULANCE AMBULANCE STATUTE MILE RADEX 30865 [place] JOHN SPINE 6 MEDICAL FRA LUMBOSACR SERV AL 2/3 FOUNDATIO VIEWS N HOSPITAL 83201 [facility] 6 MEDICAL [place] DAY SERV ELSIE MANAGEMEN FOUNDATIO T > [address] [place] [address] [place] HEAD/BRAI 6 MEDICAL BRANDON N W/O SERV CONTRAST FOUNDATIO MATERIAL N SBSQ 27320 [place] [address] MEDICAL HN[place]ON CARE/DAY SERV ELSIE 25 FOUNDATIO MINUTES N COMMODE E0163 [facility] CHAIR 6 MOBILE OR STATIONAR Y W/FIXED ARMS SBSQ 26770 [place] [address] MEDICAL HN[place] CARE/DAY SERV ELSIE 25 FOUNDATIO MINUTES N SBSQ 20588 [place] [address] MEDICAL HN[place] CARE/DAY SERV ELSIE 25 FOUNDATIO MINUTES N SBSQ [address]2986 [place] [address] MEDICAL CARE/DAY SERV 25 FOUNDATIO MINUTES N SBSQ 16842 [place] [address] MEDICAL CARE/DAY SERV 25 FOUNDATIO MINUTES N SBSQ 55186 [place] [address] MEDICAL CARE/DAY SERV 25 FOUNDATIO MINUTES N SBSQ 93551 [place] [address] MEDICAL CARE/DAY SERV 25 FOUNDATIO MINUTES N SBSQ 89381 [place] [address] MEDICAL CARE/DAY SERV 25 FOUNDATIO MINUTES N SBSQ [address] [facility] 6 MEDICAL CARE/DAY SERV 25 FOUNDATIO MINUTES N [facility]ION [id number] VENA CAVA PERQ INSERTION [id number] [facility] FEEDING [address] [facility] STOMACH PERQ APPROACH SBSQ 87259 [facility] 6 MEDICAL CARE/DAY SERV 25 FOUNDATIO MINUTES N EGD 12795 [place] BAUTIST[facility] PERCUTANE 6 MEDICAL JOSUE OUS SERV PLACEMENT FOUNDATIO N GASTROSTO MY TUBE INITIAL 21511 [facility] INPATIENT 6 MEDICAL JOSUE CONSULT SERV NEW/ESTAB FOUNDATIO PT 80 N MIN SBSQ 90287 [place] [address] MEDICAL HN[place] CARE/DAY SERV ELSIE 25 FOUNDATIO MINUTES N SBSQ 29606 [place] [address] MEDICAL [place] CARE/DAY SERV ELSIE 25 FOUNDATIO MINUTES N SBSQ 15520 [place] [address] MEDICAL HN[place] CARE/DAY SERV ELSIE 25 FOUNDATIO MINUTES N SBSQ 28486 [place] [address] MEDICAL HN[place] CARE/DAY SERV ELSIE 25 FOUNDATIO MINUTES N SBSQ 27624 [place] [address] MEDICAL HN[place] CARE/DAY SERV ELSIE 25 FOUNDATIO MINUTES N SBSQ 53935 [place] [address] MEDICAL HN[place] CARE/DAY SERV ELSIE 25 FOUNDATIO MINUTES N RADIOLOGI 70911 [facility] 6 MEDICAL AYA MAR CHEST 2 SERV VIEWS FOUNDATIO FRONTAL&L N ATERAL SBSQ 19820 [place] [address] MEDICAL A NOMAN CARE/DAY SERV 25 FOUNDATIO MINUTES N SBSQ [address]4544 [place] [address] MEDICAL CARE/DAY SERV 25 FOUNDATIO MINUTES N RADIOLOGI 94147 IN [facility] 6 MEDICAL EXAMINATI SERV ON CHEST FOUNDATIO SINGLE N VIEW FRONTAL SBSQ 41929 [facility] 6 MEDICAL CARE/DAY SERV 25 FOUNDATIO MINUTES N SBSQ 46848 [place] [address] MEDICAL A NOMAN CARE/DAY SERV 15 FOUNDATIO MINUTES N SBSQ 91089 [place] [address] MEDICAL A NOMAN CARE/DAY SERV 25 FOUNDATIO MINUTES N SBSQ 63754 [facility] 6 MEDICAL CARE/DAY SERV 25 FOUNDATIO MINUTES N SBSQ 86349 [place] [facility] 6 MEDICAL A NOMAN CARE/DAY SERV 25 FOUNDATIO MINUTES N SBSQ 20035 [facility] 6 MEDICAL A NOMAN CARE/DAY SERV 25 FOUNDATIO MINUTES N SBSQ 37894 [place] [address] MEDICAL SHARON CARE/DAY SERV 25 FOUNDATIO MINUTES N SBSQ 21487 [place] [address] MEDICAL SHARON CARE/DAY SERV 25 FOUNDATIO MINUTES N SBSQ 72918 [place] [address] MEDICAL SHARON CARE/DAY SERV 25 FOUNDATIO MINUTES N SBSQ 18729 [facility] 6 MEDICAL CARE/DAY SERV 25 FOUNDATIO MINUTES N SBSQ 89683 [place] [address] MEDICAL SHARON CARE/DAY SERV 25 FOUNDATIO MINUTES N SBSQ 17613 [place] [address] MEDICAL SHARON CARE/DAY SERV 25 FOUNDATIO MINUTES N SBSQ 25171 [place] [address] MEDICAL SHARON CARE/DAY SERV 25 FOUNDATIO MINUTES N SBSQ 45505 [place] [address] MEDICAL EEDU RONNI CARE/DAY SERV [address] SOFT 07495 [place] TISSUE 6 MEDICAL BRANDON NECK W/O SERV CONTRAST FOUNDATIO MATERIAL N INITIAL 49771 IN [facility] INPATIENT 6 MEDICAL LOW CONSULT SERV NEW/ESTAB FOUNDATIO PT [address] [place] [address] [place] MCCARTHY W/O 6 MEDICAL STARLA CONTRAST SERV MATERIAL FOUNDATIO N INSJ TEMP 66905 [facility] NDWELL 6 MEDICAL BUDDY BLADDER SERV CATHETER FOUNDATIO SIMPLE N SBSQ 65675 [place] [address] MEDICAL EEDU RONNI CARE/DAY SERV 25 FOUNDATIO MINUTES N DUP-SCAN 85526 [place] CORDERO BUDDY XTR VEINS 6 MEDICAL SERV UNILATERA FOUNDATIO L/LIMITED N STUDY SBSQ 14910 [place] [address] MEDICAL BUDDY CARE/DAY SERV 15 FOUNDATIO MINUTES N RADEX 39297 [place] [facility] 2 6 MEDICAL FRA VIEWS SERV FOUNDATIO N SBSQ [address]95 [place] [address] MEDICAL EEDU RONNI CARE/DAY SERV 25 FOUNDATIO MINUTES N SBSQ [address]93 [place] [address] MEDICAL EEDU RONNI CARE/DAY SERV 25 FOUNDATIO MINUTES N SBSQ [address]76 [place] [address] MEDICAL EEDU RONNI CARE/DAY SERV 25 FOUNDATIO MINUTES N SBSQ [address]19 [place] [address] MEDICAL EEDU RONNI CARE/DAY SERV 25 FOUNDATIO MINUTES N SBSQ [address] [place] [address] MEDICAL HNSTON CARE/DAY SERV ELSIE 25 FOUNDATIO MINUTES N SBSQ [address] [place] [address] MEDICAL HNSTON CARE/DAY SERV ELSIE 25 FOUNDATIO MINUTES N SBSQ [address]56 [place] [address] MEDICAL HNSTON CARE/DAY SERV ELSIE 25 FOUNDATIO MINUTES N SBSQ [address] [place] [address] MEDICAL HNSTON CARE/DAY SERV [place] [address] [place] [facility] ABDOMINAL 6 MEDICAL REAL SERV TIME FOUNDATIO W/IMAGE N DOCUMENTA TION ECG 19753 [place] YOU ROUTINE 6 MEDICAL NAN ECG SERV W/LEAST FOUNDATIO 12 LDS N I&R ONLY ANES OPEN 36263 [place] [facility] PROC 6 MEDICAL BONES SERVICES LOWER LEG/ANKLE /[place] [address] [facility] SURG 6 Y OF PATHOLOGY [facility] GROSS&STARLA ROSCOPIC EXAM DECALCIFI 81537 [facility] MOL CATION 6 [place] [facility] PROCEDURE [place] [facility] INJECTION 81861 [facility] 6 MEDICAL CAR ANESTHETI SERV C AGENT FOUNDATIO SCIATIC N NRV SINGLE INJECTION 87572 [facility] 6 MEDICAL CAR ANESTHETI SERV C AGENT FOUNDATIO FEMORAL N NERVE SINGLE DETACHMEN [id number] [facility] T AT 6 Y Y [facility] FOOT PARTIAL 3RD RAY OPEN DETACHMEN [id number] [facility] T AT 6 Y Y [facility] FOOT PARTIAL 4TH RAY OPEN INTRO [id number] [facility] PER[facility] NERVES PLEXI PERQ AMPUTATIO 49557 [place] ENDEAN N 6 MEDICAL METATARSA SERV L W/TOE FOUNDATIO SINGLE N INITIAL 40971 [place] [facility] 6 MEDICAL OV AIB CARE/DAY SERV 70 FOUNDATIO MINUTES N RADEX 36463 [place] TRUE LILLY FOOT 6 MEDICAL COMPLETE SERV MINIMUM 3 FOUNDATIO VIEWS N INITIAL 88646 [place] XENOS JACY INPATIENT 6 MEDICAL CONSULT SERV NEW/ESTAB FOUNDATIO PT 55 N MIN RADIOLOGI 63031 [place] TRUE LILLY C 6 MEDICAL EXAMINATI SERV ON CHEST FOUNDATIO SINGLE N VIEW FRONTAL ECG 69171 [place] [facility] CHI ROUTINE 6 MEDICAL ECG SERV W/LEAST FOUNDATIO 12 LDS N I&R ONLY STEREOSCO G6002 [place] KUDRIMOTI PIC X-RAY 6 [facility] GUID SERV LOCALIZ FOUNDATIO TRG VOL N DEL RT INTENSITY [address] [place] [address] Y Y [facility] RADIATION TX DLVR COMPLEX INTENSITY [address]13 [place] [address] Y Y [facility] RADIATION TX DLVR COMPLEX STEREOSCO G6002 [place] KUDRIMOT[facility] PIC X-RAY 6 [facility] GUID SERV LOCALIZ FOUNDATIO TRG VOL N DEL RT STEREOSCO G6002 [place] KUDRIMOT[place] PIC X-RAY 6 [facility] GUID SERV LOCALIZ FOUNDATIO TRG VOL N DEL RT INTENSITY 44939 [facility] 6 Y Y [facility] RADIATION TX DLVR COMPLEX INTENSITY [address] [place] [address] Y Y [facility] RADIATION TX DLVR COMPLEX STEREOSCO G6002 [place] KUDRIMOTI PIC X-RAY 6 [facility] GUID SERV LOCALIZ FOUNDATIO TRG VOL N DEL RT THER RAD 74451 [facility] 6 Y Y [facility] FIELD SETTING SIMPLE NTSTY 83135 [facility] 6 Y Y [facility] PLN DOSE-VOL HISTOS BASIC 82861 [facility] RADIATION 6 Y Y [facility] DOSIMETRY CALCULATI ON MLC IMRT 82459 [facility] [facility] 6 Y Y [facility] [place] [address] [facility] DEVICES 6 Y Y DESIGN & [facility] [place] [address] [facility] DEVICES 6 Y Y [facility] CONSTRUCT ION COMPLEX LOCM Q9967 [facility] [phone] Y Y MG/ML [facility] IODINE CONCENTRA TION PER ML CONSLTJ&R 14431 [facility] LUIS EPRT 6 Y OF NAYELI SLIDES [place] [facility] ELSE[facility] CREATININ 09173 [facility] E BLOOD [address] [facility] THORAX 65514 [facility] 6 Y Y W[facility] MATERIAL FLUORODEO A9552 [facility] XYGLUCOSE 6 Y Y F-18 FDG [facility] DX UP TO 45 MCI PET 23420 [facility] [address] [place] [facility] ON SKULL BASE MID-THIGH BEHAVIORA 43331 [facility] L & 6 Y Y [facility] ANALYSIS VOICE AND RESONANCE LARYNGOSC 90293 [facility] 6 Y Y [facility] DIAGNOSTI C ANES 54658 [facility] ESOPH 6 ANESTHESI FIDELINA THYRD A GROUP LARYNX PS TRACH & LYMPH NECK 1YR CYTP EVAL 81641 [facility], FINE 6 [facility] NEEDLE ASPIRATE INTERP & [place] [address] [facility], SURG 6 [facility] PATHOLOGY GROSS&STARLA ROSCOPIC EXAM COLLECTIO 93604 BHARGAVI BURK N VENOUS [address] [place] [address] [place] [address] [facility] UREA [address] [place] [address] QUANTITAT JOJO CREATININ 91808 [facility] E BLOOD [address] [place] [address] GONADOTRO 73158 [facility] 6 [facility] NG HORMONE CREATININ 78593 [facility] E BLOOD [address] [place] [address] BLOOD 01082 [facility] COUNT [address] [place] [address] AUTOMATED HEMOGLOBI 22389 [facility] N [address] [place] [address] SOFT [address] [facility] [place] MELANIE TISSUE 6 RADIOLOGY RHO NECK W/[place] [address] [facility] UREA [address] [place] [address] QUANTITAT JOJO COLLECTIO 24205 [facility] N VENOUS [address] [place] [address] VENIPUNCT URE LOCM Q9967 [facility] [phone] [facility] MG/ML [facility] IODINE CONCENTRA TION PER ML LARYNGOSC 44780 [facility] WALE OPY 6 PHYSCIAN LES FLEXIBLE PRACTICE DIAGNOSTI LL C PROSTATE G0103 [facility] CANCER [address] [place] [address] ; PSA TEST ELECTROLY 01231 [facility] TE PANEL [address] [place] [address] DEBRIDEME 77995 PROGRESSI PROGRESSI NT 6 VE VE SUBCUTANE PODIATRY PODIATRY OUS TISSUE 20 SQ CM/< DEBRIDEME 81405 EDDA EDDA NT 6 DEE DEE SUBCUTANE OUS TISSUE 20 SQ CM/< DEBRIDEME 61420 EDDA EDDA NT 6 DEE DEE SUBCUTANE OUS TISSUE 20 SQ CM/< DEBRIDEME 35713 EDDA EDDA NT NAIL 6 DEE DEE ANY METHOD 6/> ADD LW L2275 PROGRESSI PROGRESSI EXTRM 6 VE VE VARUS/VUL PODIATRY PODIATRY TANGELA MATTY PLSTC MOD PADD/LN AFO L1970 PROGRESSI PROGRESSI PLASTIC 6 VE VE WITH PODIATRY PODIATRY ANKLE JOINT CUSTOM FABRICATE D RADIOLOGI 58830 [place] [facility] ALL C 6 MEDICAL EXAMINATI IMAGING ON FOOT 2 ASS VIEWS DEBRIDEME 62778 EDDA EDDA NT 6 DEE DEE SUBCUTANE OUS TISSUE 20 SQ CM/< RADEX 78363 [facility]RAY HERNANDEZ FOOT 6 [facility] COMPLETE INC INC MINIMUM 3 VIEWS DEBRIDEME 86295 EDDA EDDA NT 6 DEE DEE SUBCUTANE [...] SQ/< T T W/O ADHES BORDR DEBRIDEME 49861 EDDADULCE BAINSANT NT 5 DEE DEE SUBCUTANE OUS TISSUE 20 SQ CM/< DEBRIDEME 84882 EDDA EDDA NT 5 DEE DEE SUBCUTANE OUS TISSUE 20 SQ CM/< DEBRIDEME 51573 EDDA EDDA NT 5 DEE DEE SUBCUTANE OUS TISSUE 20 SQ CM/< SIMPLE 92965 [facility] CYSTOMETR 5 [place] [facility] OGRAM [facility] & PED CYSTO 34756 [facility] CALIBRATI 5 [place] PHIL ON DILAT ADULT & URTL PED STRIX/DONN NOSIS SIMPLE 50954 [facility] UROFLOMET 5 [place] [facility]IL RY ADULT & PED GAUZE A6266 [...] PNEUMATC &/ VACUUM PREFAB CUSTM FIT ENMANUEL 07598 [facility] POST-VOID 5 [place] PHIL ING ADULT & RESIDUAL PED URINE&/BL ADDER CAP DRUG SCR G0434 [facility] NOT 5 [facility] CHROMAT[facility] ADULT & RAPHIC; PED ANY [...] MANAGEMEN MANAGEMEN SQUARE T T INCHES RADEX 98655 [facility] FED LAUSE FED FOOT 5 COMPLETE MINIMUM 3 VIEWS COLLECTIO 15271 [facility] N VENOUS 5 [facility] VENIPUNCT URE HEMOGLOBI 36723 [facility] N 5 [facility] JESSE A1C ALBUMIN 47246 [facility] URINE 5 [facility] MIN QUANTIATI VE BASIC 56087 [facility] METABOLIC [address] [place] [address] CALCIUM TOTAL BASIC 82347 [facility] METABOLIC [address] [place] [address] CALCIUM TOTAL PROSTATE G0103 [facility] CANCER [address] [place] [address] ; PSA TEST LIPID 07570 [facility] PANEL [address] [place] [address] HEPATIC 70836 [facility] FUNCTION [address] [place] [address] ALBUMIN 00728 [facility] URINE [address] [place] [address] MIN QUANTIATI VE HEMOGLOBI 09246 [facility] N [address] [place] [address] JESSE A1C COLLECTIO 64714 [facility] VENOUS 4 [facility] VENIPUNCT URE DIAB ONLY A5500 [place] FIT CSTM 4 MEDICAL MEDICAL PREP&SPL SUPPLY SUPPLY [employer] DNSITY INSRT FOR DIAB A5512 [place] ONLY MX 4 MEDICAL MEDICAL DNSITY SUPPLY SUPPLY INSRT DIR [employer] LLC FORMD PRFAB EA CATARACT [address]2919 [place] ERICK REMOVAL 4 MEDICAL JR ANY INSERTION SERV OF LENS FOUNDATIO Encounters Encounter Start End Date Code Location Performer Type Date OFFICE 32244 [facility] 7 7 HEALTH T VISIT SOLUTIONS 25 IN MINUTES [facility] OUTPAT[facility]EN [facility] 93036 [facility] T V[facility]IT 5 E MINUTES [facility] OFFICE 02052 [facility] 7 7 HEALTH T VISIT SOLUTIONS 15 IN MINUTES HOSPITAL [facility] - 7 7 [facility] INPATIENT INC OFFICE 06232 NARENDRA JOSELINE OUTPATIEN 7 7 MEDICAL T VISIT SERV 25 FOUNDATIO MINUTES N HOSPITAL [facility] - 7 7 [facility] OUTPATIEN E T HOSPITALS OFFICE 70114 NARENDRA RUEDAUAMary Lou [facility] MEDICAL T VISIT SERV 15 FOUNDATIO MINUTES N OFFICE 91872 OUTPATIEN 7 7 HEALTHCAR T VISIT 5 E MINUTES HOSPITALS EMERGENCY 18005 [facility] 7 7 GRACIE DEPARTMEN EMERGENCY T VISIT PHYS HIGH/URGE NT SEVERITY OFFICE 93773 [facility] 7 7 HEALTH T VISIT SOLUTIONS 25 IN MINUTES HOSPITAL [facility] - 7 7 [facility] OUTPATIEN INC T OFFICE 57412 [facility] 7 7 HEALTH T VISIT SOLUTIONS 15 IN MINUTES OFFICE 55460 [facility] 7 7 HEALTH T VISIT SOLUTIONS 25 IN MINUTES [facility] - 7 7 HEALTHCAR OUTPATIEN E T HOSPITALS EMERGENCY 06370 NARENDRA NGUYENIZ DEPT 7 7 MEDICAL VISIT SERV HIGH FOUNDATIO SEVERITY& N THREAT [facility] MARY - 7 7 MEM HOS[facility] OUTPATIEN INC T EMERGENCY 48111 [facility] 7 7 MEM [facility] DEPARTMEN INC T VISIT HIGH/URGE NT SEVERITY EMERGENCY 21400 [facility] DEPT 7 7 PHYSICIAN U VISIT S, PLLC HIGH SEVERITY& THREAT FUNCJ OFFICE 47890 [facility] OUTPAT[facility] 6 6 HEALTHCAR T VISIT 5 E MINUTES [facility] - 6 6 HEALTHCAR OUTPATIEN E T [facility] - 6 6 HEALTHCAR OUTPATIEN E T HOSPITALS OFFICE 69292 OUTPATIEN 6 6 HEALTHCAR T VISIT 5 E MINUTES HOSPITALS OFFICE 74156 [facility] 6 6 [place] ROMEL T VISIT PHYSICIAN 25 S ASSIST MINUTES OFFICE 46585 [facility] 6 6 PHYSICIAN T VISIT S GROUP 25 MINUTES [facility]OSPITAL [facility] - 6 6 [facility] 80973 [facility] 6 6 Y T VISIT 5 HOSPITAL MINUTES OFFICE 21848 [place] JOSELINE [facility] 6 6 MEDICAL T VISIT SERV 25 FOUNDATIO MINUTES N OFFICE 71083 [facility] 6 6 [place] ADA T VISIT PHYSICIAN 25 S ASSIST MINUTES OFFICE 21153 [facility] 6 6 HEALTHCAR T VISIT 5 E MINUTES [facility] - 6 6 HEALTHCAR OUTPATIEN E T HOSPITALS HOME [facility], 6 6 HOME INPATIENT [facility] - 6 6 Y [facility] T OFF[facility] 55579 [facility] 6 6 Y T VISIT 5 HOSPITAL MINUTES OFFICE 09841 [place] MINION [facility] 6 6 MEDICAL JACK T VISIT SERV 10 FOUNDATIO MINUTES N HOME [facility], 6 6 HOME [facility] - 6 6 Y INPATIENT HOSPITAL OFFICE 20220 [facility] OUTPATIEN 6 6 JAMES JAMES T VISIT 15 MINUTES EMERGENCY 96258 NARENDRA CLAROS DEPT 6 6 MEDICAL NAYELI VISIT SERV HIGH FOUNDATIO SEVERITY& N THREAT [facility], 6 6 HOME INPATIENT HEALTH AGENCY OFFICE 92497 [facility] 6 6 Y T VISIT 5 HOSPITAL MINUTES EMERGENCY 42008 [facility] 6 6 MEM HOS[facility] DEPARTMEN INC T VISIT HIGH/URGE NT SEVERITY EMERGENCY 75084 JOE JONES DEPT 6 6 PHYSICIAN STARLA VISIT S, PLLC HIGH SEVERITY& THREAT [facility] MARY - 6 6 MEM HOSP OUTPATIEN INC T OFFICE 76398 NE[facility] OUTPATIEN 6 6 JAMES JAMES T VISIT 15 MINUTES HOSPITAL UNIVERSIT - 6 6 Y [facility] T OFFICE 32649 [facility] 6 6 [place] ADA T VISIT PHYSICIAN 15 S ASSIST MINUTES OFFICE 28804 [facility] 6 6 Y T VISIT 5 HOSPITAL MINUTES [facility] - 6 6 [facility], 6 6 HOME [facility] UN[facility] - 6 6 Y INPATIENT HOSPITAL EMERGENCY 95371 NARENDRA SHAH DEPT 6 6 MEDICAL STARLA VISIT SERV HIGH FOUNDATIO SEVERITY& N THREAT [facility] - 6 6 [facility] - 6 6 Y [facility] T OFFICE 59485 [facility] 6 6 JAMES JAMES T VISIT 15 MINUTES [facility] UNIVERSIT - 6 6 Y [facility] T OFFICE 21144 KMSF POLY [facility] 6 6 NURSE MIR T VISIT PRACTITIO 25 [address] [facility] - 6 6 Y [facility] UNIVERS[facility] 6 6 Y [facility] T OFF[facility] 74403 [facility] T VIS[facility] 5 [facility] - 6 6 Y [facility] T [facility]ICE 37377 NARENDRA JAMES [facility] 6 6 MEDICAL T NEW 45 SERV MINUTES FOUNDATIO [facility] UNIVERSIT - 6 6 Y [facility] T OFFICE 96184 NARENDRA MASONMary Lou LAN [facility] 6 6 MEDICAL T VISIT SERV 25 FOUNDATIO MINUTES N OFFICE 36731 [facility] 6 6 [place] ADA ION PHYSICIAN NEW/ESTAB S ASSIST PATIENT 60 MIN [facility] UN[facility] - 6 6 Y [facility] T OFFICE 40622 BHARGAVI ECHEVARRIA [facility] 6 6 PHYSCIAN LES T VISIT PRACTICE 15 LL MINUTES OFFICE 39869 NEETANARENDRA SANTACRUZ [facility] 6 6 JAMES JAMES T VISIT 15 MINUTES [facility] [place] [address] 6 [facility] T OFFICE 71920 [facility] 6 6 PHYSCIAN LES ION PRACTICE NEW/ESTAB LL PATIENT 60 MIN [facility] T OFFICE 36241 [facility] OUTPATIEN 6 6 JAMES JAMES T VISIT 15 MINUTES OFFICE 25973 [facility] OUTPATIEN 6 6 JAMES JAMES T VISIT 15 MINUTES OFFICE 53307 [facility] OUTPATIEN 6 6 T VISIT 15 MINUTES [facility] M[facility] - 6 6 [facility] OUTPATIEN INC T OFFICE 10482 [facility] OUTPATIEN 5 5 JAMES JAMES T VISIT 15 MINUTES OFFICE 66638 [facility] T VISIT ADULT & 25 PED MINUTES OFFICE 70802 [facility] 5 5 [facility] VILL[facility]AL ION ADULT & NEW/ESTAB PED PATIENT 60 MIN OFFICE 57201 [facility] OUTPATIEN 5 5 JAMES JAMES T VISIT 15 MINUTES OFFICE 42335 [facility] OUTPATIEN 5 5 T VISIT 15 MINUTES OFFICE 32189 [facility] OUTPATIEN 5 5 T VISIT 15 MINUTES OFFICE 98574 [facility] OUTPATIEN 5 5 T VISIT 15 MINUTES OFFICE 24012 LAUSE FED LAUSE FED OUTPATIEN 5 5 T VISIT 15 MINUTES OFFICE 14949 [facility] OUTPATIEN 5 5 JAMES JAMES T VISIT 15 MINUTES OFFICE 05401 LAUSE FED LAUSE FED OUTPATIEN 5 5 T VISIT 15 MINUTES OFFICE 46597 LAUSE FED LAUSE FED OUTPATIEN 5 5 T VISIT 15 MINUTES OFFICE 58433 [facility] OUTPATIEN 5 5 JAMES JAMES T VISIT 25 MINUTES OFFICE 48194 LAUSE FED LAUSE FED OUTPATIEN 5 5 T VISIT 15 MINUTES OFFICE 43835 LAUSE FED LAUSE FED OUTPATIEN 5 5 T VISIT 15 MINUTES OFFICE 99267 NE[facility]A [facility]A OUTPATIEN 5 5 JAMES JAMES T VISIT 15 MINUTES OFFICE 29019 LAUSE FED LAUSE FED OUTPATIEN 5 5 T VISIT 15 MINUTES OFFICE 11370 LAUSE FED LAUSE FED OUTPATIEN 5 5 T VISIT 15 MINUTES OFFICE 26873 NEETA [facility]A OUTPATIEN 5 5 JAMES JAMES T VISIT 15 MINUTES OFFICE 29026 [facility] OUTPATIEN 5 5 JAMES JAMES T VISIT 25 MINUTES OFFICE 39787 [facility] OUTPATIEN 5 5 JAMES JAMES T VISIT 15 MINUTES OFFICE 51966 [facility] OUTPATIEN 5 5 JAMES JAMES T VISIT 15 MINUTES [facility] - 5 5 [facility] T OFFICE 68133 [facility] OUTPATIEN 5 5 JAMES JAMES T VISIT 15 MINUTES OFFICE 41337 [facility] OUTPATIEN 4 4 JAMES JAMES T VISIT 15 MINUTES OFFICE 31865 LAUSE FED LAUSE FED OUTPATIEN 4 4 T NEW 30 MINUTES OFFICE 46319 [facility] OUTPATIEN 4 4 JAMES JAMES T VISIT 15 MINUTES OFFICE 92468 [facility] OUTPATIEN 4 4 JAMES JAMES T VISIT 15 MINUTES [facility] - 4 4 [facility] T OFFICE 72170 [facility] OUTPATIEN 4 4 [facility]ALTH [facility] T VISIT ASSOCIATE 15 S PS MINUTES OFFICE 07723 [facility] OUTPATI[facility] 4 4 [facility]ALTH [facility] T VISIT ASSOCIATE 15 S PS MINUTES
--- OUTSIDE RECORDS SUMMARY | 2017-03-25 21:37 | External Medical Summary Rpt | CCD ---
Author Author , MACIEJ WING Address Unknown Phone [email or web address] Immunization Name Date Rout CVX Reac Dose Comm Prov Is Faci e tion ent ider Refu lity Give sed n PPV2 09-0 33 0.5 Hist [facility] No [facility] 3 7-20 mL oric 1 1 16 al Info rmat ion - Sour ce Unsp ecif ied Td 09-1 9 999 Hist H109 No H109 (evaristo 8-19 oric lt), 96 al Info adso rmat rbed ion - Sour ce Unsp ecif ied
--- OUTSIDE RECORDS SUMMARY | 2017-03-25 21:37 | External Medical Summary Rpt ---
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 Y Hold specimen in OE? N OCC POSITIV NEG No No No Mar 18 BLOOD E informa informa informa 2016 EMESIS tion in tion in tion in 9:42 PM source source source data data data Lactate [Moles/volume] in Blood Observa Value Referen Units Interpr Notes Date ti ce etation Range Lactate 0.4 - 2.0 mmol/L Normal No Mar 18 [Moles/vo informati 2016 6:44 lume] in on in PM Blood source data Hemoglobin.gastrointestinal [Presence] in Stool Observa Value Referen Units Interpr Notes Date ti ce etation Range Hemoglo NEGATIV NEG No No No Mar 18 bin.gas E informa informa informa 2016 trointe tion in tion in tion in 5:30 PM stinal source source source [Presen data data data ce] in Stool --1st specime n CBC W Auto Differential panel in Blood Observa Value Referen Units Interpr Notes Date ti ce etation Range Basophils 0 - 0.2 K/MM3 Normal No Mar 18 informati 2016 5:05 [#/volume on in PM ] in source Blood by data Automated count Basophils 0.1 - 2.0 % Normal No Mar 18 informati 2016 5:05 leukocyte on in PM s in source Blood by data Automated count Eosinophi 0.0 - 0.4 K/mm3 Normal No Mar 18 ls informati 2016 5:05 [#/volume on in PM ] in source Blood by data Automated count Eosinophi 0.1 - % Normal No Mar 18 ls/100 12.0 informati 2016 5:05 leukocyte on in PM s in source Blood by data Automated count Granulocy 1.3 - 8.0 K/mm3 High No Mar 18 kristie informati 2016 5:05 [#/volume on in PM ] in source Blood by data Automated count Granulocy 37.0 - % High No Mar 18 kristie/100 80.0 informati 2016 5:05 leukocyte on in PM s in source Blood by data Automated count Hematocri 42.0 - % Low No Mar 18 t [Volume 52.0 informati 2016 5:05 on in PM Fraction] source of Blood data Hemoglobi 14.1 - g/dL Low No Mar 18 n 18.0 informati 2016 5:05 [Mass/vol on in PM ume] in source Blood data Lymphocyt 0.7 - 4.5 K/mm3 Normal No Mar 18 es informati 2016 5:05 [#/volume on in PM ] in source Unspecifi data ed specimen by Automated count Lymphocyt 10 - 50 % Low No Mar 18 es informati 2016 5:05 [#/volume on in PM ] in source Unspecifi data ed specimen by Automated count Erythrocy 27 - 31.2 pg Normal No Mar 18 te mean informati 2016 5:05 corpuscul on in PM ar source hemoglobi data n [Entitic mass] Erythrocy 31.8 - g/dl Low No Mar 18 te mean 35.4 informati 2016 5:05 corpuscul on in PM ar source hemoglobi data n concentra tion [Mass/vol ume] by Automated count Erythrocy 82.2 - fl Normal No Mar 18 te mean 97.8 informati 2016 5:05 corpuscul on in PM ar volume source [Entitic data volume] by Automated count Monocytes 0.1 - 1.0 K/mm3 Normal No Mar 18 informati 2016 5:05 [#/volume on in PM ] in source Blood by data Automated count Monocytes 1.7 - 9.3 % Normal No Mar 18 /100 informati 2016 5:05 leukocyte on in PM s in source Blood by data Automated count Platelet 7.4 - fl Normal No Mar 18 mean 10.4 informati 2016 5:05 volume on in PM [Entitic source volume] data in Blood by Automated count Platelets 142 - 424 K/mm3 No No Mar 18 informati informati 2017 5:05 [#/volume on in on in PM ] in source source Blood data data Erythrocy 4.6 - 6.2 M/mm3 Low No Mar 18 kristie informati 2016 5:05 [#/volume on in PM ] in source Amniotic data fluid Erythrocy 11.5 - % Normal No Mar 18 te 17.5 informati 2017 5:05 distribut on in PM ion width source [Entitic data volume] by Automated count Leukocyte 4.8 - K/MM3 High No Mar 5 s 10.8 informati 2017 5:05 [#/volume on in PM ] in source Blood data Differential panel, method unspecified - Observa Value Referen Units Interpr Notes Date tion ce etation Range Neutrophi 0 - 8 % High No Mar 18 ls.band informati 2017 5:05 form/100 on in PM leukocyte source s in data Blood by Automated count LYMPH 6 10 - 50 % Low No Mar 18 informa 2016 tion in 5:05 PM source data Metamyelo 0 - 1 % High No Mar 18 cytes/100 informati 2016 5:05 on in PM leukocyte source s in data Blood by Manual count Monocytes 2 - 9 % Normal No Oct 5 /100 informati 2016 5:05 leukocyte on in PM s in source Blood by data Automated count Platele NORMAL No No No No Mar 18 ts informa informa informa informa 2016 [Presen tion in tion in tion in tion in 5:05 PM ce] in source source source source Blood data data data data by Light microsc opy Neutrophi 42 - 76 % Normal No Mar 18 ls informati 2016 5:05 [#/volume on in PM ] in source Blood by data Automated count Cells No #CELLS No No Mar 5 Counted informati informati informati 2016 5:05 Total [#] on in on in on in PM in Blood source source source data data data
--- OUTSIDE RECORDS SUMMARY | 2017-03-25 21:37 | External Medical Summary Rpt | CCD ---
Author Author , MACIEJ WING Address Unknown Phone [email or web address] Immunization Name Date Rout CVX Reac Dose [...]
--- OUTSIDE RECORDS SUMMARY | 2017-03-25 21:37 | External Medical Summary Rpt ---
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 Y Hold [...]
--- OUTSIDE RECORDS SUMMARY | 2017-03-25 22:28 | External Medical Summary Rpt | CCD ---
Author Author , MACIEJ Organization MACIEJ Address Unknown Phone [email or web address] Care Team Providers Care Mosaic Layer Name Role Phone [facility], ABLECARE Unavailable Unavailable [facility], [facility] Unavailable Unavailable [facility] Unavailable Unavailable MANAGEMENT, [facility] MANAGEMENT [facility] Unavailable Unavailable MANAGEMENT, ADVANCED TISSUE MANAGEMENT [facility] , Unavailable Unavailable [facility] [place], Unavailable Unavailable [facility] [place] ENZO LOW, ENZO Unavailable Unavailable LOW AOUAD, [...] Unavailable ADAM ALL, ADAM ALL Unavailable Unavailable [facility], [facility] NEETA, NEETA Unavailable Unavailable NEETA, NEETA Unavailable Unavailable NEETA JAMES, NEETA Unavailable Unavailable JAMES NEETAREZA RAMIREZ, NEETA Unavailable Unavailable JAMES SHARI STARLA, MCCARTHY Unavailable Unavailable STARLA EDDA DEE, EDDA Unavailable Unavailable DEE PO[facility] PH[facility], Unavailable Unavailable [facility] Unavailable Unavailable ADULT & PED, [facility] CLARKE JAG, CLARKE Unavailable Unavailable JAG [facility], Unavailable Unavailable [facility] ERICK JR, ERICK Unavailable Unavailable JR ERICK JR ANY, Unavailable Unavailable ERICK JR ANY JESSICA, JESSICA Unavailable Unavailable DIIULIO ELIJAH, DIIULIO Unavailable Unavailable [...] Unavailable Unavailable ROMEL VINCENT, VINCENT Unavailable Unavailable [facility] Unavailable Unavailable INC, [facility] Unavailable Unavailable HOSPITAL P, [facility] POLY MIR, Unavailable Unavailable POLY MIR CURTIS-MURILLO ELSIE, Unavailable Unavailable CURTIS-MURILLO ELSIE [facility], Unavailable Unavailable [facility] MASTERSON, MASTERSON Unavailable Unavailable PACO, PACO Unavailable Unavailable [facility] Unavailable Unavailable [place] Unavailable Unavailable [place], [facility] VONDA BROADDUS CHR, VONDA Unavailable Unavailable BROADDUS CHR JUSTICE, JUSTICE Unavailable Unavailable [facility] Unavailable Unavailable IMAGING [facility], [facility] NURSE Unavailable Unavailable PRACTITIONER GR, KM NURSE PRACTITIONER GR KUDRIMOTI ASTON, Unavailable Unavailable [...] MIRRAKHIMOV AIB, Unavailable Unavailable MIRRAKHIMOV AIB PALOMA JUS, Unavailable Unavailable DOWOLGA PIERCE FIDELINA, KARI Unavailable [...] Unavailable Unavailable PARASRAMKA NOMAN [facility] Unavailable Unavailable EMS, [facility] Unavailable Unavailable EMS[facility], Unavailable Unavailable PLLC, [facility], [facility] Unavailable Unavailable ASSOCIATES PS, PR[facility] [...] HOME MEDICAL [facility]QU[facility], Unavailable Unavailable [facility], [facility] CHRISTIAN CAR, CHRISTIAN Unavailable Unavailable CAR [facility] Unavailable Unavailable [facility], [facility] SHAH STARLA, SHAH Unavailable Unavailable STARLA BAUTISTA JOSUE, BAUTISTA Unavailable Unavailable JOUSE JOSELINE, JOSELINE Unavailable Unavailable JOSELINE ERIKA, JOSELINE ERIKA Unavailable Unavailable SOTO MOL, SOTO MOL Unavailable Unavailable TRUE LILLY, TRUE LILLY Unavailable Unavailable HEALTH[facility]ARE Unavailable Unavailable H[facility]PITALS, [facility], Unavailable Unavailable [facility] Unavailable [facility]available [facility] PLUMMER TEREZA, PLUMMER TEREZA Unavailable Unavailable [facility] Un[facility], [facility] [...] MEDICAL DISEASE UNS EQUIPME C321 MALIGNANT 11-19-2016 [facility] SUPRAGLOTTI S E1141 TYPE 2 11-06-2016 [facility] DI[facility]ALTH MELLITUS SOLUTIONS W/DIAB IN MONONEUROPA THY C140 MALIGNANT 09-03-2016 [facility] NEOPLASM OF [facility] PHARYNX INC UNSPECIFIED E119 TYPE 2 09-03-2016 [facility] DIABETES [facility] MELLITUS INC WITHOUT COMPLICATIO NS J189 PNEUMONIA 09-03-2016 [facility] UNSPECIFIED MEDICAL ORGANISM IMAGING ASS J432 CENTRILOBUL 09-03-2016 [place] AR [facility]ICAL EMPHYSEMA IMAGING ASS R05 COUGH 09-03-2016 [facility] R0902 HYPOXEMIA 09-03-2016 [facility] K38169P POISONING 09-03-2016 [facility] UNS [facility] NARCOTICS INC ACCIDENTAL INIT ENC Z931 GASTROSTOMY 09-03-2016 [facility] STATUS [facility] INC C101 MALIGNANT 09-02-2016 [facility] NEOP[facility] SERV ANTERIOR FOUNDATION SURFACE EPIGLOTTIS C7989 SECONDARY 09-02-2016 [place] [facility] MALIG[place] SERV NEOPLASM FOUNDATION OTH SPECIFIED SITES I10 ESSENTIAL 09-02-2016 [facility] N R404 TRANSIENT 09-02-2016 [facility]TERATION [facility] EMS AWARENESS R413 OTHER 09-02-2016 [place] AMNESIA MEDICAL IMAGING ASS R4182 ALTERED 09-02-2016 [facility] MENTAL PHYSICIANS, STATUS PLLC UNSPECIFIED Z08 ENCOUNTER 09-02-2016 [place] [facility] F/U EXAM SERV AFTER CMPL FOUNDATION [place] MALIG NEOPLASM Z8619 PERSONAL 09-02-2016 [place] [facility] HISTORY OTH SERV INFECTIOUS FOUNDATION & PARASITIC DZ Z923 PERSONAL 09-02-2016 [place] [facility] H[facility] OF SERV IRRADIATION FOUNDATION G75066 WRIST DROP 08-19-2016 [facility] N EMERGENCY PHYS M94632 PAIN IN 08-19-2016 [facility] RIGHT WRIST HEALTH SOLUTIONS IN F53316 PAIN IN 08-19-2016 [facility] [place] RIGHT RADIOLOGY FOREARM P48129 PAIN IN 08-19-2016 [facility] RIGHT HAND HEALTH SOLUTIONS IN D51700 PAIN IN 08-12-2016 [facility] RIGHT ARM [facility] INC R202 PARESTHESIA 08-12-2016 [facility] OF SKIN [facility] INC I9589 OTHER 07-28-2016 [facility] HYPOTENSION HEALTH SOLUTIONS IN J48877 FLAIL JOINT 07-28-2016 [facility] RIGHT HEALTH WRIST SOLUTIONS IN D210 SAIRA 07-21-2016 [facility] NEOPLASM HEALTH CNCTV OTH SOLUTIONS SOFT TISS IN HEAD FACE NECK R000 TACHYCARDIA 07-21-2016 [facility] UNSPECIFIED SOLUTIONS IN A75883 NON-PRSS 07-08-2016 [facility] OT PART HOSPITALS UNS FOOT UNS SEVERITY I348 OTHER 07-04-2016 [facility] NONRHEUMATI SERV C MITRAL FOUNDATION VALVE DISORDERS I350 NONRHEUMATI 07-04-2016 [facility] C AORTIC SERV VALVE FOUNDATION STENOSIS I4891 UNSPECIFIED 07-04-2016 [facility] ATRIAL SERV FIBRILLATIO FOUNDATION N O82508 FACIAL 07-04-2016 [facility] WEAKNESS SERV FOUNDATION R531 WEAKNESS 07-04-2016 [facility] SERV [facility] E1169 TYPE 2 07-03-2016 [facility] DIABETES PHYSICIANS, MELLITUS PLLC W/OTH SPEC COMPLICATIO N E669 OBESITY 07-03-2016 [facility] UNSPECIFIED PHYSICIANS, PLLC G459 TRANSIENT 07-03-2016 [facility] CEREBRAL SERV ISCHEMIC FOUNDATION ATTACK UNSPECIFIED G8191 HEMIPLEGIA 07-03-2016 [facility] P RIGHT DOMINANT SIDE I440 ATRIOVENTRI 07-03-2016 [facility] CULAR BLOCK SERV FIRST FOUNDATION DEGREE I498 OTHER 07-03-2016 [facility] SPECIFIED SERV CARDIAC FOUNDATION ARRHYTHMIAS I639 CEREBRAL 07-03-2016 [facility] INFARCTION PHYSICIANS, UNSPECIFIED PLLC I6523 OCCLUSION & 07-03-2016 [facility] STENOSIS SERV BILATERAL FOUNDATION CAROTID ARTERIES J984 OTHER 07-03-2016 [facility] DISORDERS SERV OF LUNG FOUNDATION R9431 ABNORMAL 07-03-2016 [facility] ELECTROCARD SERV IOGRAM FOUNDATION Z720 TOBACCO USE 07-03-2016 [facility] P Z7401 BED 07-03-2016 AIR METHODS CONFINEMENT [place] STATUS 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 [facility] CURRENT USE [facility] OF INSULIN INC V84574 NON-PRSS 06-16-2016 [facility] P FT W/UNS SEVERITY R42 DIZZINESS 06-16-2016 [facility] AND PHYSICIANS, GIDDINESS PLLC R5383 OTHER 06-16-2016 [facility] FATIGUE PHYSICIANS, PLLC G8929 OTHER 05-27-2016 [facility] M62848 OTHER 05-27-2016 [facility] SECONDARY SERV CATARACT FOUNDATION LEFT EYE Z961 PRESENCE OF 05-27-2016 [facility] SERV INTRAOCULAR FOUNDATION LENS E1100 TYPE 2 DM 05-18-2016 [facility] W/HYPEROSMO PHYSICIANS LARITY W/O GROUP NKHHC I739 PERIPHERAL 05-18-2016 [facility] VASCULAR PHYSICIANS DISEASE GROUP UNSPECIFIED R221 LOCALIZED 04-22-2016 [facility] MASS AND LUMP NECK R599 ENLARGED 04-22-2016 [facility] LYMPH NODES SERV FOUNDATION UNSPECIFIED J20173 TYPE 2 04-08-2016 [facility] DIABETES SERV MELLITUS FOUNDATION WITH OTHER SKIN ULCER R490 DYSPHONIA 04-08-2016 [facility] C770 SEC & UNS 04-03-2016 [facility] LYMPH NODES [facility] HEAD FACE & NECK J3489 OTHER 04-03-2016 [facility] SPECIFIED SERV DISORDERS FOUNDATION NOSE AND NASAL SINUSES R1310 DYSPHAGIA 04-03-2016 [facility] R918 OTHER 04-03-2016 [facility] NONSPECIFIC SERV ABNORMAL FOUNDATION FINDING OF LUNG FIELD M6281 MUSCLE 03-16-2016 [facility] GENERALIZED AGENCY S87824 OTHER ACUTE 03-16-2016 [facility] OSTEOMYELIT AGENCY IS RIGHT ANKLE AND FOOT R269 UNSPECIFIED 03-16-2016 [facility] ABNORMALITI AGENCY ES OF GAIT AND MOBILITY P56295Y UNSPECIFIED 03-16-2016 [facility] OPEN WOUND HEALTH RIGHT FOOT AGENCY SUBSEQUENT ENC Z431 ENCOUNTER 03-16-2016 [facility] FOR [facility] ATTENTION AGENCY TO GASTROSTOMY Z4800 ENCOUNTER 03-16-2016 [facility] CHANGE/[facility] RINKU NONSURG AGENCY WOUND DRESSING M1990 UNSPECIFIED 03-12-2016 [facility] OSTEOARTHRI TIS UNSPECIFIED SITE L34012 ACQUIRED 03-12-2016 [facility] ABSENCE OF SERV OTHER RIGHT FOUNDATION TOES A419 SEPSIS 02-19-2016 [facility] NURSE UNSPECIFIED PRACTITIONE ORGANISM R GR C4442 SQUAMOUS 02-19-2016 [facility] NURSE CELL PRACTITIONE CARCINOMA R GR OF SKIN OF SCALP & NECK A32597 TYPE 2 02-19-2016 [facility] NURSE DIABETES PRACTITIONE MELLITUS R GR WITH FOOT ULCER T35525 OTHER 02-18-2016 [facility] CHRONIC SERV OSTEOMYELIT FOUNDATION IS RIGHT ANKLE AND FOOT R609 EDEMA 02-18-2016 [facility] UNSPECIFIED SERV FOUNDATION R7989 OTHER SPEC 02-18-2016 [place] [facility] ABNORMAL SERV FINDINGS [facility]ATION BLOOD CHEMISTRY E1140 TYPE 2 DM 02-14-2016 [facility] DIABETIC NEUROPATHY UNSPECIFIED M2011 HALLUX 02-14-2016 [place] [facility] VALGUS SERV ACQUIRED FOUNDATION RIGHT FOOT M609 MYOSITIS 02-14-2016 [place] [facility] UNSPECIFIED SERV FOUNDATION M7989 OTHER 02-14-2016 [place] [facility] SPECIFIED SERV SOFT TISSUE FOUNDATION DISORDERS R600 LOCALIZED 02-14-2016 [facility] EDEMA SERV FOUNDATION I214 NON-ST 02-13-2016 [facility] ELEVATION SERV MYOCARDIAL FOUNDATION INFARCTION I2510 ASHD NEZ PERCE 02-13-2016 [facility] CORONARY SERV 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 I959 HYPOTENSION 02-13-2016 [facility]ET[facility] JAMES UNSPECIFIED G39866 PERSONAL 02-13-2016 [place] [facility] HISTORY SERV OTHER FOUNDATION MALIGNANT NEOPLASM SKIN A59951 PERSONAL 02-13-2016 [facility] H[facility]ORY OF SERV PULMONARY FOUNDATION EMBOLISM E1122 TYPE 2 01-24-2016 [facility] DIABETES PHYSICIANS MELLITUS GROUP W/DIAB CHRON KIDNEY DZ I129 HYPERTENSIV 01-24-2016 [facility] E CKD PHYSICIANS W/STAGE 1-4 GROUP CKD OR UNS CKD N189 CHRONIC 01-24-2016 [facility] KIDNEY PHYSICIANS DISEASE GROUP UNSPECIFIED D649 ANEMIA 01-23-2016 [facility] UNSPECIFIED PHYSICIANS, PLLC M1711 UNILATERAL 01-23-2016 [place] [facility]IMARY [facility] OSTEOARTHRI IMAGING ASS TIS RIGHT KNEE W19166 PAIN IN 01-23-2016 [place] UNSPECIFIED MEDICAL HIP IMAGING ASS J40552 PAIN IN 01-23-2016 [place] RIGHT KNEE MEDICAL IMAGING ASS N289 DISORDER OF 01-23-2016 [facility] KIDNEY AND PHYSICIANS, URETER PLLC UNSPECIFIED R079 CHEST PAIN 01-23-2016 [place] UNSPECIFIED MEDICAL IMAGING ASS R51 HEADACHE 01-23-2016 [place] [facility]AG[facility] ASS M9485ZP UNSPECIFIED 01-23-2016 [place] INJURY OF MEDICAL HEAD IMAGING ASS INITIAL ENCOUNTER E4145HY UNSPECIFIED 01-23-2016 [place] INJURY OF MEDICAL PELVIS IMAGING ASS INITIAL ENCOUNTER G53205A LACERATION 01-23-2016 [place] W/O FOREIGN MEDICAL BODY RT IMAGING ASS KNEE INITIAL ENC T148 OTHER 01-23-2016 [facility] INJURY OF PHYSICIANS, UNSPECIFIED PLLC BODY REGION Z9181 HISTORY OF 01-23-2016 [facility] A4189 OTHER 01-03-2016 [facility] SPECIFIED SERV SEPSIS FOUNDATION I6782 CEREBRAL 01-03-2016 [place] [facility] ISCHEMIA SERV FOUNDATION J341 CYST AND 01-03-2016 [place] [facility] MUCOCELE OF SERV NOSE AND FOUNDATION NASAL SINUS L598 OTH SPEC 01-03-2016 [place] [facility] D/O THE SERV SKIN & SUBQ FOUNDATION TISS RELATED TO RAD L8990 PRESSURE 01-03-2016 [facility] UNS AMBULANCE SITE UNSPECIFIED STAGE N22389 SPONDYLOSIS 01-03-2016 [place] [facility] W/O SERV MYELOPATH/R FOUNDATION ADICULOPATH Y LUMB RGN M869 OSTEOMYELIT 01-03-2016 [facility] IS SERV UNSPECIFIED FOUNDATION N179 ACUTE 01-03-2016 [place] [facility] KIDNEY SERV FAILURE FOUNDATION UNSPECIFIED I88RZWL UNSPECIFIED 01-03-2016 [facility] FALL SERV INITIAL FOUNDATION ENCOUNTER Z043 ENCOUNTER 01-03-2016 [facility] EXAM & SERV OBSERVATION FOUNDATION FOLLOW OTH ACCIDENT I82C12 ACUTE 01-02-2016 [facility] EMBOLISM & SERV THROMB LT FOUNDATION INTERNAL JUGULAR VEIN M6282 RHABDOMYOLY 01-02-2016 [facility] SIS N170 ACUTE RENAL 01-02-2016 [place] [facility] FAILURE SERV WITH FOUNDATION TUBULAR NECROSIS R86898 CELLULITIS 12-30-2015 [facility] OF RIGHT SERV LOWER LIMB FOUNDATION D696 THROMBOCYTO 12-24-2015 [place] [facility] PENIA SERV UNSPECIFIED FOUNDATION J690 PNEUMONITIS 12-24-2015 [facility] DUE TO SERV INHALATION FOUNDATION OF FOOD AND VOMIT C45RXIU RADIATION 12-23-2015 [facility] SICKNESS SERV UNSPECIFIED FOUNDATION INITIAL ENCOUNTER E876 HYPOKALEMIA 12-20-2015 [facility] SERV [facility] R509 FEVER 12-16-2015 [facility] UNSPECIFIED SERV FOUNDATION K121 OTHER FORMS 12-15-2015 [place] [facility] OF SERV STOMATITIS FOUNDATION R339 RETENTION 12-15-2015 [place] [facility] OF URINE SERV UNSPECIFIED FOUNDATION T22477 NON-PRSS 12-10-2015 [facility] CHR ULCR SERV UNS PART RT FOUNDATION LOW LEG UNS SEV I96 GANGRENE 12-03-2015 [place] [facility] NOT SERV ELSEWHERE FOUNDATION CLASSIFIED M868X6 OTHER 12-03-2015 [facility] OSTEOMYELIT SERV IS LOWER FOUNDATION LEG C4492 SQUAMOUS 12-02-2015 [facility] CELL SERV CARCINOMA FOUNDATION OF SKIN, UNSPECIFIED U88753 ACUTE 12-02-2015 [facility] EMBOLISM & SERV THROMBOSIS FOUNDATION DEEP VEINS LT UP EXT K5909 OTHER 12-02-2015 [facility] CONSTIPATIO SERV N FOUNDATION G67521 PERSONAL 12-02-2015 [facility] HISTORY OF SERV NICOTINE FOUNDATION DEPENDENCE Z466 ENCOUNTER 12-01-2015 [facility] FITTING AND SERV ADJUSTMENT FOUNDATION URINARY DEVICE I08292 PAIN IN 11-30-2015 [place] [facility] LEFT SERV FOREARM FOUNDATION M868X7 OTHER 11-28-2015 [facility] OSTEOMYELIT SERV IS ANKLE FOUNDATION AND FOOT R740 NONSPECIFIC 11-21-2015 [place] [facility] E[place]ATION SERV LEVELS FOUNDATION TRANSAMINAS E & LDH I444 LEFT 11-20-2015 [facility] ANTERIOR SERV FASCICULAR FOUNDATION BLOCK G8918 OTHER ACUTE 11-19-2015 [facility] SERV POSTPROCEDU FOUNDATION RAL PAIN L929 GRANULOMATO 11-19-2015 [place] [facility] DISORDER OF [place] THE SKIN & HOSPI SUBQ TISS UNS A66040 ELEVATED 11-18-2015 [facility] WHITE BLOOD SERV CELL COUNT FOUNDATION UNSPECIFIED G92 TOXIC 11-18-2015 [facility] THY T67361 PRIMARY 11-18-2015 [facility] OSTEOARTHRI SERV TIS RIGHT FOUNDATION ANKLE AND FOOT R6520 SEVERE 11-18-2015 [facility] SEPSIS SERV WITHOUT FOUNDATION SEPTIC SHOCK R748 ABNORMAL 11-18-2015 [facility] LEVELS OF SERV OTHER SERUM FOUNDATION ENZYMES R294CSO TRAUMATIC 11-18-2015 [facility] S EMPHYSEMA INITIAL ENCNTR Z510 ENCOUNTER 11-15-2015 [facility] ANTINEOPLAS TIC RADIATION THERAPY C320 MALIGNANT 11-12-2015 NEET[facility] JAMES NEOPLASM OF GLOTTIS M545 LOW BACK 11-12-2015 NEETA JAMES PAIN G893 NEOPLASM 11-07-2015 S NURSE RELATED PRACTITIONE PAIN ACUTE R GR CHRONIC Z809 FAMILY 11-07-2015 [facility] NURSE HISTORY OF PRACTITIONE MALIGNANT R GR NEOPLASM UNSPECIFIED D020 CARCINOMA 10-22-2015 [facility] IN SITU OF SERV LARYNX FOUNDATION D0008 CARCINOMA 10-08-2015 [facility] PHARYNX C100 MALIGNANT 10-02-2015 [place] NEOPLASM OF [facility] J387 OTHER 10-02-2015 [place] DISEASES OF PHYSCIAN LARYNX PRACTICE LL R590 LOCALIZED 10-02-2015 [place] ENLARGED PHYSCIAN LYMPH NODES PRACTICE LL L54697 PRESSURE 09-24-2015 PRO[facility] ULCER OF PODIATRY OTHER SITE STAGE 3 B351 TINEA 07-25-2015 PROGRESSIVE UNGUIUM PODIATRY I890 LYMPHEDEMA 07-25-2015 PROGR[facility] NOT PODIATRY ELSEWHERE CLASSIFIED H68669 SPONTANEOUS 07-25-2015 PROGRESSIVE RUPTURE PODIATRY FLEXOR TENDONS RT ANKLE FOOT A00465 PAIN IN 07-25-2015 PRO[facility] RIGHT FOOT PODIATRY A28076 PAIN IN 07-25-2015 PRO[facility] RIGHT TOES PODIATRY V23187 PAIN IN 07-25-2015 [facility] LEFT TOES PODIATRY I63438 FURUNCLE 07-16-2015 NE[facility] RIGHT HAND M7731 CALCANEAL 07-04-2015 [place] [facility] RIGHT MEDICAL FOOT IMAGING ASS A60508 NON-PRSS 05-29-2015 [facility] ULCR TISSUE OTH PART RT MANAGEMENT FOOT NECROS MUSC G629 POLYNEUROPA 05-24-2015 NEETA RAMIREZ THY UNSPECIFIED N3281 OVERACTIVE 05-02-2015 [facility] N3941 URGE 05-02-2015 [facility] INCONTINENC [place] E ADULT & PED P18301 POSTPROCEDU 05-02-2015 [facility] RAL [place] URETHRAL ADULT & PED STRICTURE MALE MEATAL R3914 FEELING OF 05-02-2015 [facility] INCOMPLETE [place] BLADDER ADULT & PED EMPTYING N401 BENIGN 04-11-2015 [facility]STATIC [facility] HYPER[facility]IA ADULT & PED LW URINARY TRACT SX G4700 INSOMNIA 04-08-2015 NEET[facility] RAMIREZ UNSPECIFIED G5790 UNSPECIFIED 04-03-2015 [facility] MONONEUROPA THY UNS LOWER LIMB 63739 DIAB W/O 03-13-2015 [facility] COMP TYPE II/UNS NOT STATED UNCNTRL 3572 POLYNEUROPA 03-13-2015 [facility] THY IN DIABETES 6827 CELLULITIS 03-13-2015 [facility] AND ABSCESS OF FOOT EXCEPT TOES 27392 ULCER OF 03-13-2015 [facility] OTHER PART OF FOOT 48555 SECONDARY 02-25-2015 [facility] DM W/OTH TISSUE SPEC MANAGEMENT MANIFEST NOT UNCONTROL 4011 ESSENTIAL 01-31-2015 NEETA RAMIREZ HYPERTENSIO N, BENIGN 7242 LUMBAGO 01-31-2015 NEETA RAMIREZ 65985 INSOMNIA 01-31-2015 NEETA RAMIREZ UNSPECIFIED 43025 HORDEOLUM 01-01-2015 NEETA RAMIREZ EXTERNUM 6826 CELLULITIS 10-09-2014 NEETA RAMIREZ AND ABSCESS OF LEG EXCEPT FOOT 86317 HYPERTROPHY 09-14-2014 NEETA RAMIREZ PROSTATE W/O UR OBST & OTH LUTS 72127 UNSPECIFIED 08-20-2014 NEET[facility] RAMIREZ ARTHROPATHY SITE UNSPECIFIED 7264 ENTHESOPATH 05-25-2014 NEETA RAMIREZ Y OF WRIST AND CARPUS 1101 DERMATOPHYT 05-08-2014 [facility] OSIS OF NAIL 7295 PAIN IN 04-27-2014 NEETA RAMIREZ SOFT TISSUES OF LIMB 4779 ALLERGIC 03-30-2014 NEETA RAMIREZ RHINITIS CAUSE UNSPECIFIED 2724 OTHER AND 03-08-2014 [place] UNSPECIFIED [facility] HYPERLIPIDE MARIA TERESA 4619 ACUTE 07-24-2013 PRIMARY SINUSITIS, [place] [address] OTHER AND 07-13-2013 [facility] COMBINED SERV FORMS OF FOUNDATIO SENILE [...] 09 09 60 30 00 CA Ac FL 46 -0 -2 .0 00 RL ti OX 20 5- 9- 00 00 IS ve EN 19 20 20 78 LE 00 17 [address] 0 UG MG S TA BL ET ME 23 09 09 60 30 00 CA Ac TF 15 -0 -2 .0 00 RL ti OR 50 5- 9- 00 00 IS ve LA 10 20 20 78 LE N 21 17 [address] L UG 50 S 0 MG TA BL ET AL 59 09 09 90 30 00 CA Ac FL 76 -0 -2 .0 00 RL ti [...] 17 [address] BACH 50 S 0 MG TA BL ET [...] 17 17 [address] Givens UG HC S L 15 0 MG [...] 17 17 [address] Givens UG HC S L 15 0 MG TA B AL 59 08 09 90 30 00 CA Ac FL 76 -0 -0 .0 00 RL ti [...] [address] Chon UG HC S L 15 0 MG [...] 07 08 90 30 00 CA Ac FL 76 -1 -0 .0 00 RL ti [...] [address] TA OP LA NO PH PH AR EN MA CY 7. 5- 32 5 AL 59 06 07 90 30 00 CA Ac FL 76 -0 -0 .0 00 RL ti [...] 05 06 20 10 00 CA Ac FL 57 -1 -0 .0 00 RL ti [...] NE 25 17 [address] DAVIS UG L S 10 MG TA BL ET AL 59 05 06 90 30 00 CA Ac FL 76 -1 -0 .0 00 RL ti AZ 23 2- 9- 00 00 IS ve OL 72 20 20 77 LE AM 10 17 [address] UG MG S TA BL ET AL [...] 05 46 30 00 IN Ac UC 21 05 FU ti ER 40 0- [...] 04 05 90 30 00 CA Ac FL 76 -1 -1 .0 00 RL ti [...] 10 17 [address] NE UG S PE N ND L [...] 17 [address] DAVIS UG L S 30 0 MG CA [...] 03 04 90 30 00 CA Ac FL 76 -1 -1 .0 00 RL ti AZ 23 7- 4- 00 00 IS ve OL 72 20 20 77 LE AM 10 17 17 19 1 3 39 UG MG S TA BL ET [place] 51 03 04 [address] 67 -2 -1 0. 00 RL ti AT 24 2- 4- 00 00 IS ve IN 11 20 20 0 77 LE 70 17 17 [address] Llamas, UG 00 S 0 UN IT /M L AVENDANO SP OX 47 03 04 84 21 00 CA Ac YC 78 -2 -1 .0 00 RL ti OD 10 2- 4- 00 00 IS ve ON 22 20 20 77 LE -A 90 17 [address] HUGHES UG LA S NO PH EN 7. 5- 32 [...] 02 03 90 30 00 CA Ac FL 76 -2 -1 .0 00 RL ti [...] 01 02 90 30 00 CA Ac FL 76 -2 -1 .0 00 RL ti [...] PH AR TA MA BL CY ET FL 00 01 02 12 2 00 ME [...] IN 60 16 17 48 5 02 60 UG 0 [...] UG 5 S MG TA BL ET FL 00 12 01 11 6 00 CA Ac OM 60 -2 -2 8. 00 RL ti ET 31 3- 0- 00 00 IS ve CELESTIN 58 20 20 0 76 LE ZI 65 16 [address] -D UG M S SY RU P AL 59 12 01 90 30 00 CA Ac FL 76 -2 -2 .0 00 RL ti [...] Procedure DOS Code Location Performer Comment COLLECTIO 67527 SANDY ANTONIO N VENOUS 7 HEALTH BLOOD SOLUTIONS VENIPUNCT IN URE CURRENT 1034F SANDY ANTONIO TOBACCO 7 HEALTH SMOKER SOLUTIONS IN BODY MASS 3008F SANDY ANTONIO INDEX 7 HEALTH DOCUMENTE SOLUTIONS D IN TOBACCO 1000F SANDY ANTONIO USE 7 HEALTH ASSESSED SOLUTIONS IN HOME [place]; S9341 INFUSION INFUSION ENTERAL 7 PARTNERS PARTNERS NUTRITION OF OF VIA [place] GRAVITY; BATTER OUT HOME [place]; S9341 INFUSION INFUSION ENTERAL 7 PARTNERS PARTNERS NUTRITION OF OF VIA [place] GRAVITY; BATTER OUT HOME [place]; S9341 INFUSION INFUSION ENTERAL 7 PARTNERS PARTNERS NUTRITION OF OF [place]; BATTER OUT [place]; S9341 INFUSION INFUSION ENTERAL 7 PARTNERS PARTNERS NUTRITION OF OF [place]; [place]; S9341 INFUSION INFUSION ENTERAL 7 PARTNERS PARTNERS NUTRITION OF OF [place]; [place] OUT [place]; S9341 INFUSION INFUSION ENTERAL 7 PARTNERS PARTNERS NUTRITION OF OF [place]; BAT[place] OUT [place]; S9341 INFUSION INFUSION ENTERAL 7 PARTNERS PARTNERS NUTRITION OF OF [place]; [place] OUT [place]; S9341 INFUSION INFUSION ENTERAL 7 PARTNERS PARTNERS NUTRITION OF OF [place]; BAT[place] OUT [place]; S9341 INFUSION INFUSION ENTERAL 7 [employer]NERS PARTNERS NUTRITION OF OF [place]; BAT[place] OUT [place]; S9341 INFUSION INFUSION ENTERAL 7 [employer]NERS PARTNERS NUTRITION OF OF [place]; BAT[place] OUT [place]; S9341 INFUSION INFUSION ENTERAL 7 PARTNERS PARTNERS NUTRITION OF OF [place]; BAT[place] OUT [place]; S9341 INFUSION INFUSION ENTERAL 7 PARTNERS PARTNERS NUTRITION OF OF [place]; BAT[place] OUT [place]; S9341 INFUSION INFUSION ENTERAL 7 [employer]ERS PARTNERS NUTRITION OF OF [place]; BAT[place] OUT [place]; S934 INFUSION INFUSION ENTERAL 7 [employer]ERS PARTNERS NUTRITION OF OF [place]; BAT[place] OUT [place]; S934 INFUSION INFUSION ENTERAL 7 [employer]ERS PARTNERS NUTRITION OF OF [place]; BAT[place] OUT [place]; S934 INFUSION INFUSION ENTERAL 7 [employer]NERS PARTNERS NUTRITION OF OF [place]; BAT[place] OUT [place]; S934 INFUSION INFUSION ENTERAL 7 PARTNERS PARTNERS NUTRITION OF OF [place]; BATTER OUT [place]; S934 INFUSION INFUSION ENTERAL 7 [employer]NERS PARTNERS NUTRITION OF OF [place]; BATTER OUT [place]; S934 INFUSION INFUSION ENTERAL 7 [employer]ERS PARTNERS NUTRITION OF OF [place]; BAT[place] OUT [place]; S934 INFUSION INFUSION ENTERAL 7 [employer]NERS PARTNERS NUTRITION OF OF [place]; BAT[place] OUT [place]; S934 INFUSION INFUSION ENTERAL 7 [employer]NERS PARTNERS NUTRITION OF OF [place]; BAT[place] OUT [place]; S934 INFUSION INFUSION ENTERAL 7 [employer] PARTNERS NUTRITION OF OF [place] GRAVITY; BATTER OUT HOME [place]; S934 INFUSION INFUSION ENTERAL 7 [employer]NERS PARTNERS NUTRITION OF OF [place] GRAVITY; BATTER OUT HOME [place]; S934 INFUSION INFUSION ENTERAL 7 [employer]ERS NUTRITION OF OF [place] GRAVITY; BATTER OUT HOME TX; S9341 INFUSION INFUSION ENTERAL 7 [employer] PARTNERS NUTRITION OF OF [place] GRAVITY; BATTER OUT HOME TX; S9341 INFUSION INFUSION ENTERAL 7 [employer]ERS PARTNERS NUTRITION OF OF [place] GRAVITY; BATTER OUT HOME TX; S9341 INFUSION INFUSION ENTERAL 7 [employer]ERS NUTRITION OF OF [place] GRAVITY; BATTER OUT HOME TX; S9341 INFUSION INFUSION ENTERAL 7 [employer]ERS NUTRITION OF OF [place] GRAVITY; BATTER OUT HOME [place]; S9341 INFUSION INFUSION ENTERAL 7 [employer]ERS NUTRITION OF OF [place] GRAVITY; BATTER OUT HOME [place]; S9341 INFUSION INFUSION ENTERAL 7 [employer] NUTRITION OF OF [place] GRAVITY; BATTER OUT HOS BED E0260 CORA SHEPHERD SEMI-ELEC 7 HOME HOME W/ANY MEDICAL MEDICAL TYPE SIDE EQUIPME EQUIPME RAIL W/MATTRSS PREALBUMI 33938 [facility] N 7 [facility] E E [facility]OSPITALS HOSPITALS BLOOD 53016 [facility] COUNT 7 [facility]ALTHCAR HEALTHCAR COMPLETE E E AUTO&AUTO [facility] [place] [address] [place] [facility] THYROID 7 HEALTHCAR HEALTHCAR STIMULATI E E NG [facility] HORMONE TSH COLLECTIO 78749 UK N VENOUS 7 HEALTHCAR HEALTHCAR BLOOD E E VENIPUNCT [facility] URE RENAL 22392 [place] FUNCTION 7 HEALTHCAR HEALTHCAR PANEL E E HOSPITALS [facility] FOOT SANDY ANTONIO EXAMINATI 7 HEALTH ON SOLUTIONS PERFORMED IN HOME [place]; S9341 INFUSION INFUSION ENTERAL 7 [employer] NUTRITION OF OF [place] GRAVITY; BATTER OUT HOME [place]; S9341 INFUSION INFUSION ENTERAL 7 [employer] NUTRITION OF OF [place] GRAVITY; BATTER OUT HOME [place]; S9341 INFUSION INFUSION ENTERAL 7 [employer]ERS NUTRITION OF OF [place] GRAVITY; BATTER OUT HOME [place]; S9341 INFUSION INFUSION ENTERAL 7 [employer]ERS NUTRITION OF OF [place] GRAVITY; BATTER OUT HOME [place]; S9341 INFUSION INFUSION ENTERAL 7 [employer] NUTRITION OF OF [place] GRAVITY; BATTER OUT HOME [place]; S9341 INFUSION INFUSION ENTERAL 7 [employer]ERS NUTRITION OF OF [place] GRAVITY; BATTER OUT HOME [place]; S9341 INFUSION INFUSION ENTERAL 7 [employer]ERS NUTRITION OF OF [place] GRAVITY; BATTER OUT HOME [place]; S9341 INFUSION INFUSION ENTERAL 7 [employer]ERS NUTRITION OF OF [place] GRAVITY; BATTER OUT HOME TX; S9341 INFUSION INFUSION ENTERAL 7 [employer]ERS NUTRITION OF OF [place] GRAVITY; BATTER OUT HOME [place]; S9341 INFUSION INFUSION ENTERAL 7 [employer]ERS NUTRITION OF OF [place] GRAVITY; BATTER OUT HOME [place]; S9341 INFUSION INFUSION ENTERAL 7 [employer]ERS NUTRITION OF OF [place] GRAVITY; BATTER OUT HOME [place]; S9341 INFUSION INFUSION ENTERAL 7 [employer]ERS NUTRITION OF OF [place] GRAVITY; BATTER OUT HOME [place]; S9341 INFUSION INFUSION ENTERAL 7 [employer]ERS NUTRITION OF OF [place] GRAVITY; BATTER OUT HOME [place]; S9341 INFUSION INFUSION ENTERAL 7 [employer] NUTRITION OF OF [place] GRAVITY; BATTER OUT HOS BED E0260 [facility]A SHEPHERD SEMI-ELEC 7 HOME HOME W/ANY MEDICAL MEDICAL TYPE SIDE EQUIPME EQUIPME RAIL W/MATTRSS HOME TX; S9341 INFUSION INFUSION ENTERAL 7 [employer]ERS NUTRITION OF OF [place] GRAVITY; BATTER OUT HOME [place]; S9341 INFUSION INFUSION ENTERAL 7 [employer] NUTRITION OF OF [place] GRAVITY; BATTER OUT HOME TX; S9341 INFUSION INFUSION ENTERAL 7 [employer]ERS [employer]ERS NUTRITION OF OF [place] GRAVITY; BATTER OUT HOME TX; S9341 INFUSION INFUSION ENTERAL 7 [employer]ERS [employer]ERS NUTRITION OF OF [place] GRAVITY; BATTER OUT HOME TX; S9341 INFUSION INFUSION ENTERAL 7 [employer]ERS NUTRITION OF OF [place] GRAVITY; BATTER OUT HOME TX; S9341 INFUSION INFUSION ENTERAL 7 [employer]ERS NUTRITION OF OF [place] GRAVITY; BATTER OUT HOME [place]; S9341 INFUSION INFUSION ENTERAL 7 [employer]ERS NUTRITION OF OF [place] GRAVITY; BATTER OUT HOME [place]; S9341 INFUSION INFUSION ENTERAL 7 [employer] NUTRITION OF OF [place] GRAVITY; BATTER OUT HOME TX; S9341 INFUSION INFUSION ENTERAL 7 [employer]ERS NUTRITION OF OF [place] GRAVITY; BATTER OUT HOME TX; S9341 INFUSION INFUSION ENTERAL 7 [employer]ERS NUTRITION OF OF [place] GRAVITY; BATTER OUT HOME TX; S9341 INFUSION INFUSION ENTERAL 7 [employer]ERS NUTRITION OF OF [place] GRAVITY; BATTER OUT HOME TX; S9341 INFUSION INFUSION ENTERAL 7 [employer]ERS NUTRITION OF OF [place] GRAVITY; BATTER OUT HOME TX; S9341 INFUSION INFUSION ENTERAL 7 [employer]ERS NUTRITION OF OF [place] GRAVITY; BATTER OUT HOME TX; S9341 INFUSION INFUSION ENTERAL 7 [employer] NUTRITION OF OF [place] GRAVITY; BATTER OUT [facility] BED E0260 CORA SHEPHERD SEMI-ELEC 7 HOME HOME W/ANY MEDICAL MEDICAL TYPE SIDE EQUIPME EQUIPME RAIL W/MATTRSS HOME TX; S9341 INFUSION INFUSION ENTERAL 7 [employer] NUTRITION OF OF [place] GRAVITY; BATTER OUT HOME TX; S9341 INFUSION INFUSION ENTERAL 7 [employer] NUTRITION OF OF [place] GRAVITY; BATTER OUT HOME TX; S9341 INFUSION INFUSION ENTERAL 7 [employer] NUTRITION OF OF [place] GRAVITY; BATTER OUT HOME TX; S9341 INFUSION INFUSION ENTERAL 7 [employer] NUTRITION OF OF [place] GRAVITY; BATTER OUT HOME TX; S9341 INFUSION INFUSION ENTERAL 7 [employer]ERS NUTRITION OF OF [place] GRAVITY; BATTER OUT HOME [place]; S9341 INFUSION INFUSION ENTERAL 7 [employer] NUTRITION OF OF [place] GRAVITY; BATTER OUT HOME TX; S9341 INFUSION INFUSION ENTERAL 7 [employer] NUTRITION OF OF [place] GRAVITY; BATTER OUT HOME [place]; S9341 INFUSION INFUSION ENTERAL 7 [employer] NUTRITION OF OF [place] GRAVITY; BATTER OUT CT THORAX 73739 MIHAI ADAM 7 MEDICAL W/CONTRAS IMAGING T ASS MATERIAL FINAL G9638 MIHAI ADAM REPORTS 7 MEDICAL W/O DOC IMAGING 1/MORE ASS DOSE REDUCTION TECH FINAL RPT G95[address]/MRI 7 MEDICAL CHEST/NCK IMAGING /U/S NO ASS THR NOD<1.0 CM BLOOD 64800 [facility] UK COUNT 7 HEALTHCAR HEALTHCAR COMPLETE E E AUTO&AUTO [facility] DIFRNTL WBC COLLECTIO 90112 UK UK N VENOUS 7 HEALTHCAR HEALTHCAR BLOOD E E VENIPUNCT [facility] [address] [facility] THYROID 7 HEALTHCAR HEALTHCAR STIMULATI E E NG [facility] [place] [address] [facility] FREE 7 HEALTHCAR HEALTHCAR THYROXINE [place] [address] [facility] TRIIODOTH 7 HEALTHCAR HEALTHCAR YRONINE E E T3 TOTAL [facility] TT3 FINAL G9638 MIHAI ADAM REPORTS 7 MEDICAL W/O DOC IMAGING 1/MORE ASS DOSE REDUCTION TECH RADIOLOGI 99744 MIHAI ADAM C 7 MEDICAL EXAMINATI IMAGING [place] [address] MIHAI ADAM HEAD/BRAI 7 MEDICAL N W/O IMAGING CONTRAST ASS MATERIAL CRITICAL 86361 [facility] 7 PHYSICIAN ILL/INJUR S, [facility] ED PATIENT INIT 30-74 MIN HOME TX; S9341 INFUSION INFUSION ENTERAL 7 [employer] NUTRITION OF OF [place] GRAVITY; BATTER OUT COMPREHEN 17350 [facility] UK SIVE 7 HEALTHCAR HEALTHCAR METABOLIC E E PANEL [facility] HOSPITALS AMBULANCE A[address] [facility] TRANSPORT GROUND A[address] [facility] [facility] [address] [facility] [place] HOME [place]; S9341 INFUSION INFUSION ENTERAL 7 [employer] NUTRITION OF OF [place] GRAVITY; BATTER OUT HOME TX; S9341 INFUSION INFUSION ENTERAL 7 [employer]ERS NUTRITION OF OF [place] GRAVITY; BATTER OUT HOME TX; S9341 INFUSION INFUSION ENTERAL 7 [employer]ERS NUTRITION OF OF [place] GRAVITY; BATTER OUT HOME [place]; S9341 INFUSION INFUSION ENTERAL 7 [employer]ERS NUTRITION OF OF [place] GRAVITY; BATTER OUT HOME TX; S9341 INFUSION INFUSION ENTERAL 7 [employer]ERS NUTRITION OF OF [place] GRAVITY; BATTER OUT HOME TX; S9341 INFUSION INFUSION ENTERAL 7 [employer]ERS NUTRITION OF OF [place] GRAVITY; BATTER OUT HOME TX; S9341 INFUSION INFUSION ENTERAL 7 [employer]ERS NUTRITION OF OF [place] GRAVITY; BATTER OUT HOME TX; S9341 INFUSION INFUSION ENTERAL 7 [employer]ERS NUTRITION OF OF [place] GRAVITY; BATTER OUT HOME TX; S9341 INFUSION INFUSION ENTERAL 7 [employer]ERS NUTRITION OF OF [place] GRAVITY; BATTER OUT HOME TX; S9341 INFUSION INFUSION ENTERAL 7 [employer]ERS NUTRITION OF OF [place] GRAVITY; BATTER OUT HOME TX; S9341 INFUSION INFUSION ENTERAL 7 [employer]ERS NUTRITION OF OF [place] GRAVITY; BATTER OUT HOME TX; S9341 INFUSION INFUSION ENTERAL 7 [employer] NUTRITION OF OF [place] GRAVITY; BATTER OUT HOME TX; S9341 INFUSION INFUSION ENTERAL 7 [employer] NUTRITION OF OF [place] GRAVITY; BATTER OUT HOS BED E0260 [facility] SEMI-ELEC 7 HOME HOME W/ANY MEDICAL MEDICAL TYPE SIDE EQUIPME EQUIPME RAIL W/MATTRSS RADEX 16168 [facility] [place] [facility] FOREARM 2 7 RADIOLOGY VIEWS RADEX 01014 [facility] [place] [facility] WRIST 7 RADIOLOGY COMPLETE MINIMUM 3 VIEWS HOME TX; S9341 INFUSION INFUSION ENTERAL 7 [employer] NUTRITION OF OF [place] GRAVITY; BATTER OUT GROUND A[address] [facility] [place] [facility] [place] AMBULANCE A[address] [facility] [facility] TRANSPORT RADEX 61457 [facility] [place] [facility] HAND 7 RADIOLOGY MINIMUM 3 VIEWS HOME TX; S9341 INFUSION INFUSION ENTERAL 7 [employer] NUTRITION OF OF [place] GRAVITY; BATTER OUT HOME TX; S9341 INFUSION INFUSION ENTERAL 7 [employer]ERS NUTRITION OF OF [place] GRAVITY; BATTER OUT HOME TX; S9341 INFUSION INFUSION ENTERAL 7 [employer]ERS NUTRITION OF OF [place] GRAVITY; BATTER OUT HOME TX; S9341 INFUSION INFUSION ENTERAL 7 [employer]ERS NUTRITION OF OF [place] GRAVITY; BATTER OUT HOME TX; S9341 INFUSION INFUSION ENTERAL 7 [employer] NUTRITION OF OF [place] GRAVITY; BATTER OUT THERAPEUT 39433 MARY HERNANDEZ IC PX 1/> 7 [facility] AREAS INC INC EACH 15 MIN EXERCISES MANUAL 55083 MARY HERNANDEZ THERAPY 7 MEM H[facility] TQS 1/> INC INC REGIONS EACH 15 MINUTES HOS BED E0260 [facility] SEMI-ELEC 7 HOME HOME W/ANY MEDICAL MEDICAL TYPE SIDE EQUIPME EQUIPME RAIL W/MATTRSS DUP-SCAN 18990 [facility] LXTR 7 [facility] ART/ARTL [facility] COMPL BI STUDY HOME TX; S9341 INFUSION INFUSION ENTERAL 7 [employer] NUTRITION OF OF [place] GRAVITY; BATTER OUT HOME TX; S9341 INFUSION JUSTICE ENTERAL 7 PARTNERS NUTRITION OF [place] GRAVITY; BATTER OUT HOME TX; S9341 INFUSION INFUSION ENTERAL 7 [employer] NUTRITION OF OF [place] GRAVITY; BATTER OUT HOME TX; S9341 INFUSION INFUSION ENTERAL 7 [employer] NUTRITION OF OF [place] GRAVITY; BATTER OUT ECHO 05633 NARENDRA SHEPHERD TTC R-T 7 MEDICAL 2D SERV W/WOM-MOD FOUNDATIO E COMPL N SPEC&COLR D OBSERVATI 39532 NARENDRA CRAWLEY ON/INPATI 7 MEDICAL ENT SERV HOSPITAL FOUNDATIO CARE 55 N MINUTES CRITICAL 26640 JOHN NOONAN 7 PHYSICIAN JR ILL/INJUR S, PLLC ED PATIENT INIT 30-74 MIN AMB A0431 AIR AIR SERVICE 7 METHODS METHODS CONVNTION [facility] AIR SRVC TRANSPORT [address] RADIOLOGI 23289 [place] JESSICA C 7 MEDICAL EXAMINATI IMAGING [place] [address] [place] JESSICA HEAD/BRAI 7 MEDICAL N W/O IMAGING CONTRAST ASS MATERIAL FINAL G9638 [place] JESSICA REPORTS 7 MEDICAL W/O DOC IMAGING 1/MORE ASS DOSE REDUCTION TECH THROMBOPL 84269 MARY HERNANDEZ ASTIN 7 [facility] TIME INC INC PARTIAL PLASMA/WH OLE BLOOD CREATINE 68666 MARY HERNANDEZ KINASE MB 7 [facility] FRACTION INC INC ONLY ECG 72840 MARY HERNANDEZ ROUTINE 7 [facility] ECG INC INC W/LEAST 12 LDS TRCG ONLY W/O I&R THER 87425 MARY HERNANDEZ PROPH/DX 7 [facility] NJX IV INC INC PUSH SINGLE/1S T SBST/DRUG PROTHROMB 11990 MARY HERNANDEZ IN TIME 7 [facility] INC INC CREATINE 81685 MARY HERNA[facility]DEZ KINASE 7 [facility] TOTAL INC INC BLOOD 10045 MARY HERNANDEZ COUNT 7 [facility] COMPLETE INC INC AUTO&[place] [address] MARY HERNANDEZ TROPONIN 7 [facility] QUANTITAT INC INC JOJO GLUC BLD 49711 MARY HERNANDEZ GLUC MNTR 7 [facility] DEV INC [place] [address] [place] GRACIEL[place] ANGIOGRAP 7 MEDICAL HY NECK SERV W/CONTRAS FOUNDATIO T/NONCONT N RAST COMPREHEN 20364 MARY HERNANDEZ SIVE 7 [facility] METABOLIC INC INC PANEL HOME TX; S9341 INFUSION INFUSION ENTERAL 7 [employer] NUTRITION OF OF [place] GRAVITY; [place] [address] NARENDRA GRACIELA ANGIOGRAP 7 MEDICAL HY HEAD SERV W/CONTRAS FOUNDATIO T/NONCONT N RAST ECG 82442 MARY SAMI ROUTINE 7 [facility] W/LEAST P 12 LDS I&R ONLY HOME TX; S9341 INFUSION INFUSION ENTERAL 7 [employer] NUTRITION OF OF [place] GRAVITY; BATTER OUT HOME TX; S9341 INFUSION INFUSION ENTERAL 7 [employer] NUTRITION OF OF [place] GRAVITY; BATTER OUT HOME TX; S9341 INFUSION INFUSION ENTERAL 7 [employer]ERS NUTRITION OF OF [place] GRAVITY; BATTER OUT HOME TX; S9341 INFUSION INFUSION ENTERAL 7 [employer]ERS NUTRITION OF OF [place] GRAVITY; BATTER OUT HOME TX; S9341 INFUSION INFUSION ENTERAL 7 [employer] NUTRITION OF OF [place] GRAVITY; BATTER OUT HOS BED E0260 [facility] SEMI-ELEC 7 HOME HOME W/ANY MEDICAL MEDICAL TYPE SIDE EQUIPME EQUIPME RAIL W/[place] [address] [place] ADAM HEAD/BRAI 7 MEDICAL N W/O IMAGING CONTRAST ASS MATERIAL RADIOLOGI 81275 [place] ADAM C 7 MEDICAL EXAMINATI IMAGING ON CHEST ASS SINGLE VIEW FRONTAL ECG 15330 JOE SWEENEY ROUTINE 7 PHYSICIAN U ECG S, PLLC W/LEAST 12 LDS I&R ONLY HOME TX; S9341 INFUSION INFUSION ENTERAL 6 [employer] NUTRITION OF OF [place] GRAVITY; BATTER OUT HOME TX; S9341 INFUSION INFUSION ENTERAL 6 [employer]ERS NUTRITION OF OF [place] GRAVITY; BATTER OUT HOME TX; S9341 INFUSION INFUSION ENTERAL 6 [employer] NUTRITION OF OF [place] GRAVITY; BATTER OUT HOME TX; S9341 INFUSION INFUSION ENTERAL 6 [employer] NUTRITION OF OF [place] GRAVITY; BATTER OUT POST-TRINITY 53324 NARENDRA SUAREZ RACT 6 MEDICAL JR LASER SERV SURGERY FOUNDATIO N COMPREHEN 40711 [facility] SIVE 6 [facility] E PANEL [facility] BLOOD 38586 [facility] COUNT 6 [facility] COMPLETE E E AUTO&AUTO [facility] [place] [address] [place] THYROID [address] [facility] STIMULATI E E NG [facility] HORMONE TSH HOS BED E0260 [facility] SEMI-ELEC 6 HOME HOME W/ANY MEDICAL MEDICAL TYPE SIDE EQUIPME EQUIPME RAIL W/MATTRSS HOME TX; S9341 INFUSION INFUSION ENTERAL 6 [employer] NUTRITION OF OF [place] GRAVITY; BATTER OUT HOME TX; S9341 INFUSION INFUSION ENTERAL 6 [employer]ERS NUTRITION OF OF [place] GRAVITY; BATTER OUT COMPREHEN 53605 MARY HERNANDEZ SIVE 6 [facility]OS[facility] METABOLIC INC INC PANEL LIPID 51941 MARY HERNANDEZ PANEL 6 [place] [address] MARY HERNANDEZ THYROID 6 [facility]OS[facility] STIMULATI [place] [address] MARY HERNANDEZ FREE 6 [facility] HOS[facility] MEM HOSP THYROXINE INC INC BLOOD 93656 MARY HERNANDEZ COUNT 6 [facility] COMPLETE INC INC AUTO&AUTO DIFRNTL WBC HEMOGLOBI 40116 MARY HERNANDEZ N 6 [facility] H[facility]OS[facility] GLYCOSYLA INC INC JESSE A1C ALBUMIN 30981 MARY HERNANDEZ URINE 6 [facility] MICROALBU INC INC MIN QUANTIATI VE DRUG TST G0477 MARY HERNANDEZ PRESUMP;C 6 MEM HOS[facility]OS[facility] PBL BEING INC INC READ DC OPT OBV ONLY HOME TX; S9341 INFUSION INFUSION ENTERAL 6 [employer] NUTRITION OF OF [place] GRAVITY; BATTER OUT HOME TX; S9341 INFUSION INFUSION ENTERAL 6 [employer]ERS NUTRITION OF OF [place] GRAVITY; BATTER OUT HOME TX; S9341 INFUSION INFUSION ENTERAL 6 [employer]ERS NUTRITION OF OF [place] GRAVITY; BATTER OUT HOME TX; S9341 INFUSION INFUSION ENTERAL 6 [employer]ERS NUTRITION OF OF [place] GRAVITY; BATTER OUT HOME TX; S934 INFUSION INFUSION ENTERAL 6 [employer]ERS NUTRITION OF OF [place] GRAVITY; BATTER OUT HOME TX; S9341 INFUSION INFUSION ENTERAL 6 [employer]ERS NUTRITION OF OF [place] GRAVITY; BATTER OUT HOME TX; S9341 INFUSION INFUSION ENTERAL 6 [employer]ERS NUTRITION OF OF [place] GRAVITY; BATTER OUT HOME TX; S9341 INFUSION INFUSION ENTERAL 6 [employer]ERS NUTRITION OF OF [place] GRAVITY; BATTER OUT HOME TX; S934 INFUSION INFUSION ENTERAL 6 [employer]ERS NUTRITION OF OF [place] GRAVITY; BATTER OUT HOME TX; S934 INFUSION INFUSION ENTERAL 6 [employer] NUTRITION OF OF [place] GRAVITY; BATTER OUT HOME TX; S934 INFUSION INFUSION ENTERAL 6 [employer]ERS NUTRITION OF OF [place] GRAVITY; BATTER OUT HOME TX; S934 INFUSION INFUSION ENTERAL 6 [employer]ERS NUTRITION OF OF [place] GRAVITY; BATTER OUT HOME TX; S934 INFUSION INFUSION ENTERAL 6 [employer] NUTRITION OF OF [place] GRAVITY; BATTER OUT HOME TX; S9341 INFUSION INFUSION ENTERAL 6 [employer] NUTRITION OF OF [place] GRAVITY; BATTER OUT HOME TX; S9341 INFUSION INFUSION ENTERAL 6 [employer] NUTRITION OF OF [place] GRAVITY; BATTER OUT HOME TX; S9341 INFUSION INFUSION ENTERAL 6 [employer] NUTRITION OF OF [place] GRAVITY; BATTER OUT HOME TX; S9341 INFUSION INFUSION ENTERAL 6 [employer] NUTRITION OF OF [place] GRAVITY; BATTER OUT HOME TX; S9341 INFUSION INFUSION ENTERAL 6 [employer] NUTRITION OF OF [place] GRAVITY; BATTER OUT HOME TX; S9341 INFUSION INFUSION ENTERAL 6 [employer] NUTRITION OF OF [place] GRAVITY; BATTER OUT HOME TX; S9341 INFUSION INFUSION ENTERAL 6 [employer] NUTRITION OF OF [place] GRAVITY; BATTER OUT HOME TX; S9341 INFUSION INFUSION ENTERAL 6 [employer]ERS NUTRITION OF OF [place] GRAVITY; BATTER OUT HOME TX; S9341 INFUSION INFUSION ENTERAL 6 [employer]ERS NUTRITION OF OF [place] GRAVITY; BATTER OUT HOME TX; S9341 INFUSION INFUSION ENTERAL 6 [employer]ERS NUTRITION OF OF [place] GRAVITY; BATTER OUT HOME TX; S9341 INFUSION INFUSION ENTERAL 6 [employer] NUTRITION OF OF [place] GRAVITY; BATTER OUT HOME TX; S9341 INFUSION INFUSION ENTERAL 6 [employer] NUTRITION OF OF [place] GRAVITY; BATTER OUT HOME TX; S9341 INFUSION INFUSION ENTERAL 6 [employer] NUTRITION OF OF [place]; [place] [address] NARENDRA YANG IMAGING 6 MEDICAL [facility] CT SERV ATTENUATI FOUNDATIO ON SKULL N BASE [facility] BED E0260 CORA SHEPHERD SEMI-ELEC 6 HOME HOME W/ANY MEDICAL MEDICAL TYPE SIDE EQUIPME EQUIPME RAIL W/MATTRSS FLUORODEO A9552 [facility] XYGLUCOSE 6 Y Y F-18 FDG [facility] DX UP TO 45 MCI HOME [place]; S9341 INFUSION INFUSION ENTERAL 6 [employer] NUTRITION OF OF [place] GRAVITY; BATTER OUT HOME TX; S9341 INFUSION INFUSION ENTERAL 6 [employer]ERS PARTNERS NUTRITION OF OF [place]; BAT[place] OUT [place]; S9341 INFUSION INFUSION ENTERAL 6 [employer]ERS PARTNERS NUTRITION OF OF [place]; BAT[place] OUT [place]; S9341 INFUSION INFUSION ENTERAL 6 [employer]ERS PARTNERS NUTRITION OF OF [place]; BATTER OUT [place]; S9341 INFUSION INFUSION ENTERAL 6 [employer]ERS PARTNERS NUTRITION OF OF [place]; BAT[place] OUT [place]; S9341 INFUSION INFUSION ENTERAL 6 [employer]ERS PARTNERS NUTRITION OF OF [place]; BATTER OUT [place]; S9341 INFUSION INFUSION ENTERAL 6 [employer]ERS PARTNERS NUTRITION OF OF [place]; BATTER OUT [place]; S934 INFUSION INFUSION ENTERAL 6 [employer] PARTNERS NUTRITION OF OF [place]; BATTER OUT [place]; S9341 INFUSION INFUSION ENTERAL 6 [employer]ERS PARTNERS NUTRITION OF OF [place]; BATTER OUT [place]; S934 INFUSION INFUSION ENTERAL 6 [employer] PARTNERS NUTRITION OF OF [place]; BATTER OUT [place]; S934 INFUSION INFUSION ENTERAL 6 [employer]ERS PARTNERS NUTRITION OF OF [place]; BATTER OUT [place]; S9341 INFUSION INFUSION ENTERAL 6 [employer]ERS PARTNERS NUTRITION OF OF [place]; BATTER OUT [place]; S9341 INFUSION INFUSION ENTERAL 6 [employer] PARTNERS NUTRITION OF OF [place]; BATTER OUT HOME [place]; S9341 INFUSION INFUSION ENTERAL 6 [employer] PARTNERS NUTRITION OF OF [place]; BATTER OUT COLLECTIO [id number] [facility] 6 Y Y [facility] HOME [place]; S9341 INFUSION INFUSION ENTERAL 6 [employer] PARTNERS NUTRITION OF OF [place]; BATTER OUT HOME [place]; S9341 INFUSION INFUSION ENTERAL 6 [employer] PARTNERS NUTRITION OF OF [place]; BATTER OUT [place]; S9341 INFUSION INFUSION ENTERAL 6 [employer]NERS PARTNERS NUTRITION OF OF [place]; BATTER OUT [place]; S9341 INFUSION INFUSION ENTERAL 6 [employer]ERS PARTNERS NUTRITION OF OF [place]; BATTER OUT HOME [place]; S9341 INFUSION INFUSION ENTERAL 6 [employer]ERS PARTNERS NUTRITION OF OF [place]; [place] SOFT [address] [facility] TISSUE 6 HEALTHCAR HEALTHCAR NECK E E W/CONTRAS [facility] T MATERIAL LOCM [id number] [facility] [phone] [facility] HE[facility]CAR MG/ML E E [facility] TION PER ML VOICE [id number] [facility] FUNCT 6 [facility] HEALTHCAR LIMIT E E [facility]J [facility] [place] EPISODE VOICE G9171 [facility] FUNCT 6 [facility] HEALTHCAR LIMIT E E [facility] [place] EPISODE OUTSET CREATININ 53545 [facility] E BLOOD 6 [facility]ALTHCAR [facility]ALTHCAR E E [facility] [id number] [facility] L & 6 HEALTHCAR HEALTHCAR QUALIT E E [facility]NALYSIS [facility] VOICE AND RESONANCE VOICE G9173 [facility] FUNCT 6 HEALTHCAR HEALTHCAR LIMIT E E DISCHARGE [facility]PITALS STATUS D/C FROM [place] LARYNGOSC [address]8750 [facility] OPY 6 HEALTHCAR HEALTHCAR FLX/RGD E E TELESCOPI [facility] C W/STROBOS COPY CT THORAX [address] [place] [facility] 6 MEDICAL W/CONTRAS SERV T [facility]AT[facility] MATERIAL N HOME [place]; S9341 INFUSION INFUSION ENTERAL 6 [employer] PARTNERS NUTRITION OF OF [place]; BATTER OUT HOME [place]; S9341 INFUSION INFUSION ENTERAL 6 [employer]ERS PARTNERS NUTRITION OF OF [place]; BATTER OUT HOME [place]; S9341 INFUSION INFUSION ENTERAL 6 [employer]ERS PARTNERS NUTRITION OF OF [place]; BATTER OUT HOME [place]; S9341 INFUSION INFUSION ENTERAL 6 [employer]NERS PARTNERS NUTRITION OF OF [place]; BATTER OUT HOME [place]; S9341 INFUSION INFUSION ENTERAL 6 [employer] PARTNERS NUTRITION OF OF [place]; BATTER OUT HOME [place]; S9341 INFUSION INFUSION ENTERAL 6 [employer] PARTNERS NUTRITION OF OF [place] GRAVITY; BATTER OUT HOME [place]; S9341 INFUSION INFUSION ENTERAL 6 PARTNERS PARTNERS NUTRITION OF OF [place] GRAVITY; BATTER OUT HOME [place]; S9341 INFUSION INFUSION ENTERAL 6 PARTNERS PARTNERS NUTRITION OF OF [place] GRAVITY; BATTER OUT HOME TX; S9341 INFUSION INFUSION ENTERAL 6 PARTNERS PARTNERS NUTRITION OF OF [place] GRAVITY; BATTER OUT HOS BED E0260 [facility] SHEPHERD SEMI-ELEC 6 HOME HOME W/ANY MEDICAL MEDICAL TYPE SIDE EQUIPME EQUIPME RAIL W/MATTRSS DIRECT G0299 ABHINAV PEREZ RN 6 HOME HOME HOME [facility]/ AGENCY AGENCY SPICE SET EA 15 MIN DEBRIDEME 15280 [facility] NT OPEN 6 Y Y WOUND 20 [facility] SQ CM/< DIRECT G0299 ABHINAV PEREZ RN 6 HOME HOME [facility]/ AGENCY AGENCY SPICE SET EA 15 MIN DIRECT G0299 ABHINAV PEREZ RN 6 HOME HOME HOME [facility]/ AGENCY AGENCY SPICE SET EA 15 MIN DIRECT G0299 ABHINAV PEREZ RN 6 HOME HOME HOME [facility]/ AGENCY AGENCY SPICE SET EA 15 MIN HOME TX; S9341 INFUSION INFUSION ENTERAL 6 PARTNERS PARTNERS NUTRITION OF OF [place] GRAVITY; BATTER OUT HOME TX; S9341 INFUSION INFUSION ENTERAL 6 PARTNERS PARTNERS NUTRITION OF OF [place] GRAVITY; BATTER OUT HOME TX; S9341 INFUSION INFUSION ENTERAL 6 PARTNERS PARTNERS NUTRITION OF OF [place] GRAVITY; BATTER OUT HOME [place]; S9341 INFUSION INFUSION ENTERAL 6 PARTNERS PARTNERS NUTRITION OF OF [place] GRAVITY; BATTER OUT HOME TX; S9341 INFUSION INFUSION ENTERAL 6 PARTNERS PARTNERS NUTRITION OF OF [place] GRAVITY; BATTER OUT DIRECT G0299 ABHINAV PEREZ RN 6 HOME HOME HOME [facility]/ AGENCY AGENCY SPICE SET EA 15 MIN HOME TX; S9341 INFUSION INFUSION ENTERAL 6 PARTNERS PARTNERS NUTRITION OF OF [place] GRAVITY; BATTER OUT HOME [place]; S9341 INFUSION INFUSION ENTERAL 6 PARTNERS PARTNERS NUTRITION OF OF [place] GRAVITY; BATTER OUT HOME TX; S9341 INFUSION INFUSION ENTERAL 6 PARTNERS PARTNERS NUTRITION OF OF [place] GRAVITY; BATTER OUT HOME TX; S9341 INFUSION INFUSION ENTERAL 6 PARTNERS PARTNERS NUTRITION OF OF [place] GRAVITY; BATTER OUT DIRECT G0299 ABHINAV PEREZ RN 6 HOME HOME [facility]/ AGENCY AGENCY SPICE SET EA 15 MIN HOME TX; S9341 INFUSION INFUSION ENTERAL 6 PARTNERS PARTNERS NUTRITION OF OF [place] GRAVITY; BATTER OUT HOME TX; S9341 INFUSION INFUSION ENTERAL 6 PARTNERS PARTNERS NUTRITION OF OF [place] GRAVITY; BATTER OUT HOME TX; S9341 INFUSION INFUSION ENTERAL 6 PARTNERS PARTNERS NUTRITION OF OF [place] GRAVITY; BATTER OUT HOS BED E0260 [facility]A SEMI-ELEC 6 HOME HOME W/ANY MEDICAL MEDICAL TYPE SIDE EQUIPME EQUIPME RAIL W/MATTRSS DIRECT G0299 ABHINAV PEREZ RN 6 HOME HOME HOME [facility]/ AGENCY AGENCY SPICE SET EA 15 MIN HOME TX; S9341 INFUSION INFUSION ENTERAL 6 PARTNERS PARTNERS NUTRITION OF OF [place] GRAVITY; BATTER OUT HOME TX; S9341 INFUSION INFUSION ENTERAL 6 PARTNERS PARTNERS NUTRITION OF OF [place] GRAVITY; [facility] [address] [place] [facility] DISCHARGE 6 NURSE DAY PRACTITIO MANAGEMEN NER GR T 30 MIN/< SBSQ 39215 [place] [address] MEDICAL BEAU CARE/DAY SERV 15 FOUNDATIO MINUTES N HOME [place]; S9341 INFUSION INFUSION ENTERAL 6 PARTNERS PARTNERS NUTRITION OF OF [place] GRAVITY; BATTER OUT HOME TX; S9341 INFUSION INFUSION ENTERAL 6 PARTNERS PARTNERS NUTRITION OF OF [place] GRAVITY; BATTER [place] [address] [place] [facility] 6 MEDICAL Y JUS EXTREM SERV W/O & FOUNDATIO W/CONTRAS N T MATRL SBSQ 17236 [place] [address] MEDICAL JAG CARE/DAY SERV 15 FOUNDATIO MINUTES N SBSQ 79880 [place] [address] MEDICAL JAG CARE/DAY SERV 15 FOUNDATIO MINUTES N HOME TX; S9341 INFUSION INFUSION ENTERAL 6 PARTNERS PARTNERS NUTRITION OF OF [place] GRAVITY; BATTER OUT HOME TX; S9341 INFUSION INFUSION ENTERAL 6 PARTNERS PARTNERS NUTRITION OF OF [place] GRAVITY; BATTER OUT SBSQ 45642 [facility] 6 MEDICAL JAG CARE/DAY SERV 25 FOUNDATIO MINUTES N HOME TX; S9341 INFUSION INFUSION ENTERAL 6 PARTNERS PARTNERS NUTRITION OF OF [place] GRAVITY; BATTER OUT INITIAL 26153 [facility] 6 NURSE BROADDUS CARE/DAY PRACTITIO CHR 50 NER GR MINUTES RADEX 54397 NARENDRA MONTGOMER FOOT 6 MEDICAL Y JUS COMPLETE SERV MINIMUM [address] [place] [address] [place] NICKEL[place] ANGIOGRAP 6 MEDICAL JACK HY CHEST SERV W/CONTRAS FOUNDATIO T/NONCONT N RAST HOME TX; S9341 INFUSION INFUSION ENTERAL 6 PARTNERS PARTNERS NUTRITION OF OF [place] GRAVITY; BATTER OUT ECG 52329 NARENDRA YOU ROUTINE 6 MEDICAL NAN ECG SERV W/LEAST FOUNDATIO 12 LDS N I&R ONLY RADIOLOGI 96250 NARENDRA TRUE LILLY C EXAM 6 MEDICAL CHEST 2 SERV VIEWS FOUNDATIO FRONTAL&L N ATERAL HOME TX; S9341 INFUSION INFUSION ENTERAL 6 PARTNERS PARTNERS NUTRITION OF OF [place] GRAVITY; BATTER OUT HOME TX; S9341 INFUSION INFUSION ENTERAL 6 PARTNERS PARTNERS NUTRITION OF OF [place] GRAVITY; BATTER OUT HOME TX; S9341 INFUSION INFUSION ENTERAL 6 PARTNERS PARTNERS NUTRITION OF OF [place] GRAVITY; BATTER OUT HOME TX; S9341 INFUSION INFUSION ENTERAL 6 PARTNERS PARTNERS NUTRITION OF OF [place] GRAVITY; BATTER OUT HOME TX; S9341 INFUSION INFUSION ENTERAL 6 PARTNERS PARTNERS NUTRITION OF OF [place] GRAVITY; BATTER OUT HOME TX; S9341 INFUSION INFUSION ENTERAL 6 PARTNERS PARTNERS NUTRITION OF OF [place] GRAVITY; BATTER OUT HOME TX; S9341 INFUSION INFUSION ENTERAL 6 PARTNERS PARTNERS NUTRITION OF OF [place] GRAVITY; BATTER OUT HOME TX; S9341 INFUSION INFUSION ENTERAL 6 PARTNERS PARTNERS NUTRITION OF OF [place] GRAVITY; BATTER OUT HOME TX; S9341 INFUSION INFUSION ENTERAL 6 PARTNERS PARTNERS NUTRITION OF OF [place] GRAVITY; BATTER OUT HOME TX; S9341 INFUSION INFUSION ENTERAL 6 PARTNERS PARTNERS NUTRITION OF OF [place] GRAVITY; BATTER OUT DIRECT G0299 ABHINAV PEREZ RN 6 HOME HOME HOME [facility] AGENCY AGENCY SPICE SET EA 15 MIN HOME TX; S9341 INFUSION INFUSION ENTERAL 6 PARTNERS PARTNERS NUTRITION OF OF [place] GRAVITY; BATTER OUT HOME TX; S9341 INFUSION INFUSION ENTERAL 6 PARTNERS PARTNERS NUTRITION OF OF [place] GRAVITY; BATTER OUT HOME TX; S9341 INFUSION INFUSION ENTERAL 6 PARTNERS PARTNERS NUTRITION OF OF [place] GRAVITY; BATTER OUT COMPREHEN 69310 [facility] SIVE 6 Y Y METABOLIC [facility] PANEL DIRECT G0299 ABHINAV PEREZ RN 6 HOME HOME [facility] AGENCY AGENCY SPICE SET EA [place] [address] [facility] FREE 6 Y Y THYROXINE [facility] [place] [address] [facility] THYROID 6 Y Y STIMULATI [facility] NG HORMONE TSH COLLECTIO 37954 [facility] N VENOUS 6 Y Y BLOOD [facility] VENIPUNCT URE LARYNGOSC 30854 [facility] OPY 6 Y Y FLEXIBLE [facility] DIAGNOSTI C BLOOD 29291 [facility] COUNT 6 Y Y COMPLETE [facility] AUTOMATED HOME [place]; S9341 INFUSION INFUSION ENTERAL 6 PARTNERS PARTNERS NUTRITION OF OF [place] GRAVITY; BATTER OUT HOME TX; S9341 INFUSION INFUSION ENTERAL 6 [employer]ERS PARTNERS NUTRITION OF OF [place] GRAVITY; BATTER OUT BASIC 44871 MARY HERNANDEZ METABOLIC 6 [facility] [place] [address] MARY HERNANDEZ INFUSION 6 [facility] THERAPY INC INC PROPHYLAX IS/DX EA HOUR HOME TX; S9341 INFUSION INFUSION ENTERAL 6 PARTNERS PARTNERS NUTRITION OF OF [place] GRAVITY; BATTER OUT CREATINE 03337 MARY HERNANDEZ KINASE 6 [facility] TOTAL INC INC PHYSICAL 85432 MARY HERNANDEZ THERAPY 6 [facility] EVALUATIO INC INC N GLUC BLD 63688 MARY HERNANDEZ GLUC MNTR 6 [facility] DEV INC [place] [address] MARY HERNANDEZ TROPONIN 6 [facility] QUANTITAT INC INC JOJO BLOOD 78209 MARY HERNANDEZ COUNT 6 [facility] COMPLETE INC INC AUTO&AUTO DIFRNTL WBC COLLECTIO 48892 MARY HERNANDEZ N VENOUS 6 [facility] BLOOD INC INC VENIPUNCT URE CREATINE 58858 MARY HERNANDEZ KINASE MB 6 MEM [facility] FRACTION INC INC ONLY [facility] G0378 MARY HERNANDEZ OBSERVATI 6 [facility] ON INC INC SERVICE PER HOUR OBSERVATI 16032 [facility] ON/INPATI 6 PHYSICIAN EUG [facility] CARE 50 MINUTES NONINVASI 37665 MARY HERNANDEZ VE 6 [facility] EAR/PULSE [place] [address] MARY HERNANDEZ INFUSION 6 [facility] THERAPY/P INC INC ROPHYLAXI S /DX 1ST TO 1 HR COMPREHEN 41372 MARY HERNANDEZ SIVE 6 [facility] METABOLIC INC INC PANEL RADIOLOGI 27037 MARY HERNANDEZ C 6 [facility] EXAMINATI INC INC ON PELVIS 1/2 VIEWS CREATINE 68327 MARY HERNANDEZ KINASE MB 6 [facility] FRACTION INC INC ONLY COLLECTIO 81161 MARY HERNANDEZ N VENOUS 6 [facility] BLOOD INC INC VENIPUNCT URE BLOOD 35452 MARY HERNANDEZ COUNT 6 [facility] COMPLETE INC INC AUTO&[place] [address] MARY HERNANDEZ TROPONIN 6 [facility] QUANTITAT INC INC JOJO PROTHROMB 23270 MARY HERNANDEZ IN TIME 6 [facility] INC INC CREATINE 20119 MARY HERNANDEZ KINASE 6 [facility] TOTAL INC INC HOME TX; S9341 INFUSION INFUSION ENTERAL 6 PARTNERS PARTNERS NUTRITION OF [place]; [place] [address] MARY HERNANDEZ HEAD/BRAI 6 [facility] N W/O INC INC CONTRAST MATERIAL RADIOLOGI 51236 MARY HERNANDEZ C 6 [facility] EXAMINATI INC INC ON KNEE 3 VIEWS RADIOLOGI 03491 MARY [place] 6 [facility] EXAMINATI INC INC ON CHEST SINGLE VIEW FRONTAL HOME [place]; S9341 INFUSION INFUSION ENTERAL 6 PARTNERS PARTNERS NUTRITION OF OF [place] GRAVITY; BATTER OUT HOME TX; S9341 INFUSION INFUSION ENTERAL 6 PARTNERS PARTNERS NUTRITION OF OF [place] GRAVITY; BATTER OUT BEHAVIORA 35025 [facility] L & 6 Y [facility] ANALYSIS VOICE AND RESONANCE LARYNGOSC [address] [place] [address] Y [facility] DIAGNOSTI C HOME TX; S9341 INFUSION INFUSION ENTERAL 6 PARTNERS PARTNERS NUTRITION OF OF [place] GRAVITY; BATTER OUT HOME TX; S9341 INFUSION INFUSION ENTERAL 6 PARTNERS PARTNERS NUTRITION OF OF [place] GRAVITY; BATTER OUT HOME TX; S9341 INFUSION INFUSION ENTERAL 6 [employer]NERS PARTNERS NUTRITION OF OF [place] GRAVITY; BATTER OUT HOME TX; S9341 INFUSION INFUSION ENTERAL 6 [employer]NERS PARTNERS NUTRITION OF OF [place] GRAVITY; BATTER OUT HOME TX; S9341 INFUSION INFUSION ENTERAL 6 [employer]ERS PARTNERS NUTRITION OF OF [place] GRAVITY; BATTER OUT CONFORMIN A6446 [facility] B[facility]GE 6 HOME HOME [facility] AGENCY AGENCY KNITTED/W OVEN STERL GAUZE A6402 ABHINAV BURNETTCO NON-IMPRE 6 HOME HOME [facility] SQ/< AGENCY AGENCY W/O ADHES BORDR STERILE A4217 [facility] WATER/NATHANAEL 6 HOME HOME INE 500 HEALTH HEALTH ML AGENCY AGENCY DIRECT G0299 ABHINAV LA SNS RN 6 HOME HOME HOME [facility] AGENCY AGENCY SPICE SET EA 15 MIN TAPE A4450 [facility] NON-WATER 6 HOME HOME PROOF PER [facility] 18 AGENCY AGENCY SQUARE INCHES HOME TX; S9341 INFUSION INFUSION ENTERAL 6 PART[employer]ERS PARTNERS NUTRITION OF OF [place] GRAVITY; BATTER OUT HOME TX; S9341 INFUSION INFUSION ENTERAL 6 [employer]ERS PARTNERS NUTRITION OF OF [place] GRAVITY; BATTER OUT DIRECT G0299 ABHINAV LA SNS RN 6 HOME HOME HOME [facility] AGENCY AGENCY SPICE SET EA 15 MIN HOME TX; S9341 INFUSION INFUSION ENTERAL 6 [employer]ERS PARTNERS NUTRITION OF OF [place] GRAVITY; BATTER OUT HOME TX; S9341 INFUSION INFUSION ENTERAL 6 [employer]NERS PARTNERS NUTRITION OF OF [place] GRAVITY; BATTER OUT DIRECT G0299 ABHINAV LEXCO SNS RN 6 HOME HOME HOME [facility]/ AGENCY AGENCY SPICE SET EA 15 MIN DIRECT G0299 ABHINAV BURNETTCO SNS RN 6 HOME HOME HOME [facility] AGENCY AGENCY SPICE SET EA 15 MIN HOME TX; S9341 INFUSION INFUSION ENTERAL 6 [employer]ERS PARTNERS NUTRITION OF OF [place] GRAVITY; BATTER OUT HOME TX; S9341 INFUSION INFUSION ENTERAL 6 PARTNERS PARTNERS NUTRITION OF OF [place] GRAVITY; BATTER OUT HOME TX; S9341 INFUSION INFUSION ENTERAL 6 [employer]NERS PARTNERS NUTRITION OF OF [place] GRAVITY; BATTER OUT GROUND A0425 [facility] 6 [facility] PER AMBULANCE AMBULANCE STATUTE MILE RADEX 20458 [place] JOHN SPINE 6 MEDICAL FRA LUMBOSACR SERV AL 2/3 FOUNDATIO VIEWS N RADEX HIP 12142 [place] JOHN 6 MEDICAL FRA UNILATERA SERV L WITH FOUNDATIO PELVIS N 2-3 [facility] [address] [facility] 6 MEDICAL HNSTON DAY SERV ELSIE MANAGEMEN FOUNDATIO T > [address] [place] [address] [place] HEAD/BRAI 6 MEDICAL BRANDON N W/O SERV CONTRAST FOUNDATIO MATERIAL N SBSQ 39328 [place] [address] MEDICAL HNSTON CARE/DAY SERV ELSIE 25 FOUNDATIO MINUTES N COMMODE E0163 [facility] CHAIR 6 MOBILE OR STATIONAR Y W/FIXED ARMS SBSQ 71329 [place] [address] MEDICAL HNSTON CARE/DAY SERV ELSIE 25 FOUNDATIO MINUTES N SBSQ 33053 [place] [address] MEDICAL HNSTON CARE/DAY SERV ELSIE 25 FOUNDATIO MINUTES N SBSQ 66420 [place] [address] MEDICAL CARE/DAY SERV 25 FOUNDATIO MINUTES N SBSQ 48772 [place] [address] MEDICAL CARE/DAY SERV 25 FOUNDATIO MINUTES N SBSQ 37273 [place] [address] MEDICAL CARE/DAY SERV 25 FOUNDATIO MINUTES N SBSQ 68975 [place] [address] MEDICAL CARE/DAY SERV 25 FOUNDATIO MINUTES N SBSQ 63428 [place] [address] MEDICAL CARE/DAY SERV 25 FOUNDATIO MINUTES N SBSQ 49227 [facility] 6 MEDICAL CARE/DAY SERV 25 FOUNDATIO MINUTES N INSERTION [id number] [facility] INFUSION 6 Y [facility] SU[facility] VENA CAVA PERQ INSERTION [id number] [facility] FEEDING 6 Y Y [facility] STOMACH PERQ APPROACH EGD 67277 [facility] PERCUTADE 6 MEDICAL JOSUE OUS SERV PLACEMENT FOUNDATIO N GASTROSTO MY TUBE SBSQ 06009 [facility] 6 MEDICAL CARE/DAY SERV 25 FOUNDATIO MINUTES N SBSQ 99277 [place] [address] MEDICAL HNSTON CARE/DAY SERV ELSIE 25 FOUNDATIO MINUTES N INITIAL 61907 [facility] 6 MEDICAL JOSUE CONSULT SERV NEW/ESTAB FOUNDATIO PT 80 N MIN SBSQ 66218 [place] [address] MEDICAL HNSTON CARE/DAY SERV ELSIE 25 FOUNDATIO MINUTES N SBSQ 37269 [place] [address] MEDICAL HNSTON CARE/DAY SERV ELSIE 25 FOUNDATIO MINUTES N SBSQ 88312 [place] [address] MEDICAL HNSTON CARE/DAY SERV ELSIE 25 FOUNDATIO MINUTES N SBSQ 47017 [place] [address] MEDICAL HNSTON CARE/DAY SERV ELSIE 25 FOUNDATIO MINUTES N SBSQ 37334 [place] [address] MEDICAL HNSTON CARE/DAY SERV ELSIE 25 FOUNDATIO MINUTES N RADIOLOGI 75441 [facility] EXAM 6 MEDICAL AYA MAR CHEST 2 SERV VIEWS FOUNDATIO FRONTAL&L N ATERAL SBSQ 13192 [place] [address] MEDICAL A NOMAN CARE/DAY SERV 25 FOUNDATIO MINUTES N SBSQ 37634 [place] [address] MEDICAL CARE/DAY SERV 25 FOUNDATIO MINUTES N RADIOLOGI 77031 [facility] 6 MEDICAL EXAMINATI SERV ON CHEST FOUNDATIO SINGLE N VIEW FRONTAL SBSQ 54224 [facility] 6 MEDICAL CARE/DAY SERV 25 FOUNDATIO MINUTES N SBSQ 29992 [place] [address] MEDICAL A NOMAN CARE/DAY SERV 15 FOUNDATIO MINUTES N SBSQ 54969 [place] [address] MEDICAL A NOMAN CARE/DAY SERV 25 FOUNDATIO MINUTES N SBSQ 43054 [facility] 6 MEDICAL CARE/DAY SERV 25 FOUNDATIO MINUTES N SBSQ 86416 [place] [address] MEDICAL A NOMAN CARE/DAY SERV 25 FOUNDATIO MINUTES N SBSQ 06485 [facility] 6 MEDICAL A NOMAN CARE/DAY SERV 25 FOUNDATIO MINUTES N SBSQ 80675 [facility] 6 MEDICAL SHARON CARE/DAY SERV 25 FOUNDATIO MINUTES N SBSQ 70865 [place] [address] MEDICAL SHARON CARE/DAY SERV 25 FOUNDATIO MINUTES N SBSQ 57774 [place] [address] MEDICAL SHARON CARE/DAY SERV 25 FOUNDATIO MINUTES N SBSQ 08646 [facility] 6 MEDICAL CARE/DAY SERV 25 FOUNDATIO MINUTES N SBSQ 04863 [place] [address] MEDICAL SHARON CARE/DAY SERV 25 FOUNDATIO MINUTES N SBSQ 82732 [place] [address] MEDICAL SHARON CARE/DAY SERV 25 FOUNDATIO MINUTES N SBSQ 69527 [place] [address] MEDICAL SHARON CARE/DAY SERV 25 FOUNDATIO MINUTES N SBSQ 95543 [place] [address] MEDICAL EEDU RONNI CARE/DAY SERV [address] SOFT 13454 [place] [facility] 6 MEDICAL BRANDON NECK W/O SERV CONTRAST FOUNDATIO MATERIAL N CT THORAX 64633 [place] MCCARTHY W/O 6 MEDICAL STARLA CONTRAST SERV MATERIAL FOUNDATIO N INITIAL 87259 [facility] 6 MEDICAL LOW CONSULT SERV NEW/ESTAB FOUNDATIO PT 110 N MIN SBSQ 50969 [place] [address] MEDICAL EEDU RONNI CARE/DAY SERV 25 FOUNDATIO MINUTES N SBSQ 84048 [facility] 6 MEDICAL BUDDY CARE/DAY SERV 15 FOUNDATIO MINUTES N INSJ TEMP 07969 [facility] MEDICAL BUDDY BLADDER SERV CATHETER FOUNDATIO SIMPLE N DUP-SCAN 04617 [place] CORDERO BUDDY XTR VEINS 6 MEDICAL SERV UNILATERA FOUNDATIO L/LIMITED N STUDY RADEX 22492 [place] JOHN FOREARM 2 6 MEDICAL FRA VIEWS SERV FOUNDATIO N SBSQ 48770 [place] [address] MEDICAL EEDU RONNI CARE/DAY SERV 25 FOUNDATIO MINUTES N SBSQ 11539 [place] [address] MEDICAL EEDU RONNI CARE/DAY SERV 25 FOUNDATIO MINUTES N SBSQ 45132 [facility] 6 MEDICAL EEDU RONNI CARE/DAY SERV 25 FOUNDATIO MINUTES N SBSQ 42973 [place] [address] MEDICAL EEDU RONNI CARE/DAY SERV 25 FOUNDATIO MINUTES N SBSQ 95357 [place] [address] MEDICAL HNSTON CARE/DAY SERV ELSIE 25 FOUNDATIO MINUTES N SBSQ 40651 [place] [address] MEDICAL HNSTON CARE/DAY SERV ELSIE 25 FOUNDATIO MINUTES N SBSQ 86382 [place] [address] MEDICAL HNSTON CARE/DAY SERV ELSIE 25 FOUNDATIO MINUTES N SBSQ 49821 [place] [address] MEDICAL HNSTON CARE/DAY SERV ELSIE 25 [place] [address] [facility] ABDOMINAL 6 MEDICAL REAL SERV TIME FOUNDATIO W/IMAGE N DOCUMENTA TION ECG 87929 [place] YOU ROUTINE 6 MEDICAL NAN ECG SERV W/LEAST FOUNDATIO 12 LDS N I&R ONLY DETACHMEN [id number] [facility] AT 6 Y Y [facility] FOOT PARTIAL 3RD RAY OPEN DETACHMEN [id number] [facility] AT 6 Y Y [facility] FOOT PARTIAL 4TH RAY OPEN INTRO [id number] [facility] 6 Y Y [facility] PERIPH NERVES PLEXI PERQ AMPUTATIO 45257 [place] ENDEAN N 6 MEDICAL METATARSA SERV L W/TOE FOUNDATIO SINGLE N INJECTION 99142 [place] CHRISTIAN 6 MEDICAL CAR ANESTHETI SERV C AGENT FOUNDATIO SCIATIC N NRV SINGLE INJECTION 00733 [place] CHRISTIAN 6 MEDICAL CAR ANESTHETI SERV C AGENT FOUNDATIO FEMORAL N NERVE SINGLE ANES OPEN 28526 [place] SELL TON PROC 6 MEDICAL BONES SERVICES LOWER LEG/ANKLE /[place] [address] [facility] S[facility] MOL SURG 6 Y OF PATHOLOGY [facility] GROSS&STARLA ROSCOPIC EXAM DECALCIFI 89187 [facility] MOL CATION 6 Y OF PROCEDURE [facility] INITIAL 37389 [place] [facility] 6 MEDICAL OV AIB CARE/DAY SERV 70 FOUNDATIO MINUTES N RADIOLOGI 06898 [place] TRUE LILLY C 6 MEDICAL EXAMINATI SERV ON CHEST FOUNDATIO SINGLE N VIEW FRONTAL INITIAL 34012 [place] XENOS JACY INPATIENT 6 MEDICAL CONSULT SERV NEW/ESTAB FOUNDATIO PT 55 N MIN RADEX 20485 [place] TRUE LILLY FOOT 6 MEDICAL COMPLETE SERV MINIMUM 3 FOUNDATIO VIEWS N ECG 23445 [place] HAM CHI ROUTINE 6 MEDICAL ECG SERV W/LEAST FOUNDATIO 12 LDS N I&R ONLY INTENSITY 73708 [place] [address] Y [facility] RADIATION TX DLVR COMPLEX STEREOSCO G6002 [place] KUDRIMOTI PIC X-RAY 6 [facility]ICAL [facility] GUID SERV LOCALIZ FOUNDATIO TRG VOL N DEL RT STEREOSCO G6002 [place] KUDRIMOTI PIC X-RAY 6 MEDICAL [facility] GUID SERV LOCALIZ FOUNDATIO TRG VOL N DEL RT INTENSITY [address] [place] [address] Y [facility] RADIATION TX DLVR COMPLEX INTENSITY [address] RADIATION [place] DLVR COMPLEX STEREOSCO G6002 [place] KUDRIMOTI PIC X-RAY 6 [facility] GUID SERV LOCALIZ FOUNDATIO TRG VOL N DEL RT STEREOSCO G6002 [place] KUDRIMOTI PIC X-RAY 6 [facility] GUID SERV LOCALIZ FOUNDATIO TRG VOL N DEL RT INTENSITY [address] [place] [address] Y [facility] RADIATION TX DLVR COMPLEX THER RAD [address] [place] [address] Y [facility] FIELD SETTING SIMPLE NTSTY [address]0623 [place] [address] Y [facility] PLN DOSE-VOL HISTOS MLC IMRT 75181 [place] [address] Y [facility] ION PER IMRT PLAN BASIC 23235 [facility] RADIATION 6 Y Y [facility] [address] [facility] DEVICES 6 Y Y DESIGN & HOSPITAL [place] [address] [facility] DEVICES 6 Y Y [facility] CONSTRUCT ION COMPLEX CREATININ 35011 [facility] E BLOOD 6 Y Y [facility] CONSLTJ&R 81610 [facility] EPRT 6 Y OF NAYELI SLIDES [facility] THORAX 91015 [facility] 6 Y Y W/CONTRAS [facility] T MATERIAL LOCM Q9967 [facility] [phone] Y Y MG/ML [facility] [place] [address] [facility] IM[facility] [address] [facility] ATTENUATI HOSPI ON SKULL BASE MID-THIGH FLUORODEO A9552 [facility] XYGLUCOSE 6 Y Y F-18 FDG [facility] DX UP TO 45 MCI BEHAVIORA 80461 [facility] L & 6 Y Y QUALIT [facility] ANALYSIS VOICE AND RESONANCE LARYNGOSC 11128 [facility] OPY 6 Y Y FLEXIBLE [facility] DIAGNOSTI C ANES 05042 [facility] KARI ESJOSEPHINE 6 ANESTHESI FIDELINA THYRD A GROUP LARYNX PS TRACH & LYMPH NECK 1YR CYTP EVAL 95838 [facility] FINE [address] [place] [address] NEEDLE ASPIRATE INTERP & [place] [address] [facility] SURG [address] [place] [address] PATHOLOGY GROSS&STARLA ROSCOPIC EXAM COLLECTIO 52671 [facility] N VENOUS [address] [place] [address] [place] [address] [facility] UREA [address] [place] [address] QUANTITAT JOJO CREATININ 81908 [facility] E BLOOD [address] [place] [address] GONADOTRO [id number] [facility] PIN [address] [place] [address] NG HORMONE PROSTATE [id number] [facility] CANCER 6 [facility] ; PSA TEST CREATININ 84333 [facility] B[facility] [address] [place] [address] LARYNGOSC 15610 BHARGAV[facility] BLACKURY OPY 6 [facility] C HEMOGLOBI 09988 BHARGAVI BURK N [address] [place] [address] JESSE A1C BLOOD 73202 [facility] [address] [place] [address] [place] [address] [facility] UREA [address] [place] [address] QUANTITAT JOJO COLLECTIO 11256 [facility] N VENOUS [address] [place] [address] SOFT [address]17 [facility] [place] MELANIE TISSUE 6 RADIOLOGY RHO NECK W/CONTRAS T MATERIAL LOCM Q9967 [facility] [phone] [facility] MG/ML [facility] IODINE CONCENTRA TION PER ML ELECTROLY 57046 [facility] TE PANEL [address] [place] [address] DEBRIDEME 61773 PROGRESSI PROGRESSI NT 6 VE VE SUBCUTANE PODIATRY PODIATRY OUS TISSUE 20 SQ CM/< DEBRIDEME 79789 EDDA EDDA NT 6 DEE DEE SUBCUTANE OUS TISSUE 20 SQ CM/< AFO L1970 PROGRESSI PROGRESSI PLASTIC 6 VE VE WITH PODIATRY PODIATRY ANKLE JOINT CUSTOM FABRICATE D ADD LW L2275 PROGRESSI PROGRESSI EXTRM 6 VE VE VARUS/VUL PODIATRY PODIATRY TANGELA MATTY PLSTC MOD PADD/LN DEBRIDEME 08814 EDDA EDDA NT NAIL 6 DEE DEE ANY METHOD 6/> DEBRIDEME 44602 EDDA EDDA NT 6 DEE DEE SUBCUTANE OUS TISSUE 20 SQ CM/< DEBRIDEME 88696 EDDA EDDA NT 6 DEE DEE SUBCUTANE OUS TISSUE 20 SQ CM/< RADEX 94432 MARY HERNANDEZ FOOT 6 [facility] INC MINIMUM 3 VIEWS RADIOLOGI 66611 [place] ADAM ALL C 6 MEDICAL EXAMINATI IMAGING ON FOOT 2 ASS VIEWS DEBRIDEME 15475 EDDA EDDA NT 6 DEE DEE SUBCUTANE [...] SQ/< T T W/O ADHES BORDR DEBRIDEME 61485 EDDA EDDA NT 5 DEE DEE SUBCUTANE OUS TISSUE 20 SQ CM/< DEBRIDEME 24764 EDDA EDDA NT 5 DEE DEE SUBCUTANE OUS TISSUE 20 SQ CM/< DEBRIDEME 57462 EDDA EDDA NT 5 DEE DEE SUBCUTANE OUS TISSUE 20 SQ CM/< CYSTO 02327 [facility] CALIBRATI 5 [place] PHIL ON DILAT ADULT & URTL PED STRIX/DONN NOSIS SIMPLE 68411 [facility] CYSTOMETR 5 [place] [facility] OGRAM ADULT & PED SIMPLE 91319 [facility] UROFLOMET 5 [place] [facility] RY ADULT & PED COLLAGEN A6021 ADVANCED ADVANCED DRESSING 5 TISSUE TISSUE STERILE MANAGEMEN MANAGEMEN SIZE 16 T T SQ IN/LESS EA GAUZE A6402 ADVANCED ADVANCED NON-IMPRE 5 TISSUE TISSUE G STERL MANAGEMEN MANAGEMEN 16 SQ/< T T W/O ADHES BORDR GAUZE A6266 ADVANCED ADVANCED IMPREG 5 TISSUE TISSUE NOT H2O MANAGEMEN MANAGEMEN SALINE/ZI T T NC PASTE LINR YD WALKING L4360 EDDA BAÑUELOS BOOT 5 DEE DEE PNEUMATC &/ VACUUM PREFAB CUSTM FIT DRUG SCR G0434 [facility] 5 [facility] PHIL CHROMATOG ADULT & RAPHIC; PED ANY NUMBER PT ENC ENMANUEL 04812 [facility] POST-VOID 5 [facility] PHIL ING ADULT & RESIDUAL PED URINE&/BL ADDER CAP GAUZE A6402 ADVANCED ADVANCED NON-IMPRE 5 TISSUE [...] T T NC PASTE LINR YD RADEX 05856 LAUSE FED LAUSE FED FOOT 5 COMPLETE MINIMUM 3 VIEWS BASIC 21470 [facility] METABOLIC 5 [facility] CALCIUM TOTAL ALBUMIN 26288 [facility] URINE 5 [facility] MIN QUANTIATI VE HEMOGLOBI 28079 [facility] N 5 [facility] JESSE A1C COLLECTIO 50708 [facility] N VENOUS 5 [facility] VENIPUNCT URE COLLECTIO 68868 [facility] N VENOUS 4 [facility] VENIPUNCT URE HEMOGLOBI 51817 [facility] N 4 [facility] JESSE A1C ALBUMIN 64125 [facility] URINE 4 [facility] MIN QUANTIATI VE PROSTATE G0103 [facility] CANCER [address] [place] [address] ; PSA TEST BASIC 88247 [facility] METABOLIC [address] [place] [address] CALCIUM TOTAL LIPID 53276 [facility] PANEL [address] [place] [address] HEPATIC 96745 [facility] FUNCTION [address] [place] [address] [facility] A5512 [facility] ELITE ONLY MX 4 MEDICAL MEDICAL DNSITY SUPPLY SUPPLY INS[facility] FORMD PRFAB EA DIAB ONLY A5500 EL[facility] ELITE FIT CSTM 4 MEDICAL MEDICAL PREP&SPL SUPPLY SUPPLY SHOE [facility] DNSITY INSRT CATARACT 67006 [place] ERICK REMOVAL 4 MEDICAL JR ANY INSERTION SERV OF LENS FOUNDATIO Encounters Encounter Start End Date Code Location Performer Type Date OFFICE 92140 SANDY ANTONIO OUTPATIEN 7 7 HEALTH T VISIT SOLUTIONS 25 IN MINUTES [facility] UK - 7 7 HEALTHCAR OUTPATIEN E T HOSPITALS OFFICE 66981 OUTPATIEN 7 7 [facility]ALTHCAR T VISIT 5 E MINUTES [facility]OSPITALS OFFICE 66639 [facility] 7 7 HEALTH T VISIT SOLUTIONS 15 IN MINUTES [facility] - 7 7 [facility] INPATIENT INC OFFICE 41798 OUTPATIEN 7 7 HEALTHCAR T VISIT 5 E MINUTES HOSP[facility]ALS [facility] - 7 7 [facility] OUTPATIEN E T HOSPITALS OFFICE 88399 NARENDRA AOUAMary Lou OUTPATIEN 7 7 MEDICAL T VISIT SERV 15 FOUNDATIO MINUTES N OFFICE 37322 NARENDRA JOSELINE OUTPATIEN 7 7 MEDICAL T VISIT SERV 25 FOUNDATIO MINUTES N OFFICE 76353 [facility] T VISIT SOLUTIONS 25 IN MINUTES EMERGENCY 74717 [facility] 7 7 GRACIE DEPARTMEN EMERGENCY T VISIT PHYS HIGH/URGE NT SEVERITY [facility]OSP[facility] - 7 7 [facility] OUTPATIEN INC T OFFICE 29415 [facility] 7 7 HEALTH T VISIT SOLUTIONS 15 IN MINUTES OFFICE 32755 [facility] 7 7 HEALTH T VISIT SOLUTIONS 25 IN MINUTES [facility] - 7 7 HEALTHCAR OUTPATIEN E T HOSPITALS EMERGENCY 52403 M[facility] 7 7 MEM [facility] DEPARTMEN INC T VISIT HIGH/URGE NT SEVERITY EMERGENCY 72490 NARENDRA LOVE DEPT 7 7 MEDICAL VISIT SERV HIGH FOUNDATIO SEVERITY& N THREAT [facility] MARY - 7 7 [facility] OUTPATIEN INC T EMERGENCY 11035 JOE SWEENEY DEPT 7 7 PHYSICIAN U VISIT S, PLL HIGH SEVERITY& THREAT [facility] - 6 6 HEALTHCAR OUTPATIEN E T HOSPITALS OFFICE 40490 OUTPATIEN 6 6 HEALTHCAR T VISIT 5 E MINUTES HOSPITALS [facility] - 6 6 [facility] OUTPATIEN E T HOSPITALS OFFICE 22689 [facility] 6 6 [place] ROMEL T VISIT PHYSICIAN 25 S ASSIST MINUTES OFFICE 46733 OUTPATIEN 6 6 HEALTHCAR T VISIT 5 E MINUTES [facility] OFFICE 61796 [facility] 6 6 PHYSICIAN T VISIT S GROUP MINUTES [facility] - 6 6 [facility]IT - 6 6 Y [facility] T OFF[facility] 90291 [facility] 6 6 Y T VISIT 5 HOSPITAL [facility] [address]76 [place] JOSELINE [facility] 6 6 MEDICAL T VISIT SERV 25 FOUNDATIO MINUTES N OFFICE 38287 [facility] 6 6 [place] ADA T VISIT PHYSICIAN 25 S ASSIST MINUTES [facility]OSP[facility] - 6 6 [facility]ALTHCAR OUTPATIEN E T HOSPITALS OFFICE 63671 [facility] EMERGENCY DEPARTMENTEN 6 6 HEALTHCAR T VISIT 5 E MINUTES HOSPITALS HOME [facility], 6 6 HOME INPATIENT HEALTH [facility] - 6 [facility] 37630 [facility] 6 6 Y T VISIT 5 HOSPITAL [facility] OFFICE 56817 [place] MINION [facility] 6 6 MEDICAL JACK T VISIT SERV 10 FOUNDATIO MINUTES N HOME [facility] 6 6 HOME [facility] - 6 6 Y INPATIENT HOSPITAL OFFICE 93618 [facility] SANTACR[facility] OUTPATIEN 6 6 JAMES RAMIREZ T VISIT 15 MINUTES EMERGENCY 27845 NARENDRA CLAROS DEPT 6 6 MEDICAL NAYELI VISIT SERV HIGH FOUNDATIO SEVERITY& N THREAT [facility] OFFICE 58454 [facility] 6 6 Y T VISIT 5 HOSPITAL MINUTES HOME [facility], 6 6 HOME INPATIENT HEALTH AGENCY EMERGENCY 50092 JOE JONES DEPT 6 6 PHYSICIAN STARLA VISIT S, PLLC HIGH SEVERITY& THREAT [facility] MARY - 6 6 MEM HOS[facility] OUTPATIEN INC T EMERGENCY 65712 [facility] 6 6 MEM [facility] DEPARTMEN INC T VISIT HIGH/URGE NT SEVERITY OFFICE 68371 [facility] SANTACRU[facility] OUTPATIEN 6 6 JAMES JAMES T VISIT 15 MINUTES HOSPITAL UNIVERSIT - 6 6 Y [facility] T OFFICE 03932 [facility] 6 6 [place] ADA T VISIT PHYSICIAN 15 S ASSIST MINUTES HOSPITAL UNIVERSIT [facility] 6 6 Y [facility] T OFFICE 10592 [facility] 6 6 Y T VISIT 5 HOSPITAL MINUTES HOME [facility], 6 6 HOME INPATIENT [facility] UNIVERSIT - 6 6 Y INPATIENT HOSPITAL EMERGENCY 97728 NARENDRA SHAH DEPT 6 6 MEDICAL STARLA VISIT SERV HIGH FOUNDATIO SEVERITY& N THREAT [facility] UNIVERSIT - 6 6 Y [facility] UNIVERSIT - 6 6 Y [facility] 6 6 [facility] - 6 6 Y [facility] T OFFICE 87163 NEETA SANTACRUZ [facility] 6 6 JAMES JAMES T VISIT 15 MINUTES OFFICE 36823 KMSF POLY [facility] 6 6 NURSE MIR T VISIT PRACTITIO 25 NER GR [facility] UNIVERSIT [facility] 6 6 Y [facility] T OFFICE 51312 [facility] 6 6 Y T VISIT 5 HOSPITAL [facility] - 6 6 Y [facility] T OFFICE 22967 NARENDRA JAMES [facility] 6 6 MEDICAL T NEW 45 SERV MINUTES FOUNDATIO N OFFICE 29559 NARENDRA MASONMary Lou LAN [facility] 6 6 MEDICAL T VISIT SERV 25 FOUNDATIO [facility] UNIVERSIT - 6 6 Y [facility] T OFF[facility] 22528 [facility] 6 6 [place] ADA ION PHYSICIAN NEW/ESTAB S ASSIST PATIENT 60 MIN [facility] UNIVERSIT - 6 6 [facility] T OFFICE 65800 BHARGAVI BLACKURY [facility] 6 6 PHYSCIAN LES T VISIT PRACTICE 15 LL MINUTES OFFICE 96159 NEETA SANTACRUZ [facility] 6 6 JAMES JAMES T VISIT 15 MINUTES [facility] [place] [facility] [address] [facility] T OFF[facility] 30722 [facility] 6 6 PHYSCIAN LES ION PRACTICE NEW/ESTAB LL PATIENT 60 MIN [facility] - [address] [facility] T OFFICE 80898 NEETA SANTACRUZ [facility] 6 6 JAMES JAMES T VISIT 15 MINUTES OFFICE 82762 NEETA NEETA OUTPATIEN 6 6 JAMES JAMES T VISIT 15 MINUTES OFFICE 13430 [facility] OUTPATIEN 6 6 T VISIT 15 MINUTES HOSPITAL [facility] - 6 6 [facility] OUTPATIEN INC T OFFICE 60633 NEET[facility] NEETA OUTPATIEN 5 5 JAMES JAMES T VISIT 15 MINUTES OFFICE 52754 [facility] 5 5 [facility] VILLARREAL T VISIT ADULT & 25 PED MINUTES OFFICE 87726 [facility] 5 5 [facility] PHIL ION ADULT & NEW/ESTAB PED PATIENT 60 MIN OFFICE 97854 NEET[facility]A OUTPATIEN 5 5 JAMES JAMES T VISIT 15 MINUTES OFFICE 40788 [facility] FED LAUSE FED OUTPATIEN 5 5 T VISIT 15 MINUTES OFFICE 83171 [facility] FED [facility] FED OUTPATIEN 5 5 T VISIT 15 MINUTES OFFICE 27322 LA[facility] FED [facility] FED OUTPATIEN 5 5 T VISIT 15 MINUTES OFFICE 69910 LAUSE FED [facility]USE FED OUTPATIEN 5 5 T VISIT 15 MINUTES OFFICE 21047 NEETA NEETA OUTPATIEN 5 5 JAMES JAMES T VISIT 15 MINUTES OFFICE 42065 LAUSE FED LAUSE FED OUTPATIEN 5 5 T VISIT 15 MINUTES OFFICE 39359 LAUSE FED LAUSE FED OUTPATIEN 5 5 T VISIT 15 MINUTES OFFICE 36064 NEETA NEETA OUTPATIEN 5 5 JAMES JAMES T VISIT 25 MINUTES OFFICE 52579 LAUSE FED LAUSE FED OUTPATIEN 5 5 T VISIT 15 MINUTES OFFICE 58324 LAUSE FED LAUSE FED OUTPATIEN 5 5 T VISIT 15 MINUTES OFFICE 50798 NEETA NEETA OUTPATIEN 5 5 JAMES JAMES T VISIT 15 MINUTES OFFICE 92675 LAUSE FED LAUSE FED OUTPATIEN 5 5 T VISIT 15 MINUTES OFFICE 88862 LAUSE FED LAUSE FED OUTPATIEN 5 5 T VISIT 15 MINUTES OFFICE 10126 NEETA NEETA OUTPATIEN 5 5 JAMES JAMES T VISIT 15 MINUTES OFFICE 86303 NEETA NEETA OUTPATIEN 5 5 JAMES JAMES T VISIT 25 MINUTES OFFICE 88961 [facility] OUTPATIEN 5 5 JAMES JAMES T VISIT 15 MINUTES OFFICE 88515 [facility]ET[facility] OUTPATIEN 5 5 JAMES JAMES T VISIT 15 MINUTES [facility] [place] [address] [facility] T OFFICE 46481 NEETA NEETA OUTPATIEN 5 5 JAMES JAMES T VISIT 15 MINUTES OFFICE 99830 NEETA [facility]ETA OUTPATIEN 4 4 JAMES JAMES T VISIT 15 MINUTES OFFICE 51550 LAUSE FED LAUSE FED OUTPATIEN 4 4 T NEW 30 MINUTES OFFICE 74824 NEETA NEETA OUTPATIEN 4 4 JAMES JAMES T VISIT 15 MINUTES OFFICE 15986 NEETA NEETA OUTPATIEN 4 4 JAMES JAMES T VISIT 15 MINUTES [facility] [address] [facility] T OFFICE 24935 PRIMARY NEETA OUTPATIEN 4 4 HEALTH JAMES T VISIT ASSOCIATE 15 S PS MINUTES OFFICE 22462 PR[facility] OUTPATIEN 4 4 HEALTH JAMES T VISIT ASSOCIATE 15 S PS MINUTES
--- OUTSIDE RECORDS SUMMARY | 2017-03-25 22:28 | External Medical Summary Rpt | CCD ---
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 Role Phone [facility], [facility] Unavailable Unavailable [facility], [facility] Unavailable Unavailable [facility] Unavailable Unavailable MANAGEMENT, [facility] MANAGEMENT [facility] Unavailable Unavailable MANAGEMENT, [facility] MANAGEMENT [facility] , Unavailable Unavailable [facility] [place], Unavailable Unavailable [facility] [place] ENZO LOW, ENZO Unavailable Unavailable LOW AOUAD, [...] Unavailable ADAM ALL, ADAM ALL Unavailable Unavailable [facility] Unavailable [facility]available [facility], [facility] Un[facility] Unavailable [facility], [facility] NEETA, NEETA Unavailable Unavailable NEETA, NEETA Unavailable Unavailable NEETA JAMES, NEETA Unavailable Unavailable JAMES NEETAREZA RAMIREZ, NEETA Unavailable Unavailable JAMES SHARI STARLA, MCCARTHY Unavailable Unavailable STARLA EDDA DEE, EDDA Unavailable Unavailable DEE [facility], Unavailable Unavailable [facility] Unavailable Unavailable ADULT & PED, [facility] CLARKE JAG, CLARKE [...] Unavailable Unavailable ROMEL VINCENT, VINCENT Unavailable Unavailable [facility] Unavailable Unavailable INC, [facility] Unavailable Unavailable HOSPITAL P, [facility] POLY MIR, Unavailable Unavailable POLY MIR CURTIS-MURILLO ELSIE, Unavailable Unavailable CURTIS-MURILLO ELSIE [facility], Unavailable Unavailable [facility] MASTERSON, MASTERSON Unavailable Unavailable PACO, PACO Unavailable Unavailable [facility] Unavailable Unavailable [place], [facility] Unavailable Unavailable [place], [facility] VONDA BROADDUS CHR, VONDA Unavailable Unavailable BROADDUS CHR JUSTICE, JUSTICE Unavailable Unavailable [facility] Unavailable Unavailable IMAGING [facility], [facility] NURSE Unavailable Unavailable PRACTITIONER GR, KM NURSE [...] LLC PARASRAMKA NOMAN, Unavailable Unavailable PARASRAMKA NOMAN [facility] Unavailable Unavailable EMS, [facility] Unavailable Unavailable EMS, [facility], Unavailable Unavailable PLL[facility], [facility], [facility] Unavailable Unavailable [facility] [...] LILLY [facility]available Unavailable HEALTH[facility]ARE Unavailable Unavailable HOSPITALS, [facility], Unavailable Unavailable [facility] Unavailable Unavailable [place] [facility], [facility] PLUMMER TEREZA, PLUMMER TEREZA Unavailable Unavailable [facility] Un[facility], [facility] [...] WITHOUT COMPLICATIO NS J189 PNEUMONIA 09-03-2016 [place] UNSPECIFIED MEDICAL ORGANISM IMAGING ASS J432 CENTRILOBUL 09-03-2016 [place] AR MEDICAL EMPHYSEMA IMAGING ASS R05 COUGH 09-03-2016 [facility] R0902 HYPOXEMIA 09-03-2016 [place] [facility]ICAL IMAGING ASS [id number] POISONING 09-03-2016 [facility] NARCOT[facility] INC ACCIDENTAL INIT ENC Z931 GASTROSTOMY 09-03-2016 [facility] INC C101 MALIGNANT 09-02-2016 [place] [facility] NEOP[facility] SERV ANTERIOR [facility]ATION SURFACE EPIGLOTTIS C7989 SECONDARY 09-02-2016 [place] [facility] MALIGNA[place] SERV NEOPLASM FOUNDATION OTH SPECIFIED SITES I10 ESSENTIAL 09-02-2016 [facility] N R404 TRANSIENT 09-02-2016 [facility] EMS AWARENESS R413 OTHER 09-02-2016 [place] AMNESIA MEDICAL IMAGING ASS R4182 ALTERED 09-02-2016 [facility] MENTAL [facility], STATUS PLLC UNSPECIFIED Z08 ENCOUNTER 09-02-2016 [place] [facility] F/U EXAM SERV AFTER CMPL FOUNDATION [place] MALIG NEOPLASM Z8619 PERSONAL 09-02-2016 [place] [facility] HISTORY OTH SERV INFECTIOUS FOUNDATION & PARASITIC DZ Z923 PERSONAL 09-02-2016 [place] [facility] H[place] OF SERV IRRADIATION FOUNDATION T54406 WRIST DROP 08-19-2016 [facility] N EMERGENCY PHYS A80429 PAIN IN 08-19-2016 [facility] RIGHT WRIST HEALTH SOLUTIONS IN N92626 PAIN IN 08-19-2016 [facility] [place] RIGHT RADIOLOGY FOREARM E06158 PAIN IN 08-19-2016 [facility] RIGHT HAND HEALTH SOLUTIONS IN O82828 PAIN IN 08-12-2016 [facility] ARM [facility] INC R202 PARESTHESIA 08-12-2016 [facility] OF SKIN [facility] INC I9589 OTHER 07-28-2016 [facility] HYPOTENSION HEALTH SOLUTIONS IN E07545 FLAIL JOINT 07-28-2016 [facility] RIGHT HEALTH WRIST SOLUTIONS IN D210 SAIRA 07-21-2016 [facility] NEOPLASM HEALTH CNCTV OTH SOLUTIONS SOFT TISS IN HEAD FACE NECK R000 TACHYCARDIA 07-21-2016 [facility] HEALTH UNSPECIFIED SOLUTIONS IN P13443 NON-PRSS 07-08-2016 [facility] PART HOSPITALS UNS FOOT UNS SEVERITY I348 OTHER 07-04-2016 [place] [facility] NONRHEUMATI SERV C MITRAL FOUNDATION VALVE DISORDERS I350 NONRHEUMATI 07-04-2016 [place] [facility] C AORTIC SERV VALVE FOUNDATION STENOSIS I4891 UNSPECIFIED 07-04-2016 [place] [facility] ATRIAL SERV FIBRILLATIO FOUNDATION N N86354 FACIAL 07-04-2016 [place] [facility] WEAKNESS SERV F[facility] R531 WEAKNESS 07-04-2016 [place] [facility] SERV [facility] E1169 TYPE 2 07-03-2016 [facility] DIABETES PHYSICIANS, MELLITUS PLLC W/OTH SPEC COMPLICATIO N E669 OBESITY 07-03-2016 [facility] UNSPECIFIED PHYSICIANS, PLLC G459 TRANSIENT 07-03-2016 [place] [facility] CEREBRAL SERV ISCHEMIC FOUNDATION ATTACK UNSPECIFIED G8191 HEMIPLEGIA 07-03-2016 [facility] P RIGHT DOMINANT SIDE I440 ATRIOVENTRI 07-03-2016 [place] [facility] CULAR BLOCK SERV FIRST FOUNDATION DEGREE I498 OTHER 07-03-2016 [place] [facility] SPECIFIED SERV CARDIAC FOUNDATION ARRHYTHMIAS I639 CEREBRAL 07-03-2016 [facility] INFARCTION PHYSICIANS, UNSPECIFIED PLLC I6523 OCCLUSION & 07-03-2016 [place] [facility] STENOSIS SERV BILATERAL FOUNDATION CAROTID ARTERIES J984 OTHER 07-03-2016 [place] [facility] DISORDERS SERV OF LUNG FOUNDATION R9431 ABNORMAL 07-03-2016 [place] [facility] ELECTROCARD SERV IOGRAM FOUNDATION Z720 TOBACCO USE 07-03-2016 [facility] P Z7401 BED 07-03-2016 [facility] CONFINEMENT [place] STATUS 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 [facility] 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 USE [facility]OS[facility] OF INSULIN INC S77195 NON-PRSS 06-16-2016 [facility] P FT W/UNS SEVERITY R42 DIZZINESS 06-16-2016 [facility] AND PHYSICIANS, GIDDINESS PLLC R5383 OTHER 06-16-2016 [facility] FATIGUE PHYSICIANS, PLLC G8929 OTHER 05-27-2016 [facility] V85264 OTHER 05-27-2016 [place] [facility] SECONDARY SERV CATARACT FOUNDATION LEFT EYE Z961 PRESENCE OF 05-27-2016 [place] [facility] SERV INTRAOCULAR [facility] LENS E1100 TYPE 2 DM 05-18-2016 [facility] W/HYPEROSMO PHYSICIANS LARITY W/O GROUP NKHHC I739 PERIPHERAL 05-18-2016 [facility] VASCULAR PHYSICIANS DISEASE GROUP UNSPECIFIED R221 LOCALIZED 04-22-2016 [facility] MASS AND LUMP NECK R599 ENLARGED 04-22-2016 [place] [facility] LYMPH NODES SERV FOUNDATION UNSPECIFIED P93148 TYPE 2 04-08-2016 [place] [facility] DIABETES SERV MELLITUS FOUNDATION WITH OTHER SKIN ULCER R490 DYSPHONIA 04-08-2016 [facility] C770 SEC & UNS 04-03-2016 [facility] LYMPH NODES [facility] HEAD FACE & NECK J3489 OTHER 04-03-2016 [place] [facility] SPECIFIED SERV DISORDERS FOUNDATION NOSE AND NASAL SINUSES R1310 DYSPHAGIA 04-03-2016 [facility] R918 OTHER 04-03-2016 [place] [facility] NONSPECIFIC SERV ABNORMAL FOUNDATION FINDING OF LUNG FIELD M6281 MUSCLE 03-16-2016 [facility] GENERALIZED AGENCY S11868 OTHER ACUTE 03-16-2016 [facility] OSTEOMYELIT AGENCY IS RIGHT ANKLE AND FOOT R269 UNSPECIFIED 03-16-2016 [facility] ABNORMALITI AGENCY ES OF GAIT AND MOBILITY K39999H UNSPECIFIED 03-16-2016 [facility] OPEN WOUND HEALTH RIGHT FOOT AGENCY SUBSEQUENT ENC Z431 ENCOUNTER 03-16-2016 [facility] FOR HEALTH ATTENTION AGENCY TO GASTROSTOMY Z4800 ENCOUNTER 03-16-2016 [facility] CHANGE/[facility] RINKU NONSURG AGENCY WOUND DRESSING M1990 UNSPECIFIED 03-12-2016 [facility] OSTEOARTHRI TIS UNSPECIFIED SITE C77689 ACQUIRED 03-12-2016 [place] [facility] ABSENCE OF SERV OTHER RIGHT FOUNDATION TOES A419 SEPSIS 02-19-2016 [facility] NURSE UNSPECIFIED PRACTITIONE ORGANISM R GR C4442 SQUAMOUS 02-19-2016 [facility] NURSE CELL PRACTITIONE CARCINOMA R GR OF SKIN OF SCALP & NECK N99854 TYPE 2 02-19-2016 [facility] NURSE DIABETES PRACTITIONE MELLITUS R GR WITH FOOT ULCER C34988 OTHER 02-18-2016 [place] [facility] CHRONIC SERV OSTEOMYELIT FOUNDATION IS RIGHT ANKLE AND FOOT R609 EDEMA 02-18-2016 [place] [facility] UNSPECIFIED SERV FOUNDATION R7989 OTHER SPEC 02-18-2016 [place] [facility] ABNORMAL [place] FINDINGS [facility]OUNDATION BLOOD CHEMISTRY E1140 TYPE 2 DM 02-14-[address] 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 I959 HYPOTENSION 02-13-2016 NEETA JAMES UNSPECIFIED H65792 PERSONAL 02-13-2016 [place] [facility] HISTORY SERV OTHER FOUNDATION MALIGNANT NEOPLASM SKIN O84919 PERSONAL 02-13-2016 [place] [facility] [place] OF SERV PULMONARY FOUNDATION EMBOLISM E1122 TYPE 2 01-24-2016 [facility] DIABETES PHYSICIANS MELLITUS GROUP W/DIAB CHRON KIDNEY DZ I129 HYPERTENSIV 01-24-2016 [facility] E CKD PHYSICIANS W/STAGE 1-4 GROUP CKD OR UNS CKD N189 CHRONIC 01-24-2016 [facility] KIDNEY PHYSICIANS DISEASE GROUP UNSPECIFIED D649 ANEMIA 01-23-2016 [facility] UNSPECIFIED PHYSICIANS, PLLC M1711 UNILATERAL 01-23-2016 [place] PRIMARY MEDICAL OSTEOARTHRI IMAGING ASS TIS RIGHT KNEE S21755 PAIN IN 01-23-2016 [place] UNSPECIFIED MEDICAL HIP IMAGING ASS R93206 PAIN IN 01-23-2016 [place] RIGHT KNEE MEDICAL IMAGING ASS N289 DISORDER OF 01-23-2016 [facility] KIDNEY AND PHYSICIANS, URETER PLLC UNSPECIFIED R079 CHEST PAIN 01-23-2016 [place] UNSPECIFIED MEDICAL IMAGING ASS R51 HEADACHE 01-23-2016 [place] MEDICAL IMAGING ASS G2535KE UNSPECIFIED 01-23-2016 [place] INJURY OF MEDICAL HEAD IMAGING ASS INITIAL ENCOUNTER Y8729GR UNSPECIFIED 01-23-2016 [place] INJURY OF MEDICAL PELVIS IMAGING ASS INITIAL ENCOUNTER T47325D LACERATION 01-23-2016 [place] W/O FOREIGN MEDICAL BODY RT IMAGING ASS KNEE INITIAL ENC T148 OTHER 01-23-2016 [facility] INJURY OF PHYSICIANS, UNSPECIFIED PLLC BODY REGION Z9181 HISTORY OF 01-23-2016 [facility] A4189 OTHER 01-03-2016 [place] [facility] SPECIFIED SERV SEPSIS FOUNDATION I6782 CEREBRAL 01-03-2016 [place] [facility] ISCHEMIA SERV FOUNDATION J341 CYST AND 01-03-2016 [place] [facility] MUCOCELE OF SERV NOSE AND FOUNDATION NASAL SINUS L598 OTH SPEC 01-03-2016 [place] [facility] D/O THE SERV SKIN & SUBQ FOUNDATION TISS RELATED TO RAD L8990 PRESSURE 01-03-2016 [facility] UNS AMBULANCE SITE UNSPECIFIED STAGE W40820 SPONDYLOSIS 01-03-2016 [place] [facility] W/O SERV MYELOPATH/R FOUNDATION ADICULOPATH Y LUMB RGN M869 OSTEOMYELIT 01-03-2016 [place] [facility] IS SERV UNSPECIFIED FOUNDATION N179 ACUTE 01-03-2016 [place] [facility] KIDNEY SERV FAILURE FOUNDATION UNSPECIFIED L13UBDK UNSPECIFIED 01-03-2016 [place] [facility] FALL SERV INITIAL FOUNDATION ENCOUNTER Z043 ENCOUNTER 01-03-2016 [place] [facility] EXAM & SERV OBSERVATION FOUNDATION FOLLOW OTH ACCIDENT I82C12 ACUTE 01-02-2016 [place] [facility] EMBOLISM & SERV THROMB LT FOUNDATION INTERNAL JUGULAR VEIN M6282 RHABDOMYOLY 01-02-2016 [facility] SIS N170 ACUTE RENAL 01-02-2016 [place] [facility] FAILURE SERV WITH FOUNDATION TUBULAR NECROSIS D75262 CELLULITIS 12-30-2015 [place] [facility] OF RIGHT SERV LOWER LIMB FOUNDATION D696 THROMBOCYTO 12-24-2015 [place] [facility] PENIA SERV UNSPECIFIED FOUNDATION J690 PNEUMONITIS 12-24-2015 [place] [facility] DUE TO SERV INHALATION FOUNDATION OF FOOD AND VOMIT V90GZHU RADIATION 12-23-2015 [place] [facility] SICKNESS SERV UNSPECIFIED FOUNDATION INITIAL ENCOUNTER E876 HYPOKALEMIA 12-20-2015 [place] [facility] SERV [facility] R509 FEVER 12-16-2015 [place] [facility] UNSPECIFIED SERV FOUNDATION K121 OTHER FORMS 12-15-2015 [place] [facility] OF SERV STOMATITIS FOUNDATION R339 RETENTION 12-15-2015 [place] [facility] OF URINE SERV UNSPECIFIED FOUNDATION K60410 NON-PRSS 12-10-2015 [place] [facility] CHR ULCR SERV UNS PART RT FOUNDATION LOW LEG UNS SEV I96 GANGRENE 12-03-2015 [place] [facility] NOT SERV ELSEWHERE FOUNDATION CLASSIFIED M868X6 OTHER 12-03-2015 [place] [facility] OSTEOMYELIT SERV IS LOWER FOUNDATION LEG C4492 SQUAMOUS 12-02-2015 [place] [facility] CELL SERV CARCINOMA FOUNDATION OF SKIN, UNSPECIFIED D17140 ACUTE 12-02-2015 [place] [facility] EMBOLISM & SERV THROMBOSIS FOUNDATION DEEP VEINS LT UP EXT K5909 OTHER 12-02-2015 [place] [facility] CONSTIPATIO SERV N FOUNDATION D64505 PERSONAL 12-02-2015 [place] [facility] HISTORY OF SERV NICOTINE FOUNDATION DEPENDENCE Z466 ENCOUNTER 12-01-2015 [place] [facility] FITTING AND SERV ADJUSTMENT FOUNDATION URINARY DEVICE L50353 PAIN IN 11-30-2015 [place] [facility] LEFT SERV FOREARM FOUNDATION M868X7 OTHER 11-28-2015 [place] [facility] OSTEOMYELIT SERV IS ANKLE FOUNDATION AND FOOT R740 NONSPECIFIC 11-21-2015 [place] [facility] E[place] SERV LEVELS FOUNDATION TRANSAMINAS E & LDH I444 LEFT 11-20-2015 [place] [facility] ANTERIOR SERV FASCICULAR FOUNDATION BLOCK G8918 OTHER ACUTE 11-19-2015 [place] [facility] SERV POSTPROCEDU FOUNDATION RAL PAIN L929 GRANULOMATO 11-19-2015 [facility] DISORDER OF [place] THE SKIN & HOSPI SUBQ TISS UNS H32079 ELEVATED 11-18-2015 [place] [facility] WHITE BLOOD SERV CELL COUNT FOUNDATION UNSPECIFIED G92 TOXIC 11-18-2015 [facility] THY U33769 PRIMARY 11-18-2015 [place] [facility] OSTEOARTHRI SERV TIS RIGHT FOUNDATION ANKLE AND FOOT R6520 SEVERE 11-18-2015 [place] [facility] SEPSIS SERV WITHOUT FOUNDATION SEPTIC SHOCK R748 ABNORMAL 11-18-2015 [place] [facility] LEVELS OF SERV OTHER SERUM FOUNDATION ENZYMES C908ACS TRAUMATIC 11-18-2015 [facility] S EMPHYSEMA INITIAL ENCNTR Z510 ENCOUNTER 11-15-2015 [facility] ANTINEOPLAS TIC RADIATION THERAPY C320 MALIGNANT 11-12-2015 NEETA JAMES NEOPLASM OF GLOTTIS M545 LOW BACK 11-12-2015 NEET[facility] JAMES PAIN G893 NEOPLASM 11-07-2015 S NURSE RELATED PRACTITIONE PAIN ACUTE R GR CHRONIC Z809 FAMILY 11-07-2015 [facility] NURSE HISTORY OF PRACTITIONE MALIGNANT R GR NEOPLASM UNSPECIFIED D020 CARCINOMA 10-22-2015 [place] [facility] IN SITU OF SERV LARYNX FOUNDATION D0008 CARCINOMA 10-08-2015 [facility] PHARYNX C100 MALIGNANT 10-02-2015 [place] NEOPLASM OF [facility] J387 OTHER 10-02-2015 [place] DISEASES OF PHYSCIAN LARYNX PRACTICE LL R590 LOCALIZED 10-02-2015 [place] ENLARGED PHYSCIAN LYMPH NODES PRACTICE LL A82231 PRESSURE 09-24-2015 PRO[facility] ULCER OF PODIATRY OTHER SITE STAGE 3 B351 TINEA 07-25-2015 PROGR[facility] UNGUIUM PODIATRY I890 LYMPHEDEMA 07-25-2015 PRO[facility] NOT PODIATRY ELSEWHERE CLASSIFIED Z32348 SPONTANEOUS 07-25-2015 PROGR[facility] RUPTURE PODIATRY FLEXOR TENDONS RT ANKLE FOOT A13262 PAIN IN 07-25-2015 [facility] RIGHT FOOT PODIATRY E53462 PAIN IN 07-25-2015 PRO[facility] RIGHT TOES PODIATRY J02548 PAIN IN 07-25-2015 [facility] LEFT TOES PODIATRY O04385 FURUNCLE 07-16-2015 NE[facility] RIGHT HAND M7731 CALCANEAL 07-04-2015 [place] [facility] RIGHT MEDICAL FOOT IMAGING ASS J27274 NON-PRSS 05-29-2015 [facility] ULCR TISSUE OTH PART RT MANAGEMENT FOOT NECROS MUSC G629 POLYNEUROPA 05-24-2015 NEETA RAMIREZ THY UNSPECIFIED N3281 OVERACTIVE 05-02-2015 [facility] LUMPK[facility] ADULT & PED N3941 URGE 05-02-2015 [facility] INCONTINENC [place] E ADULT & PED W48426 POSTPROCEDU 05-02-2015 [facility] RAL [place] URETHRAL ADULT & PED STRICTURE MALE MEATAL R3914 FEELING OF 05-02-2015 [facility] INCOMPLETE [place] BLADDER ADULT & PED EMPTYING N401 BENIGN 04-11-2015 [facility] PROSTATIC [facility] HYPERPLASIA ADULT & PED LW URINARY TRACT SX G4700 INSOMNIA 04-08-2015 NEETA RAMIREZ UNSPECIFIED G5790 UNSPECIFIED 04-03-2015 [facility] MONONEUROPA THY UNS LOWER LIMB 76400 DIAB W/O 03-13-2015 [facility] COMP TYPE II/UNS NOT STATED UNCNTRL 3572 POLYNEUROPA 03-13-2015 [facility] THY IN DIABETES 6827 CELLULITIS 03-13-2015 [facility] AND ABSCESS OF FOOT EXCEPT TOES 81322 ULCER OF 03-13-2015 [facility] OTHER PART OF FOOT 59888 SECONDARY 02-25-2015 [facility] DM W/OTH TISSUE SPEC MANAGEMENT MANIFEST NOT UNCONTROL 4011 ESSENTIAL 01-31-2015 NEETA RAMIREZ HYPERTENSIO N, BENIGN 7242 LUMBAGO 01-31-2015 NEETA RAMIREZ 00223 INSOMNIA 01-31-2015 NEETA RAMIREZ UNSPECIFIED 98118 HORDEOLUM 01-01-2015 NEETA RAMIREZ EXTERNUM 6826 CELLULITIS 10-09-2014 NEETA RAMIREZ AND ABSCESS OF LEG EXCEPT FOOT 13608 HYPERTROPHY 09-14-2014 NEETA RAMIREZ PROSTATE W/O UR OBST & OTH LUTS 73466 UNSPECIFIED 08-20-2014 NEETA RAMIREZ ARTHROPATHY SITE UNSPECIFIED 7264 ENTHESOPATH 05-25-2014 NEETA RAMIREZ Y OF WRIST AND CARPUS 1101 DERMATOPHYT 05-08-2014 [facility] OSIS OF NAIL 7295 PAIN IN 04-27-2014 NEETA RAMIREZ SOFT TISSUES OF LIMB 4779 ALLERGIC 03-30-2014 NEETA RAMIREZ RHINITIS CAUSE UNSPECIFIED 2724 OTHER AND 03-08-2014 [place] UNSPECIFIED [facility] HYPERLIPIDE MARIA TERESA 4619 ACUTE 07-24-2013 PRIMARY SINUSITIS, [place] [address] OTHER AND 07-13-2013 [place] [facility] COMBINED SERV FORMS OF FOUNDATIO SENILE [...] 09 09 60 30 00 CA Ac AL 46 -0 -2 .0 00 RL ti OX 20 5- 9- 00 00 IS ve EN 19 20 20 78 LE 00 17 [address] 0 UG MG S TA BL ET ME 23 09 09 60 30 00 CA Ac TF 15 -0 -2 .0 00 RL ti OR 50 5- 9- 00 00 IS ve OR 10 20 20 78 LE N 21 17 [address] L UG 50 S 0 MG TA BL ET AL 59 09 09 90 30 00 CA Ac AL 76 -0 -2 .0 00 RL ti [...] NORBERTO BACH NG S MO NT H KMY X AM 16 08 09 30 30 [...] 08 09 90 30 00 CA Ac AL 76 -0 -0 .0 00 RL ti [...] 07 08 90 30 00 CA Ac AL 76 -1 -0 .0 00 RL ti [...] [address] TA OP OR NO PH PH AR EN MA CY 7. 5- 32 5 AL 59 06 07 90 30 00 CA Ac AL 76 -0 -0 .0 00 RL ti [...] 05 06 20 10 00 CA Ac AL 57 -1 -0 .0 00 RL ti [...] 05 06 90 30 00 CA Ac AL 76 -1 -0 .0 00 RL ti [...] 04 05 90 30 00 CA Ac AL 76 -1 -1 .0 00 RL ti [...] 03 04 90 30 00 CA Ac AL 76 -1 -1 .0 00 RL ti [...] [address] HUGHES UG OR S NO PH EN 7. 5- 32 [...] 02 03 90 30 00 CA Ac AL 76 -2 -1 .0 00 RL ti [...] 01 02 90 30 00 CA Ac AL 76 -2 -1 .0 00 RL ti [...] PH AR TA MA BL CY ET AL 00 01 02 12 2 00 ME [...] UG 5 S MG TA BL ET AL 00 12 01 11 6 00 CA Ac OM 60 -2 -2 8. 00 RL ti ET 31 3- 0- 00 00 IS ve CELESTIN 58 20 20 0 76 LE ZI 65 16 [address] -D UG M S SY RU P AL 59 12 01 90 30 00 CA Ac AL 76 -2 -2 .0 00 RL ti [...] Procedure DOS Code Location Performer Comment COLLECTIO 81402 [facility] ANTONIO N VENOUS 7 HEALTH BLOOD SOLUTIONS VENIPUNCT IN URE CURRENT 1034F [facility] ANTONIO TOBACCO 7 HEALTH SMOKER SOLUTIONS IN BODY MASS 3008F [facility] AN[facility] INDEX 7 HEALTH DOCUMENTE SOLUTIONS D IN TOBACCO 1000F [facility] ANTONIO USE 7 HEALTH ASSESSED SOLUTIONS IN HOME [place]; S9341 INFUSION INFUSION ENTERAL 7 PARTNERS PARTNERS NUTRITION OF OF [place]IA [place]; 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 HOME [place]; S9341 INFUSION INFUSION ENTERAL 7 PARTNERS PARTNERS NUTRITION OF OF [place]IA [place]; 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 [place]; S9341 INFUSION INFUSION ENTERAL 7 PARTNERS PARTNERS NUTRITION OF OF VIA [place]RA[place]; 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 [place]; S9341 INFUSION INFUSION ENTERAL 7 PARTNERS PARTNERS NUTRITION OF OF VIA [place]; 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 [place]; S9341 INFUSION INFUSION ENTERAL 7 PARTNERS PARTNERS NUTRITION OF OF VIA [place]; 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 [place]; S9341 INFUSION INFUSION ENTERAL 7 PARTNERS PARTNERS NUTRITION OF OF VIA [place]RA[place]; 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 HOME [place]; S9341 INFUSION INFUSION ENTERAL 7 PARTNERS PARTNERS NUTRITION OF OF VIA [place]; 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 [place]; S9341 INFUSION INFUSION ENTERAL 7 PARTNERS PARTNERS NUTRITION OF OF VIA [place]RA[place]; 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 [place]; S9341 INFUSION INFUSION ENTERAL 7 PARTNERS PARTNERS NUTRITION OF OF VIA [place]; 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 [place]; S9341 INFUSION INFUSION ENTERAL 7 PARTNERS PARTNERS NUTRITION OF OF VIA [place]; 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 [place]; S9341 INFUSION INFUSION ENTERAL 7 PARTNERS PARTNERS NUTRITION OF OF [place]IA [place]; 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 [place]; S9341 INFUSION INFUSION ENTERAL 7 PARTNERS PARTNERS NUTRITION OF OF VIA [place]; 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 [place]; S9341 INFUSION INFUSION ENTERAL 7 PARTNERS PARTNERS NUTRITION OF OF VIA [place]; 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 [place]; S934 INFUSION INFUSION ENTERAL 7 PARTNERS PARTNERS NUTRITION OF OF [place]IA [place]; 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 [place]; S934 INFUSION INFUSION ENTERAL 7 PARTNERS PARTNERS NUTRITION OF OF [place]IA [place]; 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 [place]; S934 INFUSION INFUSION ENTERAL 7 PARTNERS PARTNERS NUTRITION OF OF [place]IA [place]; 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 [place]; S934 INFUSION INFUSION ENTERAL 7 PARTNERS PARTNERS NUTRITION OF OF VIA [place]; 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 [place]; S934 INFUSION INFUSION ENTERAL 7 PARTNERS PARTNERS NUTRITION OF OF [place]IA [place]; 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 [place]; S934 INFUSION INFUSION ENTERAL 7 PARTNERS PARTNERS NUTRITION OF OF VIA [place]; 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 [place]; S934 INFUSION INFUSION ENTERAL 7 PARTNERS PARTNERS NUTRITION OF [place]; 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 [place]; S934 INFUSION INFUSION ENTERAL 7 PARTNERS PARTNERS NUTRITION OF OF [place] 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 [place]; S934 INFUSION INFUSION ENTERAL 7 PARTNERS PARTNERS NUTRITION OF OF [place]; 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 [place]; S934 INFUSION INFUSION ENTERAL 7 PARTNERS PARTNERS NUTRITION OF OF [place]; 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 [place]; S934 INFUSION INFUSION ENTERAL 7 PARTNERS PARTNERS NUTRITION OF OF [place]; 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 [place]; S9341 INFUSION INFUSION ENTERAL 7 PARTNERS PARTNERS NUTRITION OF OF [place]; 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 [place]; S9341 INFUSION INFUSION ENTERAL 7 PARTNERS PARTNERS NUTRITION OF OF [place]; 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 [place]; S9341 INFUSION INFUSION ENTERAL 7 PARTNERS PARTNERS NUTRITION OF OF [place]; 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 [place]; S9341 INFUSION INFUSION ENTERAL 7 PARTNERS PARTNERS NUTRITION OF [place]; 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 [place]; S9341 INFUSION INFUSION ENTERAL 7 PARTNERS PARTNERS NUTRITION OF OF [place]; 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 [place]; S9341 INFUSION INFUSION ENTERAL 7 PARTNERS PARTNERS NUTRITION OF OF [place]; 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 H[facility] BED [id number] [facility] SHEPHERD SEMI-ELEC 7 HOME HOME W/ANY MEDICAL MEDICAL TYPE SIDE EQUIPME EQUIPME RAIL W/MATTRSS PREALBUMI 22608 [facility] N 7 [facility] E E [facility] HOSPITALS BLOOD 62114 [facility] COUNT 7 HEALTHCAR HEALTHCAR COMPLETE E E AUTO&AUTO [facility] [place] [address] [facility] THYROID 7 [facility]ALTHCAR HEALTHCAR STIMULATI E E NG [facility] HORMONE TSH COLLECTIO 69881 [facility] N VENOUS 7 HEALTHCAR HEALTHCAR BLOOD E E VENIPUNCT [facility] URE RENAL 87721 [place] FUNCTION 7 [facility]ALTHCAR HEALTHCAR PANEL E E [facility] FOOT SANDY ANTONIO EXAMINATI 7 HEALTH ON SOLUTIONS PERFORMED IN HOME [place]; S9341 INFUSION INFUSION ENTERAL 7 PART[employer]ERS PARTNERS NUTRITION OF OF [place]; 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 [place]; S9341 INFUSION INFUSION ENTERAL 7 PARTNERS PARTNERS NUTRITION OF [place]; 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 [place]; S9341 INFUSION INFUSION ENTERAL 7 PARTNERS PARTNERS NUTRITION OF [place]; 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 [place]; S9341 INFUSION INFUSION ENTERAL 7 PARTNERS PARTNERS NUTRITION OF [place] GRAVITY; 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 HOME [place]; S9341 INFUSION INFUSION ENTERAL 7 PARTNERS PARTNERS NUTRITION OF OF [place] GRAVITY; 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; S9341 INFUSION INFUSION ENTERAL 7 [employer]ERS PARTNERS NUTRITION OF OF [place] GRAVITY; 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; S9341 INFUSION INFUSION ENTERAL 7 [employer]ERS PARTNERS NUTRITION OF OF [place] GRAVITY; 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; S9341 INFUSION INFUSION ENTERAL 7 [employer]ERS PARTNERS NUTRITION OF OF [place] GRA[place]ITY; 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; S9341 INFUSION INFUSION ENTERAL 7 [employer]ERS PARTNERS NUTRITION OF OF [place]RA[place]; 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; S9341 INFUSION INFUSION ENTERAL 7 [employer]NERS PARTNERS NUTRITION OF OF [place]RAVITY; 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; S9341 INFUSION INFUSION ENTERAL 7 [employer]NERS PARTNERS NUTRITION OF OF [place] GRAVITY; 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; S9341 INFUSION INFUSION ENTERAL 7 [employer]NERS PARTNERS NUTRITION OF OF [place] GRAVITY; 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; S9341 INFUSION INFUSION ENTERAL 7 [employer]ERS PARTNERS NUTRITION OF OF [place] GRAVITY; 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; S9341 INFUSION INFUSION ENTERAL 7 [employer]ERS PARTNERS NUTRITION OF OF [place] GRAVITY; 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 HOS BED E0260 [facility] SEMI-ELEC 7 HOME HOME W/ANY MEDICAL MEDICAL TYPE SIDE EQUIPME EQUIPME RAIL W/MATTRSS HOME [place]; S9341 INFUSION INFUSION ENTERAL 7 [employer]ERS PARTNERS NUTRITION OF OF [place] GRAVITY; 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; S9341 INFUSION INFUSION ENTERAL 7 [employer]ERS PARTNERS NUTRITION OF OF [place] GRAVITY; 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; S9341 INFUSION INFUSION ENTERAL 7 [employer]ERS PARTNERS NUTRITION OF OF [place] GRAVITY; 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; S9341 INFUSION INFUSION ENTERAL 7 [employer]NERS PARTNERS NUTRITION OF OF [place] GRAVITY; 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; S9341 INFUSION INFUSION ENTERAL 7 [employer]NERS PARTNERS NUTRITION OF OF [place]RA[place]; 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; S9341 INFUSION INFUSION ENTERAL 7 [employer]NERS PARTNERS NUTRITION OF OF [place] GRAVITY; 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; S9341 INFUSION INFUSION ENTERAL 7 [employer]NERS PARTNERS NUTRITION OF OF [place] GRAVITY; 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; S9341 INFUSION INFUSION ENTERAL 7 [employer]NERS PARTNERS NUTRITION OF OF [place] GRAVITY; 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; S9341 INFUSION INFUSION ENTERAL 7 [employer]NERS PARTNERS NUTRITION OF OF [place] GRAVITY; 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; S9341 INFUSION INFUSION ENTERAL 7 [employer]NERS PARTNERS NUTRITION OF OF [place] GRAVITY; 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; S9341 INFUSION INFUSION ENTERAL 7 [employer]NERS PARTNERS NUTRITION OF OF [place]RAVITY; 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; S9341 INFUSION INFUSION ENTERAL 7 [employer]NERS PARTNERS NUTRITION OF OF [place] GRAVITY; 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; S9341 INFUSION INFUSION ENTERAL 7 [employer]NERS PARTNERS NUTRITION OF OF [place] GRAVITY; 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; S9341 INFUSION INFUSION ENTERAL 7 [employer]ERS PARTNERS NUTRITION OF OF [place] GRAVITY; 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 BED E0260 [facility] SHEPHERD SEMI-ELEC 7 HOME HOME W/ANY MEDICAL MEDICAL TYPE SIDE EQUIPME EQUIPME RAIL W/MATTRSS HOME [place]; S9341 INFUSION INFUSION ENTERAL 7 [employer]ERS PARTNERS NUTRITION OF OF [place] GRAVITY; 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; S9341 INFUSION INFUSION ENTERAL 7 [employer]ERS PARTNERS NUTRITION OF OF [place] GRAVITY; 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; S9341 INFUSION INFUSION ENTERAL 7 [employer]NERS PARTNERS NUTRITION OF OF [place] GRAVITY; 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; S9341 INFUSION INFUSION ENTERAL 7 [employer]NERS PARTNERS NUTRITION OF OF [place] GRAVITY; 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; S9341 INFUSION INFUSION ENTERAL 7 [employer]NERS PARTNERS NUTRITION OF OF [place] GRAVITY; 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; S9341 INFUSION INFUSION ENTERAL 7 [employer]NERS PARTNERS NUTRITION OF OF [place] GRAVITY; 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; S9341 INFUSION INFUSION ENTERAL 7 [employer]NERS PARTNERS NUTRITION OF OF [place] GRAVITY; 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; S9341 INFUSION INFUSION ENTERAL 7 [employer]ERS NUTRITION OF OF [place] GRAVITY; 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 CT THORAX 41637 MIHAI ADAM 7 MEDICAL W/CONTRAS IMAGING T ASS MATERIAL FINAL G9638 MIHAI ADAM REPORTS 7 MEDICAL W/O DOC IMAGING 1/MORE ASS DOSE REDUCTION TECH FINAL RPT G[address]/MRI 7 MEDICAL CHEST/NCK IMAGING /U/S NO ASS THR NOD<1.0 CM BLOOD 17398 [facility] COUNT 7 [facility] COMPLETE E E AUTO&AUTO [facility] DIFRNTL WBC COLLECTIO 52016 [facility] N VENOUS 7 [facility] BLOOD E E VENIPUNCT [facility] [place] [place] [address] [facility] THYROID 7 [facility] STIMULATI E E NG [facility] [place] [address] [facility] FREE 7 [facility] THYROXINE [place] [address] [facility] TRIIODOTH 7 [facility]ALTH[facility] YRONINE E E T3 TOTAL [facility] TT3 FINAL G9638 MIHAI ADAM REPORTS 7 MEDICAL W/O DOC IMAGING 1/MORE ASS DOSE REDUCTION TECH RADIOLOGI 96127 MIHAI ADAM C 7 MEDICAL EXAMINATI IMAGING [place] [address] MIHAI ADAM HEAD/BRAI 7 MEDICAL N W/O IMAGING CONTRAST ASS MATERIAL CRITICAL 33489 [facility] 7 PHYSICIAN ILL/[facility]JUR S, [facility] ED PATIENT INIT 30-74 MIN HOME [place]; S9341 INFUSION INFUSION ENTERAL 7 [employer]ERS NUTRITION OF OF [place] GRAVITY; 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 COMPREHEN 83719 [facility] SIVE 7 [facility] METABOLIC E E PANEL [facility] AMBULANCE A[address] [facility] TRANSPORT GROUND A0425 [facility] [address] [facility] [place]; S9341 INFUSION INFUSION ENTERAL 7 [employer] PARTNERS NUTRITION OF OF [place] GRAVITY; 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; S9341 INFUSION INFUSION ENTERAL 7 [employer]NERS PARTNERS NUTRITION OF OF [place] GRAVITY; 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; S9341 INFUSION INFUSION ENTERAL 7 [employer]ERS PARTNERS NUTRITION OF OF [place]RAVITY; 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 S9341 INFUSION INFUSION ENTERAL 7 [employer]NERS PARTNERS NUTRITION OF OF [place] GRAVITY; 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; S9341 INFUSION INFUSION ENTERAL 7 [employer] PARTNERS NUTRITION OF OF [place]RAVITY; 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; S9341 INFUSION INFUSION ENTERAL 7 [employer]NERS PARTNERS NUTRITION OF OF [place] GRAVITY; 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; S9341 INFUSION INFUSION ENTERAL 7 [employer]NERS PARTNERS NUTRITION OF OF [place] GRAVITY; 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; S9341 INFUSION INFUSION ENTERAL 7 [employer]NERS PARTNERS NUTRITION OF OF [place] GRAVITY; 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; S9341 INFUSION INFUSION ENTERAL 7 [employer]NERS PARTNERS NUTRITION OF OF [place] GRAVITY; 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; S9341 INFUSION INFUSION ENTERAL 7 [employer]NERS PARTNERS NUTRITION OF OF [place] GRAVITY; 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; S9341 INFUSION INFUSION ENTERAL 7 [employer]NERS PARTNERS NUTRITION OF OF [place] GRAVITY; 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; S9341 INFUSION INFUSION ENTERAL 7 [employer]ERS PARTNERS NUTRITION OF OF [place] GRAVITY; 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; S9341 INFUSION INFUSION ENTERAL 7 [employer]ERS [employer]NERS NUTRITION OF OF [place] GRAVITY; 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 HOS BED E0260 [facility] SEMI-ELEC 7 HOME HOME W/ANY MEDICAL MEDICAL TYPE SIDE EQUIPME EQUIPME RAIL W/MATTRSS RADEX 69556 [facility] [place] [facility] FOREARM 2 7 RADIOLOGY VIEWS RADEX 18174 [facility] [place] [facility] WRIST 7 RADIOLOGY COMPLETE MINIMUM 3 VIEWS HOME [place]; S9341 INFUSION INFUSION ENTERAL 7 [employer] PARTNERS NUTRITION OF OF [place] GRAVITY; 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 GROUND A0425 [facility] [place] AMBULANCE A[address] [place] [facility] TRANSPORT RADEX 96771 [facility] [place] [facility] HAND 7 RADIOLOGY MINIMUM 3 VIEWS HOME [place]; S9341 INFUSION INFUSION ENTERAL 7 [employer]ERS PARTNERS NUTRITION OF OF [place] GRAVITY; 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; S9341 INFUSION INFUSION ENTERAL 7 [employer]ERS PARTNERS NUTRITION OF OF [place] GRAVITY; 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; S9341 INFUSION INFUSION ENTERAL 7 [employer]ERS PARTNERS NUTRITION OF OF [place] GRAVITY; 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; S9341 INFUSION INFUSION ENTERAL 7 [employer]ERS PARTNERS NUTRITION OF OF [place] GRAVITY; 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; S9341 INFUSION INFUSION ENTERAL 7 [employer]ERS NUTRITION OF OF [place] GRAVITY; 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 THERAPEUT 19358 MARY HERNANDEZ IC PX 1/> 7 [facility] AREAS INC INC EACH 15 MIN EXERCISES MANUAL 45120 MARY HERNANDEZ THERAPY 7 [facility] TQS 1/> INC INC REGIONS EACH 15 MINUTES HOS BED E0260 [facility] SEMI-ELEC 7 HOME HOME W/ANY MEDICAL MEDICAL TYPE SIDE EQUIPME EQUIPME RAIL W/MATTRSS DUP-SCAN 43271 [facility] COMPL BI STUDY HOME [place]; S9341 INFUSION INFUSION ENTERAL 7 [employer]ERS PARTNERS NUTRITION OF OF [place] GRAVITY; 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 HOME [place]; S9341 INFUSION JUSTICE ENTERAL 7 PARTNERS NUTRITION OF [place] GRAVITY; 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 HOME [place]; S9341 INFUSION INFUSION ENTERAL 7 [employer]NERS PARTNERS NUTRITION OF OF [place] GRAVITY; 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 HOME [place]; S9341 INFUSION INFUSION ENTERAL 7 [employer]ERS PARTNERS NUTRITION OF OF [place] GRAVITY; 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 ECHO 35034 NARENDRA SHEPHERD TTC R-T 7 MEDICAL 2D SERV W/WOM-MOD FOUNDATIO E COMPL N SPEC&COLR D OBSERVATI 60277 NARENDRA CRAWLEY ON/INPATI 7 MEDICAL ENT SERV HOSPITAL FOUNDATIO CARE 55 N MINUTES CRITICAL 67614 JOHN NOONAN 7 PHYSICIAN JR ILL/INJUR S, PLLC ED PATIENT INIT 30-74 MIN AMB A0431 AIR AIR SERVICE 7 METHODS METHODS CONVNTION [facility] AIR SRVC TRANSPORT [address] RADIOLOGI 94204 [place] JESSICA C 7 MEDICAL EXAMINATI IMAGING [place] [address] [place]ESS[place] HEAD/BRAI 7 MEDICAL N W/O IMAGING CONTRAST ASS MATERIAL FINAL G9638 [place] JESSICA REPORTS 7 MEDICAL W/O DOC IMAGING 1/MORE ASS DOSE REDUCTION TECH THROMBOPL 47390 MARY HERNANDEZ ASTIN 7 [facility] TIME INC INC PARTIAL PLASMA/WH OLE BLOOD CREATINE 45974 MARY HERNANDEZ KINASE MB 7 [facility]OS[facility] FRACTION INC INC ONLY ECG 96729 MARY HERNANDEZ ROUTINE 7 [facility] ECG INC INC W/LEAST 12 LDS TRCG ONLY W/O I&R THER 83142 MARY HERNANDEZ PROPH/DX 7 [facility] NJX IV INC INC PUSH SINGLE/1S T SBST/DRUG PROTHROMB 67747 MARY HERNANDEZ IN TIME 7 [facility] INC INC CREATINE 41580 MARY HERNANDEZ KINASE 7 [facility] TOTAL INC INC BLOOD 38754 MARY HERNANDEZ COUNT 7 [facility] COMPLETE INC INC AUTO&[place] [address] MARY HERNANDEZ TROPONIN 7 [facility] QUANTITAT INC INC JOJO GLUC BLD 56468 MARY HERNANDEZ GLUC MNTR 7 [facility] DEV INC [place] [address] [place] GR[place] ANGIOGRAP 7 MEDICAL HY NECK SERV W/CONTRAS FOUNDATIO T/NONCONT N RAST COMPREHEN 19659 MARY HERNANDEZ SIVE 7 [facility]OSP METABOLIC INC INC PANEL HOME [place]; S9341 INFUSION INFUSION ENTERAL 7 [employer] NUTRITION OF OF [place] GRAVITY; 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 [address] NARENDRA GRACIELA ANGIOGRAP 7 MEDICAL HY HEAD SERV W/CONTRAS FOUNDATIO T/NONCONT N RAST ECG 10716 MARY SAMI ROUTINE 7 [facility] W/LEAST P 12 LDS I&R ONLY HOME TX; S9341 INFUSION INFUSION ENTERAL 7 [employer]ERS NUTRITION OF OF [place] GRAVITY; 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 HOME [place]; S9341 INFUSION INFUSION ENTERAL 7 [employer]ERS NUTRITION OF OF [place] GRAVITY; 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 HOME [place]; S9341 INFUSION INFUSION ENTERAL 7 [employer]ERS PARTNERS NUTRITION OF OF [place] GRAVITY; 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 HOME [place]; S9341 INFUSION INFUSION ENTERAL 7 [employer]ERS PARTNERS NUTRITION OF OF [place] GRAVITY; 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 HOME [place]; S9341 INFUSION INFUSION ENTERAL 7 [employer]ERS NUTRITION OF OF [place] GRAVITY; 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 HOS BED E0260 [facility] SEMI-ELEC 7 HOME HOME W/ANY MEDICAL MEDICAL TYPE SIDE EQUIPME EQUIPME RAIL W/[place] [address] [place] ADAM HEAD/BRAI 7 MEDICAL N W/O IMAGING CONTRAST ASS MATERIAL RADIOLOGI 34166 [place] ADAM C 7 MEDICAL EXAMINATI IMAGING ON CHEST ASS SINGLE VIEW FRONTAL ECG 38881 JOE SWEENEY ROUTINE 7 PHYSICIAN U ECG S, PLLC W/LEAST 12 LDS I&R ONLY HOME TX; S9341 INFUSION INFUSION ENTERAL 6 [employer]ERS NUTRITION OF OF [place] GRAVITY; 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 HOME [place]; S9341 INFUSION INFUSION ENTERAL 6 [employer]ERS PARTNERS NUTRITION OF OF [place] GRAVITY; 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 HOME [place]; S9341 INFUSION INFUSION ENTERAL 6 [employer]ERS PARTNERS NUTRITION OF OF [place] GRAVITY; 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 HOME [place]; S9341 INFUSION INFUSION ENTERAL 6 [employer] PART[employer]ERS NUTRITION OF OF [place] GRAVITY; 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 POST-TRINITY 99618 NARENDRA SAUREZ RACT 6 MEDICAL JR LASER SERV SURGERY FOUNDATIO N COMPREHEN 11977 [facility] SIVE 6 [facility] METABOLIC E E PANEL [facility] BLOOD 59519 [facility] COUNT 6 [facility] HEALTHCAR COMPLETE E E AUTO&AUTO [facility] [place] [address] [facility] THYROID 6 [facility] STIMULATI E E NG [facility] HORMONE TSH HOS BED E0260 [facility] SEMI-ELEC 6 HOME HOME W/ANY MEDICAL MEDICAL TYPE SIDE EQUIPME EQUIPME RAIL W/MATTRSS HOME TX; S9341 INFUSION INFUSION ENTERAL 6 [employer]ERS PART[employer]ERS NUTRITION OF OF [place] GRAVITY; 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 HOME [place]; S9341 INFUSION INFUSION ENTERAL 6 [employer]ERS NUTRITION OF OF [place] GRAVITY; 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 COMPREHEN 21432 MARY HERNANDEZ SIVE 6 [facility]OS[facility] METABOLIC INC INC PANEL LIPID 61386 MARY HERNANDEZ PANEL 6 [place] [address] MARY HERNANDEZ THYROID 6 MEM [facility]OS[facility] STIMULATI [place] [address] MARY HERNANDEZ FREE 6 MEM HOS[facility] MEM HOSP THYROXINE INC INC BLOOD 96635 MARY HERNANDEZ COUNT 6 [facility]OS[facility] COMPLETE INC INC AUTO&AUTO DIFRNTL WBC HEMOGLOBI 29537 MARY HERNANDEZ N 6 MEM H[facility] HOS[facility] GLYCOSYLA INC INC JESSE A1C ALBUMIN 31595 MARY HERNANDEZ URINE 6 [facility] H[facility] MICROALBU INC INC MIN QUANTIATI VE DRUG TST G0477 MARY HERNANDEZ PRESUMP;C 6 [facility]OS[facility] PBL BEING INC INC READ DC OPT OBV ONLY HOME TX; S9341 INFUSION INFUSION ENTERAL 6 [employer]ERS NUTRITION OF OF [place] GRAVITY; 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 HOME [place]; S9341 INFUSION INFUSION ENTERAL 6 [employer]ERS PARTNERS NUTRITION OF OF [place] GRAVITY; 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 HOME [place]; S9341 INFUSION INFUSION ENTERAL 6 [employer]NERS PARTNERS NUTRITION OF OF [place] GRAVITY; 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 HOME [place]; S9341 INFUSION INFUSION ENTERAL 6 [employer]ERS PARTNERS NUTRITION OF OF [place] GRAVITY; 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 HOME [place]; S934 INFUSION INFUSION ENTERAL 6 [employer]ERS PARTNERS NUTRITION OF OF [place] GRAVITY; 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 HOME [place]; S9341 INFUSION INFUSION ENTERAL 6 [employer]NERS PARTNERS NUTRITION OF OF [place] GRAVITY; 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 HOME [place]; S9341 INFUSION INFUSION ENTERAL 6 [employer]NERS PARTNERS NUTRITION OF OF [place] GRAVITY; 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 HOME [place]; S9341 INFUSION INFUSION ENTERAL 6 [employer]ERS PARTNERS NUTRITION OF OF [place] GRAVITY; 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 HOME [place]; S934 INFUSION INFUSION ENTERAL 6 [employer]ERS PARTNERS NUTRITION OF OF [place] GRAVITY; 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 HOME [place]; S934 INFUSION INFUSION ENTERAL 6 [employer]ERS PARTNERS NUTRITION OF OF [place] GRAVITY; 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 HOME [place]; S934 INFUSION INFUSION ENTERAL 6 [employer]ERS PARTNERS NUTRITION OF OF [place] GRAVITY; 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 HOME [place]; S934 INFUSION INFUSION ENTERAL 6 [employer]ERS PARTNERS NUTRITION OF OF [place] GRAVITY; 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 HOME [place]; S934 INFUSION INFUSION ENTERAL 6 [employer]ERS [employer]ERS NUTRITION OF OF [place] GRAVITY; 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 HOME [place]; S9341 INFUSION INFUSION ENTERAL 6 [employer]ERS [employer]ERS NUTRITION OF OF [place] GRAVITY; 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 HOME [place]; S9341 INFUSION INFUSION ENTERAL 6 [employer]ERS PARTNERS NUTRITION OF OF [place] GRAVITY; 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 HOME [place]; S9341 INFUSION INFUSION ENTERAL 6 [employer]ERS [employer]ERS NUTRITION OF OF [place] GRAVITY; 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 HOME [place]; S9341 INFUSION INFUSION ENTERAL 6 [employer]ERS PARTNERS NUTRITION OF OF [place] GRAVITY; 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 HOME [place]; S9341 INFUSION INFUSION ENTERAL 6 [employer]ERS NUTRITION OF OF [place] GRAVITY; 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 HOME [place]; S9341 INFUSION INFUSION ENTERAL 6 [employer]ERS NUTRITION OF OF [place] GRAVITY; 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 HOME [place]; S9341 INFUSION INFUSION ENTERAL 6 [employer]ERS NUTRITION OF OF [place] GRAVITY; 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 HOME [place]; S9341 INFUSION INFUSION ENTERAL 6 [employer]ERS [employer]ERS NUTRITION OF OF [place] GRAVITY; 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 HOME [place]; S9341 INFUSION INFUSION ENTERAL 6 [employer]ERS [employer]ERS NUTRITION OF OF [place] GRAVITY; 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 HOME [place]; S9341 INFUSION INFUSION ENTERAL 6 [employer]ERS [employer]ERS NUTRITION OF OF [place] GRAVITY; 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 HOME [place]; S9341 INFUSION INFUSION ENTERAL 6 [employer]ERS NUTRITION OF OF [place] GRAVITY; 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 HOME [place]; S9341 INFUSION INFUSION ENTERAL 6 [employer]ERS NUTRITION OF OF [place] GRAVITY; 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 HOME [place]; S9341 INFUSION INFUSION ENTERAL 6 [employer] NUTRITION OF OF [place]; 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 [address] NARENDRA YANG IMAGING [address] [facility] CT SERV ATTENUATI FOUNDATIO ON SKULL N BASE [facility] BED E0260 [facility] SHEPHERD SEMI-ELEC 6 HOME HOME W/ANY MEDICAL MEDICAL TYPE SIDE EQUIPME EQUIPME RAIL W/MATTRSS FLUORODEO A9552 [facility] XYGLUCOSE 6 Y Y F-18 [facility]G [facility] DX UP TO 45 MCI HOME [place]; S9341 INFUSION INFUSION ENTERAL 6 [employer] NUTRITION OF OF [place] GRAVITY; 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 HOME [place]; S9341 INFUSION INFUSION ENTERAL 6 [employer]ERS [employer]ERS NUTRITION OF OF [place] GRAVITY; 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 HOME [place]; S9341 INFUSION INFUSION ENTERAL 6 [employer]ERS [employer]ERS NUTRITION OF OF [place] GRAVITY; 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 HOME [place]; S9341 INFUSION INFUSION ENTERAL 6 [employer]ERS [employer]ERS NUTRITION OF OF [place] GRAVITY; 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 HOME [place]; S9341 INFUSION INFUSION ENTERAL 6 [employer]ERS [employer]ERS NUTRITION OF OF [place] GRAVITY; 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 HOME [place]; S9341 INFUSION INFUSION ENTERAL 6 [employer]ERS [employer]ERS NUTRITION OF OF [place] GRAVITY; 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 HOME [place]; S9341 INFUSION INFUSION ENTERAL 6 [employer]ERS [employer]ERS NUTRITION OF OF [place] GRAVITY; 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 HOME [place]; S934 INFUSION INFUSION ENTERAL 6 [employer]ERS NUTRITION OF OF [place] GRAVITY; 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 HOME [place]; S9341 INFUSION INFUSION ENTERAL 6 [employer]ERS NUTRITION OF OF [place] GRAVITY; 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 HOME [place]; S934 INFUSION INFUSION ENTERAL 6 [employer]ERS NUTRITION OF OF [place] GRAVITY; 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 HOME [place]; S934 INFUSION INFUSION ENTERAL 6 [employer]ERS NUTRITION OF OF [place] GRAVITY; 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 HOME [place]; S9341 INFUSION INFUSION ENTERAL 6 [employer]ERS [employer]ERS NUTRITION OF OF [place] GRAVITY; 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 HOME [place]; S9341 INFUSION INFUSION ENTERAL 6 [employer]ERS NUTRITION OF OF [place] GRAVITY; 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 HOME [place]; S9341 INFUSION INFUSION ENTERAL 6 [employer] PARTNERS NUTRITION OF OF [place] [employer]; 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 [place] [id number] [facility] 6 Y Y [facility] HOME [place]; S9341 INFUSION INFUSION ENTERAL 6 [employer] NUTRITION OF OF [place]; 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; S9341 INFUSION INFUSION ENTERAL 6 [employer]NERS NUTRITION OF OF [place]; 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; S9341 INFUSION INFUSION ENTERAL 6 [employer] NUTRITION OF OF [place]; 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; S9341 INFUSION INFUSION ENTERAL 6 [employer] NUTRITION OF OF [place]; 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 [place]; S9341 INFUSION INFUSION ENTERAL 6 [employer] NUTRITION OF OF [place]; 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 SOFT [id number] [facility] TISSUE 6 [facility] NECK E E W/CONTRAS [facility] T MATERIAL LOCM [id number] [facility] [phone] [facility] MG/ML E [facility] TION PER ML VOICE [id number] [facility]CT 6 [facility]ALTHCAR LIMIT E E PROJ [facility] [place] EPISODE VOICE G9171 [facility] 6 [facility]ALTHCAR LIMIT E E [facility] [place] EPISODE OUTSET CREATININ 44134 [facility] E BLOOD 6 [facility]ALTHCAR E E [facility] 17771 [facility] L & 6 [facility]ALTHCAR QUALIT E E [facility]NAL[facility]IS [facility] VOICE AND RESONANCE VOICE [id number] [facility] FUNCT 6 [facility]ALTHCAR HEALTHCAR LIMIT E E DISCHARGE [facility] STATUS D/C FROM [place] LARYNGOSC 65268 [facility] OPY 6 HEALTHCAR HEALTHCAR FLX/RGD E E [facility] C W/STROBOS COPY CT THORAX [address] [place] MASTERSON 6 MEDICAL W/CONTRAS SERV T [facility]OUNDAT[facility] MATERIAL N HOME [place]; S9341 INFUSION INFUSION ENTERAL 6 [employer] NUTRITION OF OF [place]; 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; S9341 INFUSION INFUSION ENTERAL 6 [employer] NUTRITION OF OF [place]; 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; S9341 INFUSION INFUSION ENTERAL 6 [employer] NUTRITION OF OF [place]; 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; S9341 INFUSION INFUSION ENTERAL 6 [employer] NUTRITION OF OF [place]; 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; S9341 INFUSION INFUSION ENTERAL 6 [employer] NUTRITION OF OF [place]; 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; S9341 INFUSION INFUSION ENTERAL 6 [employer] NUTRITION OF OF [place]; 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; S9341 INFUSION INFUSION ENTERAL 6 [employer]NERS NUTRITION OF OF [place]; 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; S9341 INFUSION INFUSION ENTERAL 6 [employer] PARTNERS NUTRITION OF OF [place]; 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; S9341 INFUSION INFUSION ENTERAL 6 [employer] NUTRITION OF OF [place] [employer]; 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 H[facility] BED E0260 [facility] SEMI-ELEC 6 HOME HOME W/ANY MEDICAL MEDICAL TYPE SIDE EQUIPME EQUIPME RAIL W/MATTRSS DIRECT G0299 ABHINAV PEREZ RN 6 HOME HOME HOME [facility]/ AGENCY AGENCY SPICE SET EA 15 MIN DEBRIDEME 801[address] [facility] NT OPEN 6 Y Y WOUND 20 [facility] SQ CM/< DIRECT G0299 ABHINAV PEREZ RN 6 HOME HOME HOME [facility]/ AGENCY AGENCY SPICE SET EA 15 MIN DIRECT G0299 ABHINAV PEREZ RN 6 HOME HOME HOME [facility]/ AGENCY AGENCY SPICE SET EA 15 MIN DIRECT G0299 ABHINAV PEREZ RN 6 HOME HOME HOME [facility]/ AGENCY AGENCY SPICE SET EA 15 MIN HOME [place]; S9341 INFUSION INFUSION ENTERAL 6 [employer] NUTRITION OF OF [place] [employer]; 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; S9341 INFUSION INFUSION ENTERAL 6 [employer] NUTRITION OF OF [place]; 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; S9341 INFUSION INFUSION ENTERAL 6 [employer] NUTRITION OF OF [place]; 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 [place]; S9341 INFUSION INFUSION ENTERAL 6 PARTNERS PARTNERS NUTRITION OF OF [place] GRAVITY; 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 HOME [place]; S9341 INFUSION INFUSION ENTERAL 6 PARTNERS PARTNERS NUTRITION OF OF [place]; 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 DIRECT G0299 ABHINAV PEREZ RN 6 HOME HOME HOME [facility]/ AGENCY AGENCY SPICE SET EA 15 MIN HOME [place]; S9341 INFUSION INFUSION ENTERAL 6 PARTNERS PARTNERS NUTRITION OF OF [place]; 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 HOME [place]; S9341 INFUSION INFUSION ENTERAL 6 PARTNERS PARTNERS NUTRITION OF OF [place]; 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 HOME [place]; S9341 INFUSION INFUSION ENTERAL 6 PARTNERS PARTNERS NUTRITION OF OF [place]; 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 HOME [place]; S9341 INFUSION INFUSION ENTERAL 6 PARTNERS PARTNERS NUTRITION OF OF [place]; 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 DIRECT G0299 ABHINAV PEREZ RN 6 HOME HOME HOME HEALTH HEALTH HEALTH/ AGENCY AGENCY SPICE SET EA 15 MIN HOME TX; S9341 INFUSION INFUSION ENTERAL 6 PARTNERS PARTNERS NUTRITION OF OF [place]; 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 HOME [place]; S9341 INFUSION INFUSION ENTERAL 6 PARTNERS PARTNERS NUTRITION OF OF [place]; 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 HOME [place]; S9341 INFUSION INFUSION ENTERAL 6 PARTNERS PARTNERS NUTRITION OF OF [place]; 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 HOS BED E0260 CORA CORA SEMI-ELEC 6 HOME HOME W/ANY MEDICAL MEDICAL TYPE SIDE EQUIPME EQUIPME RAIL W/MATTRSS DIRECT G0299 ABHINAV PEREZ RN 6 HOME HOME HOME [facility]/ AGENCY AGENCY SPICE SET EA 15 MIN HOME TX; S9341 INFUSION INFUSION ENTERAL 6 PARTNERS PARTNERS NUTRITION OF OF [place]; 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 HOME [place]; S9341 INFUSION INFUSION ENTERAL 6 PARTNERS PARTNERS NUTRITION OF OF [place]; 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 [address] [place] [facility] DISCHARGE 6 NURSE DAY PRACTITIO MANAGEMEN NER GR T 30 MIN/< SBSQ 90054 [place] [address] MEDICAL BEAU CARE/DAY SERV 15 FOUNDATIO MINUTES N HOME TX; S9341 INFUSION INFUSION ENTERAL 6 PARTNERS PARTNERS NUTRITION OF OF [place]; 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 HOME [place]; S9341 INFUSION INFUSION ENTERAL 6 PARTNERS PARTNERS NUTRITION OF OF [place]; 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 [address] [place] [facility] 6 MEDICAL Y JUS EXTREM SERV W/O & FOUNDATIO W/CONTRAS N T MATRL SBSQ 29125 [place] [address] MEDICAL JAG CARE/DAY SERV 15 FOUNDATIO MINUTES N SBSQ 77411 [place] [address] MEDICAL JAG CARE/DAY SERV 15 FOUNDATIO MINUTES N HOME TX; S9341 INFUSION INFUSION ENTERAL 6 PARTNERS PARTNERS NUTRITION OF OF [place]; 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 HOME [place]; S9341 INFUSION INFUSION ENTERAL 6 PARTNERS PARTNERS NUTRITION OF OF [place]; 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 SBSQ 45437 [facility] 6 MEDICAL JAG CARE/DAY SERV 25 FOUNDATIO MINUTES N HOME TX; S9341 INFUSION INFUSION ENTERAL 6 PARTNERS PARTNERS NUTRITION OF OF [place]; 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 INITIAL 78117 [facility] 6 NURSE BROADDUS CARE/DAY PRACTITIO CHR 50 NER GR MINUTES RADEX 04761 NARENDRA MONTGOMER FOOT 6 MEDICAL Y JUS COMPLETE SERV MINIMUM [address] [place] [address] [place] NICKELS ANGIOGRAP 6 MEDICAL JACK HY CHEST SERV W/CONTRAS FOUNDATIO T/NONCONT N RAST HOME TX; S9341 INFUSION INFUSION ENTERAL 6 PARTNERS PARTNERS NUTRITION OF OF [place]; 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 ECG 12288 NARENDRA YOU ROUTINE 6 MEDICAL NAN ECG SERV W/LEAST FOUNDATIO 12 LDS N I&R ONLY RADIOLOGI 38156 NARENDRA TRUE LILLY C EXAM 6 MEDICAL CHEST 2 SERV VIEWS FOUNDATIO FRONTAL&L N ATERAL HOME [place]; S9341 INFUSION INFUSION ENTERAL 6 PARTNERS PARTNERS NUTRITION OF OF [place]; 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 HOME [place]; S9341 INFUSION INFUSION ENTERAL 6 PARTNERS PARTNERS NUTRITION OF OF [place]; 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 HOME [place]; S9341 INFUSION INFUSION ENTERAL 6 PARTNERS PARTNERS NUTRITION OF OF [place]; 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 HOME [place]; S9341 INFUSION INFUSION ENTERAL 6 PARTNERS PARTNERS NUTRITION OF OF [place]; 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 HOME [place]; S9341 INFUSION INFUSION ENTERAL 6 PARTNERS PARTNERS NUTRITION OF OF [place]; 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 HOME [place]; S9341 INFUSION INFUSION ENTERAL 6 PARTNERS PARTNERS NUTRITION OF OF [place]; 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 HOME [place]; S9341 INFUSION INFUSION ENTERAL 6 PARTNERS PARTNERS NUTRITION OF OF [place]; 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 HOME [place]; S9341 INFUSION INFUSION ENTERAL 6 PARTNERS PARTNERS NUTRITION OF OF [place]; 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 HOME [place]; S9341 INFUSION INFUSION ENTERAL 6 PARTNERS PARTNERS NUTRITION OF OF [place]; 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 HOME [place]; S9341 INFUSION INFUSION ENTERAL 6 PARTNERS PARTNERS NUTRITION OF OF [place]; 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 DIRECT G0299 ABHINAV PEREZ RN 6 HOME HOME HOME [facility] AGENCY AGENCY SPICE SET EA 15 MIN HOME TX; S9341 INFUSION INFUSION ENTERAL 6 PARTNERS PARTNERS NUTRITION OF OF [place]; 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 HOME [place]; S9341 INFUSION INFUSION ENTERAL 6 PARTNERS PARTNERS NUTRITION OF OF [place]; 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 HOME [place]; S9341 INFUSION INFUSION ENTERAL 6 PARTNERS PARTNERS NUTRITION OF OF [place]; 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 COMPREHEN 76071 [facility] SIVE 6 Y Y METABOLIC [facility] PANEL DIRECT G0299 ABHINAV PEREZ RN 6 HOME HOME [facility] AGENCY AGENCY SPICE SET EA 15 [place] [address] [facility] FREE 6 Y Y THYROXINE [facility] [place] [address] [facility] THYROID 6 Y Y STIMULATI [facility] NG HORMONE TSH COLLECTIO 10404 [facility] N VENOUS 6 Y Y BLOOD [facility] VENIPUNCT URE LARYNGOSC 42034 [facility] OPY 6 Y Y FLEXIBLE [facility] DIAGNOSTI C BLOOD 07286 [facility] COUNT 6 Y Y COMPLETE [facility] AUTOMATED HOME [place]; S9341 INFUSION INFUSION ENTERAL 6 PARTNERS PARTNERS NUTRITION OF OF [place]; 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 HOME [place]; S9341 INFUSION INFUSION ENTERAL 6 PARTNERS PARTNERS NUTRITION OF OF [place]; 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 BASIC 66918 MARY HERNANDEZ METABOLIC 6 [facility] [place] [address] MARY HERNANDEZ INFUSION 6 [facility] THERAPY INC INC PROPHYLAX IS/DX EA HOUR HOME [place]; S9341 INFUSION INFUSION ENTERAL 6 PARTNERS PARTNERS NUTRITION OF OF [place]; 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 CREATINE 30927 MARY HERNANDEZ KINASE 6 [facility] TOTAL INC INC PHYSICAL 39221 MARY HERNANDEZ THERAPY 6 [facility] EVALUATIO INC INC N GLUC BLD 43254 MARY HERNANDEZ GLUC MNTR 6 [facility] DEV INC [place] [address] MARY HERNANDEZ TROPONIN 6 [facility] QUANTITAT INC INC JOJO BLOOD 99118 MARY HERNANDEZ COUNT 6 [facility] COMPLETE INC INC AUTO&AUTO DIFRNTL WBC COLLECTIO 18795 MARY HERNANDEZ N VENOUS 6 [facility] BLOOD INC INC VENIPUNCT URE CREATINE 33332 MARY HERNANDEZ KINASE MB 6 [facility] FRACTION INC INC ONLY HOSPITAL G0378 MARY HERNANDEZ OBSERVATI 6 [facility] ON INC INC SERVICE PER HOUR OBSERVATI 25465 [facility] ON/INPATI 6 PHYSICIAN EUG ENT [facility] CARE 50 MINUTES NONINVASI 00753 MARY HERNANDEZ VE 6 [facility] EAR/PULSE [place] [address] MARY HERNANDEZ INFUSION 6 [facility] THERAPY/P INC INC ROPHYLAXI S /DX 1ST TO 1 HR COMPREHEN 11541 MARY HERNANDEZ SIVE 6 [facility] METABOLIC INC INC PANEL RADIOLOGI 03322 MARY HERNANDEZ C 6 [facility] EXAMINATI INC INC ON PELVIS 1/2 VIEWS CREATINE 77552 MARY HERNANDEZ KINASE MB 6 [facility] FRACTION INC INC ONLY COLLECTIO 94579 MARY HERNANDEZ N VENOUS 6 [facility] BLOOD INC INC VENIPUNCT URE BLOOD 19012 MARY HERNANDEZ COUNT 6 [facility] COMPLETE INC INC AUTO&[place] [address] MARY HERNANDEZ TROPONIN 6 [facility] QUANTITAT INC INC JOJO PROTHROMB 92294 MARY HERNANDEZ IN TIME 6 [facility] INC INC CREATINE 54595 MARY HERNANDEZ KINASE 6 [facility] TOTAL INC INC HOME [place]; S9341 INFUSION INFUSION ENTERAL 6 PARTNERS PARTNERS NUTRITION OF OF [place]RA[place]ITY; 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 [address] MARY HERNANDEZ HEAD/BRAI 6 [facility] N W/O INC INC CONTRAST MATERIAL RADIOLOGI 71045 MARY HERNANDEZ C 6 [facility] EXAMINATI INC INC ON KNEE 3 VIEWS RADIOLOGI 09752 MARY [place] 6 [facility] HOSP EXAMINATI INC INC ON CHEST SINGLE [place]IEW FRONTAL HOME [place]; S9341 INFUSION INFUSION ENTERAL 6 PARTNERS PARTNERS NUTRITION OF OF [place]ITY; 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 HOME [place]; S9341 INFUSION INFUSION ENTERAL 6 PARTNERS PARTNERS NUTRITION OF OF [place]RA[place]ITY; 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 BEHAVIORA 16068 [facility] L & 6 Y [facility] ANALYSIS VOICE AND RESONANCE LARYNGOSC [address]1670 [place] [address] [facility] DIAGNOSTI C HOME [place]; S9341 INFUSION INFUSION ENTERAL 6 PARTNERS PARTNERS NUTRITION OF OF [place]; 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 HOME [place]; S9341 INFUSION INFUSION ENTERAL 6 PARTNERS PARTNERS NUTRITION OF OF [place]; 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 HOME [place]; S9341 INFUSION INFUSION ENTERAL 6 PARTNERS PARTNERS NUTRITION OF OF [place]; 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 HOME [place]; S9341 INFUSION INFUSION ENTERAL 6 PARTNERS PARTNERS NUTRITION OF OF [place]; 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 HOME [place]; S9341 INFUSION INFUSION ENTERAL 6 PARTNERS PARTNERS NUTRITION OF OF [place]RAVITY; 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 CONFORMIN A6446 [facility] B[facility]GE 6 HOME HOME NON[facility] AGENCY AGENCY KNITTED/W OVEN STERL GAUZE A6402 ABHINAV BURNETTCO NON-IMPRE 6 HOME HOME [facility] SQ/< AGENCY AGENCY W/O ADHES BORDR STERILE A4217 [facility] WATER/NATHANAEL 6 HOME HOME INE 500 HEALTH HEALTH ML AGENCY AGENCY DIRECT G0299 ABHINAV LA SNS RN 6 HOME HOME HOME [facility] AGENCY AGENCY SPICE SET EA 15 MIN TAPE A4450 [facility] NON-WATER 6 HOME HOME PROOF PER [facility] HEALTH 18 AGENCY AGENCY SQUARE INCHES HOME [place]; S9341 INFUSION INFUSION ENTERAL 6 PARTNERS PARTNERS NUTRITION OF OF [place]ITY; KITCHEN WORKER HOME [place]; S9341 INFUSION INFUSION ENTERAL 6 PARTNERS PARTNERS NUTRITION OF OF [place]RA[place]ITY; KITCHEN WORKER DIRECT G0299 ABHINAV LA SNS RN 6 HOME HOME HOME [facility] AGENCY AGENCY SPICE SET EA 15 MIN HOME TX; S9341 INFUSION INFUSION ENTERAL 6 PARTNERS PARTNERS NUTRITION OF OF [place]; KITCHEN WORKER HOME [place]; S9341 INFUSION INFUSION ENTERAL 6 PARTNERS PARTNERS NUTRITION OF OF [place]RAVITY; KITCHEN WORKER DIRECT G0299 ABHINAV LEXCO SNS RN 6 HOME HOME HOME [facility]/ AGENCY AGENCY SPICE SET EA 15 MIN DIRECT G0299 ABHINAV BURNETTCO SNS RN 6 HOME HOME HOME [facility] AGENCY AGENCY SPICE SET EA 15 MIN HOME TX; S9341 INFUSION INFUSION ENTERAL 6 PARTNERS PARTNERS NUTRITION OF OF [place]; KITCHEN WORKER HOME [place]; S9341 INFUSION INFUSION ENTERAL 6 PARTNERS PARTNERS NUTRITION OF OF [place]; KITCHEN WORKER HOME [place]; S9341 INFUSION INFUSION ENTERAL 6 PARTNERS PARTNERS NUTRITION OF OF [place]RA[place]; KITCHEN WORKER GROUND A0425 [facility] 6 METRO METRO PER AMBULANCE AMBULANCE STATUTE MILE RADEX 93547 [place] JOHN SPINE 6 MEDICAL FRA LUMBOSACR SERV AL 2/3 FOUNDATIO VIEWS N RADEX HIP 57875 [place] JOHN 6 MEDICAL FRA UNILATERA SERV L WITH FOUNDATIO PELVIS N 2-3 [facility] 02962 [facility] DISCHARGE 6 MEDICAL HNSTON DAY SERV ELSIE MANAGEMEN FOUNDATIO T > [address] [place] [address] [place] HEAD/BRAI 6 MEDICAL BRANDON N W/O SERV CONTRAST FOUNDATIO MATERIAL N SBSQ 15658 [place] [address] MEDICAL HNSTON CARE/DAY SERV ELSIE 25 FOUNDATIO MINUTES N COMMODE E0163 [facility] CHAIR 6 MOBILE OR STATIONAR Y W/FIXED ARMS SBSQ 55490 [place] [address] MEDICAL HNSTON CARE/DAY SERV ELSIE 25 FOUNDATIO MINUTES N SBSQ 00096 [place] [address] MEDICAL HNSTON CARE/DAY SERV ELSIE 25 FOUNDATIO MINUTES N SBSQ 58641 [place] [address] MEDICAL CARE/DAY SERV 25 FOUNDATIO MINUTES N SBSQ 63371 [place] [address] MEDICAL CARE/DAY SERV 25 FOUNDATIO MINUTES N SBSQ 28815 [place] [address] MEDICAL CARE/DAY SERV 25 FOUNDATIO MINUTES N SBSQ 05416 [place] [address] MEDICAL CARE/DAY SERV 25 FOUNDATIO MINUTES N SBSQ 13594 [place] [address] MEDICAL CARE/DAY SERV 25 FOUNDATIO MINUTES N SBSQ 03332 [facility] 6 MEDICAL CARE/DAY SERV 25 FOUNDATIO MINUTES N INSERTION [id number] [facility] INFUSION 6 Y Y [facility] SU[facility] VENA CAVA PERQ INSERTION [id number] [facility] FEEDING 6 Y Y [facility] STOMACH [place] E[place] 412[address] [facility] PERCUTAFL 6 MEDICAL JOSUE OUS SERV PLACEMENT FOUNDATIO N GASTROSTO MY TUBE SBSQ 96303 [facility] 6 MEDICAL CARE/DAY SERV 25 FOUNDATIO MINUTES N SBSQ 45644 [place] [address] MEDICAL HNSTON CARE/DAY SERV ELSIE 25 FOUNDATIO MINUTES N INITIAL 59356 [facility] 6 MEDICAL JOSUE CONSULT SERV NEW/ESTAB FOUNDATIO PT 80 N MIN SBSQ 82504 [place] [address] MEDICAL HNSTON CARE/DAY SERV ELSIE 25 FOUNDATIO MINUTES N SBSQ 69785 [place] [address] MEDICAL HNSTON CARE/DAY SERV ELSIE 25 FOUNDATIO MINUTES N SBSQ 08410 [place] [address] MEDICAL HNSTON CARE/DAY SERV ELSIE 25 FOUNDATIO MINUTES N SBSQ 53028 [place] [address] MEDICAL HNSTON CARE/DAY SERV ELSIE 25 FOUNDATIO MINUTES N SBSQ 04946 [place] [address] MEDICAL HNSTON CARE/DAY SERV ELSIE 25 FOUNDATIO MINUTES N RADIOLOGI 64367 [facility] EX[facility] 6 MEDICAL AYA MAR CHEST 2 SERV VIEWS FOUNDATIO FRONTAL&L N ATERAL SBSQ 21390 [place] [address] MEDICAL A NOMAN CARE/DAY SERV 25 FOUNDATIO MINUTES N SBSQ 39876 [place] [address] MEDICAL CARE/DAY SERV 25 FOUNDATIO MINUTES N RADIOLOGI 06210 [facility] 6 MEDICAL EXAMINATI SERV ON CHEST FOUNDATIO SINGLE N VIEW FRONTAL SBSQ 90046 [facility] 6 MEDICAL CARE/DAY SERV 25 FOUNDATIO MINUTES N SBSQ 77878 [place] [address] MEDICAL A NOMAN CARE/DAY SERV 15 FOUNDATIO MINUTES N SBSQ 34247 [place] [address] MEDICAL A NOMAN CARE/DAY SERV 25 FOUNDATIO MINUTES N SBSQ 79108 [facility] 6 MEDICAL CARE/DAY SERV 25 FOUNDATIO MINUTES N SBSQ 94191 [place] [address] MEDICAL A NOMAN CARE/DAY SERV 25 FOUNDATIO MINUTES N SBSQ 70324 [place] [facility] 6 MEDICAL A NOMAN CARE/DAY SERV 25 FOUNDATIO MINUTES N SBSQ 95271 [facility] 6 MEDICAL SHARON CARE/DAY SERV 25 FOUNDATIO MINUTES N SBSQ 63129 [place] [address] MEDICAL SHARON CARE/DAY SERV 25 FOUNDATIO MINUTES N SBSQ 91114 [place] [address] MEDICAL SHARON CARE/DAY SERV 25 FOUNDATIO MINUTES N SBSQ 84126 [facility] 6 MEDICAL CARE/DAY SERV 25 FOUNDATIO MINUTES N SBSQ 63998 [place] [address] MEDICAL SHARON CARE/DAY SERV 25 FOUNDATIO MINUTES N SBSQ 33508 [place] [address] MEDICAL SHARON CARE/DAY SERV 25 FOUNDATIO MINUTES N SBSQ 85409 [place] [address] MEDICAL SHARON CARE/DAY SERV 25 FOUNDATIO MINUTES N SBSQ 23454 [place] [address] MEDICAL EEDU RONNI CARE/DAY SERV [address] SOFT 51983 [place] LUK[place] [facility] 6 MEDICAL BRANDON NECK W/O SERV CONTRAST FOUNDATIO MATERIAL N CT THORAX 42757 [place] MCCARTHY W/O 6 MEDICAL STARLA CONTRAST SERV MATERIAL FOUNDATIO N INITIAL 57029 [facility] 6 MEDICAL LOW CONSULT SERV NEW/ESTAB FOUNDATIO PT 110 N MIN SBSQ 45369 [place] [address] MEDICAL EEDU RONNI CARE/DAY SERV 25 FOUNDATIO MINUTES N SBSQ 70518 [facility] 6 MEDICAL BUDDY CARE/DAY SERV 15 FOUNDATIO MINUTES N INSJ TEMP 05591 [facility] 6 MEDICAL BUDDY BLADDER SERV CATHETER FOUNDATIO SIMPLE N DUP-SCAN 89736 [place] CORDERO BUDDY XTR VEINS 6 MEDICAL SERV UNILATERA FOUNDATIO L/LIMITED N STUDY RADEX 88320 [place] JOHN FOREARM 2 6 MEDICAL FRA VIEWS SERV FOUNDATIO N SBSQ 74122 [place] [address] MEDICAL EEDU RONNI CARE/DAY SERV 25 FOUNDATIO MINUTES N SBSQ 76441 [place] [address] MEDICAL EEDU RONNI CARE/DAY SERV 25 FOUNDATIO MINUTES N SBSQ 11197 [facility] 6 MEDICAL EEDU RONNI CARE/DAY SERV 25 FOUNDATIO MINUTES N SBSQ 26496 [place] [address] MEDICAL EEDU RONNI CARE/DAY SERV 25 FOUNDATIO MINUTES N SBSQ 16189 [place] [address] MEDICAL HNSTON CARE/DAY SERV ELSIE 25 FOUNDATIO MINUTES N SBSQ 15457 [place] [address] MEDICAL HNSTON CARE/DAY SERV ELSIE 25 FOUNDATIO MINUTES N SBSQ 68457 [place] [address] MEDICAL HNSTON CARE/DAY SERV ELSIE 25 FOUNDATIO MINUTES N SBSQ 41888 [place] [address] MEDICAL HNSTON CARE/DAY SERV ELSI[place] 25 [place] [address] [facility] ABDOMINAL 6 MEDICAL REAL SERV TIME FOUNDATIO W/IMAGE N DOCUMENTA TION ECG 28306 [place] YOU ROUTINE 6 MEDICAL NAN ECG SERV W/LEAST FOUNDATIO 12 LDS N I&R ONLY DETACHMEN [id number] [facility] AT 6 Y Y [facility] FOOT PARTIAL 3RD RAY OPEN DETACHMEN [id number] [facility] AT 6 Y Y [facility] FOOT PARTIAL 4TH RAY OPEN INTRO [id number] [facility] 6 Y Y [facility] PERIPH NERVES PLEXI PERQ AMPUTATIO 51323 [place] ENDEAN N 6 MEDICAL METATARSA SERV L W/TOE FOUNDATIO SINGLE N INJECTION 89846 [place] CHRISTIAN 6 MEDICAL CAR ANESTHETI SERV C AGENT FOUNDATIO SCIATIC N NRV SINGLE INJECTION 56304 [place] CHRISTIAN 6 MEDICAL CAR ANESTHETI SERV C AGENT FOUNDATIO FEMORAL N NERVE SINGLE ANES OPEN 91036 [place] SELL TON PROC 6 MEDICAL BONES SERVICES LOWER LEG/ANKLE /[place] [address] [facility] SOTO MOL SURG 6 Y OF PATHOLOGY [facility] GROSS&STARLA ROSCOPIC EXAM DECALCIFI 35621 UN[facility] SOTO MOL CATION 6 Y OF PROCEDURE [facility] INITIAL 13220 [place] [facility] 6 MEDICAL OV AIB CARE/DAY SERV 70 FOUNDATIO MINUTES N RADIOLOGI 13619 [place] TRUE LILLY C 6 MEDICAL EXAMINATI SERV ON CHEST FOUNDATIO SINGLE N VIEW FRONTAL INITIAL 90000 [place] XENOS JACY INPATIENT 6 MEDICAL CONSULT SERV NEW/ESTAB FOUNDATIO PT 55 N MIN RADEX 01295 [place] TRUE LILLY FOOT 6 MEDICAL COMPLETE SERV MINIMUM 3 FOUNDATIO VIEWS N ECG 70079 [place] HAM CHI ROUTINE 6 MEDICAL ECG SERV W/LEAST FOUNDATIO 12 LDS N I&R ONLY INTENSITY 60121 [place] [address] Y [facility] RADIATION TX DLVR COMPLEX STEREOSCO G6002 [place] KUDRIMOTI PIC X-RAY 6 MEDICAL [facility] GUID SERV LOCALIZ FOUNDATIO TRG VOL N DEL RT STEREOSCO G6002 [place] KUDRIMOTI PIC X-RAY 6 MEDICAL ASTON GUID SERV LOCALIZ FOUNDATIO TRG VOL N DEL RT INTENSITY 71626 [place] [address] Y [facility] RADIATION TX DLVR COMPLEX INTENSITY [address] RADIATION [place] DLVR COMPLEX STEREOSCO G6002 [place] KUDRIMOTI PIC X-RAY 6 MEDICAL [facility] GUID SERV LOCALIZ FOUNDATIO TRG VOL N DEL RT STEREOSCO G6002 [place] KUDRIMOTI PIC X-RAY 6 MEDICAL [facility] GUID SERV LOCALIZ FOUNDATIO TRG VOL N DEL RT INTENSITY 10981 [place] [address] Y [facility] RADIATION TX DLVR COMPLEX THER RAD 49655 [place] [address] Y [facility] FIELD SETTING SIMPLE NTSTY 30237 [place] [address] Y [facility] PLN DOSE-VOL HISTOS MLC IMRT 37129 [place] [address] Y [facility] ION PER IMRT PLAN BASIC 62851 [facility] RADIATION 6 Y Y [facility] [address] [facility] DEVICES 6 Y Y DESIGN & [facility]OSPITAL [place] [address] [facility] DEVICES 6 Y Y [facility] CONSTRUCT ION COMPLEX CREATININ 53232 [facility] E BLOOD 6 Y Y [facility] CONSLTJ&R 62245 [facility] EPRT 6 Y OF NAYELI SLIDES [place] [facility] ELSEWHERE [facility] THORAX 86702 [facility] 6 Y Y W/CONTRAS [facility] T MATERIAL LOCM Q9967 [facility] [phone] Y Y MG/ML [facility] [place] [address] [facility] IMAGING [address] [place] [facility] ON SKULL BASE MID-THIGH FLUORODEO A9552 [facility] XYGLUCOSE 6 Y Y F-18 FDG [facility] DX UP TO 45 [facility]CI BEHAVIORA 74381 [facility] L & 6 Y Y QUALIT [facility] ANALYSIS VOICE AND RESONANCE LARYNGOSC 17635 [facility] OPY 6 Y Y FLEXIBLE [facility] DIAGNOSTI C ANES 71409 [place] KARI ESJOSEPHINE 6 ANESTHESI FIDELINA THYRD A GROUP LARYNX PS TRACH & LYMPH NECK 1YR CYTP EVAL 07922 [facility] FINE [address] [place] [address] NEEDLE ASPIRATE INTERP & [place] [address] [facility] SURG [address] [place] [address] PATHOLOGY GROSS&STARLA ROSCOPIC EXAM COLLECTIO 28709 [facility] N VENOUS [address] [place] [address] [place] [address] [facility] UREA [address] [place] [address] QUANTITAT JOJO CREATININ 60087 [facility] E BLOOD [address] [place] [address] GONADOTRO 31323 [facility] PIN [address] [place] [address] NG HORMONE PROSTATE [id number] [facility] CANCER 6 [facility] ; PSA TEST CREATININ 76852 [facility] B[facility] [address] [place] [address] LARYNGOSC 20918 BH[facility] BLACKURY OPY 6 [facility]SCIAN [facility] C HEMOGLOBI 83782 [facility]ARG[facility] BURK N [address] [place] [address] JESSE A1C BLOOD 91394 [facility] [address] [place] [address] [place] [address] [facility] UREA [address] [place] [address] QUANTITAT JOJO COLLECTIO 68698 [facility] N VENOUS [address] [place] [address] SOFT [address] [facility] [place] MELANIE TISSUE 6 RADIOLOGY RHO NECK W/CONTRAS T MATERIAL LOCM Q9967 [facility] [phone] 6 [facility] MG/ML [facility] IODINE CONCENTRA TION PER ML ELECTROLY 06135 [facility] TE PANEL [address] [place] [address] DEBRIDEME [address]51 PROGRESSI PROGRESSI NT 6 VE VE SUBCUTANE PODIATRY PODIATRY OUS TISSUE 20 SQ CM/< DEBRIDEME 08786 EDDA EDDA NT 6 DEE DEE SUBCUTANE OUS TISSUE 20 SQ CM/< AFO L1970 PROGRESSI PROGRESSI PLASTIC 6 VE VE WITH PODIATRY PODIATRY ANKLE JOINT CUSTOM FABRICATE D ADD LW L2275 PROGRESSI PROGRESSI EXTRM 6 VE VE VARUS/VUL PODIATRY PODIATRY TANGELA MATTY PLSTC MOD PADD/LN DEBRIDEME 83285 EDDA EDDA NT NAIL 6 DEE DEE ANY METHOD 6/> DEBRIDEME 23814 EDDA EDDA NT 6 DEE DEE SUBCUTANE OUS TISSUE 20 SQ CM/< DEBRIDEME 94556 EDDA EDDA NT 6 DEE DEE SUBCUTANE OUS TISSUE 20 SQ CM/< RADEX 29394 MARY HERNANDEZ FOOT 6 [facility] MINIMUM 3 VIEWS RADIOLOGI 60126 [place] ADAM ALL C 6 MEDICAL EXAMINATI IMAGING ON FOOT 2 ASS VIEWS DEBRIDEME 87620 EDDA EDDA NT 6 DEE DEE SUBCUTANE [...] SQ/< T T W/O ADHES BORDR DEBRIDEME 13211 EDDA EDDA NT 5 DEE DEE SUBCUTANE OUS TISSUE 20 SQ CM/< DEBRIDEME 63821 EDDA EDDA NT 5 DEE DEE SUBCUTANE OUS TISSUE 20 SQ CM/< DEBRIDEME 18869 EDDA EDDA NT 5 DEE DEE SUBCUTANE OUS TISSUE 20 SQ CM/< CYSTO 98190 [facility] CALIBRATI 5 [place] ON DILAT ADULT & URTL PED STRIX/DONN NOSIS SIMPLE 45422 [facility] CYSTOMETR 5 [place] OGRAM ADULT & PED SIMPLE 28975 [facility] UROFLOMET 5 [place] RY ADULT & PED COLLAGEN A6021 [...] DRUG SCR G0434 [facility] PHIL CHROMATOG ADULT & RAPHIC; PED ANY NUMBER PT ENC ENMANUEL 40380 [facility] POST-VOID 5 [facility] PHIL ING ADULT & RESIDUAL PED URINE&/BL [...] T T NC PASTE LINR YD RADEX 10078 [facility] FED LAUSE FED FOOT 5 COMPLETE MINIMUM 3 VIEWS BASIC 31367 [facility] METABOLIC 5 [facility] CALCIUM TOTAL ALBUMIN 19803 [facility] URINE [address] [facility] MIN QUANTIATI VE HEMOGLOBI 75100 [facility] N 5 [facility] JESSE A1C COLLECTIO 99695 [facility] N VENOUS 5 [facility] VENIPUNCT URE COLLECTIO 54736 [facility] N VENOUS 4 [facility] VENIPUNCT URE HEMOGLOBI 71574 [facility] N 4 [facility] JESSE A1C ALBUMIN 84244 [facility] URINE [address] [facility] MIN QUANTIATI VE PROSTATE G0103 [facility] CANCER [address] [place] [address] ; PSA TEST BASIC 39831 [facility] METABOLIC [address] [place] [address] CALCIUM TOTAL LIPID 76159 [facility] PANEL [address] [place] [address] HEPATIC 43915 [facility] FUNCTION [address] [place] [address] [facility] A5512 [facility] ONLY MX 4 MEDICAL MEDICAL DNSITY SUPPLY SUPPLY [facility] FORMD PRFAB EA DIAB ONLY A5500 [facility] FIT CSTM 4 MEDICAL MEDICAL PREP&SPL SUPPLY SUPPLY SHOE [facility] DNSITY INSRT CATARACT [address]38 [place] ERICK REMOVAL 4 MEDICAL JR ANY INSERTION SERV OF LENS FOUNDATIO Encounters Encounter Start End Date Code Location Performer Type Date OFFICE 29468 [facility] OUTPATIEN 7 7 HEALTH T VISIT SOLUTIONS 25 IN MINUTES [facility] - 7 7 [facility] OUTPATIEN E T HOSPITALS OFFICE 47026 OUTPATIEN 7 7 [facility]ALTH[facility] T VISIT 5 E MINUTES [facility]OSPITALS OFFICE 31299 [facility] 7 7 HEALTH T VISIT SOLUTIONS 15 IN MINUTES [facility] - 7 7 [facility] INPATIENT INC OFFICE 64426 OUTPATIEN 7 7 [facility]ALTH[facility] T VISIT 5 E MINUTES [facility] 7 7 [facility] OUTPATIEN E T HOSPITALS OFFICE 65653 NARENDRA AOUAMary Lou OUTPATIEN 7 7 MEDICAL T VISIT SERV 15 FOUNDATIO MINUTES N OFFICE 70390 NARENDRA JOSELINE OUTPATIEN 7 7 MEDICAL T VISIT SERV 25 FOUNDATIO MINUTES N OFFICE 57061 [facility] T VISIT SOLUTIONS 25 IN MINUTES EMERGENCY 58096 [facility] 7 7 GRACIE DEPARTMEN EMERGENCY T VISIT PHYS HIGH/URGE NT SEVERITY [facility]OSPITAL [facility] - 7 7 [facility] OUTPATIEN INC T OFFICE 32793 [facility] 7 7 HEALTH T VISIT SOLUTIONS 15 IN MINUTES OFFICE 24548 [facility] 7 7 HEALTH T VISIT SOLUTIONS 25 IN MINUTES [facility] - 7 7 [facility] OUTPATIEN E T HOSPITALS EMERGENCY 89934 [facility] 7 7 [facility] DEPARTMEN INC T VISIT HIGH/URGE NT SEVERITY EMERGENCY 14573 NARENDRA LOVE DEPT 7 7 MEDICAL VISIT SERV HIGH FOUNDATIO SEVERITY& N THREAT [facility] M[facility] - 7 7 [facility] OUTPATIEN INC T EMERGENCY 73464 JOE SWEENEY DEPT 7 7 PHYSICIAN U VISIT S, PLL HIGH SEVERITY& THREAT [facility] - 6 6 [facility]ALTH[facility] OUTPATIEN E T HOSPITALS OFFICE 05010 OUTPATIEN 6 6 [facility]ALTHCAR T VISIT 5 E MINUTES HOSPITALS [facility] - 6 6 [facility] OUTPATIEN E T [facility]ITALS OFFICE 71456 [facility] [place] ROM[place] T VISIT PHYSICIAN 25 S ASSIST MINUTES OFFICE 03720 OUTPATIEN 6 6 HEALTHCAR T VISIT 5 E MINUTES HOSPITALS OFFICE 34663 [facility] 6 6 PHYSICIAN T VISIT S GROUP MINUTES [facility] - 6 6 [facility] - 6 6 Y [facility] T OFFICE 78797 [facility] 6 6 Y T VISIT 5 [facility] 6 [facility] 30005 [place] JOSELINE [facility] 6 6 MEDICAL T VISIT SERV 25 FOUNDATIO MINUTES N OFFICE 31767 [facility] 6 6 [place] ADA T VISIT PHYSICIAN 25 S ASSIST MINUTES [facility]OSP[facility] - 6 6 [facility] OUTPATIEN E T HOSPITALS OFFICE 48287 [facility] 6 6 HEALTH[facility] T VISIT 5 E MINUTES HOSPITALS HOME [facility], 6 6 HOME INPATIENT HEALTH [facility] UN[facility]ERSIT - 6 6 Y [facility] OFF[facility] 34686 [facility] 6 6 Y T VISIT 5 HOSPITAL [facility] OFFICE 23104 [place] MINION [facility] 6 6 MEDICAL JACK T VISIT SERV 10 FOUNDATIO MINUTES N HOME [facility] 6 6 HOME [facility] - 6 6 Y INPATIENT HOSPITAL OFFICE 13790 [facility] OUTPATI[facility] 6 6 JAMES RAMIREZ T VISIT 15 MINUTES EMERGENCY 02821 NARENDRA CLAROS DEPT 6 6 MEDICAL NAYELI VISIT SERV HIGH FOUNDATIO SEVERITY& N THREAT [facility] OFF[facility] 67518 [facility] 6 6 Y T VISIT 5 HOSPITAL MINUTES HOME [facility], 6 6 HOME INPATIENT HEALTH AGENCY EMERGENCY 64182 JOE JONES DEPT 6 6 PHYSICIAN STARLA VISIT S, PLLC HIGH SEVERITY& THREAT [facility] MARY - 6 6 MEM HOS[facility] OUTPATIEN INC T EMERGENCY 37949 [facility] 6 6 [facility] DEPARTMEN INC T VISIT HIGH/URGE NT SEVERITY OFFICE 96569 [facility] OUTPATIEN 6 6 JAMES JAMES T VISIT 15 MINUTES HOSPITAL [facility] - 6 6 Y [facility] T OFFICE 38786 [facility] 6 6 [place] ADA T VISIT PHYSICIAN 15 S ASSIST MINUTES HOSPITAL [facility] 6 6 Y [facility] T OFFICE 80414 [facility] 6 6 Y T VISIT 5 HOSPITAL MINUTES HOME [facility], 6 6 HOME [facility] - 6 6 Y INPATIENT HOSPITAL EMERGENCY 58937 NARENDRA SHAH DEPT 6 6 MEDICAL STARLA VISIT SERV HIGH FOUNDATIO SEVERITY& N THREAT [facility] UNIVERSIT - 6 6 Y [facility] - 6 6 [facility] 6 6 Y [facility] T OFFICE 61562 [facility] SANTACRUZ [facility] 6 6 JAMES JAMES T VISIT 15 MINUTES OFFICE 28754 [facility] 6 6 NURSE MIR T VISIT PRACTITIO [address] [facility] UNIVERS[facility] - 6 6 Y [facility] T OFFICE [address] [facility] 6 6 Y T VISIT 5 [facility] - 6 6 Y [facility] T OFFICE 92120 NARENDRA JAMES [facility] 6 6 MEDICAL T NEW 45 SERV MINUTES FOUNDATIO N OFFICE 73303 NARENDRA MASONMary Lou LAN [facility] 6 6 MEDICAL T VISIT SERV 25 FOUNDATIO [facility] UNIVERSIT - 6 6 Y [facility] T OFFICE 70968 [facility] 6 6 [place] ADA ION PHYSICIAN NEW/ESTAB S ASSIST PATIENT 60 MIN [facility]ERS[facility] - [address] [facility] T OFFICE 52366 BHARGAVI BLACKURY [facility] 6 6 PHYSCIAN LES T VISIT PRACTICE 15 LL MINUTES OFFICE 13839 [facility] SANTACRUZ [facility] 6 6 JAMES JAMES T VISIT 15 MINUTES [facility] [address] [facility] T OFFICE 54281 [facility] 6 6 PHYSCIAN LES ION PRACTICE NEW/ESTAB LL PATIENT 60 MIN [facility] - [address] [facility] T OFFICE 24304 NEETA SANTACRUZ [facility] 6 6 JAMES JAMES T VISIT 15 MINUTES OFFICE 23628 [facility] OUTPATIEN 6 6 JAMES JAMES T VISIT 15 MINUTES OFFICE 26684 [facility] OUTPATI[facility] 6 6 T VISIT 15 MINUTES [facility]OSPITAL [facility] - 6 6 [facility] OUTPATI[facility] INC T OFFICE 12319 [facility] OUTPATIEN 5 5 JAMES JAMES T VISIT 15 MINUTES OFFICE 44737 [facility] VILLARREAL T VISIT ADULT & 25 PED MINUTES OFFICE 58268 [facility] 5 5 [facility] PHIL ION ADULT & NEW/ESTAB PED PATIENT 60 MIN OFFICE 16991 [facility] OUTPATIEN 5 5 JAMES JAMES T VISIT 15 MINUTES OFFICE 06308 [facility] OUTPATIEN 5 5 T VISIT 15 MINUTES OFFICE 71251 [facility] OUTPATIEN 5 5 T VISIT 15 MINUTES OFFICE 90061 [facility] FED OUTPATIEN 5 5 T VISIT 15 MINUTES OFFICE 35050 [facility] FED [facility] FED OUTPATIEN 5 5 T VISIT 15 MINUTES OFFICE 88189 [facility]ET[facility]A OUTPATIEN 5 5 JAMES JAMES T VISIT 15 MINUTES OFFICE 07822 [facility] FED [facility] FED OUTPATIEN 5 5 T VISIT 15 MINUTES OFFICE 99337 LAUSE FED [facility] FED OUTPATIEN 5 5 T VISIT 15 MINUTES OFFICE 31199 [facility]ET[facility]A OUTPATIEN 5 5 JAMES JAMES T VISIT 25 MINUTES OFFICE 38924 [facility] FED [facility] FED OUTPATIEN 5 5 T VISIT 15 MINUTES OFFICE 24170 LAUSE FED [facility]USE FED OUTPATIEN 5 5 T VISIT 15 MINUTES OFFICE 05008 [facility] OUTPATIEN 5 5 JAMES JAMES T VISIT 15 MINUTES OFFICE 73993 [facility] FED [facility]USE FED OUTPATIEN 5 5 T VISIT 15 MINUTES OFFICE 34909 LAUSE FED LAUSE FED OUTPATIEN 5 5 T VISIT 15 MINUTES OFFICE 32822 [facility] OUTPATIEN 5 5 JAMES JAMES T VISIT 15 MINUTES OFFICE 18099 [facility] OUTPATIEN 5 5 JAMES JAMES T VISIT 25 MINUTES OFFICE 96632 [facility] OUTPATIEN 5 5 JAMES JAMES T VISIT 15 MINUTES OFFICE 43633 [facility] OUTPATI[facility] 5 5 JAMES JAMES T VISIT 15 MINUTES [facility] [address] [facility] T OFFICE 13235 NEETA [facility]ETA OUTPATIEN 5 5 JAMES JAMES T VISIT 15 MINUTES OFFICE 08014 [facility] OUTPATIEN 4 4 JAMES JAMES T VISIT 15 MINUTES OFFICE 67271 LAUSE FED LAUSE FED OUTPATIEN 4 4 T NEW 30 MINUTES OFFICE 11254 [facility] OUTPATIEN 4 4 JAMES JAMES T VISIT 15 MINUTES OFFICE 38923 [facility] OUTPATIEN 4 4 JAMES JAMES T VISIT 15 MINUTES [facility] [address] [facility] T OFFICE 66535 PRIMARY [facility]A OUTPATIEN 4 4 HEALTH JAMES T VISIT ASSOCIATE 15 S PS MINUTES OFFICE 20211 [facility] OUTPATIEN 4 4 HEALTH [facility]AMES T VISIT ASSOCIATE 15 S PS MINUTES
--- OUTSIDE RECORDS SUMMARY | 2017-03-25 22:38 | External Medical Summary Rpt | CCD ---
Author Author , MACIEJ Organization [facility] Address Unknown Phone [email or web address] Care Team Providers Care Christmas Tree Contractor Name Role Phone [facility], [facility] Unavailable Unavailable [facility], [facility] Unavailable Unavailable [facility] Unavailable Unavailable MANAGEMENT, [facility] MANAG[facility] Unavailable Unavailable MANAGEMENT, [facility] MANAG[facility] [place], Unavailable Unavailable [facility] [place] [facility] [place], Unavailable Unavailable [facility] [place] ENZO LOW, ENZO Unavailable Unavailable LOW AOUAD, [...] Unavailable ADAM ALL, ADAM ALL Unavailable Unavailable [facility] Unavailable Unavailable [facility]PITAL, [facility] Unavailable [facility], [facility] NEETA, NEETA Unavailable Unavailable NEETA, NEETA Unavailable Unavailable NEETA JAMES, NEETA Unavailable Unavailable JAMES NEETA JAMES, NEETA Unavailable Unavailable JAMES MCCARTHY STARLA, MCCARTHY Unavailable Unavailable STARLA EDDA DEE, EDDA Unavailable Unavailable DEE [facility], Unavailable Unavailable [facility] Unavailable Unavailable ADULT & PED, [facility] CLARKE JAG, CLARKE [...] Unavailable ROMEL VINCENT, VINCENT Unavailable Unavailable [facility] Unavailable Unavailable INC, [facility] Unavailable Unavailable HOSPITAL P, P POLY MIR, Unavailable Unavailable POLY MIR CURTIS[facility]MURILLO ELSIE, Unavailable Unavailable CURTIS-MURILLO ELSIE [facility], Unavailable Unavailable [facility] MASTERSON, MASTERSON Unavailable Unavailable PACO, PACO Unavailable Unavailable [facility] Unavailable Unavailable [place], [facility] Unavailable Unavailable [place], [facility] VONDA BROADDUS CHR, VONDA Unavailable Unavailable [facility]R JUSTICE, JUSTICE Unavailable Unavailable [facility] [facility] Unavailable Unavailable [facility], [facility] NURSE Unavailable Unavailable [...] LLC PARASRAMKA NOMAN, Unavailable Unavailable PARASRAMKA NOMAN [facility] Unavailable Unavailable EMS, [facility] Unavailable Unavailable EMS, [facility], Unavailable Unavailable PLLC, [...] EQUIPME SOTINGEANU, Unavailable Unavailable SOTINGEANU [facility] Unavailable Unavailable [facility], [facility] CHRITSIAN CAR, CHRISTIAN Unavailable Unavailable [facility] Unavailable Unavailable [facility], [facility] SHAH STARLA, SHAH Unavailable Unavailable STARLA BAUTISTA JOSUE, BAUTISTA Unavailable Unavailable JOSEU JOSELINE, JOSELINE Unavailable Unavailable JOSELINE ERIKA, JOSELINE ERIKA Unavailable Unavailable SOTO MOL, SOTO MOL Unavailable Unavailable TRUE LILLY, TRUE LILLY Unavailable Unavailable [facility] Unavailable Unavailable HOSPITALS, [facility], Unavailable Unavailable [facility] Unavailable [facility]available [place] [facility], [facility] PLUMMER TEREZA, PLUMMER TEREZA Unavailable Unavailable [facility] Unavailable Unavailable AGENCY, [facility] SUTHERLAND MAN, SUTHERLAND MAN [...] INC WITHOUT COMPLICATIO NS J189 PNEUMONIA 09-03-2016 [place] U[facility]PECIFIED [facility] ORGANISM [facility] J432 CENTRILOBUL 09-03-2016 [place] AR [facility] EMPHYSEMA IMAGING ASS R05 COUGH 09-03-2016 [facility] R0902 HYPOXEMIA 09-03-2016 [facility] I11183T POISONING 09-03-2016 [facility]OT[facility] INC ACCIDENTAL INIT ENC Z931 GASTROSTOMY 09-03-2016 [facility] INC C101 MALIGNANT 09-02-2016 [place] [facility] NEOP[facility] SERV ANTERIOR [facility]ATION SURFACE EPIGLOTTIS C7989 SECONDARY 09-02-2016 [place] [facility] MALIGNANT SERV NEOPLASM FOUNDATION OTH SPECIFIED SITES I10 ESSENTIAL 09-02-2016 [facility] N R404 TRANSIENT 09-02-2016 [facility] EMS AWARENESS R413 OTHER 09-02-2016 [place] [facility]IA [facility]AG[facility] ASS R4182 ALTERED 09-02-2016 [facility] MENTAL PHYSICIANS, STATUS PLLC UNSPECIFIED Z08 ENCOUNTER 09-02-2016 [place] [facility] F/U EXAM SERV AFTER CMPL FOUNDATION [place] MALIG NEOPLASM Z8619 PERSONAL 09-02-2016 [place] [facility] HISTORY OTH SERV INFECTIOUS FOUNDATION & PARASITIC DZ Z923 PERSONAL 09-02-2016 [place] [facility] H[place] OF SERV IRRADIATION FOUNDATION Q88808 WRIST DROP 08-19-2016 [facility] PHYS R94156 PAIN IN 08-19-2016 [facility] RIGHT WRIST HEALTH SOLUTIONS IN Z19527 PAIN IN 08-19-2016 [facility] RIGHT RADIOLOGY FOREARM Q20538 PAIN IN 08-19-2016 [facility] RIGHT HAND HEALTH SOLUTIONS IN S27776 PAIN IN 08-12-2016 [facility] ARM [facility] INC R202 PARESTHESIA 08-12-2016 [facility] OF SKIN [facility] INC I9589 OTHER 07-28-2016 [facility] HYPOTENSION HEALTH SOLUTIONS IN J24684 FLAIL JOINT 07-28-2016 [facility] RIGHT HEALTH WRIST SOLUTIONS IN D210 SAIRA 07-21-2016 [facility] NEOPLASM HEALTH CNCTV OTH SOLUTIONS SOFT TISS IN HEAD FACE NECK R000 TACHYCARDIA 07-21-2016 [facility] UNSPECIFIED SOLUTIONS IN J21269 NON-PRSS 07-08-2016 [facility] UNS FOOT UNS SEVERITY I348 OTHER 07-04-2016 [place] [facility] NONRHEUMATI SERV C MITRAL FOUNDATION VALVE DISORDERS I350 NONRHEUMATI 07-04-2016 [place] [facility] C AORTIC SERV VALVE FOUNDATION STENOSIS I4891 UNSPECIFIED 07-04-2016 [place] [facility] ATRIAL SERV FIBRILLATIO FOUNDATION N O59519 FACIAL 07-04-2016 [facility] WEAKNESS SERV FOUNDATION R531 WEAKNESS 07-04-2016 [facility] SERV F[facility]ATION E1169 TYPE 2 07-03-2016 [facility] DIABETES PHYSICIANS, MELLITUS PLLC W/OTH SPEC COMPLICATIO N E669 OBESITY 07-03-2016 [facility] UNSPECIFIED PHYSICIANS, PLLC G459 TRANSIENT 07-03-2016 [facility] CEREBRAL SERV ISCHEMIC FOUNDATION ATTACK UNSPECIFIED G8191 HEMIPLEGIA 07-03-2016 [facility] P RIGHT DOMINANT SIDE I440 ATRIOVENTRI 07-03-2016 [facility] CULAR BLOCK SERV FIRST FOUNDATION DEGREE I498 OTHER 07-03-2016 [facility] SPECIFIED SERV CARDIAC FOUNDATION ARRHYTHMIAS I639 CEREBRAL 07-03-2016 [facility] INFARCTION PHYSICIANS, UNSPECIFIED PLLC I6523 OCCLUSION & 07-03-2016 [facility] STENOSIS SERV BILATERAL FOUNDATION CAROTID ARTERIES J984 OTHER 07-03-2016 [place] [facility] DISORDERS SERV OF LUNG FOUNDATION R9431 ABNORMAL 07-03-2016 [place] [facility] ELECTROCARD SERV IOGRAM FOUNDATION Z720 TOBACCO USE 07-03-2016 P Z7401 BED 07-03-2016 [facility] CONFINEMENT [place] STATUS Z794 NURSING HOME 07-03-2016 [place] CURRENT USE MEM HOSP OF INSULIN INC L40500 NON-PRSS 06-16-2016 [facility] P FT W/UNS SEVERITY R42 DIZZINESS 06-16-2016 [facility] AND PHYSICIANS, GIDDINESS PLLC R5383 OTHER 06-16-2016 [facility] FATIGUE PHYSICIANS, PLLC G8929 OTHER 05-27-2016 [facility] S27967 OTHER 05-27-2016 [facility] SECONDARY SERV CATARACT FOUNDATION LEFT EYE Z961 PRESENCE OF 05-27-2016 [facility] SERV INTRAOCULAR FOUNDATION LENS E1100 TYPE 2 DM 05-18-2016 [facility] W/HYPEROSMO PHYSICIANS LARITY W/O GROUP NKHHC I739 PERIPHERAL 05-18-2016 [facility] VASCULAR PHYSICIANS DISEASE GROUP UNSPECIFIED R221 LOCALIZED 04-22-2016 [facility] MASS AND LUMP NECK R599 ENLARGED 04-22-2016 [facility] LYMPH NODES SERV FOUNDATION UNSPECIFIED Y70543 TYPE 2 04-08-2016 [place] [facility] DIABETES SERV MELLITUS FOUNDATION WITH OTHER SKIN ULCER R490 DYSPHONIA 04-08-2016 [facility] C770 SEC & UNS 04-03-2016 [facility] LYMPH NODES [facility] HEAD FACE & NECK J3489 OTHER 04-03-2016 [place] [facility] SPECIFIED SERV DISORDERS FOUNDATION NOSE AND NASAL SINUSES R1310 DYSPHAGIA 04-03-2016 [facility] R918 OTHER 04-03-2016 [place] [facility] NONSPECIFIC SERV ABNORMAL FOUNDATION FINDING OF LUNG FIELD M6281 MUSCLE 03-16-2016 [facility] GENERALIZED AGENCY R84729 OTHER ACUTE 03-16-2016 [facility] OSTEOMYELIT AGENCY IS RIGHT ANKLE AND FOOT R269 UNSPECIFIED 03-16-2016 [facility] ABNORMALITI AGENCY ES OF GAIT AND MOBILITY N69516M UNSPECIFIED 03-16-2016 [facility] OPEN WOUND HEALTH RIGHT FOOT AGENCY SUBSEQUENT ENC Z431 ENCOUNTER 03-16-[facility]ENC[facility] TO GASTROSTOMY Z4800 ENCOUNTER 03-16-2016 [facility] CHANGE/[facility] NONSURG AGENCY WOUND DRESSING M1990 UNSPECIFIED 03-12-2016 [facility] OSTEOARTHRI TIS UNSPECIFIED SITE L02047 ACQUIRED 03-12-2016 [facility] ABSENCE OF SERV OTHER RIGHT FOUNDATION TOES A419 SEPSIS 02-19-2016 [facility] NURSE UNSPECIFIED PRACTITIONE ORGANISM R GR C4442 SQUAMOUS 02-19-2016 [facility] NURSE CELL PRACTITIONE CARCINOMA R GR OF SKIN OF SCALP & NECK R89777 TYPE 2 02-19-2016 [facility] NURSE DIABETES PRACTITIONE MELLITUS R GR WITH FOOT ULCER J76297 OTHER 02-18-2016 [facility] CHRONIC SERV OSTEOMYELIT FOUNDATION IS RIGHT ANKLE AND FOOT R609 EDEMA 02-18-2016 [facility] UNSPECIFIED SERV FOUNDATION R7989 OTHER SPEC 02-18-2016 [place] [facility] ABNORMAL SERV FINDINGS [facility]OUNDATION BLOOD CHEMISTRY E1140 TYPE 2 DM 02-14-2016 [facility] DIABETIC NEUROPATHY UNSPECIFIED M2011 HALLUX 02-14-2016 [place] [facility] VALGUS SERV ACQUIRED FOUNDATION RIGHT FOOT M609 MYOSITIS 02-14-2016 [place] [facility] UNSPECIFIED SERV FOUNDATION M7989 OTHER 02-14-2016 [place] [facility] SPECIFIED SERV SOFT TISSUE FOUNDATION DISORDERS R600 LOCALIZED 02-14-2016 [place] [facility] EDEMA SERV FOUNDATION I214 NON-ST 02-13-2016 [place] [facility] E[place]ATION SERV MYOCARDIAL FOUNDATION INFARCTION I2510 ASHD [place]WET[place] 02-13-2016 [place] [facility] CORONARY SERV 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 I959 HYPOTENSION 02-13-2016 NEETA JAMES UNSPECIFIED K19095 PERSONAL 02-13-2016 [place] [facility] HISTORY SERV OTHER FOUNDATION MALIGNANT NEOPLASM SKIN U07607 PERSONAL 02-13-2016 [place] [facility] H[facility] OF SERV PULMONARY FOUNDATION EMBOLISM E1122 TYPE 2 01-24-2016 [facility] DIABETES PHYSICIANS MELLITUS GROUP W/DIAB CHRON KIDNEY DZ I129 HYPERTENSIV 01-24-2016 [facility] E CKD PHYSICIANS W/STAGE 1-4 GROUP CKD OR UNS CKD N189 CHRONIC 01-24-2016 [facility] KIDNEY PHYSICIANS DISEASE GROUP UNSPECIFIED D649 ANEMIA 01-23-2016 [facility] UNSPECIFIED PHYSICIANS, PLLC M1711 UNILATERAL 01-23-2016 [place] [facility] OSTEOARTHRI IMAGING ASS TIS RIGHT KNEE I96347 PAIN IN 01-23-2016 [place] UNSPECIFIED MEDICAL HIP IMAGING ASS X81271 PAIN IN 01-23-2016 [place] RIGHT KNEE MEDICAL IMAGING ASS N289 DISORDER OF 01-23-2016 [facility] KIDNEY AND PHYSICIANS, URETER PLLC UNSPECIFIED R079 CHEST PAIN 01-23-2016 [place] UNSPECIFIED MEDICAL IMAGING ASS R51 HEADACHE 01-23-2016 [place] [facility] ASS K3032DM UNSPECIFIED 01-23-2016 [place] INJURY OF MEDICAL HEAD IMAGING ASS INITIAL ENCOUNTER A1357XR UNSPECIFIED 01-23-2016 [place] INJURY OF MEDICAL PELVIS IMAGING ASS INITIAL ENCOUNTER [id number] LACERATION 01-23-2016 [place] W/O FOREIGN MEDICAL BODY RT IMAGING ASS [...] METRO ULCER UNS AMBULANCE SITE UNSPECIFIED STAGE F51219 SPONDYLOSIS 01-03-2016 [place] [facility] W/O SERV MYELOPATH/R FOUNDATION ADICULOPATH Y LUMB RGN M869 OSTEOMYELIT 01-03-2016 [place] [facility] IS SERV UNSPECIFIED FOUNDATION N179 ACUTE 01-03-2016 [place] [facility] KIDNEY SERV FAILURE FOUNDATION UNSPECIFIED B42GSLJ UNSPECIFIED 01-03-2016 [place] [facility] FALL SERV INITIAL FOUNDATION ENCOUNTER Z043 ENCOUNTER 01-03-2016 [place] [facility] EXAM & SERV OBSERVATION FOUNDATION FOLLOW OTH ACCIDENT I82C12 ACUTE 01-02-2016 [facility] EMBOLISM & SERV THROMB LT FOUNDATION INTERNAL JUGULAR VEIN M6282 RHABDOMYOLY 01-02-2016 [facility] SIS N170 ACUTE RENAL 01-02-2016 [place] [facility] FAILURE SERV WITH FOUNDATION TUBULAR NECROSIS Q75761 CELLULITIS 12-30-2015 [place] [facility] OF RIGHT SERV LOWER LIMB FOUNDATION D696 THROMBOCYTO 12-24-2015 [facility] PENIA SERV UNSPECIFIED FOUNDATION J690 PNEUMONITIS 12-24-2015 [facility] DUE TO SERV INHALATION FOUNDATION OF FOOD AND VOMIT C18SGRP RADIATION 12-23-2015 [facility] SICKNESS SERV UNSPECIFIED FOUNDATION INITIAL ENCOUNTER E876 HYPOKALEMIA 12-20-2015 [place] [facility] SERV FOUNDATION R509 FEVER 12-16-2015 [place] [facility] UNSPECIFIED SERV FOUNDATION K121 OTHER FORMS 12-15-2015 [facility] OF SERV STOMATITIS FOUNDATION R339 RETENTION 12-15-2015 [facility]ICAL OF URINE SERV UNSPECIFIED FOUNDATION I56678 NON-PRSS 12-10-2015 [facility] CHR ULCR SERV UNS PART RT FOUNDATION LOW LEG UNS SEV I96 GANGRENE 12-03-2015 [place] [facility] NOT SERV ELSEWHERE FOUNDATION CLASSIFIED M868X6 OTHER 12-03-2015 [facility] OSTEOMYELIT SERV IS LOWER FOUNDATION LEG C4492 SQUAMOUS 12-02-2015 [facility] CELL SERV CARCINOMA FOUNDATION OF SKIN, UNSPECIFIED J83081 ACUTE 12-02-2015 [facility] EMBOLISM & SERV THROMBOSIS FOUNDATION DEEP VEINS LT UP EXT K5909 OTHER 12-02-2015 [facility] CONSTIPATIO SERV N FOUNDATION Y55887 PERSONAL 12-02-2015 [facility] HISTORY OF SERV NICOTINE FOUNDATION DEPENDENCE Z466 ENCOUNTER 12-01-2015 [facility] FITTING AND SERV ADJUSTMENT FOUNDATION URINARY DEVICE K97310 PAIN IN 11-30-2015 [place] [facility] LEFT SERV FOREARM FOUNDATION M868X7 OTHER 11-28-2015 [facility] OSTEOMYELIT SERV IS ANKLE FOUNDATION AND FOOT R740 NONSPECIFIC 11-21-2015 [place] [facility] E[place] SERV LEVELS FOUNDATION TRANSAMINAS E & LDH I444 LEFT 11-20-2015 [facility] ANTERIOR SERV FASCICULAR FOUNDATION BLOCK G8918 OTHER ACUTE 11-19-2015 [facility] SERV POSTPROCEDU FOUNDATION RAL PAIN L929 GRANULOMATO 11-19-2015 [facility]ORDER OF [place] THE [facility] & HOSPI SUBQ TISS UNS B35623 ELEVATED 11-18-2015 [place] [facility] WHITE BLOOD SERV CELL COUNT FOUNDATION UNSPECIFIED G92 TOXIC 11-18-2015 [facility] THY J13080 PRIMARY 11-18-2015 [facility] OSTEOARTHRI SERV TIS RIGHT FOUNDATION ANKLE AND FOOT R6520 SEVERE 11-18-2015 [place] [facility] SEPSIS SERV WITHOUT FOUNDATION SEPTIC SHOCK R748 ABNORMAL 11-18-2015 [place] [facility] LEVELS OF SERV OTHER SERUM FOUNDATION ENZYMES U531JGK TRAUMATIC 11-18-2015 [facility] S EMPHYSEMA INITIAL ENCNTR Z510 ENCOUNTER 11-15-2015 [facility] ANTINEOPLAS TIC RADIATION THERAPY C320 MALIGNANT 11-12-2015 NEETA JAMES NEOPLASM OF GLOTTIS M545 LOW BACK 11-12-2015 NEETA JAMES PAIN G893 NEOPLASM 11-07-2015 [facility] NURSE RELATED PRACTITIONE PAIN ACUTE R GR CHRONIC Z809 FAMILY 11-07-2015 [facility] NURSE HISTORY OF PRACTITIONE MALIGNANT R GR NEOPLASM UNSPECIFIED D020 CARCINOMA 10-22-2015 [facility] IN SITU OF SERV LARYNX FOUNDATION D0008 CARCINOMA 10-08-2015 [facility] PHARYNX C100 MALIGNANT 10-02-2015 [place] NEOPLASM OF [facility] J387 OTHER 10-02-2015 [place] DISEASES OF PHYSCIAN LARYNX PRACTICE LL R590 LOCALIZED 10-02-2015 [place] ENLARGED PHYSCIAN LYMPH NODES PRACTICE LL B90928 PRESSURE 09-24-2015 PROGR[facility] ULCER OF PODIATRY OTHER SITE STAGE 3 B351 TINEA 07-25-2015 PROGRESS[facility] UNGUIUM PODIATRY I890 LYMPHEDEMA 07-25-2015 PRO[facility] NOT PODIATRY ELSEWHERE CLASSIFIED D11912 SPONTANEOUS 07-25-2015 PROGR[facility] RUPTURE PODIATRY FLEXOR TENDONS RT ANKLE FOOT J90435 PAIN IN 07-25-2015 [facility] RIGHT FOOT PODIATRY I85659 PAIN IN 07-25-2015 [facility] RIGHT TOES PODIATRY E05910 PAIN IN 07-25-2015 [facility] LEFT TOES PODIATRY I04994 FURUNCLE 07-16-2015 NEET[facility] RIGHT HAND M7731 CALCANEAL 07-04-2015 [place] [facility] RIGHT MEDICAL FOOT IMAGING ASS D95171 NON-PRSS 05-29-2015 [facility] ULCR TISSUE OTH PART RT MANAGEMENT FOOT NECROS MUSC G629 POLYNEUROPA 05-24-2015 NEETA RAMIREZ THY UNSPECIFIED N3281 OVERACTIVE 05-02-2015 [facility] N3941 URGE 05-02-2015 [facility] E [facility] PED Z85068 POSTPROCEDU 05-02-2015 [facility] URETHRAL ADULT & PED STRICTURE MALE MEATAL R3914 FEELING OF 05-02-2015 [facility] INCOMPLETE [place] [facility] ADULT & PED EMPTYING N401 BENIGN 04-11-2015 [facility] PROSTATIC [facility] HYPERPLASIA ADULT & PED LW URINARY TRACT SX G4700 INSOMNIA 04-08-2015 NEETA RAMIREZ UNSPECIFIED G5790 UNSPECIFIED 04-03-2015 [facility] MONONEUROPA THY UNS LOWER LIMB 32304 DIAB W/O 03-13-2015 [facility] COMP TYPE II/UNS NOT STATED UNCNTRL 3572 POLYNEUROPA 03-13-2015 [facility] THY IN DIABETES 6827 CELLULITIS 03-13-2015 [facility] AND ABSCESS OF FOOT EXCEPT TOES 91717 ULCER OF 03-13-2015 [facility] OTHER PART OF FOOT 93174 SECONDARY 02-25-2015 [facility] DM W/OTH TISSUE SPEC MANAGEMENT MANIFEST NOT UNCONTROL 4011 ESSENTIAL 01-31-2015 NEETA RAMIREZ HYPERTENSIO N, BENIGN 7242 LUMBAGO 01-31-2015 NEETA RAMIREZ 45832 INSOMNIA 01-31-2015 NEETA RAMIREZ UNSPECIFIED 61153 HORDEOLUM 01-01-2015 NEETA RAMIREZ EXTERNUM 6826 CELLULITIS 10-09-2014 NEETA RAMIREZ AND ABSCESS OF LEG EXCEPT FOOT 60649 HYPERTROPHY 09-14-2014 NEETA RAMIREZ PROSTATE W/O UR OBST & OTH LUTS 16444 UNSPECIFIED 08-20-2014 NEETA RAMIREZ ARTHROPATHY SITE UNSPECIFIED 7264 ENTHESOPATH 05-25-2014 NEETA RAMIREZ Y OF WRIST AND CARPUS 1101 DERMATOPHYT 05-08-2014 [facility] OSIS OF NAIL 7295 PAIN IN 04-27-2014 NEETA RAMIREZ SOFT TISSUES OF LIMB 4779 ALLERGIC 03-30-2014 NEETA RAMIREZ RHINITIS CAUSE UNSPECIFIED 2724 OTHER AND 03-08-2014 [place] UNSPECIFIED HYPERLIPIDE MARIA TERESA 4619 ACUTE 07-24-2013 PRIMARY SINUSITIS, [place] [address] OTHER AND 07-13-2013 [facility] COMBINED SERV FORMS OF FOUNDATIO SENILE [...] 09 09 60 30 00 CA Ac MN 46 -0 -2 .0 00 RL ti OX 20 5- 9- 00 00 IS ve EN 19 20 20 78 LE 00 17 [address] 0 UG MG S TA BL ET ME 23 09 09 60 30 00 CA Ac TF 15 -0 -2 .0 00 RL ti OR 50 5- 9- 00 00 IS ve WI 10 20 20 78 LE N 21 17 [address] Fartun UG 50 S 0 MG TA BL ET AL 59 09 09 90 30 00 CA Ac MN 76 -0 -2 .0 00 RL ti [...] 08 09 90 30 00 CA Ac MN 76 -0 -0 .0 00 RL ti [...] 07 08 90 30 00 CA Ac MN 76 -1 -0 .0 00 RL ti [...] [address] TA OP [place] NO PH PH AR EN MA CY 7. 5- 32 5 AL 59 06 07 90 30 00 CA Ac MN 76 -0 -0 .0 00 RL ti [...] 05 06 20 10 00 CA Ac MN 57 -1 -0 .0 00 RL ti [...] 05 06 90 30 00 CA Ac MN 76 -1 -0 .0 00 RL ti [...] 04 05 90 30 00 CA Ac MN 76 -1 -1 .0 00 RL ti [...] 03 04 90 30 00 CA Ac MN 76 -1 -1 .0 00 RL ti [...] [address] SAUL BACH [place] S NO PH EN 7. 5- 32 [...] 02 03 90 30 00 CA Ac MN 76 -2 -1 .0 00 RL ti [...] 01 02 90 30 00 CA Ac MN 76 -2 -1 .0 00 RL ti [...] PH AR TA MA BL CY ET MN 00 01 02 12 2 00 ME [...] UG 5 S MG TA BL ET MN 00 12 01 11 6 00 CA Ac OM 60 -2 -2 8. 00 RL ti ET 31 3- 0- 00 00 IS ve CELESTIN 58 20 20 0 76 LE ZI 65 16 [address] -D UG M S SY RU P AL 59 12 01 90 30 00 CA Ac MN 76 -2 -2 .0 00 RL ti [...] RL ti RI 82 2- 9- 00 IS ve PT 68 20 20 75 LE YL 50 16 [address] Chon BACH HC S L 10 0 MG TA B Procedures Procedure DOS Code Location Performer Comment COLLECTIO 68271 [facility] N VENOUS 7 HEALTH BLOOD SOLUTIONS VENIPUNCT IN URE TOBACCO 1000F [facility] USE 7 HEALTH ASSESSED SOLUTIONS IN BODY MASS 3008F [facility] INDEX 7 HEALTH DOCUMENTE SOLUTIONS D IN CURRENT 1034F [facility] TOBACCO 7 HEALTH SMOKER SOLUTIONS IN HOME [place]; S9341 INFUSION INFUSION ENTERAL 7 PARTNERS PARTNERS NUTRITION OF OF [facility]IA [place] [facility]; ASSOCIATE [facility] [place]; S9341 INFUSION INFUSION ENTERAL 7 PARTNERS PARTNERS NUTRITION OF OF [facility] [place] [facility]; ASSOCIATE [facility] [place]; S9341 INFUSION INFUSION ENTERAL 7 PARTNERS PARTNERS NUTRITION OF OF [facility]IA [place] [facility]; ASSOCIATE [facility] [place]; S9341 INFUSION INFUSION ENTERAL 7 PARTNERS PARTNERS NUTRITION OF OF VIA [place] GRAVITY; ASSOCIATE [facility] [place]; S9341 INFUSION INFUSION ENTERAL 7 PARTNERS PARTNERS NUTRITION OF OF [place]IA [place] [facility]RAVITY; ASSOCIATE [facility] [place]; S9341 INFUSION INFUSION ENTERAL 7 PARTNERS PARTNERS NUTRITION OF OF [place] [facility]RAVITY; ASSOCIATE [facility] [place]; S9341 INFUSION INFUSION ENTERAL 7 PARTNERS PARTNERS NUTRITION OF OF [place]IA [place] [facility]RA[facility]; ASSOCIATE [facility] [place]; S9341 INFUSION INFUSION ENTERAL 7 PARTNERS PARTNERS NUTRITION OF OF [facility] [place]RA[facility]; ASSOCIATE [facility] [place]; S9341 INFUSION INFUSION ENTERAL 7 PARTNERS PARTNERS NUTRITION OF OF [place]; ASSOCIATE [facility] [place]; S9341 INFUSION INFUSION ENTERAL 7 PARTNERS PARTNERS NUTRITION OF OF [place]IA [place]; ASSOCIATE [facility] [place]; S9341 INFUSION INFUSION ENTERAL 7 PARTNERS PARTNERS NUTRITION OF OF [place]IA [place]; ASSOCIATE [facility] [place]; S9341 INFUSION INFUSION ENTERAL 7 PARTNERS PARTNERS NUTRITION OF OF [place]IA [place]; ASSOCIATE [facility] [place]; S934 INFUSION INFUSION ENTERAL 7 PARTNERS PARTNERS NUTRITION OF OF [place] [place]; ASSOCIATE [facility] [place]; S934 INFUSION INFUSION ENTERAL 7 PARTNERS PARTNERS NUTRITION OF OF [place]IA [place]; ASSOCIATE [facility] [place]; S934 INFUSION INFUSION ENTERAL 7 PARTNERS PARTNERS NUTRITION OF OF [place]IA [place]; ASSOCIATE [facility] [place]; S934 INFUSION INFUSION ENTERAL 7 PARTNERS PARTNERS NUTRITION OF OF [place]IA [place]; ASSOCIATE [facility] [place]; S934 INFUSION INFUSION ENTERAL 7 PARTNERS PARTNERS NUTRITION OF OF [place]IA [place]; ASSOCIATE [facility] [place]; S934 INFUSION INFUSION ENTERAL 7 PARTNERS PARTNERS NUTRITION OF OF [place] [place]; ASSOCIATE [facility] [place]; S934 INFUSION INFUSION ENTERAL 7 PARTNERS PARTNERS NUTRITION OF OF [place]; [facility] [place]; S934 INFUSION INFUSION ENTERAL 7 PARTNERS PARTNERS NUTRITION OF OF [place]; [facility] [place]; S934 INFUSION INFUSION ENTERAL 7 PARTNERS PARTNERS NUTRITION OF OF [place]; [facility] [place]; S934 INFUSION INFUSION ENTERAL 7 PARTNERS PARTNERS NUTRITION OF OF [place]; [facility] [place]; S934 INFUSION INFUSION ENTERAL 7 PARTNERS PARTNERS NUTRITION OF OF [place]; [facility]OC[facility] [place]; S9341 INFUSION INFUSION ENTERAL 7 PARTNERS PARTNERS NUTRITION OF OF [place]; [facility] [place]; S9341 INFUSION INFUSION ENTERAL 7 PARTNERS PARTNERS NUTRITION OF OF [place]; [facility]OC[facility] [place]; S9341 INFUSION INFUSION ENTERAL 7 PARTNERS PARTNERS NUTRITION OF OF [place]; [facility]OCI[facility] [place]; S9341 INFUSION INFUSION ENTERAL 7 PARTNERS PARTNERS NUTRITION OF OF [place]; [facility]OCIATE [facility] [place]; S9341 INFUSION INFUSION ENTERAL 7 PARTNERS PARTNERS NUTRITION OF OF [place]; [facility]OCIATE [facility] [place]; S9341 INFUSION INFUSION ENTERAL 7 PARTNERS PARTNERS NUTRITION OF OF [place]; [facility] [place]; S9341 INFUSION INFUSION ENTERAL 7 PARTNERS PARTNERS NUTRITION OF OF [place]; ASSOCIATE [facility] [id number] CORA SHEPHERD SEMI-ELEC 7 HOME HOME W/ANY MEDICAL MEDICAL TYPE SIDE EQUIPME EQUIPME RAIL W/MATTRSS COLLECTIO [id number] [place] N VENOUS 7 HEALTHCAR HEALTHCAR BLOOD E E VENIPUNCT [facility] URE RENAL 69621 [place] FUNCTION 7 HEALTHCAR HEALTHCAR PANEL E E [facility] [place] [address] [place] THYROID 7 HEALTHCAR HEALTHCAR STIMULATI E E NG [facility] HORMONE TSH PREALBUMI 98540 [place] N 7 HEALTHCAR HEALTHCAR E E [facility] BLOOD 60791 [place] COUNT 7 HEALTHCAR HEALTHCAR COMPLETE E E AUTO&AUTO [facility] DIFRNTL WBC FOOT 2027F SANDY ANTONIO EXAMINATI 7 HEALTH ON SOLUTIONS PERFORMED IN HOME [place]; S9341 INFUSION INFUSION ENTERAL 7 PARTNERS PARTNERS NUTRITION OF OF [place]; [facility] [place]; S9341 INFUSION INFUSION ENTERAL 7 PARTNERS PARTNERS NUTRITION OF OF [place]; [facility] HOME [place]; S9341 INFUSION INFUSION ENTERAL 7 PARTNERS PARTNERS NUTRITION OF OF [place] GRAVITY; [facility] [place]; S9341 INFUSION INFUSION ENTERAL 7 PARTNERS PARTNERS NUTRITION OF OF [place] GRAVITY; ASSOCIATE [facility] HOME [place]; S9341 INFUSION INFUSION ENTERAL 7 PARTNERS PARTNERS NUTRITION OF OF [place] GRAVITY; ASSOCIATE [facility] [place] HOME [place]; S9341 INFUSION INFUSION ENTERAL 7 PARTNERS PARTNERS NUTRITION OF OF [place] GRAVITY; ASSOCIATE [facility] [place] HOME [place]; S9341 INFUSION INFUSION ENTERAL 7 PARTNERS PARTNERS NUTRITION OF OF [place]RAVITY; ASSOCIATE [facility] HOME [place]; S9341 INFUSION INFUSION ENTERAL 7 PARTNERS PARTNERS NUTRITION OF OF [place] GRAVITY; ASSOCIATE [facility] HOME [place]; S9341 INFUSION INFUSION ENTERAL 7 PARTNERS PARTNERS NUTRITION OF OF [place] GRAVITY; ASSOCIATE [facility] HOME [place]; S9341 INFUSION INFUSION ENTERAL 7 PARTNERS PARTNERS NUTRITION OF OF [place]RAVITY; ASSOCIATE [facility] HOME [place]; S9341 INFUSION INFUSION ENTERAL 7 PARTNERS PARTNERS NUTRITION OF OF [place] GRAVITY; ASSOCIATE [facility] HOME [place]; S9341 INFUSION INFUSION ENTERAL 7 PARTNERS PARTNERS NUTRITION OF OF [place] GRAVITY; ASSOCIATE [facility] HOME [place]; S9341 INFUSION INFUSION ENTERAL 7 PARTNERS PARTNERS NUTRITION OF OF [place] GRAVITY; ASSOCIATE [facility] HOME [place]; S9341 INFUSION INFUSION ENTERAL 7 PARTNERS PARTNERS NUTRITION OF OF [place] GRAVITY; ASSOCIATE ORACLE RETAIL [facility] BED E0260 CORA SHEPHERD SEMI-ELEC 7 HOME HOME W/ANY MEDICAL MEDICAL TYPE SIDE EQUIPME EQUIPME RAIL W/MATTRSS HOME TX; S9341 INFUSION INFUSION ENTERAL 7 PARTNERS PARTNERS NUTRITION OF OF [place] GRAVITY; ASSOCIATE [facility] HOME [place]; S9341 INFUSION INFUSION ENTERAL 7 PARTNERS PARTNERS NUTRITION OF OF [place] GRAVITY; ASSOCIATE [facility] RETAIL HOME [place]; S9341 INFUSION INFUSION ENTERAL 7 PARTNERS PARTNERS NUTRITION OF OF [place]RAVITY; ASSOCIATE [facility] HOME [place]; S9341 INFUSION INFUSION ENTERAL 7 PARTNERS PARTNERS NUTRITION OF OF [place] GRAVITY; ASSOCIATE [facility]AIL HOME [place]; S9341 INFUSION INFUSION ENTERAL 7 PARTNERS PARTNERS NUTRITION OF OF [place] GRAVITY; ASSOCIATE [facility]ACLE [facility]AIL HOME [place]; S9341 INFUSION INFUSION ENTERAL 7 PARTNERS PARTNERS NUTRITION OF OF [place] GRAVITY; ASSOCIATE [facility]ACLE RETAIL HOME [place]; S9341 INFUSION INFUSION ENTERAL 7 PARTNERS PARTNERS NUTRITION OF OF [place] GRAVITY; ASSOCIATE [facility]ACLE [facility]AIL HOME [place]; S9341 INFUSION INFUSION ENTERAL 7 PARTNERS PARTNERS NUTRITION OF OF [place] GRAVITY; ASSOCIATE [facility]AIL HOME [place]; S9341 INFUSION INFUSION ENTERAL 7 PARTNERS PARTNERS NUTRITION OF OF [place] GRAVITY; ASSOCIATE ORACLE RETAIL HOME [place]; S9341 INFUSION INFUSION ENTERAL 7 PARTNERS PARTNERS NUTRITION OF OF [place] GRAVITY; ASSOCIATE [facility]LE RETAIL HOME [place]; S9341 INFUSION INFUSION ENTERAL 7 PARTNERS PARTNERS NUTRITION OF OF [place] GRAVITY; ASSOCIATE [facility]ACLE RETAIL HOME [place]; S9341 INFUSION INFUSION ENTERAL 7 PARTNERS PARTNERS NUTRITION OF OF [place] GRAVITY; ASSOCIATE [facility]ACLE RETAIL HOME [place]; S9341 INFUSION INFUSION ENTERAL 7 PARTNERS PARTNERS NUTRITION OF OF [place]RAVITY; ASSOCIATE [facility] HOME [place]; S9341 INFUSION INFUSION ENTERAL 7 PARTNERS PARTNERS NUTRITION OF OF [place] GRAVITY; ASSOCIATE ORACLE RETAIL [facility] BED E0260 CORA SHEPHERD SEMI-ELEC 7 HOME HOME W/ANY MEDICAL MEDICAL TYPE SIDE EQUIPME EQUIPME RAIL W/MATTRSS HOME TX; S9341 INFUSION INFUSION ENTERAL 7 PARTNERS PARTNERS NUTRITION OF OF [place] GRAVITY; ASSOCIATE [facility]ACLE RETAIL HOME [place]; S9341 INFUSION INFUSION ENTERAL 7 PARTNERS PARTNERS NUTRITION OF OF [place] GRAVITY; ASSOCIATE [facility]ACLE RETAIL HOME [place]; S9341 INFUSION INFUSION ENTERAL 7 PARTNERS PARTNERS NUTRITION OF OF [place] GRAVITY; ASSOCIATE [facility]AC[facility] RETAIL HOME [place]; S9341 INFUSION INFUSION ENTERAL 7 PARTNERS PARTNERS NUTRITION OF OF [place] GRAVITY; ASSOCIATE [facility]ACLE RETAIL HOME [place]; S9341 INFUSION INFUSION ENTERAL 7 PARTNERS PARTNERS NUTRITION OF OF [place] GRAVITY; ASSOCIATE [facility]ACLE RETAIL HOME [place]; S9341 INFUSION INFUSION ENTERAL 7 PARTNERS PARTNERS NUTRITION OF OF [place] GRAVITY; ASSOCIATE [facility]AIL HOME [place]; S9341 INFUSION INFUSION ENTERAL 7 PARTNERS PARTNERS NUTRITION OF OF [place] GRAVITY; ASSOCIATE ORACLE RETAIL CT THORAX 84553 MIHAI ADAM 7 MEDICAL W/CONTRAS IMAGING T ASS MATERIAL HOME TX; S9341 INFUSION INFUSION ENTERAL 7 PARTNERS PARTNERS NUTRITION OF OF [place] GRAVITY; ASSOCIATE [facility]ACLE RETAIL FINAL G9638 MIHAI ADAM REPORTS 7 MEDICAL W/O DOC IMAGING 1/MORE ASS DOSE REDUCTION TECH FINAL RPT G[address]/MRI 7 MEDICAL CHEST/NCK IMAGING /U/S NO ASS THR NOD<1.0 CM FINAL G9638 MIHAI ADAM REPORTS 7 MEDICAL W/O DOC IMAGING 1/MORE ASS DOSE REDUCTION TECH COLLECTIO 22503 [facility] N VENOUS 7 [facility] BLOOD E E VENIPUNCT [facility] URE COMPREHEN 90548 [facility] SIVE 7 [facility] METABOLIC E E PANEL [facility] GROUND A0425 [facility] MILEAGE 7 [facility] MILE AMBULANCE A0429 [facility] SERVICE 7 [facility] [place] [address] [facility] THYROID 7 [facility] STIMULATI E E NG [facility] [place] [address] [facility] FREE 7 [facility] THYROXINE E E [facility]OSPITALS HOSPITALS HOME [place]; S9341 INFUSION INFUSION ENTERAL 7 PARTNERS PARTNERS NUTRITION OF OF [place] GRAVITY; ASSOCIATE [facility] RETAIL RADIOLOGI 98469 MIHAI ADAM C 7 MEDICAL EXAMINATI IMAGING [place] [address] MIHAI ADAM HEAD/BRAI 7 MEDICAL N W/O IMAGING CONTRAST ASS MATERIAL CRITICAL 32591 [facility] 7 PHYSICIAN ILL/INJUR S, [facility] ED PATIENT INIT 30-74 MIN BLOOD 64567 [facility] COUNT 7 [facility] COMPLETE E E AUTO&AUTO [facility] [place] [address] [facility] TRIIODOTH 7 [facility]ALTHCAR HEALTHCAR YRONINE E E T3 TOTAL [facility] TT3 HOME [place]; S9341 INFUSION INFUSION ENTERAL 7 PARTNERS PARTNERS NUTRITION OF OF [place] GRAVITY; ASSOCIATE [facility] HOME [place]; S9341 INFUSION INFUSION ENTERAL 7 PARTNERS PARTNERS NUTRITION OF OF [place] GRAVITY; ASSOCIATE [facility] HOME [place]; S9341 INFUSION INFUSION ENTERAL 7 PARTNERS PARTNERS NUTRITION OF OF [place] GRAVITY; ASSOCIATE [facility]AIL HOME [place]; S9341 INFUSION INFUSION ENTERAL 7 PARTNERS PARTNERS NUTRITION OF OF [place] GRAVITY; ASSOCIATE [facility]ACLE RETAIL HOME [place]; S9341 INFUSION INFUSION ENTERAL 7 PARTNERS PARTNERS NUTRITION OF OF [place] GRAVITY; ASSOCIATE [facility]AC[facility] RETAIL HOME [place]; S9341 INFUSION INFUSION ENTERAL 7 PARTNERS PARTNERS NUTRITION OF OF [place] GRAVITY; ASSOCIATE [facility]ACLE RETAIL HOME [place]; S9341 INFUSION INFUSION ENTERAL 7 PARTNERS PARTNERS NUTRITION OF OF [place]RAVITY; ASSOCIATE [facility]ACLE RETAIL HOME [place]; S9341 INFUSION INFUSION ENTERAL 7 PARTNERS PARTNERS NUTRITION OF OF [place] GRAVITY; ASSOCIATE [facility] RETAIL HOME [place]; S9341 INFUSION INFUSION ENTERAL 7 PARTNERS PARTNERS NUTRITION OF OF [place] GRAVITY; ASSOCIATE [facility]ACLE RETAIL HOME [place]; S9341 INFUSION INFUSION ENTERAL 7 PARTNERS PARTNERS NUTRITION OF OF [place]RAVITY; ASSOCIATE [facility]ACLE RETAIL HOME [place]; S9341 INFUSION INFUSION ENTERAL 7 PARTNERS PARTNERS NUTRITION OF OF [place]RAVITY; ASSOCIATE [facility]ACLE RETAIL HOME [place]; S9341 INFUSION INFUSION ENTERAL 7 PARTNERS PARTNERS NUTRITION OF OF [place] GRAVITY; ASSOCIATE [facility]ACLE RETAIL HOME [place]; S9341 INFUSION INFUSION ENTERAL 7 PARTNERS PARTNERS NUTRITION OF OF [place] GRAVITY; ASSOCIATE ORACLE RETAIL [facility] BED E0260 CORA SHEPHERD SEMI-ELEC 7 HOME HOME W/ANY MEDICAL MEDICAL TYPE SIDE EQUIPME EQUIPME RAIL W/MATTRSS RADEX 86513 [facility] FOREARM 2 7 RADIOLOGY VIEWS RADEX 65657 [facility] WRIST 7 RADIOLOGY COMPLETE MINIMUM 3 VIEWS AMBULANCE A[address] EMERGENCY EMS EMS TRANSPORT GROUND A[address] STAT[facility] EMS EMS MILE RADEX 57505 [facility] [place] [facility] HAND 7 RADIOLOGY MINIMUM 3 VIEWS HOME [place]; S9341 INFUSION INFUSION ENTERAL 7 PARTNERS PARTNERS NUTRITION OF OF [place] GRAVITY; ASSOCIATE [facility]ACLE RETAIL HOME [place]; S9341 INFUSION INFUSION ENTERAL 7 PARTNERS PARTNERS NUTRITION OF OF [place] GRAVITY; ASSOCIATE [facility]ACLE RETAIL HOME [place]; S9341 INFUSION INFUSION ENTERAL 7 PARTNERS PARTNERS NUTRITION OF OF [place] GRAVITY; ASSOCIATE [facility]ACLE RETAIL HOME [place]; S9341 INFUSION INFUSION ENTERAL 7 PARTNERS PARTNERS NUTRITION OF OF [place] GRAVITY; ASSOCIATE ORACLE RETAIL HOME [place]; S9341 INFUSION INFUSION ENTERAL 7 PARTNERS PARTNERS NUTRITION OF OF [place]RAVITY; ASSOCIATE [facility]AC[facility] RETAIL HOME [place]; S9341 INFUSION INFUSION ENTERAL 7 PARTNERS PARTNERS NUTRITION OF OF [place] GRAVITY; ASSOCIATE ORACLE RETAIL MANUAL 50096 MARY HERNANDEZ THERAPY 7 [facility] TQS 1/> INC INC REGIONS EACH 15 MINUTES THERAPEUT 51351 MARY HERNANDEZ IC PX 1/> 7 [facility] AREAS INC INC EACH 15 MIN EXERCISES HOS BED E0260 [facility] SEMI-ELEC 7 HOME HOME W/ANY MEDICAL MEDICAL TYPE SIDE EQUIPME EQUIPME RAIL W/MATTRSS DUP-SCAN 84763 [facility] LXTR 7 [facility] ART/ARTL E E [facility] COMPL BI STUDY HOME TX; S9341 INFUSION INFUSION ENTERAL 7 PARTNERS PARTNERS NUTRITION OF OF [place] GRAVITY; ASSOCIATE [facility]ACLE RETAIL HOME [place]; S9341 INFUSION JUSTICE ENTERAL 7 PARTNERS NUTRITION OF [place] GRAVITY; ASSOCIATE [facility]ACLE RETAIL HOME TX; S9341 INFUSION INFUSION ENTERAL 7 PARTNERS PARTNERS NUTRITION OF OF [place] GRAVITY; ASSOCIATE ORACLE RETAIL HOME [place]; S9341 INFUSION INFUSION ENTERAL 7 PARTNERS PARTNERS NUTRITION OF OF [place] GRAVITY; ASSOCIATE ORACLE RETAIL ECHO 07478 NARENDRA SHEPHERD TTC R-T 7 MEDICAL 2D SERV W/WOM-MOD FOUNDATIO E COMPL N SPEC&COLR D OBSERVATI 38171 NARENDRA MISBAH ON/INPATI 7 MEDICAL ENT SERV HOSPITAL FOUNDATIO CARE 55 N MINUTES GLUC BLD 50004 MARY HERNANDEZ GLUC MNTR 7 [facility] DEV INC [place] [address] MARY HERNANDEZ TROPONIN 7 [facility] QUANTITAT INC INC JOJO BLOOD 63699 MARY HERNANDEZ COUNT 7 [facility] COMPLETE INC INC AUTO&AUTO DIFRNTL WBC CREATINE 42423 MARY HERNANDEZ KINASE 7 [facility] TOTAL INC INC PROTHROMB 39482 MARY HERNANDEZ IN TIME 7 [facility] INC INC CRITICAL 70772 JOHN NOONAN 7 PHYSICIAN JR ILL/INJUR S, [facility] ED PATIENT INIT 30-[place] [address] [place] HEAD/BRAI 7 MEDICAL N W/O IMAGING CONTRAST ASS MATERIAL RADIOLOGI 83490 [place] JESS[place] C 7 MEDICAL EXAMINATI IMAGING ON CHEST ASS SINGLE VIEW FRONTAL THROMBOPL 09288 MARY HERNANDEZ ASTIN 7 [facility] TIME INC INC PARTIAL PLASMA/WH OLE BLOOD ECG 10396 MARY GALLARDO ROUTINE 7 [facility] W/LEAST P 12 LDS I&R ONLY COMPREHEN 01326 MARY HERNANDEZ SIVE 7 [facility] [place] [address] NARENDRA GRACIELA ANGIOGRAP 7 MEDICAL HY HEAD SERV W/CONTRAS FOUNDATIO T/NONCONT N RAST AMB A0431 AIR AIR SERVICE 7 METHODS METHODS CONVNTION [facility] AIR SRVC TRANSPORT [address] TH[address] [address] MARY HERNANDEZ PROPH/DX 7 [facility] NJX IV INC INC PUSH SINGLE/1S T SBST/DRUG ECG 21223 MARY HERNANDEZ ROUTINE 7 [facility] ECG INC INC W/LEAST 12 LDS TRCG ONLY W/O I&R FINAL G9638 [place] JESSICA REPORTS 7 MEDICAL W/O DOC IMAGING 1/MORE ASS DOSE REDUCTION TECH HOME TX; S9341 INFUSION INFUSION ENTERAL 7 PARTNERS PARTNERS NUTRITION OF OF [place] GRAVITY; ASSOCIATE [facility]ACLE RETAIL CREATINE 67385 MARY HERNANDEZ KINASE MB 7 [facility] [place] [address] NARENDRA GRACIELA ANGIOGRAP 7 MEDICAL HY NECK SERV W/CONTRAS FOUNDATIO T/NONCONT N RAST HOME TX; S9341 INFUSION INFUSION ENTERAL 7 PARTNERS PARTNERS NUTRITION OF OF [place] GRAVITY; ASSOCIATE ORACLE RETAIL HOME [place]; S9341 INFUSION INFUSION ENTERAL 7 PARTNERS PARTNERS NUTRITION OF OF [place] GRAVITY; ASSOCIATE ORACLE RETAIL HOME [place]; S9341 INFUSION INFUSION ENTERAL 7 PARTNERS PARTNERS NUTRITION OF OF [place] GRAVITY; ASSOCIATE ORACLE RETAIL HOME [place]; S9341 INFUSION INFUSION ENTERAL 7 PARTNERS PARTNERS NUTRITION OF OF [place] GRAVITY; ASSOCIATE ORACLE RETAIL HOME [place]; S9341 INFUSION INFUSION ENTERAL 7 PARTNERS PARTNERS NUTRITION OF OF [place] GRAVITY; ASSOCIATE ORACLE RETAIL HOS BED E0260 [facility] SHEPHERD SEMI-ELEC 7 HOME HOME W/ANY MEDICAL MEDICAL TYPE SIDE EQUIPME EQUIPME RAIL W/MATTRSS ECG 00203 JOE SWEENEY ROUTINE 7 PHYSICIAN U ECG S, PLLC W/LEAST 12 LDS I&R ONLY RADIOLOGI 20704 [place] JAIR C 7 MEDICAL EXAMINATI IMAGING [place] [address] [place] JA[place] HEAD/BRAI 7 MEDICAL N W/O IMAGING CONTRAST ASS MATERIAL HOME TX; S9341 INFUSION INFUSION ENTERAL 6 PARTNERS PARTNERS NUTRITION OF OF [place] GRAVITY; ASSOCIATE ORACLE RETAIL HOME [place]; S9341 INFUSION INFUSION ENTERAL 6 PARTNERS PARTNERS NUTRITION OF OF [place] GRAVITY; ASSOCIATE ORACLE RETAIL HOME [place]; S9341 INFUSION INFUSION ENTERAL 6 PARTNERS PARTNERS NUTRITION OF OF [place] GRAVITY; ASSOCIATE ORACLE RETAIL HOME TX; S9341 INFUSION INFUSION ENTERAL 6 PARTNERS PARTNERS NUTRITION OF OF [place] GRAVITY; ASSOCIATE ORACLE RETAIL BLOOD 47978 [facility] COUNT 6 [facility] HEALTHCAR COMPLETE E E AUTO&AUTO [facility] DIFRNTL WBC COMPREHEN 22594 [facility] SIVE 6 [facility] METABOLIC E E PANEL [facility] POST-TRINITY 35358 NARENDRA SUAREZ RACT 6 MEDICAL JR [place] [address] [facility] THYROID 6 [facility] STIMULATI E E NG [facility] HORMONE TSH HOS BED E0260 CORA SHEPHERD SEMI-ELEC 6 HOME HOME W/ANY MEDICAL MEDICAL TYPE SIDE EQUIPME EQUIPME RAIL W/MATTRSS HOME TX; S9341 INFUSION INFUSION ENTERAL 6 PARTNERS PARTNERS NUTRITION OF OF [place] GRAVITY; ASSOCIATE ORACLE RETAIL HOME [place]; S9341 INFUSION INFUSION ENTERAL 6 PARTNERS PARTNERS NUTRITION OF OF [place] GRAVITY; ASSOCIATE ORACLE RETAIL ALBUMIN 37248 MARY HERNANDEZ URINE 6 [facility] MICROALBU INC INC MIN QUANTIATI VE BLOOD 18069 MARY HERNANDEZ COUNT 6 [facility] COMPLETE INC INC AUTO&AUTO DIFRNTL WBC HEMOGLOBI 32885 MARY HERNANDEZ N 6 [facility] GLYCOSYLA INC INC JESSE A1C DRUG TST G0477 MARY HERNANDEZ PRESUMP;C 6 [facility] PBL BEING INC INC READ DC OPT OBV ONLY LIPID 47826 MARY HERNANDEZ PANEL 6 [facility] INC INC COMPREHEN 15098 MARY HERNANDEZ SIVE 6 [facility] [address] MARY HERNANDEZ THYROID 6 [facility] STIMULATI [place] [address] MARY HERNANDEZ FREE 6 [facility] THYROXINE INC INC HOME [place]; S9341 INFUSION INFUSION ENTERAL 6 PARTNERS PARTNERS NUTRITION OF OF [place] GRAVITY; ASSOCIATE ORACLE RETAIL HOME TX; S9341 INFUSION INFUSION ENTERAL 6 PARTNERS PARTNERS NUTRITION OF OF [place] GRAVITY; ASSOCIATE ORACLE RETAIL HOME TX; S9341 INFUSION INFUSION ENTERAL 6 PARTNERS PARTNERS NUTRITION OF OF [place] GRAVITY; ASSOCIATE ORACLE RETAIL HOME [place]; S934 INFUSION INFUSION ENTERAL 6 PARTNERS PARTNERS NUTRITION OF OF [place] GRAVITY; ASSOCIATE ORACLE RETAIL HOME [place]; S9341 INFUSION INFUSION ENTERAL 6 PARTNERS PARTNERS NUTRITION OF OF [place] GRAVITY; ASSOCIATE ORACLE RETAIL HOME TX; S9341 INFUSION INFUSION ENTERAL 6 PARTNERS PARTNERS NUTRITION OF OF [place] GRAVITY; ASSOCIATE ORACLE RETAIL HOME TX; S9341 INFUSION INFUSION ENTERAL 6 PARTNERS PARTNERS NUTRITION OF OF [place] GRAVITY; ASSOCIATE ORACLE RETAIL HOME TX; S934 INFUSION INFUSION ENTERAL 6 PARTNERS PARTNERS NUTRITION OF OF [place] GRAVITY; ASSOCIATE ORACLE RETAIL HOME TX; S9341 INFUSION INFUSION ENTERAL 6 PARTNERS PARTNERS NUTRITION OF OF [place] GRAVITY; ASSOCIATE ORACLE RETAIL HOME TX; S934 INFUSION INFUSION ENTERAL 6 PARTNERS PARTNERS NUTRITION OF OF [place] GRAVITY; ASSOCIATE ORACLE RETAIL HOME TX; S9341 INFUSION INFUSION ENTERAL 6 PARTNERS PARTNERS NUTRITION OF OF [place] GRAVITY; ASSOCIATE ORACLE RETAIL HOME TX; S9341 INFUSION INFUSION ENTERAL 6 PARTNERS PARTNERS NUTRITION OF OF [place] GRAVITY; ASSOCIATE ORACLE RETAIL HOME TX; S9341 INFUSION INFUSION ENTERAL 6 PARTNERS PARTNERS NUTRITION OF OF [place] GRAVITY; ASSOCIATE ORACLE RETAIL HOME TX; S9341 INFUSION INFUSION ENTERAL 6 PARTNERS PARTNERS NUTRITION OF OF [place] GRAVITY; ASSOCIATE ORACLE RETAIL HOME TX; S9341 INFUSION INFUSION ENTERAL 6 PARTNERS PARTNERS NUTRITION OF OF [place] GRAVITY; ASSOCIATE ORACLE RETAIL HOME TX; S9341 INFUSION INFUSION ENTERAL 6 PARTNERS PARTNERS NUTRITION OF OF [place] GRAVITY; ASSOCIATE ORACLE RETAIL HOME TX; S9341 INFUSION INFUSION ENTERAL 6 PARTNERS PARTNERS NUTRITION OF OF [place] GRAVITY; ASSOCIATE ORACLE RETAIL HOME TX; S9341 INFUSION INFUSION ENTERAL 6 PARTNERS PARTNERS NUTRITION OF OF [place] GRAVITY; ASSOCIATE ORACLE RETAIL HOME TX; S9341 INFUSION INFUSION ENTERAL 6 PARTNERS PARTNERS NUTRITION OF OF [place] GRAVITY; ASSOCIATE ORACLE RETAIL HOME TX; S9341 INFUSION INFUSION ENTERAL 6 PARTNERS PARTNERS NUTRITION OF OF [place] GRAVITY; ASSOCIATE ORACLE RETAIL HOME [place]; S9341 INFUSION INFUSION ENTERAL 6 PARTNERS PARTNERS NUTRITION OF OF [place] GRAVITY; ASSOCIATE ORACLE RETAIL HOME TX; S9341 INFUSION INFUSION ENTERAL 6 PARTNERS PARTNERS NUTRITION OF OF [place] GRAVITY; ASSOCIATE ORACLE RETAIL HOME [place]; S9341 INFUSION INFUSION ENTERAL 6 PARTNERS PARTNERS NUTRITION OF OF [place] GRAVITY; ASSOCIATE ORACLE RETAIL HOME [place]; S9341 INFUSION INFUSION ENTERAL 6 PARTNERS PARTNERS NUTRITION OF OF [place] GRAVITY; ASSOCIATE ORACLE RETAIL HOME TX; S9341 INFUSION INFUSION ENTERAL 6 PARTNERS PARTNERS NUTRITION OF OF [place] GRAVITY; ASSOCIATE ORACLE RETAIL HOME [place]; S9341 INFUSION INFUSION ENTERAL 6 PARTNERS PARTNERS NUTRITION OF OF [place] GRAVITY; ASSOCIATE ORACLE RETAIL FLUORODEO A9552 [facility] XYGLUCOSE 6 Y Y F-18 FDG [facility] DX UP TO [address] [place] [address] NARENDRA YANG IMAGING 6 MEDICAL [facility] CT SERV ATTENUATI FOUNDATIO ON SKULL N BASE [facility] BED E0260 CORA SHEPHERD SEMI-ELEC 6 HOME HOME W/ANY MEDICAL MEDICAL TYPE SIDE EQUIPME EQUIPME RAIL W/MATTRSS HOME TX; S9341 INFUSION INFUSION ENTERAL 6 PARTNERS PARTNERS NUTRITION OF OF [place] GRAVITY; ASSOCIATE ORACLE RETAIL HOME TX; S9341 INFUSION INFUSION ENTERAL 6 PARTNERS PARTNERS NUTRITION OF OF [place] GRAVITY; ASSOCIATE ORACLE RETAIL HOME TX; S9341 INFUSION INFUSION ENTERAL 6 PARTNERS PARTNERS NUTRITION OF OF [place] GRAVITY; ASSOCIATE ORACLE RETAIL HOME TX; S9341 INFUSION INFUSION ENTERAL 6 PARTNERS PARTNERS NUTRITION OF OF [place] GRAVITY; ASSOCIATE ORACLE RETAIL HOME TX; S9341 INFUSION INFUSION ENTERAL 6 PARTNERS PARTNERS NUTRITION OF OF [place] GRAVITY; ASSOCIATE ORACLE RETAIL HOME TX; S9341 INFUSION INFUSION ENTERAL 6 PARTNERS PARTNERS NUTRITION OF OF [place] GRAVITY; ASSOCIATE ORACLE [facility] [place]; S9341 INFUSION INFUSION ENTERAL 6 [employer]NERS PARTNERS NUTRITION OF OF [facility] [place] [employer]; [facility] [place]; S9341 INFUSION INFUSION ENTERAL 6 [employer]NERS PARTNERS NUTRITION OF OF [facility] [place] [employer]; [facility] [place]; S9341 INFUSION INFUSION ENTERAL 6 [employer]NERS PARTNERS NUTRITION OF OF [facility] [place] [employer]; [facility] [place]; S9341 INFUSION INFUSION ENTERAL 6 PARTNERS PARTNERS NUTRITION OF OF [facility] [place] [employer]; [facility] [place]; S9341 INFUSION INFUSION ENTERAL 6 [employer]NERS PARTNERS NUTRITION OF OF [facility] [place] [employer]; [facility] [place]; S9341 INFUSION INFUSION ENTERAL 6 [employer]NERS PARTNERS NUTRITION OF OF [facility] [place] [employer]; [facility] [place]; S9341 INFUSION INFUSION ENTERAL 6 [employer]NERS PARTNERS NUTRITION OF OF [facility] [place] [employer]; [facility] [place]; S934 INFUSION INFUSION ENTERAL 6 [employer]NERS PARTNERS NUTRITION OF OF [facility] [place] [employer]; [facility] COLLECTIO [address] [facility], [place] 6 Y Y [facility] HOME [place]; S9341 INFUSION INFUSION ENTERAL 6 PARTNERS PARTNERS NUTRITION OF OF [facility] [place] [employer]; [facility] [place]; S9341 INFUSION INFUSION ENTERAL 6 PARTNERS PARTNERS NUTRITION OF OF [facility] [place] [employer]; [facility] [place]; S9341 INFUSION INFUSION ENTERAL 6 [employer]NERS PARTNERS NUTRITION OF OF [facility] [place] [employer]; [facility] [place]; S9341 INFUSION INFUSION ENTERAL 6 [employer]NERS PARTNERS NUTRITION OF OF [facility] [place] [employer]; [facility] [place]; S9341 INFUSION INFUSION ENTERAL 6 PARTNERS PARTNERS NUTRITION OF OF [facility] [place] [employer]; ASSOCIATE [facility] [place] THORAX [address] [place] [facility] 6 MEDICAL W/CONTRAS SERV T FOUNDATIO MATERIAL N CREATININ [id number] [place] E BLOOD 6 [facility] E E [facility] HOSPITALS VOICE [id number] [facility] FUNCT 6 [facility]CAR LIMIT E E CURR [facility] STATUS [place] EPISODE OUTSET BEHAVIORA [id number] [facility] L & 6 [facility]ALTH[facility] HEALTHCAR QUALIT E E ANALYSIS [facility] H[facility]ITALS VOICE AND RESONANCE LARYNGOSC 29938 [facility] OPY 6 [facility]ALTH[facility] HEALTHCAR FLX/RGD E E TELESCOPI [facility] H[facility]IT[facility] C W/STROBOS COPY VOICE [id number] [facility] FUNCT 6 HEALTHCAR HEALTHCAR LIMIT E E DISCHARGE HOSPITALS HOSPITALS STATUS D/C FROM [place] SOFT [id number] [facility] TISSUE 6 [facility] NECK E E W/CONTRAS HOSPITALS HOSPITALS T MATERIAL LOCM [id number] [facility] [phone] HEALTH[facility] HEALTHCAR MG/ML E E IODINE [facility] CONCENTRA TION PER ML VOICE [id number] [facility] FUNCT 6 HEALTHCAR HEALTHCAR LIMIT E E PROJ GOAL [facility] [place]US [place] EPISODE HOME [place]; S9341 INFUSION INFUSION ENTERAL 6 PART[employer]ERS PARTNERS NUTRITION OF OF [facility] [place] [employer]; [facility] [place]; S9341 INFUSION INFUSION ENTERAL 6 PARTNERS PARTNERS NUTRITION OF OF [facility] [place] [employer]; [facility] [place]; S9341 INFUSION INFUSION ENTERAL 6 PARTNERS PARTNERS NUTRITION OF OF [facility] [place] [employer]; [facility] [place]; S9341 INFUSION INFUSION ENTERAL 6 PARTNERS PARTNERS NUTRITION OF OF [facility] [place] [employer]; [facility] [place]; S9341 INFUSION INFUSION ENTERAL 6 PARTNERS PARTNERS NUTRITION OF OF [facility] [place] [employer]; [facility] [place]; S9341 INFUSION INFUSION ENTERAL 6 PARTNERS PARTNERS NUTRITION OF OF [facility] [place] [employer]; [facility] [place]; S9341 INFUSION INFUSION ENTERAL 6 PARTNERS PARTNERS NUTRITION OF OF [facility] [place] [employer]; [facility] [place]; S9341 INFUSION INFUSION ENTERAL 6 PARTNERS PARTNERS NUTRITION OF OF [facility] [place] [employer]; [facility] [place]; S9341 INFUSION INFUSION ENTERAL 6 PARTNERS PARTNERS NUTRITION OF OF [facility] [place] [employer]; [facility] H[facility] BED [id number] [facility] SEMI-ELEC 6 HOME HOME W/ANY MEDICAL MEDICAL TYPE SIDE EQUIPME EQUIPME RAIL W/MATTRSS DIRECT G0299 ABHINAV PEREZ RN 6 HOME HOME [facility]/ AGENCY AGENCY SPICE SET EA 15 MIN DEBRIDEME 39782 [facility] OPEN 6 Y Y WOUND 20 [facility] SQ CM/< DIRECT G0299 ABHINAV PEREZ RN 6 HOME HOME [facility]/ AGENCY AGENCY SPICE SET EA 15 MIN DIRECT G0299 ABHINAV PEREZ RN 6 HOME HOME [facility]/ AGENCY AGENCY SPICE SET EA 15 MIN DIRECT G0299 ABHINAV PEREZ RN 6 HOME HOME [facility]/ AGENCY AGENCY SPICE SET EA 15 MIN HOME [place]; S9341 INFUSION INFUSION ENTERAL 6 PARTNERS PARTNERS NUTRITION OF OF [place] GRAVITY; ASSOCIATE [employer] RETAIL HOME [place]; S9341 INFUSION INFUSION ENTERAL 6 [employer]ERS PARTNERS NUTRITION OF OF [place]; ASSOCIATE [place] [place]; S9341 INFUSION INFUSION ENTERAL 6 PARTNERS PARTNERS NUTRITION OF OF [place]RAVITY; ASSOCIATE [facility]ACLE RETAIL HOME [place]; S9341 INFUSION INFUSION ENTERAL 6 PARTNERS PARTNERS NUTRITION OF OF [place]RAV[employer]; ASSOCIATE [facility]ACLE RETAIL HOME [place]; S9341 INFUSION INFUSION ENTERAL 6 [employer]NERS PARTNERS NUTRITION OF OF [place] [employer]; ASSOCIATE [employer]ACLE RETAIL DIRECT G0299 ABHINAV PEREZ RN 6 HOME HOME [facility]/ AGENCY AGENCY SPICE SET EA 15 MIN HOME TX; S9341 INFUSION INFUSION ENTERAL 6 PARTNERS PARTNERS NUTRITION OF OF [place] [employer]; ASSOCIATE [facility]ACLE RETAIL HOME [place]; S9341 INFUSION INFUSION ENTERAL 6 PARTNERS PARTNERS NUTRITION OF OF [place] [employer]; ASSOCIATE [facility]LE RETAIL HOME [place]; S9341 INFUSION INFUSION ENTERAL 6 PARTNERS PARTNERS NUTRITION OF OF [place]; ASSOCIATE [facility] RETAIL HOME [place]; S9341 INFUSION INFUSION ENTERAL 6 [employer]NERS PARTNERS NUTRITION OF OF [place] [employer]; ASSOCIATE [employer] RETAIL DIRECT G0299 ABHINAV PEREZ RN 6 HOME HOME [facility] AGENCY AGENCY SPICE SET EA 15 MIN HOME TX; S9341 INFUSION INFUSION ENTERAL 6 PARTNERS PARTNERS NUTRITION OF OF [place]RAVITY; ASSOCIATE [facility]ACLE RETAIL HOME [place]; S9341 INFUSION INFUSION ENTERAL 6 PARTNERS PARTNERS NUTRITION OF OF [place]RAV[employer]; ASSOCIATE [facility]ACLE RETAIL HOME [place]; S9341 INFUSION INFUSION ENTERAL 6 [employer]NERS PARTNERS NUTRITION OF OF [place] [employer]RAV[employer]; [facility] H[facility] BED E0260 [facility]A SHEPHERD SEMI-ELEC 6 HOME HOME W/ANY MEDICAL MEDICAL TYPE SIDE EQUIPME EQUIPME RAIL W/MATTRSS HOME [place]; S9341 INFUSION INFUSION ENTERAL 6 PARTNERS PARTNERS NUTRITION OF OF [place] [employer]RA[employer]; ASSOCIATE [employer]LE RETAIL DIRECT G0299 ABHINAV PEREZ RN 6 HOME HOME [facility] AGENCY AGENCY SPICE SET EA 15 MIN HOME TX; S9341 INFUSION INFUSION ENTERAL 6 PARTNERS PARTNERS NUTRITION OF OF [place] [employer]; [facility] 88083 [facility] [place] [facility] DISCHARGE 6 NURSE DAY PRACTITIO MANAGEMEN NER GR T 30 MIN/< SBSQ 91361 [place] [address] MEDICAL BEAU CARE/DAY SERV 15 FOUNDATIO MINUTES N HOME [place]; S9341 INFUSION INFUSION ENTERAL 6 PARTNERS PARTNERS NUTRITION OF OF [place] [employer]; ASSOCIATE ORACLE RETAIL HOME [place]; S9341 INFUSION INFUSION ENTERAL 6 [employer]NERS PARTNERS NUTRITION OF OF [place] [employer]; ASSOCIATE ORACLE RETAIL SBSQ 94460 [place] [address] MEDICAL JAG CARE/DAY SERV 15 FOUNDATIO MINUTES N MRI ANY 14578 [facility] 6 MEDICAL Y JUS EXTREM SERV W/O & FOUNDATIO W/CONTRAS N T MATRL SBSQ 66666 [facility] 6 MEDICAL JAG CARE/DAY SERV 15 FOUNDATIO MINUTES N HOME [place]; S9341 INFUSION INFUSION ENTERAL 6 PARTNERS PARTNERS NUTRITION OF OF [place]RAV[employer]; ASSOCIATE [facility]ACLE RETAIL HOME [place]; S9341 INFUSION INFUSION ENTERAL 6 PARTNERS PARTNERS NUTRITION OF OF [place]RAV[employer]; ASSOCIATE ORACLE RETAIL SBSQ 44141 [facility] 6 MEDICAL JAG CARE/DAY SERV 25 FOUNDATIO MINUTES N HOME [place]; S9341 INFUSION INFUSION ENTERAL 6 PARTNERS PARTNERS NUTRITION OF OF [place] [employer]; ASSOCIATE [employer]ACLE RETAIL INITIAL 66536 [facility] 6 NURSE BROADDUS CARE/DAY PRACTITIO CHR 50 NER GR MINUTES RADEX 21947 [place] [facility]ER FOOT 6 MEDICAL Y JUS COMPLETE SERV MINIMUM [address] [place] [address] [place] NICKELS ANGIOGRAP 6 MEDICAL JACK HY CHEST SERV W/CONTRAS FOUNDATIO T/NONCONT N RAST RADIOLOGI 95787 [place] TRUE LILLY C EXAM 6 MEDICAL CHEST 2 SERV VIEWS FOUNDATIO FRONTAL&L N ATERAL ECG 79749 [place] YOU ROUTINE 6 MEDICAL NAN ECG SERV W/LEAST FOUNDATIO 12 LDS N I&R ONLY HOME [place]; S9341 INFUSION INFUSION ENTERAL 6 PARTNERS PARTNERS NUTRITION OF OF [place]RA[employer]; ASSOCIATE [facility]ACLE RETAIL HOME [place]; S9341 INFUSION INFUSION ENTERAL 6 PARTNERS PARTNERS NUTRITION OF OF [place]RAV[employer]; ASSOCIATE [facility]ACLE RETAIL HOME [place]; S9341 INFUSION INFUSION ENTERAL 6 PARTNERS PARTNERS NUTRITION OF OF [place]RAV[employer]; ASSOCIATE [facility]ACLE RETAIL HOME [place]; S9341 INFUSION INFUSION ENTERAL 6 PARTNERS PARTNERS NUTRITION OF OF [place]RAV[employer]; ASSOCIATE ORACLE RETAIL HOME [place]; S9341 INFUSION INFUSION ENTERAL 6 PARTNERS PARTNERS NUTRITION OF OF [place]RAV[employer]; ASSOCIATE ORACLE RETAIL HOME [place]; S9341 INFUSION INFUSION ENTERAL 6 PARTNERS PARTNERS NUTRITION OF OF [place] [employer]RAV[employer]; ASSOCIATE ORACLE RETAIL HOME [place]; S9341 INFUSION INFUSION ENTERAL 6 PARTNERS PARTNERS NUTRITION OF OF [place]; ASSOCIATE ORACLE RETAIL HOME [place]; S9341 INFUSION INFUSION ENTERAL 6 PARTNERS PARTNERS NUTRITION OF OF [place]; ASSOCIATE ORACLE RETAIL HOME [place]; S9341 INFUSION INFUSION ENTERAL 6 PARTNERS PARTNERS NUTRITION OF OF [place] [employer]RAV[employer]; ASSOCIATE ORACLE RETAIL HOME [place]; S9341 INFUSION INFUSION ENTERAL 6 PARTNERS PARTNERS NUTRITION OF OF [place]; ASSOCIATE [facility]LE RETAIL HOME [place]; S9341 INFUSION INFUSION ENTERAL 6 [employer]NERS PARTNERS NUTRITION OF OF [place] [employer]; ASSOCIATE [employer] RETAIL DIRECT G0299 ABHINAV PEREZ RN 6 HOME HOME [facility] AGENCY AGENCY SPICE SET EA 15 MIN HOME [place]; S9341 INFUSION INFUSION ENTERAL 6 PARTNERS PARTNERS NUTRITION OF OF [place] [employer]; ASSOCIATE ORACLE RETAIL HOME [place]; S9341 INFUSION INFUSION ENTERAL 6 PARTNERS PARTNERS NUTRITION OF OF [place] [employer]; ASSOCIATE ORACLE RETAIL HOME [place]; S9341 INFUSION INFUSION ENTERAL 6 PARTNERS PARTNERS NUTRITION OF OF [place] [employer]; ASSOCIATE ORACLE RETAIL BLOOD 76978 [facility] COUNT 6 [facility] AUTOMATED DIRECT G0299 ABHINAV PEREZ RN 6 HOME HOME [facility] AGENCY AGENCY SPICE SET EA 15 MIN COMPREHEN 92195 [facility] SIVE 6 Y Y METABOLIC [facility] PANEL LARYNGOSC 78747 [facility] OPY 6 Y Y FLEXIBLE [facility] DIAGNOSTI C COLLECTIO 06181 [facility] N VENOUS 6 Y Y BLOOD [facility] [place] [address] [facility] FREE 6 Y Y THYROXINE [facility] [place] [address] [facility] THYROID 6 Y Y STIMULATI [facility] NG HORMONE TSH HOME [place]; S9341 INFUSION INFUSION ENTERAL 6 PARTNERS PARTNERS NUTRITION OF OF [place] [employer]RAVITY; ASSOCIATE ORACLE RETAIL HOME [place]; S9341 INFUSION INFUSION ENTERAL 6 PARTNERS PARTNERS NUTRITION OF OF [place] [employer]RAV[employer]; ASSOCIATE ORACLE RETAIL HOME [place]; S9341 INFUSION INFUSION ENTERAL 6 PARTNERS PARTNERS NUTRITION OF OF [place] GRAVITY; [facility] G0378 MARY HERNANDEZ OBSERVATI 6 [facility] ON INC INC SERVICE PER HOUR CREATINE 88477 MARY HERNANDEZ KINASE MB 6 [facility] FRACTION INC INC ONLY BASIC 31308 MARY HERNANDEZ METABOLIC 6 [facility] PANEL INC INC CALCIUM TOTAL GLUC BLD 17412 MARY HERNANDEZ GLUC MNTR 6 [facility] DEV INC INC CLEARED FDA SPEC HOME USE NONINVASI 90444 MARY HERNANDEZ VE 6 [facility] EAR/PULSE [place] [address] MARY HERNANDEZ INFUSION 6 [facility] THERAPY/P INC INC ROPHYLAXI S /DX 1ST TO 1 HR COLLECTIO 84623 MARY HERNANDEZ N VENOUS 6 [facility]OS[facility] BLOOD INC INC VENIPUNCT URE PHYSICAL 00205 MARY HERNANDEZ THERAPY 6 [facility] HOSP EVALUATIO INC INC N OBSERVATI 62411 [facility] FRYMZAY ON/INPATI 6 [facility] CARE 50 [place] [address] MARY HERNANDEZ INFUSION 6 [facility] THERAPY INC INC PROPHYLAX IS/DX EA HOUR CREATINE 74585 MARY HERNANDEZ KINASE 6 [facility] [place] [address] MARY HERNANDEZ TROPONIN 6 [facility] QUANTITAT INC INC JOJO BLOOD 21580 MARY HERNANDEZ COUNT 6 [facility] COMPLETE INC INC AUTO&AUTO DIFRNTL WBC BLOOD 34374 MARY HERNANDEZ COUNT 6 [facility] COMPLETE INC INC AUTO&[place] [address] MARY HERNANDEZ TROPONIN 6 [facility] QUANTITAT INC INC JOJO CREATINE 58987 MARY HERNANDEZ KINASE 6 [facility] TOTAL INC INC PROTHROMB 45222 MARY HERNANDEZ IN TIME 6 [facility] INC INC RADIOLOGI 90322 MARY HERNANDEZ C 6 [facility] EXAMINATI INC [place] [address] MARY HERNANDEZ HEAD/BRAI 6 [facility] N W/O INC INC CONTRAST MATERIAL RADIOLOGI 87255 MARY HERNANDEZ C 6 [facility] EXAMINATI INC INC ON KNEE 3 VIEWS COMPREHEN 56761 MARY HERNANDEZ SIVE 6 [facility] METABOLIC INC INC PANEL RADIOLOGI 07277 MARY HERNANDEZ C 6 [facility] EXAMINATI INC INC ON PELVIS 1/2 VIEWS COLLECTIO 97401 MARY HERNANDEZ N VENOUS 6 [facility]OS[facility] BLOOD INC INC VENIPUNCT URE CREATINE 02268 MARY HERNANDEZ KINASE MB 6 [facility]OS[facility] FRACTION INC INC ONLY HOME [place]; S9341 INFUSION INFUSION ENTERAL 6 PART[employer]ERS PARTNERS NUTRITION OF OF [place]RAVITY; ASSOCIATE [employer] RETAIL HOME [place]; S9341 INFUSION INFUSION ENTERAL 6 [employer]ERS PARTNERS NUTRITION OF OF [place] [employer]RAVITY; ASSOCIATE [employer]LE RETAIL HOME [place]; S9341 INFUSION INFUSION ENTERAL 6 [employer]ERS PARTNERS NUTRITION OF OF [place] [employer]; ASSOCIATE [employer]LE RETAIL BEHAVIORA 88385 [facility] & 6 Y Y [facility] ANALYSIS VOICE AND RESONANCE LARYNGOSC 65272 [facility] 6 Y [facility] DIAGNOSTI C HOME [place]; S9341 INFUSION INFUSION ENTERAL 6 [employer]ERS PARTNERS NUTRITION OF OF [place] [employer]RAVITY; ASSOCIATE [employer]ACLE RETAIL HOME [place]; S9341 INFUSION INFUSION ENTERAL 6 [employer]ERS PARTNERS NUTRITION OF OF [place] [employer]RAVITY; ASSOCIATE ORACLE RETAIL HOME [place]; S9341 INFUSION INFUSION ENTERAL 6 [employer]ERS PARTNERS NUTRITION OF OF [place] [employer]RAVITY; ASSOCIATE [employer]ACLE RETAIL HOME [place]; S9341 INFUSION INFUSION ENTERAL 6 [employer]ERS PARTNERS NUTRITION OF OF [place] [employer]RAVITY; ASSOCIATE [employer]ACLE RETAIL HOME [place]; S9341 INFUSION INFUSION ENTERAL 6 [employer] PARTNERS NUTRITION OF OF [place] [employer]; ASSOCIATE [employer] RETAIL DIRECT G0299 ABHINAV LA SNS RN 6 HOME HOME [facility] HEALTH/ AGENCY AGENCY SPICE SET EA 15 MIN TAPE A4450 [facility] NON-WATER 6 HOME HOME PROOF PER HEALTH HEALTH 18 AGENCY AGENCY SQUARE INCHES STERILE A4217 [facility] WATER/NATHANAEL 6 HOME HOME INE 500 HEALTH HEALTH ML AGENCY AGENCY CONFORMIN A6446 [facility] G BANDGE 6 HOME HOME [facility] AGENCY AGENCY KNITTED/W OVEN STERL GAUZE A6402 [facility] NON-IMPRE 6 HOME HOME G [facility] 16 SQ/< AGENCY AGENCY W/O ADHES BORDR HOME [place]; S9341 INFUSION INFUSION ENTERAL 6 [employer]ERS PARTNERS NUTRITION OF OF [place]RAVITY; ASSOCIATE [employer]ACLE RETAIL HOME [place]; S9341 INFUSION INFUSION ENTERAL 6 [employer] PARTNERS NUTRITION OF OF [place] [employer]RAVITY; ASSOCIATE [employer]ACLE RETAIL DIRECT G0299 ABHINAV BURNETTADELINE PEREZ RN 6 HOME HOME HOME [facility] HEALTH/ AGENCY AGENCY SPICE SET EA 15 MIN HOME [place]; S9341 INFUSION INFUSION ENTERAL 6 [employer]ERS PARTNERS NUTRITION OF OF [place] GRAVITY; ASSOCIATE ORACLE RETAIL HOME [place]; S9341 INFUSION INFUSION ENTERAL 6 [employer] PARTNERS NUTRITION OF OF [place] [employer]RAV[employer]; ASSOCIATE [employer]ACLE RETAIL DIRECT G0299 ABHINAV ABHINAV SNS RN 6 HOME HOME HOME [facility]/ AGENCY AGENCY SPICE SET EA 15 MIN DIRECT G0299 ABHINAV [place] SNS RN 6 HOME HOME [facility]/ AGENCY AGENCY SPICE SET EA 15 MIN HOME [place]; S9341 INFUSION INFUSION ENTERAL 6 [employer]ERS PARTNERS NUTRITION OF OF [place] [employer]RAVITY; ASSOCIATE [employer]ACLE RETAIL HOME [place]; S9341 INFUSION INFUSION ENTERAL 6 [employer]ERS PARTNERS NUTRITION OF OF [place] [employer]RAVITY; ASSOCIATE [employer]ACLE RETAIL HOME [place]; S9341 INFUSION INFUSION ENTERAL 6 [employer]ERS PARTNERS NUTRITION OF OF [place]; [place] [address] [place] HEAD/BRAI 6 MEDICAL BRANDON N W/O SERV CONTRAST FOUNDATIO MATERIAL N HOSPITAL 48120 [facility] DISCHARGE 6 MEDICAL [place] DAY SERV ELSIE MANAGEMEN FOUNDATIO T > 30 N MIN RADEX 25406 [place] JOHN SPINE 6 MEDICAL FRA LUMBOSACR SERV AL 2/3 FOUNDATIO VIEWS N GROUND A0425 [place] [facility] 6 [facility] PER AMBULANCE AMBULANCE STATUTE MILE RADEX HIP 35682 [place] JOHN 6 MEDICAL FRA UNILATERA SERV L WITH FOUNDATIO PELVIS N 2-3 VIEWS COMMODE E0163 [facility] CHAIR 6 MOBILE OR STATIONAR Y W/FIXED ARMS SBSQ 80747 [place] [address] MEDICAL HNSTON CARE/DAY SERV ELSIE 25 FOUNDATIO MINUTES N SBSQ 36164 [place] [address] MEDICAL HN[place]ON CARE/DAY SERV ELSIE 25 FOUNDATIO MINUTES N SBSQ 07262 [place] [address] MEDICAL HNSTON CARE/DAY SERV ELSIE 25 FOUNDATIO MINUTES N SBSQ 50717 [place] [address] MEDICAL CARE/DAY SERV 25 FOUNDATIO MINUTES N SBSQ 06479 [place] [address] MEDICAL CARE/DAY SERV 25 FOUNDATIO MINUTES N SBSQ 54447 [place] [address] MEDICAL CARE/DAY SERV 25 FOUNDATIO MINUTES N SBSQ 53114 [place] [address] MEDICAL CARE/DAY SERV 25 FOUNDATIO MINUTES N SBSQ 38512 [place] [address] MEDICAL CARE/DAY SERV 25 FOUNDATIO MINUTES N SBSQ 32901 [facility] 6 MEDICAL CARE/DAY SERV 25 FOUNDATIO MINUTES N INSERTION [id number] INFUSION 6 Y Y [facility] SUPERIOR VENA CAVA PERQ INSERTION [id number] 6 Y Y [facility] PERQ APPROACH SBSQ 74243 [facility] 6 MEDICAL CARE/DAY SERV 25 FOUNDATIO MINUTES N EGD 25689 [place] BAUTISTA PERCUTANE 6 MEDICAL JOSUE OUS SERV PLACEMENT FOUNDATIO N GASTROSTO MY TUBE INITIAL 69286 [facility] INPATIENT 6 MEDICAL JOSUE CONSULT SERV NEW/ESTAB FOUNDATIO PT 80 N MIN SBSQ 99570 [place] [address] MEDICAL HNSTON CARE/DAY SERV ELSIE 25 FOUNDATIO MINUTES N SBSQ 06026 [place] [address] MEDICAL HNSTON CARE/DAY SERV ELSIE 25 FOUNDATIO MINUTES N SBSQ 65520 [place] [address] MEDICAL HNSTON CARE/DAY SERV ELSIE 25 FOUNDATIO MINUTES N SBSQ 93849 [place] [address] MEDICAL HNSTON CARE/DAY SERV ELSIE 25 FOUNDATIO MINUTES N SBSQ 15141 [place] [address] MEDICAL HNSTON CARE/DAY SERV ELSIE 25 FOUNDATIO MINUTES N SBSQ 48795 [place] [address] MEDICAL HNSTON CARE/DAY SERV ELSIE 25 FOUNDATIO MINUTES N RADIOLOGI 59569 [facility] 6 MEDICAL AYA MAR CHEST 2 SERV VIEWS FOUNDATIO FRONTAL&L N ATERAL SBSQ 22965 [place] [address] MEDICAL A NOMAN CARE/DAY SERV 25 FOUNDATIO MINUTES N SBSQ 77646 [place] [address] MEDICAL CARE/DAY SERV 25 FOUNDATIO MINUTES N RADIOLOGI 13609 [facility] MEDICAL EXAMINATI SERV ON CHEST FOUNDATIO SINGLE N VIEW FRONTAL SBSQ 15954 [facility] 6 MEDICAL CARE/DAY SERV 25 FOUNDATIO MINUTES N SBSQ 71253 [place] [address] MEDICAL A NOMAN CARE/DAY SERV 15 FOUNDATIO MINUTES N SBSQ 69690 [place] [address] MEDICAL A NOMAN CARE/DAY SERV 25 FOUNDATIO MINUTES N SBSQ 70067 [facility] 6 MEDICAL CARE/DAY SERV 25 FOUNDATIO MINUTES N SBSQ 45343 [facility] 6 MEDICAL A NOMAN CARE/DAY SERV 25 FOUNDATIO MINUTES N SBSQ 83238 [facility] 6 MEDICAL A NOMAN CARE/DAY SERV 25 FOUNDATIO MINUTES N SBSQ 55280 [facility] 6 MEDICAL SHARON CARE/DAY SERV 25 FOUNDATIO MINUTES N SBSQ 53147 [place] [address] MEDICAL SHARON CARE/DAY SERV 25 FOUNDATIO MINUTES N SBSQ 09062 [place] [address] MEDICAL SHARON CARE/DAY SERV 25 FOUNDATIO MINUTES N SBSQ 49838 [place] [address] MEDICAL CARE/DAY SERV 25 FOUNDATIO MINUTES N SBSQ 87862 [place] [address] MEDICAL SHARON CARE/DAY SERV 25 FOUNDATIO MINUTES N SBSQ 10866 [place] [address] MEDICAL SHARON CARE/DAY SERV 25 FOUNDATIO MINUTES N SBSQ 62455 [place] [address] MEDICAL SHARON CARE/DAY SERV 25 FOUNDATIO MINUTES N SBSQ 74241 [place] [address] MEDICAL EEDU JUN CARE/DAY SERV [address] THORAX 42572 [place] MCCARTHY W/O 6 MEDICAL STARLA CONTRAST SERV MATERIAL FOUNDATIO N INITIAL 03941 [place] ENZO INPATIENT 6 MEDICAL LOW CONSULT SERV NEW/ESTAB FOUNDATIO PT [address] SOFT 42868 [place] LUKINS TISSUE 6 MEDICAL BRANDON NECK W/O SERV CONTRAST FOUNDATIO MATERIAL N SBSQ 67381 [facility] 6 MEDICAL BUDDY CARE/DAY SERV 15 FOUNDATIO MINUTES N DUP-SCAN 90342 [place] CORDERO BUDDY XTR VEINS 6 MEDICAL SERV UNILATERA FOUNDATIO L/LIMITED N STUDY INSJ TEMP 37387 [facility] NDWELL 6 MEDICAL BUDDY BLADDER SERV CATHETER FOUNDATIO SIMPLE N SBSQ 89370 [place] [address] MEDICAL EEDU RONNI CARE/DAY SERV 25 FOUNDATIO MINUTES N RADEX 26815 [place] JOHN FOREARM 2 6 MEDICAL FRA VIEWS SERV FOUNDATIO N SBSQ 51049 [place] [address] MEDICAL EEDU RONNI CARE/DAY SERV 25 FOUNDATIO MINUTES N SBSQ 59447 [place] [address] MEDICAL EEDU RONNI CARE/DAY SERV 25 FOUNDATIO MINUTES N SBSQ 33466 [place] [address] MEDICAL EEDU RONNI CARE/DAY SERV 25 FOUNDATIO MINUTES N SBSQ 54927 [place] [address] MEDICAL EEDU RONNI CARE/DAY SERV 25 FOUNDATIO MINUTES N SBSQ 64601 [place] [address] MEDICAL HNSTON CARE/DAY SERV ELSIE 25 FOUNDATIO MINUTES N SBSQ 46497 [place] [address] MEDICAL HNSTON CARE/DAY SERV ELSIE 25 FOUNDATIO MINUTES N SBSQ 03733 [place] [address] MEDICAL HNSTON CARE/DAY SERV ELSIE 25 FOUNDATIO MINUTES N SBSQ 42544 [place] [address] MEDICAL HNSTON CARE/DAY SERV [place] [address] [place] MISBAH ABDOMINAL 6 MEDICAL REAL SERV TIME FOUNDATIO W/IMAGE N DOCUMENTA TION ECG 85582 [place] YOU ROUTINE 6 MEDICAL NAN ECG SERV W/LEAST FOUNDATIO 12 LDS [place] [address] [facility] SURG 6 Y OF PATHOLOGY [facility] GROSS&STARLA ROSCOPIC EXAM DECALCIFI 45639 [facility] CATION 6 Y [facility] PROCEDURE [facility] INJECTION 216[address] [place] [address] MEDICAL CAR ANESTHETI SERV C AGENT FOUNDATIO SCIATIC N NRV SINGLE INJECTION 42694 [place] [address] MEDICAL CAR ANESTHETI SERV C AGENT FOUNDATIO FEMORAL N NERVE SINGLE AMPUTATIO 46593 [place] ENDEAN N 6 MEDICAL METATARSA SERV L W/TOE FOUNDATIO SINGLE N DETACHMEN [id number] [facility] T AT 6 Y Y [facility] FOOT PARTIAL 3RD RAY OPEN DETACHMEN [id number] [facility] T AT 6 Y Y [facility] FOOT PARTIAL 4TH RAY OPEN INTRO [id number] [facility] 6 Y Y [facility] PERIPH NERVES PLEXI PERQ ANES OPEN 91945 [place] SELL TON PROC 6 MEDICAL BONES SERVICES LOWER LEG/ANKLE /FOOT NOS RADIOLOGI 04488 [place] TRUE LILLY C 6 MEDICAL EXAMINATI SERV ON CHEST FOUNDATIO SINGLE N VIEW FRONTAL RADEX 33279 [place] TRUE LILLY FOOT 6 MEDICAL COMPLETE SERV MINIMUM 3 FOUNDATIO VIEWS N INITIAL 98937 [place] [facility] 6 MEDICAL OV AIB CARE/DAY SERV 70 FOUNDATIO MINUTES N ECG 41240 [place] [facility] CHI ROUTINE 6 MEDICAL ECG SERV W/LEAST FOUNDATIO 12 LDS N I&R ONLY INITIAL 50375 [place] XENOS JACY INPATIENT 6 MEDICAL CONSULT SERV NEW/ESTAB FOUNDATIO PT 55 N MIN STEREOSCO G6002 [place] KUDR[facility] PIC X-RAY 6 [facility]ICAL [facility] GUID SERV LOCALIZ FOUNDATIO TRG VOL N DEL RT INTENSITY 98985 [facility] 6 Y Y [facility] RADIATION TX DLVR COMPLEX INTENSITY 55217 [place] [address] Y Y [facility] RADIATION [place] DLVR COMPLEX STEREOSCO G6002 [place] [facility]UDR[facility] P[facility] X-RAY 6 [facility] GUID SERV LOCALIZ FOUNDATIO TRG VOL N DEL RT STEREOSCO G6002 [place] KUDR[facility] PIC X-RAY 6 [facility] GUID SERV LOCALIZ FOUNDATIO TRG VOL N DEL RT INTENSITY 11836 [facility] 6 Y Y [facility] RADIATION TX DLVR COMPLEX INTENSITY [address]6723 [place] [address] Y Y [facility] RADIATION TX DLVR COMPLEX STEREOSCO G6002 [place] KUDR[facility] PIC X-RAY 6 [facility] GUID SERV LOCALIZ FOUNDATIO [place] [address] [facility] 6 Y Y [facility] FIELD SETTING SIMPLE NTSTY 43297 [facility] 6 Y Y [facility] PLN DOSE-VOL HISTOS BASIC 44547 [facility] RADIATION 6 Y Y [facility] DOSIMETRY CALCULATI ON MLC IMRT 91738 [facility] DESIGN & 6 Y Y [facility] [place] [place] [address] [facility] DEVICES 6 Y Y DESIGN & [facility] [place] [address] [facility] DEVICES 6 Y Y DESIGN & [facility] CONSTRUCT ION COMPLEX CONSLTJ&R 69172 [facility] LUIS EPRT 6 Y OF [facility]I [facility] [place] [facility] ELSEWHERE LOCM Q9967 [facility] [phone] 6 Y Y MG/ML [facility] IODINE CONCENTRA TION PER ML CT THORAX 65321 [facility] 6 Y Y W/CONTRAS [facility] T MATERIAL CREATININ 23291 [facility] E BLOOD 6 Y Y [facility] FLUORODEO A9552 [facility] XYGLUCOSE 6 Y Y F-18 FDG [facility] DX UP TO 45 MCI PET 15592 [facility] IMAGING [address] [place] [facility] ON SKULL BASE MID-THIGH LARYNGOSC 73928 [facility] OPY 6 Y Y FLEXIBLE [facility] DIAGNOSTI C BEHAVIORA 50668 [facility] L & 6 Y Y [facility] ANALYSIS VOICE AND RESONANCE CYTP EVAL 30722 [facility] FINE [address] [place] [address] NEEDLE ASPIRATE INTERP & [place] [address] [facility] SURG [address] [place] [address] PATHOLOGY GROSS&STARLA ROSCOPIC EXAM ANES 30475 [facility] ESOPH 6 ANESTHESI FIDELINA THYRD A GROUP LARYNX PS TRACH & LYMPH NECK 1YR COLLECTIO 15376 [facility] N VENOUS [address] [place] [address] [place] [address] [facility] UREA [address] [place] [address] QUANTITAT JOJO CREATININ 72210 [facility] E BLOOD [address] [place] [address] CREATININ [address]167 [facility] BLO[facility] [address] [place] [address] GONADOTRO 57217 [facility] [address] [place] [address] NG HORMONE HEMOGLOBI 94165 [facility] N [address] [place] [address] JESSE A1C PROSTATE [id number] [facility] CANCER [address] [place] [address] ; PSA TEST BLOOD 65965 [facility] [place] [place] [address] [place] [address] [facility] UREA [address] [place] [address] QUANTITAT JOJO LOCM [id number] [facility] [phone] [place] [address] MG/ML [facility] IODINE CONCENTRA TION PER ML CT SOFT [address] [facility] MELANIE TISSUE 6 RADIOLOGY RHO NECK W/CONTRAS T MATERIAL COLLECTIO 31089 [facility] N VENOUS [address] [place] [address] VENIPUNCT URE LARYNGOSC 13953 [facility] 6 PHYSCIAN LES FLEXIBLE PRACTICE DIAGNOSTI LL C ELECTROLY 25678 [facility] TE PANEL [address] [place] [address] DEBRIDEME 91981 PROGRESSI PROGRESSI NT 6 VE VE SUBCUTANE PODIATRY PODIATRY OUS TISSUE 20 SQ CM/< DEBRIDEME 17819 EDDA EDDA NT 6 DEE DEE SUBCUTANE OUS TISSUE 20 SQ CM/< ADD LW L2275 PROGRESSI PROGRESSI EXTRM 6 VE VE VARUS/VUL PODIATRY PODIATRY TANGELA MATTY PLSTC MOD PADD/LN DEBRIDEME 69433 EDDA EDDA NT 6 DEE DEE SUBCUTANE OUS TISSUE 20 SQ CM/< DEBRIDEME 74071 EDDA EDDA NT NAIL 6 DEE DEE ANY METHOD 6/> AFO L1970 PROGRESSI PROGRESSI PLASTIC 6 VE VE WITH PODIATRY PODIATRY ANKLE JOINT CUSTOM FABRICATE D RADEX 14833 [facility] HERNANDEZ FOOT 6 [facility] COMPLETE INC INC MINIMUM 3 VIEWS DEBRIDEME 99650 EDDA EDDA NT 6 DEE DEE SUBCUTANE OUS TISSUE 20 SQ CM/< RADIOLOGI 87313 [place] ADAM ALL C 6 MEDICAL EXAMINATI IMAGING ON FOOT 2 ASS VIEWS DEBRIDEME 28542 EDDADULCE BAINSANT NT 6 DEE DEE SUBCUTANE OUS TISSUE [...] SQ/< T T W/O ADHES BORDR DEBRIDEME 57241 EDDA BAINSANT NT 5 DEE DEE SUBCUTANE OUS TISSUE 20 SQ CM/< DEBRIDEME 19992 EDDA EDDA NT 5 DEE DEE SUBCUTANE OUS TISSUE 20 SQ CM/< DEBRIDEME 62347 EDDA EDDA NT 5 DEE DEE SUBCUTANE OUS TISSUE 20 SQ CM/< SIMPLE 10580 [facility] UROFLOMET 5 [place] PHIL RY ADULT & PED SIMPLE 90754 [facility] CYSTOMETR 5 [place] [facility] OGRAM ADULT & PED CYSTO 97090 [facility] CALIBRATI 5 [place] ON DILAT ADULT & URTL PED STRIX/DONN NOSIS COLLAGEN A6021 ADVANCED ADVANCED DRESSING 5 TISSUE TISSUE STERILE MANAGEMEN MANAGEMEN SIZE 16 T T SQ IN/LESS EA GAUZE A6266 ADVANCED ADVANCED IMPREG 5 TISSUE TISSUE NOT H2O MANAGEMEN MANAGEMEN SALINE/ZI T T NC PASTE LINR YD GAUZE A6402 ADVANCED ADVANCED NON-IMPRE 5 TISSUE TISSUE G STERL MANAGEMEN MANAGEMEN 16 SQ/< T T W/O ADHES BORDR WALKING L4360 EDDA BAÑUELOS BOOT 5 DEE DEE PNEUMATC &/ VACUUM PREFAB CUSTM FIT DRUG SCR G0434 [facility] NOT 5 [place] PHIL CHROMATOG ADULT & RAPHIC; PED ANY NUMBER PT ENC ENMANUEL 10735 [facility] POST-VOID 5 [place] PHIL ING ADULT & RESIDUAL PED URINE&/BL [...] SQ/< T T W/O ADHES BORDR TAPE A4450 ADVANCED ADVANCED NON-WATER 5 TISSUE [...] T T NC PASTE LINR YD TAPE A4452 ADVANCED ADVANCED WATERPROO 5 TISSUE TISSUE F PER 18 MANAGEMEN MANAGEMEN SQUARE T T INCHES TAPE A4452 ADVANCED ADVANCED WATERPROO 5 TISSUE TISSUE F PER 18 MANAGEMEN MANAGEMEN SQUARE T T INCHES GAUZE A6266 ADVANCED ADVANCED IMPREG 5 TISSUE [...] T T NC PASTE LINR YD TAPE A4452 ADVANCED ADVANCED WATERPROO 5 TISSUE TISSUE F PER 18 MANAGEMEN MANAGEMEN SQUARE T T INCHES RADEX 36687 [facility] FED FOOT 5 COMPLETE MINIMUM 3 VIEWS BASIC 92724 [facility] METABOLIC 5 [facility] CALCIUM TOTAL COLLECTIO 40987 [facility] VENOUS 5 [facility] VENIPUNCT URE HEMOGLOBI 77590 [facility] N 5 [facility] JESSE A1C ALBUMIN 85783 [facility] URINE 5 [facility] MIN QUANTIATI VE HEMOGLOBI 57486 [facility] N [address] [place] [address] JESSE A1C ALBUMIN 90268 [facility] URINE [address] [place] [address] MIN QUANTIATI VE PROSTATE G0103 [facility] CANCER [address] [place] [address] ; PSA TEST COLLECTIO 95300 [facility] VENOUS 4 [facility] VENIPUNCT URE LIPID 74235 [facility] PANEL [address] [place] [address] HEPATIC 65059 [facility] FUNCTION [address] [place] [address] BASIC 73798 [facility] METABOLIC [address] [place] [address] CALCIUM TOTAL FOR DIAB A5512 ELITE ELITE ONLY MX 4 MEDICAL MEDICAL DNSITY SUPPLY SUPPLY INSRT [employer]IR [employer] LLC FORMD PRFAB EA DIAB ONLY A5500 ELITE ELITE FIT CSTM 4 MEDICAL MEDICAL PREP&SPL SUPPLY SUPPLY SHOE MX LLC LLC DNSITY INSRT CATARACT 78469 [place] ERICK REMOVAL 4 MEDICAL JR ANY INSERTION SERV OF LENS FOUNDATIO Encounters Encounter Start End Date Code Location Performer Type Date OFFICE 97941 [facility] T VISIT SOLUTIONS 25 IN MINUTES [facility] OUTPATI[facility] E T [facility]PITALS OFFICE 93729 OUTPATI[facility] 7 7 [facility] T VISIT 5 E MINUTES HOSP[facility] OFFICE 68536 [facility] 7 7 HEALTH T VISIT SOLUTIONS 15 IN MINUTES HOSPITAL [facility] - 7 7 [facility] INPATIENT INC OFFICE 96332 NARENDRA JOSELINE OUTPATIEN 7 7 MEDICAL T VISIT SERV 25 FOUNDATIO MINUTES N OFFICE 66028 NARENDRA RUEDAUAMary Lou OUTPATIEN 7 7 MEDICAL T VISIT SERV 15 FOUNDATIO MINUTES N OFFICE 83264 OUTPATIEN 7 7 HEALTHCAR T VISIT 5 E MINUTES [facility] - 7 7 [facility]ALTHCAR OUTPATIEN E T HOSPITALS EMERGENCY 52267 [place] 7 7 GRACIE DEPARTMEN EMERGENCY T VISIT PHYS HIGH/URGE NT SEVERITY OFFICE 75515 [facility] 7 7 HEALTH T VISIT SOLUTIONS 25 IN MINUTES [facility]OSP[facility] - 7 7 [facility] OUTPATIEN INC T OFFICE 54097 [facility] 7 7 HEALTH T VISIT SOLUTIONS 15 IN MINUTES OFFICE 75530 [facility] 7 7 HEALTH T VISIT SOLUTIONS 25 IN MINUTES [facility] - 7 7 [facility] OUTPATIEN E T HOSPITALS EMERGENCY 05321 [facility] 7 7 [facility] DEPARTMEN INC T VISIT HIGH/URGE NT SEVERITY EMERGENCY 40829 NARENDRA LOVE DEPT 7 7 MEDICAL VISIT SERV HIGH FOUNDATIO SEVERITY& N THREAT FUN [facility] - 7 7 [facility] OUTPATIEN INC T EMERGENCY 95335 [facility] DEPT 7 7 PHYSICIAN U VISIT S, PLLC HIGH SEVERITY& THREAT [facility] - 6 6 [facility] OUTPATIEN E T HOSPITALS OFFICE 55694 [facility] 6 6 [facility]ALTH[facility] T VISIT 5 E MINUTES HOSPITALS OFFICE 48159 [facility] 6 6 [place] ROMEL T VISIT PHYSICIAN 25 S ASSIST MINUTES [facility] - 6 6 [facility] OUTPATIEN E T HOSPITALS OFFICE 88308 OUTPATIEN 6 6 HEALTHCAR T VISIT 5 E MINUTES [facility]ARY - 6 6 [facility] H[facility] OUTPATIEN [facility] T OFFICE 02714 [facility] 6 6 PHYSICIAN T VISIT S GROUP 25 MINUTES [facility] - 6 6 Y [facility] 34369 [place] JOSELINE ERIKA [facility] 6 6 MEDICAL T VISIT SERV 25 FOUNDATIO MINUTES [facility] UNIVERSIT [facility] 6 6 Y [facility] T OFFICE 62378 [facility] 6 6 Y T VISIT 5 HOSPITAL MINUTES OFFICE 06374 [facility]ALTH[facility] T VISIT 5 E MINUTES [facility] - 6 6 [facility]ALTHCAR OUTPATIEN E T HOSPITALS OFFICE 69177 [facility] 6 6 [place] ADA T VISIT PHYSICIAN 25 S ASSIST MINUTES [facility] 6 6 [facility] - 6 6 Y [facility] 93111 [place] MINION [facility] 6 6 MEDICAL JACK T VISIT SERV 10 FOUNDATIO MINUTES N OFFICE 47052 [facility] 6 6 Y T [facility]ISIT 5 HOSPITAL MINUTES [facility] 6 6 HOME [facility] - 6 6 Y INPATIENT HOSPITAL EMERGENCY 55609 NARENDRA CLAROS DEPT 6 6 MEDICAL NAYELI VISIT SERV HIGH FOUNDATIO SEVERITY& N THREAT [facility] OFFICE 82986 [facility]ANKARK[facility] OUTPATIEN 6 6 JAMES JAMES T VISIT 15 MINUTES OFFICE 13853 [facility] 6 6 Y T VISIT 5 HOSPITAL MINUTES [facility], 6 6 HOME INPATIENT [facility]ALTH AGENCY EMERGENCY 63061 [facility] 6 6 MEM [facility] DEPARTMEN INC T VISIT HIGH/URGE NT SEVERITY EMERGENCY 85725 JOE JONES DEPT 6 6 PHYSICIAN STARLA VISIT S, PLLC HIGH SEVERITY& THREAT [facility] MARY - 6 6 MEM H[facility] OUTPATIEN INC T OFFICE 92111 [facility] OUTPATIEN 6 6 JAMES JAMES T VISIT 15 MINUTES OFFICE 49123 [facility] 6 6 [place] ADA T VISIT PHYSICIAN 15 S ASSIST MINUTES HOSPITAL UNIVERSIT - 6 6 Y [facility] - 6 6 Y [facility] 43854 [facility] 6 6 Y T VISIT 5 HOSPITAL MINUTES [facility] 6 6 HOME [facility] UN[facility] - 6 6 Y INPATIENT HOSPITAL EMERGENCY 17468 NARENDRA SHAH DEPT 6 6 MEDICAL STARLA VISIT SERV HIGH FOUNDATIO SEVERITY& N THREAT [facility]ERS[facility] - 6 6 Y [facility] 6 [facility] - 6 6 Y [facility] UN[facility] - 6 6 Y [facility] T OFFICE 59241 [facility] 6 JAMES JAMES T VISIT 15 MINUTES OFFICE 56755 [facility] 6 6 NURSE MIR T VISIT PRACTITIO [address] [facility] UNIVERSIT - 6 6 Y [facility] T [facility] - 6 6 Y [facility] T OFFICE 67885 NARENDRA JAMES [facility] 6 6 MEDICAL T NEW 45 SERV MINUTES FOUNDATIO N OFFICE 33470 [facility] 6 6 Y T VISIT 5 HOSPITAL [facility] UNIVERS[facility] - 6 6 Y [facility] UNIVERS[facility] - 6 6 Y [facility] T OFFICE 72494 NARENDRA MARYBETHGRACIAMary Lou LAN [facility] 6 6 MEDICAL T VISIT SERV 25 FOUNDATIO [facility] UNIVERSIT - 6 6 Y [facility] T OFFICE 69851 [facility] 6 6 [place] ADA ION PHYSICIAN NEW/ESTAB S ASSIST PATIENT 60 MIN OFFICE 18518 [place] [facility] 6 6 PHYSCIAN LES T VISIT PRACTICE 15 LL MINUTES OFFICE 60918 [facility] 6 6 JAMES JAMES T VISIT 15 MINUTES [facility] 6 [facility] T OFFICE 21682 [facility] [facility] 6 6 PHYSCIAN LES ION PRACTICE NEW/ESTAB LL PATIENT 60 MIN [facility] 6 [facility] T OFFICE 00490 [facility] OUTPATIEN 6 6 JAMES JAMES T VISIT 15 MINUTES OFFICE 44364 [facility] OUT[facility] 6 6 JAMES JAMES T VISIT 15 MINUTES OFFICE 26602 [facility] OUT[facility] 6 6 T VISIT 15 MINUTES [facility] MARY - 6 6 [facility] OUTPATIEN INC T OFFICE 75692 [facility] OUTPATI[facility] 5 5 JAMES JAMES T VISIT 15 MINUTES OFFICE 57331 [facility] 5 5 [facility] T VISIT ADULT & 25 PED MINUTES OFFICE 63021 [facility] 5 5 [facility] VILLARREAL ION ADULT & NEW/ESTAB PED PATIENT 60 MIN OFFICE 55306 [facility] OUTPAT[facility] 5 5 JAMES JAMES T VISIT 15 MINUTES OFFICE 61367 [facility] OUTPATIEN 5 5 T VISIT 15 MINUTES OFFICE 52858 [facility] OUTPATIEN 5 5 T VISIT 15 MINUTES OFFICE 32808 [facility] FED OUTPATIEN 5 5 T VISIT 15 MINUTES OFFICE 34524 [facility] OUTPATIEN 5 5 T VISIT 15 MINUTES OFFICE 87814 [facility] OUTPAT[facility] 5 5 JAMES JAMES T VISIT 15 MINUTES OFFICE 57905 [facility] FED OUTPATIEN 5 5 T VISIT 15 MINUTES OFFICE 83212 [facility] FED OUTPATIEN 5 5 T VISIT 15 MINUTES OFFICE 21821 [facility] OUTPATIEN 5 5 JAMES JAMES T VISIT 25 MINUTES OFFICE 50599 [facility] FED OUTPATIEN 5 5 T VISIT 15 MINUTES OFFICE 31762 [facility] FED [facility] FED OUTPATIEN 5 5 T VISIT 15 MINUTES OFFICE 70139 [facility] OUTPATIEN 5 5 JAMES JAMES T VISIT 15 MINUTES OFFICE 14773 [facility] FED OUTPATIEN 5 5 T VISIT 15 MINUTES OFFICE 00424 [facility] FED [facility] FED OUTPATIEN 5 5 T VISIT 15 MINUTES OFFICE 18600 [facility] OUTPATIEN 5 5 JAMES JAMES T VISIT 15 MINUTES OFFICE 00864 [facility] OUTPATI[facility] 5 5 JAMES JAMES T VISIT 25 MINUTES OFFICE 47046 [facility] OUTPAT[facility] 5 5 JAMES JAMES T VISIT 15 MINUTES OFFICE 60871 [facility] OUTPATIEN 5 5 JAMES JAMES T VISIT 15 MINUTES [facility] - 5 5 [facility] T OFFICE 34836 [facility] OUTPATIEN 5 5 JAMES JAMES T VISIT 15 MINUTES OFFICE 32019 [facility] OUTPATIEN 4 4 JAMES JAMES T VISIT 15 MINUTES OFFICE 95068 [facility] FED LAUSE FED OUTPATIEN 4 4 T NEW 30 MINUTES OFFICE 11407 [facility] OUTPATIEN 4 4 JAMES JAMES T VISIT 15 MINUTES OFFICE 95059 [facility] OUTPATIEN 4 4 JAMES JAMES T VISIT 15 MINUTES [facility] - 4 4 [facility] T OFFICE 00509 [facility]IMARY [facility] OUTPATIEN 4 4 HEALTH JAMES T VISIT ASSOCIATE 15 S PS MINUTES OFFICE 54600 [facility] OUTPATI[facility] 4 4 HEALTH JAMES T VISIT ASSOCIATE 15 S PS MINUTES
--- OUTSIDE RECORDS SUMMARY | 2017-03-25 22:38 | External Medical Summary Rpt | CCD ---
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 PARTNERS NUTRITION OF OF [place] GRAVITY; VESSEL TRAFFIC OFFICER HOME [place]; S9341 INFUSION INFUSION ENTERAL 7 PARTNERS PARTNERS NUTRITION OF OF [place] GRAVITY; VESSEL TRAFFIC OFFICER HOME [place]; S9341 INFUSION INFUSION ENTERAL 7 PARTNERS PARTNERS NUTRITION OF OF [place] GRAVITY; VESSEL TRAFFIC OFFICER [facility] BED E0260 CORA SHEPHERD SEMI-ELEC 7 HOME HOME W/ANY MEDICAL MEDICAL TYPE SIDE EQUIPME EQUIPME RAIL W/MATTRSS HOME [place]; S9341 INFUSION INFUSION ENTERAL 7 PARTNERS PARTNERS NUTRITION OF OF [place] GRAVITY; VESSEL TRAFFIC OFFICER HOME [place]; S9341 INFUSION INFUSION ENTERAL 7 PARTNERS PARTNERS NUTRITION OF OF [place] GRAVITY; VESSEL TRAFFIC OFFICER HOME [place]; S9341 INFUSION INFUSION ENTERAL 7 PARTNERS PARTNERS NUTRITION OF OF [place] GRAVITY; VESSEL TRAFFIC OFFICER HOME [place]; S9341 INFUSION INFUSION ENTERAL 7 PARTNERS PARTNERS NUTRITION OF OF [place] GRAVITY; VESSEL TRAFFIC OFFICER HOME [place]; S9341 INFUSION INFUSION ENTERAL 7 PARTNERS PARTNERS NUTRITION OF OF [place] GRAVITY; VESSEL TRAFFIC OFFICER HOME [place]; S9341 INFUSION INFUSION ENTERAL 7 PARTNERS PARTNERS NUTRITION OF OF [place] GRAVITY; VESSEL TRAFFIC OFFICER HOME [place]; S9341 INFUSION INFUSION ENTERAL 7 PARTNERS PARTNERS NUTRITION OF OF [place] GRAVITY; VESSEL TRAFFIC OFFICER HOME [place]; S9341 INFUSION INFUSION ENTERAL 7 PARTNERS PARTNERS NUTRITION OF OF [place] GRAVITY; VESSEL TRAFFIC OFFICER HOME [place]; S9341 INFUSION INFUSION ENTERAL 7 PARTNERS PARTNERS NUTRITION OF OF [place] GRAVITY; VESSEL TRAFFIC OFFICER HOME [place]; S9341 INFUSION INFUSION ENTERAL 7 PARTNERS PARTNERS NUTRITION OF OF [place] GRAVITY; VESSEL TRAFFIC OFFICER HOME [place]; S9341 INFUSION INFUSION ENTERAL 7 PARTNERS PARTNERS NUTRITION OF OF [place] GRAVITY; VESSEL TRAFFIC OFFICER HOME [place]; S9341 INFUSION INFUSION ENTERAL 7 PARTNERS PARTNERS NUTRITION OF OF [place] GRAVITY; VESSEL TRAFFIC OFFICER HOME [place]; S9341 INFUSION INFUSION ENTERAL 7 PARTNERS PARTNERS NUTRITION OF OF [place] GRAVITY; VESSEL TRAFFIC OFFICER HOME [place]; S9341 INFUSION INFUSION ENTERAL 7 PARTNERS PARTNERS NUTRITION OF OF [place] GRAVITY; VESSEL TRAFFIC OFFICER [facility] BED E0260 CORA SHEPHERD SEMI-ELEC 7 HOME HOME W/ANY MEDICAL MEDICAL TYPE SIDE EQUIPME EQUIPME RAIL W/MATTRSS HOME [place]; S9341 INFUSION INFUSION ENTERAL 7 PARTNERS PARTNERS NUTRITION OF OF [place] GRAVITY; VESSEL TRAFFIC OFFICER HOME [place]; S9341 INFUSION INFUSION ENTERAL 7 PARTNERS PARTNERS NUTRITION OF OF [place] GRAVITY; VESSEL TRAFFIC OFFICER HOME [place]; S9341 INFUSION INFUSION ENTERAL 7 PARTNERS PARTNERS NUTRITION OF OF [place] GRAVITY; VESSEL TRAFFIC OFFICER HOME [place]; S9341 INFUSION INFUSION ENTERAL 7 PARTNERS PARTNERS NUTRITION OF OF [place] GRAVITY; VESSEL TRAFFIC OFFICER HOME [place]; S9341 INFUSION INFUSION ENTERAL 7 PARTNERS PARTNERS NUTRITION OF OF [place] GRAVITY; VESSEL TRAFFIC OFFICER HOME [place]; S9341 INFUSION INFUSION ENTERAL 7 PARTNERS PARTNERS NUTRITION OF OF [place] GRAVITY; VESSEL TRAFFIC OFFICER HOME [place]; S9341 INFUSION INFUSION ENTERAL 7 PARTNERS PARTNERS NUTRITION OF OF [place] GRAVITY; VESSEL TRAFFIC OFFICER CT THORAX 70622 MIHAI ADAM 7 MEDICAL W/CONTRAS IMAGING T ASS MATERIAL HOME [place]; S9341 INFUSION INFUSION ENTERAL 7 PARTNERS PARTNERS NUTRITION OF OF [place] GRAVITY; VESSEL TRAFFIC OFFICER FINAL G9638 MIHAI ADAM REPORTS 7 MEDICAL W/O DOC IMAGING 1/MORE ASS DOSE REDUCTION TECH FINAL RPT G95[address]/MRI 7 MEDICAL CHEST/NCK IMAGING /U/S NO ASS THR NOD<1.0 CM FINAL G9638 MIHAI ADAM REPORTS 7 MEDICAL W/O DOC IMAGING 1/MORE ASS DOSE REDUCTION TECH COLLECTIO 04462 [facility] N VENOUS 7 [facility]ALTHCAR HEALTHCAR BLOOD E E VENIPUNCT [facility] URE COMPREHEN 08727 [facility] SIVE 7 HEALTHCAR HEALTHCAR METABOLIC E E PANEL [facility] GROUND A0425 [facility] MILE AMBULANCE A0429 [facility] SERVICE 7 [facility] [place] [address] [facility] THYROID 7 HEALTHCAR HEALTHCAR STIMULATI E E NG [facility] [place] [address] [place] FREE 7 HEALTHCAR HEALTHCAR THYROXINE E E HOSPITALS HOSPITALS HOME [place]; S9341 INFUSION INFUSION ENTERAL 7 PARTNERS PARTNERS NUTRITION OF OF [place] GRAVITY; VESSEL TRAFFIC OFFICER RADIOLOGI 58756 MIHAI ADAM C 7 MEDICAL EXAMINATI IMAGING [place] [address] MIHAI ADAM HEAD/BRAI 7 MEDICAL N W/O IMAGING CONTRAST ASS MATERIAL CRITICAL 60824 [facility] 7 PHYSICIAN ILL/INJUR S, [facility] ED PATIENT INIT 30-74 MIN BLOOD 58869 [facility] COUNT 7 HEALTHCAR HEALTHCAR COMPLETE E E AUTO&AUTO [facility] [place] [address] [place] TRIIODOTH 7 HEALTHCAR HEALTHCAR YRONINE E E T3 TOTAL [facility] TT3 HOME [place]; S9341 INFUSION INFUSION ENTERAL 7 PARTNERS PARTNERS NUTRITION OF OF [place] GRAVITY; VESSEL TRAFFIC OFFICER HOME [place]; S9341 INFUSION INFUSION ENTERAL 7 PARTNERS PARTNERS NUTRITION OF OF [place] GRAVITY; VESSEL TRAFFIC OFFICER HOME [place]; S9341 INFUSION INFUSION ENTERAL 7 PARTNERS PARTNERS NUTRITION OF OF [place] GRAVITY; VESSEL TRAFFIC OFFICER HOME [place]; S9341 INFUSION INFUSION ENTERAL 7 PARTNERS PARTNERS NUTRITION OF OF [place] GRAVITY; VESSEL TRAFFIC OFFICER HOME [place]; S9341 INFUSION INFUSION ENTERAL 7 PARTNERS PARTNERS NUTRITION OF OF [place] GRAVITY; VESSEL TRAFFIC OFFICER HOME [place]; S9341 INFUSION INFUSION ENTERAL 7 PARTNERS PARTNERS NUTRITION OF OF [place] GRAVITY; VESSEL TRAFFIC OFFICER HOME [place]; S9341 INFUSION INFUSION ENTERAL 7 PARTNERS PARTNERS NUTRITION OF OF [place] GRAVITY; VESSEL TRAFFIC OFFICER HOME [place]; S9341 INFUSION INFUSION ENTERAL 7 PARTNERS PARTNERS NUTRITION OF OF [place] GRAVITY; VESSEL TRAFFIC OFFICER HOME [place]; S9341 INFUSION INFUSION ENTERAL 7 PARTNERS PARTNERS NUTRITION OF OF [place] GRAVITY; VESSEL TRAFFIC OFFICER HOME [place]; S9341 INFUSION INFUSION ENTERAL 7 PARTNERS PARTNERS NUTRITION OF OF [place] GRAVITY; VESSEL TRAFFIC OFFICER HOME [place]; S9341 INFUSION INFUSION ENTERAL 7 PARTNERS PARTNERS NUTRITION OF OF [place] GRAVITY; VESSEL TRAFFIC OFFICER HOME [place]; S9341 INFUSION INFUSION ENTERAL 7 PARTNERS PARTNERS NUTRITION OF OF [place]RAVITY; VESSEL TRAFFIC OFFICER HOME [place]; S9341 INFUSION INFUSION ENTERAL 7 PARTNERS PARTNERS NUTRITION OF OF [place]RAVITY; VESSEL TRAFFIC OFFICER [facility] BED E0260 CORA SHEPHERD SEMI-ELEC 7 HOME HOME W/ANY MEDICAL MEDICAL TYPE SIDE EQUIPME EQUIPME RAIL W/MATTRSS RADEX 45015 [facility] [place] [facility] FOREARM 2 7 RADIOLOGY VIEWS RADEX 42567 [facility] [place] [facility] WRIST 7 RADIOLOGY COMPLETE MINIMUM 3 VIEWS AMBULANCE A[address] EMERGENCY EMS EMS TRANSPORT GROUND A[address] [facility] EMS MILE RADEX [address] [facility] [place] [facility] HAND 7 RADIOLOGY MINIMUM 3 VIEWS HOME [place]; S9341 INFUSION INFUSION ENTERAL 7 PARTNERS PARTNERS NUTRITION OF OF [place] GRAVITY; VESSEL TRAFFIC OFFICER HOME [place]; S9341 INFUSION INFUSION ENTERAL 7 PARTNERS PARTNERS NUTRITION OF OF [place] GRAVITY; VESSEL TRAFFIC OFFICER HOME [place]; S9341 INFUSION INFUSION ENTERAL 7 PARTNERS PARTNERS NUTRITION OF OF [place] GRAVITY; VESSEL TRAFFIC OFFICER HOME [place]; S9341 INFUSION INFUSION ENTERAL 7 PARTNERS PARTNERS NUTRITION OF OF [place] GRAVITY; VESSEL TRAFFIC OFFICER HOME [place]; S9341 INFUSION INFUSION ENTERAL 7 PARTNERS PARTNERS NUTRITION OF OF [place]RAVITY; VESSEL TRAFFIC OFFICER HOME [place]; S9341 INFUSION INFUSION ENTERAL 7 PARTNERS PARTNERS NUTRITION OF OF [place] GRAVITY; VESSEL TRAFFIC OFFICER MANUAL 92260 MARY HERNANDEZ THERAPY 7 [facility] TQS 1/> INC INC REGIONS EACH 15 MINUTES THERAPEUT 59106 MARY HERNANDEZ IC PX 1/> 7 [facility] AREAS INC INC EACH 15 MIN EXERCISES HOS BED E0260 [facility] SEMI-ELEC 7 HOME HOME W/ANY MEDICAL MEDICAL TYPE SIDE EQUIPME EQUIPME RAIL W/MATTRSS DUP-SCAN 22145 [facility] LXTR 7 [facility] ART/ARTL E E [facility] COMPL BI STUDY HOME [place]; S9341 INFUSION INFUSION ENTERAL 7 PARTNERS PARTNERS NUTRITION OF OF [place] GRAVITY; VESSEL TRAFFIC OFFICER HOME [place]; S9341 INFUSION JUSTICE ENTERAL 7 PARTNERS NUTRITION OF [place] GRAVITY; VESSEL TRAFFIC OFFICER HOME [place]; S9341 INFUSION INFUSION ENTERAL 7 PARTNERS PARTNERS NUTRITION OF OF [place] GRAVITY; VESSEL TRAFFIC OFFICER HOME [place]; S9341 INFUSION INFUSION ENTERAL 7 PARTNERS PARTNERS NUTRITION OF OF [place] GRAVITY; VESSEL TRAFFIC OFFICER ECHO 44770 NARENDRA SHEPHERD TTC R-T 7 MEDICAL 2D SERV W/WOM-MOD FOUNDATIO E COMPL N SPEC&COLR D OBSERVATI 74038 NARENDRA MISBAH ON/INPATI 7 MEDICAL ENT SERV HOSPITAL FOUNDATIO CARE 55 N MINUTES GLUC BLD 24120 MARY HERNANDEZ GLUC MNTR 7 [facility] DEV INC [place] [address] MARY HERNANDEZ TROPONIN 7 [facility] QUANTITAT INC INC JOJO BLOOD 89954 MARY HERNANDEZ COUNT 7 [facility] COMPLETE INC INC AUTO&AUTO DIFRNTL WBC CREATINE 88854 MARY HERNANDEZ KINASE 7 [facility] TOTAL INC INC PROTHROMB 53965 MARY HERNANDEZ IN TIME 7 [facility] INC INC CRITICAL 49027 JOHN NOONAN 7 PHYSICIAN JR ILL/INJUR S, [facility] ED PATIENT INIT 30-[place] [address] [place]ESS[place] HEAD/BRAI 7 MEDICAL N W/O IMAGING CONTRAST ASS MATERIAL RADIOLOGI 26615 [place] JESSICA C 7 MEDICAL EXAMINATI IMAGING ON CHEST ASS SINGLE VIEW FRONTAL THROMBOPL 23607 MARY HERNANDEZ ASTIN 7 [facility] TIME INC INC PARTIAL PLASMA/WH OLE BLOOD ECG 05502 MARY GALLARDO ROUTINE 7 [facility] W/LEAST P 12 LDS I&R ONLY COMPREHEN 44221 MARY HERNANDEZ SIVE 7 [facility] [address] NARENDRA GRACIELA ANGIOGRAP 7 MEDICAL HY HEAD SERV W/CONTRAS FOUNDATIO T/NONCONT N RAST AMB A0431 AIR AIR SERVICE 7 METHODS METHODS CONVNTION [facility] AIR SRVC TRANSPORT [address] TH[address] 13979 MARY HERNANDEZ PROPH/DX 7 [facility] NJX IV INC INC PUSH SINGLE/1S T SBST/DRUG ECG 72057 MARY HERNANDEZ ROUTINE 7 [facility] ECG INC INC W/LEAST 12 LDS TRCG ONLY W/O I&R FINAL G9638 [place]ESSICA REPORTS 7 MEDICAL W/O DOC IMAGING 1/MORE ASS DOSE REDUCTION TECH HOME TX; S9341 INFUSION INFUSION ENTERAL 7 PARTNERS PARTNERS NUTRITION OF OF [place] GRAVITY; VESSEL TRAFFIC OFFICER CREATINE 53700 MARY HERNANDEZ KINASE MB 7 [facility] [place] [address] NARENDRA GRACIELA ANGIOGRAP 7 MEDICAL HY NECK SERV W/CONTRAS FOUNDATIO T/NONCONT N RAST HOME [place]; S9341 INFUSION INFUSION ENTERAL 7 PARTNERS PARTNERS NUTRITION OF OF [place] GRAVITY; VESSEL TRAFFIC OFFICER HOME [place]; S9341 INFUSION INFUSION ENTERAL 7 PARTNERS PARTNERS NUTRITION OF OF [place] GRAVITY; VESSEL TRAFFIC OFFICER HOME [place]; S9341 INFUSION INFUSION ENTERAL 7 PARTNERS PARTNERS NUTRITION OF OF [place] GRAVITY; VESSEL TRAFFIC OFFICER HOME [place]; S9341 INFUSION INFUSION ENTERAL 7 PARTNERS PARTNERS NUTRITION OF OF [place] GRAVITY; VESSEL TRAFFIC OFFICER HOME [place]; S9341 INFUSION INFUSION ENTERAL 7 PARTNERS PARTNERS NUTRITION OF OF [place] GRAVITY; VESSEL TRAFFIC OFFICER HOS BED E0260 [facility] SEMI-ELEC 7 HOME HOME W/ANY MEDICAL MEDICAL TYPE SIDE EQUIPME EQUIPME RAIL W/MATTRSS ECG 04678 JOE SWEENEY ROUTINE 7 PHYSICIAN U ECG S, PLLC W/LEAST 12 LDS I&R ONLY RADIOLOGI 75554 [place] JAIR C 7 MEDICAL EXAMINATI IMAGING [place] [address] [place] JAIR HEAD/BRAI 7 MEDICAL N W/O IMAGING CONTRAST ASS MATERIAL HOME TX; S9341 INFUSION INFUSION ENTERAL 6 PARTNERS PARTNERS NUTRITION OF OF [place] GRAVITY; VESSEL TRAFFIC OFFICER HOME [place]; S9341 INFUSION INFUSION ENTERAL 6 PARTNERS PARTNERS NUTRITION OF OF [place] GRAVITY; VESSEL TRAFFIC OFFICER HOME TX; S9341 INFUSION INFUSION ENTERAL 6 PARTNERS PARTNERS NUTRITION OF OF [place] GRAVITY; VESSEL TRAFFIC OFFICER HOME [place]; S9341 INFUSION INFUSION ENTERAL 6 PARTNERS PARTNERS NUTRITION OF OF [place] GRAVITY; VESSEL TRAFFIC OFFICER BLOOD 66288 [facility] COUNT 6 [facility] HEALTHCAR COMPLETE E E AUTO&AUTO [facility] DIFRNTL WBC COMPREHEN 93739 [facility] SIVE 6 [facility] METABOLIC E E PANEL [facility] POST-TRINITY 24770 NARENDRA SUAREZ RACT 6 MEDICAL [place] [address] [facility] THYROID 6 [facility] STIMULATI E E NG [facility] BED E0260 [facility] SEMI-ELEC 6 HOME HOME W/ANY MEDICAL MEDICAL TYPE SIDE EQUIPME EQUIPME RAIL W/MATTRSS HOME TX; S9341 INFUSION INFUSION ENTERAL 6 PARTNERS PARTNERS NUTRITION OF OF [place] GRAVITY; VESSEL TRAFFIC OFFICER HOME [place]; S9341 INFUSION INFUSION ENTERAL 6 PARTNERS PARTNERS NUTRITION OF OF [place] GRAVITY; VESSEL TRAFFIC OFFICER ALBUMIN 61132 MARY HERNANDEZ URINE 6 [facility] MICROALBU INC INC MIN QUANTIATI VE BLOOD 92921 MARY HERNANDEZ COUNT 6 [facility] COMPLETE INC INC AUTO&AUTO DIFRNTL WBC HEMOGLOBI 47398 MARY HERNANDEZ N 6 [facility] GLYCOSYLA INC INC JESSE A1C DRUG TST G0477 MARY HERNANDEZ PRESUMP;C 6 [facility] PBL BEING INC INC READ DC OPT OBV ONLY LIPID 23300 MARY HERNANDEZ PANEL 6 [facility] INC INC COMPREHEN 48831 MARY HERNANDEZ SIVE 6 [facility] [place] [address] MARY HERNANDEZ THYROID 6 [facility] STIMULATI [place] [address] MARY HERNANDEZ FREE 6 [facility] THYROXINE INC INC HOME [place]; S9341 INFUSION INFUSION ENTERAL 6 PARTNERS PARTNERS NUTRITION OF OF [place] GRAVITY; VESSEL TRAFFIC OFFICER HOME [place]; S9341 INFUSION INFUSION ENTERAL 6 PARTNERS PARTNERS NUTRITION OF OF [place] GRAVITY; VESSEL TRAFFIC OFFICER HOME [place]; S9341 INFUSION INFUSION ENTERAL 6 PARTNERS PARTNERS NUTRITION OF OF [place] GRAVITY; VESSEL TRAFFIC OFFICER HOME [place]; S934 INFUSION INFUSION ENTERAL 6 PARTNERS PARTNERS NUTRITION OF OF [place] GRAVITY; VESSEL TRAFFIC OFFICER HOME [place]; S9341 INFUSION INFUSION ENTERAL 6 PARTNERS PARTNERS NUTRITION OF OF [place] GRAVITY; VESSEL TRAFFIC OFFICER HOME [place]; S9341 INFUSION INFUSION ENTERAL 6 PARTNERS PARTNERS NUTRITION OF OF [place] GRAVITY; VESSEL TRAFFIC OFFICER HOME [place]; S9341 INFUSION INFUSION ENTERAL 6 PARTNERS PARTNERS NUTRITION OF OF [place] GRAVITY; VESSEL TRAFFIC OFFICER HOME [place]; S934 INFUSION INFUSION ENTERAL 6 PARTNERS PARTNERS NUTRITION OF OF [place] GRAVITY; VESSEL TRAFFIC OFFICER HOME [place]; S9341 INFUSION INFUSION ENTERAL 6 PARTNERS PARTNERS NUTRITION OF OF [place] GRAVITY; VESSEL TRAFFIC OFFICER HOME [place]; S934 INFUSION INFUSION ENTERAL 6 PARTNERS PARTNERS NUTRITION OF OF [place] GRAVITY; VESSEL TRAFFIC OFFICER HOME [place]; S9341 INFUSION INFUSION ENTERAL 6 PARTNERS PARTNERS NUTRITION OF OF [place] GRAVITY; VESSEL TRAFFIC OFFICER HOME [place]; S9341 INFUSION INFUSION ENTERAL 6 PARTNERS PARTNERS NUTRITION OF OF [place] GRAVITY; VESSEL TRAFFIC OFFICER HOME [place]; S9341 INFUSION INFUSION ENTERAL 6 PARTNERS PARTNERS NUTRITION OF OF [place] GRAVITY; VESSEL TRAFFIC OFFICER HOME [place]; S9341 INFUSION INFUSION ENTERAL 6 PARTNERS PARTNERS NUTRITION OF OF [place] GRAVITY; VESSEL TRAFFIC OFFICER HOME [place]; S9341 INFUSION INFUSION ENTERAL 6 PARTNERS PARTNERS NUTRITION OF OF [place] GRAVITY; VESSEL TRAFFIC OFFICER HOME [place]; S9341 INFUSION INFUSION ENTERAL 6 PARTNERS PARTNERS NUTRITION OF OF [place] GRAVITY; VESSEL TRAFFIC OFFICER HOME [place]; S9341 INFUSION INFUSION ENTERAL 6 PARTNERS PARTNERS NUTRITION OF OF [place] GRAVITY; VESSEL TRAFFIC OFFICER HOME [place]; S9341 INFUSION INFUSION ENTERAL 6 PARTNERS PARTNERS NUTRITION OF OF [place] GRAVITY; VESSEL TRAFFIC OFFICER HOME [place]; S9341 INFUSION INFUSION ENTERAL 6 PARTNERS PARTNERS NUTRITION OF OF [place] GRAVITY; VESSEL TRAFFIC OFFICER HOME [place]; S9341 INFUSION INFUSION ENTERAL 6 PARTNERS PARTNERS NUTRITION OF OF [place] GRAVITY; VESSEL TRAFFIC OFFICER HOME [place]; S9341 INFUSION INFUSION ENTERAL 6 PARTNERS PARTNERS NUTRITION OF OF [place] GRAVITY; VESSEL TRAFFIC OFFICER HOME [place]; S9341 INFUSION INFUSION ENTERAL 6 PARTNERS PARTNERS NUTRITION OF OF [place] GRAVITY; VESSEL TRAFFIC OFFICER HOME [place]; S9341 INFUSION INFUSION ENTERAL 6 PARTNERS PARTNERS NUTRITION OF OF [place] GRAVITY; VESSEL TRAFFIC OFFICER HOME [place]; S9341 INFUSION INFUSION ENTERAL 6 PARTNERS PARTNERS NUTRITION OF OF [place] GRAVITY; VESSEL TRAFFIC OFFICER HOME [place]; S9341 INFUSION INFUSION ENTERAL 6 PARTNERS PARTNERS NUTRITION OF OF [place] GRAVITY; VESSEL TRAFFIC OFFICER HOME [place]; S9341 INFUSION INFUSION ENTERAL 6 PARTNERS PARTNERS NUTRITION OF OF [place] GRAVITY; VESSEL TRAFFIC OFFICER FLUORODEO A9552 [facility] XYGLUCOSE 6 Y Y F-[address] [facility] DX UP TO 45 MCI PET 18705 NARENDRA YANG IMAGING 6 MEDICAL [facility] SERV ATTENUATI FOUNDATIO ON SKULL N BASE [facility] BED E0260 [facility] SEMI-ELEC 6 HOME HOME W/ANY MEDICAL MEDICAL TYPE SIDE EQUIPME EQUIPME RAIL W/MATTRSS HOME [place]; S9341 INFUSION INFUSION ENTERAL 6 PARTNERS PARTNERS NUTRITION OF OF [place] GRAVITY; VESSEL TRAFFIC OFFICER HOME [place]; S9341 INFUSION INFUSION ENTERAL 6 PARTNERS PARTNERS NUTRITION OF OF [place]; VESSEL TRAFFIC OFFICER HOME [place]; S9341 INFUSION INFUSION ENTERAL 6 PARTNERS PARTNERS NUTRITION OF OF [place]; VESSEL TRAFFIC OFFICER HOME [place]; S9341 INFUSION INFUSION ENTERAL 6 PARTNERS PARTNERS NUTRITION OF OF [place]; VESSEL TRAFFIC OFFICER HOME [place]; S9341 INFUSION INFUSION ENTERAL 6 PARTNERS PARTNERS NUTRITION OF OF [place]; VESSEL TRAFFIC OFFICER HOME [place]; S9341 INFUSION INFUSION ENTERAL 6 PARTNERS PARTNERS NUTRITION OF OF [place]; VESSEL TRAFFIC OFFICER HOME [place]; S9341 INFUSION INFUSION ENTERAL 6 PARTNERS PARTNERS NUTRITION OF OF [place]; VESSEL TRAFFIC OFFICER HOME [place]; S9341 INFUSION INFUSION ENTERAL 6 PARTNERS PARTNERS NUTRITION OF OF [place]; VESSEL TRAFFIC OFFICER HOME [place]; S9341 INFUSION INFUSION ENTERAL 6 PARTNERS PARTNERS NUTRITION OF OF [place]; VESSEL TRAFFIC OFFICER HOME [place]; S9341 INFUSION INFUSION ENTERAL 6 PARTNERS PARTNERS NUTRITION OF OF [place]; VESSEL TRAFFIC OFFICER HOME [place]; S9341 INFUSION INFUSION ENTERAL 6 PARTNERS PARTNERS NUTRITION OF OF [place]; VESSEL TRAFFIC OFFICER HOME [place]; S9341 INFUSION INFUSION ENTERAL 6 PARTNERS PARTNERS NUTRITION OF OF [place]; VESSEL TRAFFIC OFFICER HOME [place]; S9341 INFUSION INFUSION ENTERAL 6 PARTNERS PARTNERS NUTRITION OF OF [place]; VESSEL TRAFFIC OFFICER HOME [place]; S934 INFUSION INFUSION ENTERAL 6 PARTNERS PARTNERS NUTRITION OF OF [place]; VESSEL TRAFFIC OFFICER COLLECTIO [id number] [facility] 6 Y Y [facility] HOME [place]; S9341 INFUSION INFUSION ENTERAL 6 PARTNERS PARTNERS NUTRITION OF OF [place]; VESSEL TRAFFIC OFFICER HOME [place]; S9341 INFUSION INFUSION ENTERAL 6 PARTNERS PARTNERS NUTRITION OF OF [place]; VESSEL TRAFFIC OFFICER HOME [place]; S9341 INFUSION INFUSION ENTERAL 6 PARTNERS PARTNERS NUTRITION OF OF [place]; VESSEL TRAFFIC OFFICER HOME [place]; S9341 INFUSION INFUSION ENTERAL 6 PARTNERS PARTNERS NUTRITION OF OF [place]; VESSEL TRAFFIC OFFICER HOME [place]; S9341 INFUSION INFUSION ENTERAL 6 PARTNERS PARTNERS NUTRITION OF OF [place]; VESSEL TRAFFIC [place]ICER [place] THORAX [address] [place] MAST[facility] 6 MEDICAL W/CONTRAS SERV T FOUNDATIO MATERIAL N CREATININ [id number] [facility] E BLOOD 6 [facility]ALTHCAR E E HOSPITALS HOSPITALS VOICE [id number] [facility] FUNCT 6 HEALTHCAR HEALTHCAR LIMIT E E CURR [facility] H[facility]PITALS STATUS [place] EPISODE OUTSET BEHAVIORA 70631 [facility] L & 6 HEALTHCAR HEALTHCAR QUALIT E E ANALYSIS HOSPITALS HOSPITALS VOICE AND RESONANCE LARYNGOSC 59777 [facility] OPY 6 HEALTHCAR HEALTHCAR FLX/RGD E E TELESCOPI [facility]ALS HOSPITALS C W/STROBOS COPY VOICE [id number] [facility] FUNCT 6 HEALTHCAR HEALTHCAR LIMIT E E DISCHARGE HOSPITALS HOSPITALS STATUS D/C FROM [place] SOFT [address]56 [facility] TISSUE 6 HEALTHCAR HEALTHCAR NECK E E W/CONTRAS HOSPITALS HOSPITALS T MATERIAL LOCM Q9967 [facility] [phone] HEALTHCAR HEALTHCAR MG/ML E E IODINE [facility] CONCENTRA TION PER ML VOICE [id number] [facility] FUNCT 6 HEALTHCAR HEALTHCAR LIMIT E E PROJ GOAL [facility] [place] EPISODE HOME [place]; S9341 INFUSION INFUSION ENTERAL 6 PARTNERS PARTNERS NUTRITION OF OF [place]; VESSEL TRAFFIC OFFICER HOME [place]; S9341 INFUSION INFUSION ENTERAL 6 PARTNERS PARTNERS NUTRITION OF OF [place]; VESSEL TRAFFIC OFFICER HOME [place]; S9341 INFUSION INFUSION ENTERAL 6 PARTNERS PARTNERS NUTRITION OF OF [place]; VESSEL TRAFFIC OFFICER HOME [place]; S9341 INFUSION INFUSION ENTERAL 6 PARTNERS PARTNERS NUTRITION OF OF [place]; VESSEL TRAFFIC OFFICER HOME [place]; S9341 INFUSION INFUSION ENTERAL 6 PARTNERS PARTNERS NUTRITION OF OF [place]; VESSEL TRAFFIC OFFICER HOME [place]; S9341 INFUSION INFUSION ENTERAL 6 PARTNERS PARTNERS NUTRITION OF OF [place]; VESSEL TRAFFIC OFFICER HOME [place]; S9341 INFUSION INFUSION ENTERAL 6 PARTNERS PARTNERS NUTRITION OF OF [place]; VESSEL TRAFFIC OFFICER HOME [place]; S9341 INFUSION INFUSION ENTERAL 6 PARTNERS PARTNERS NUTRITION OF OF [place]; VESSEL TRAFFIC OFFICER HOME [place]; S9341 INFUSION INFUSION ENTERAL 6 PARTNERS PARTNERS NUTRITION OF OF [place]; VESSEL TRAFFIC OFFICER HOS BED E0260 [facility] SEMI-ELEC 6 HOME HOME W/ANY MEDICAL MEDICAL TYPE SIDE EQUIPME EQUIPME RAIL W/MATTRSS DIRECT G0299 ABHINAV PEREZ RN 6 HOME HOME [facility]/ AGENCY AGENCY SPICE SET EA 15 MIN DEBRIDEME [address]193 [facility] OPEN 6 Y Y WOUND [address] [facility] SQ CM/< DIRECT G0299 ABHINAV PEREZ RN 6 HOME HOME [facility]/ AGENCY AGENCY SPICE SET EA 15 MIN DIRECT G0299 ABHINAV PEREZ RN 6 HOME HOME [facility]/ AGENCY AGENCY SPICE SET EA 15 MIN DIRECT G0299 ABHINAV PEREZ RN 6 HOME HOME [facility]/ AGENCY AGENCY SPICE SET EA 15 MIN HOME [place]; S9341 INFUSION INFUSION ENTERAL 6 PARTNERS PARTNERS NUTRITION OF OF [place]; VESSEL TRAFFIC OFFICER HOME [place]; S9341 INFUSION INFUSION ENTERAL 6 PARTNERS PARTNERS NUTRITION OF OF [place]; VESSEL TRAFFIC OFFICER HOME [place]; S9341 INFUSION INFUSION ENTERAL 6 PARTNERS PARTNERS NUTRITION OF OF [place]; VESSEL TRAFFIC OFFICER HOME [place]; S9341 INFUSION INFUSION ENTERAL 6 PARTNERS PARTNERS NUTRITION OF OF [place]; VESSEL TRAFFIC OFFICER HOME [place]; S9341 INFUSION INFUSION ENTERAL 6 PARTNERS PARTNERS NUTRITION OF OF [place]; VESSEL TRAFFIC OFFICER DIRECT G0299 ABHINAV PEREZ RN 6 HOME HOME [facility]/ AGENCY AGENCY SPICE SET EA 15 MIN HOME [place]; S9341 INFUSION INFUSION ENTERAL 6 PARTNERS PARTNERS NUTRITION OF OF [place]; VESSEL TRAFFIC OFFICER HOME [place]; S9341 INFUSION INFUSION ENTERAL 6 PARTNERS PARTNERS NUTRITION OF OF [place]; VESSEL TRAFFIC OFFICER HOME [place]; S9341 INFUSION INFUSION ENTERAL 6 PARTNERS PARTNERS NUTRITION OF OF [place]; VESSEL TRAFFIC OFFICER HOME [place]; S9341 INFUSION INFUSION ENTERAL 6 PARTNERS PARTNERS NUTRITION OF OF [place]; VESSEL TRAFFIC OFFICER DIRECT G0299 ABHINAV PEREZ RN 6 HOME HOME HOME [facility] AGENCY AGENCY SPICE SET EA 15 MIN HOME [place]; S9341 INFUSION INFUSION ENTERAL 6 PARTNERS PARTNERS NUTRITION OF OF [place]; VESSEL TRAFFIC OFFICER HOME [place]; S9341 INFUSION INFUSION ENTERAL 6 PARTNERS PARTNERS NUTRITION OF OF [place]; VESSEL TRAFFIC OFFICER HOME [place]; S9341 INFUSION INFUSION ENTERAL 6 PARTNERS PARTNERS NUTRITION OF OF [place]; VESSEL TRAFFIC OFFICER HOS BED E0260 [facility] SEMI-ELEC 6 HOME HOME W/ANY MEDICAL MEDICAL TYPE SIDE EQUIPME EQUIPME RAIL W/MATTRSS HOME [place]; S9341 INFUSION INFUSION ENTERAL 6 PARTNERS PARTNERS NUTRITION OF OF [place]; VESSEL TRAFFIC OFFICER DIRECT G0299 ABHINAV PEREZ RN 6 HOME HOME HOME [facility] AGENCY AGENCY SPICE SET EA 15 MIN HOME [place]; S9341 INFUSION INFUSION ENTERAL 6 PARTNERS PARTNERS NUTRITION OF OF [place]; VESSEL TRAFFIC OFFICER HOSPITAL 59226 [facility] DIS[facility]GE 6 NURSE DAY PRACTITIO MANAGEMEN NER GR T 30 MIN/< SBSQ 08641 [place] [address] MEDICAL BEAU CARE/DAY SERV 15 FOUNDATIO MINUTES N HOME [place]; S9341 INFUSION INFUSION ENTERAL 6 PARTNERS PARTNERS NUTRITION OF OF [place]; VESSEL TRAFFIC OFFICER HOME [place]; S9341 INFUSION INFUSION ENTERAL 6 PARTNERS PARTNERS NUTRITION OF OF [place]; VESSEL TRAFFIC OFFICER SBSQ 25571 [place] [address] MEDICAL JAG CARE/DAY SERV 15 FOUNDAT[place]UTES [place] [address] [place] [facility] 6 MEDICAL Y JUS EXTREM SERV W/O & FOUNDATIO W/CONTRAS N T MATRL SBSQ 36222 [facility] 6 MEDICAL JAG CARE/DAY SERV 15 FOUNDATIO MINUTES N HOME [place]; S9341 INFUSION INFUSION ENTERAL 6 PARTNERS PARTNERS NUTRITION OF OF [place]; VESSEL TRAFFIC OFFICER HOME [place]; S9341 INFUSION INFUSION ENTERAL 6 PARTNERS PARTNERS NUTRITION OF OF [place]; VESSEL TRAFFIC OFFICER SBSQ 29299 [facility] 6 MEDICAL JAG CARE/DAY SERV 25 FOUNDATIO MINUTES N HOME [place]; S9341 INFUSION INFUSION ENTERAL 6 PARTNERS PARTNERS NUTRITION OF OF [place]; VESSEL TRAFFIC OFFICER INITIAL 65870 [facility] 6 NURSE BROADDUS CARE/DAY PRACTITIO CHR 50 NER GR MINUTES RADEX 27648 [place] [facility]ER FOOT 6 MEDICAL Y JUS COMPLETE SERV MINIMUM [address] [place] [address] [place] NICKELS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 MINUTES OFFICE 90499 [facility]USE FED [facility]USE FED OUTPATIEN 5 5 T VISIT 15 MINUTES OFFICE 17821 [facility]USE FED LAUSE FED OUTPATIEN 5 5 T VISIT 15 MINUTES OFFICE 94285 LAUSE FED LAUSE FED OUTPATIEN 5 5 T VISIT 15 MINUTES OFFICE 93494 [facility]ET[facility]ETA OUTPATIEN 5 5 JAMES JAMES T VISIT 15 MINUTES OFFICE 75914 LAUSE FED LAUSE FED OUTPATIEN 5 5 T VISIT 15 MINUTES OFFICE 58995 LAUSE FED LAUSE FED OUTPATIEN 5 5 T VISIT 15 MINUTES OFFICE 06821 NEETA NEETA OUTPATIEN 5 5 JAMES JAMES T VISIT 25 MINUTES OFFICE 66334 LAUSE FED LAUSE FED OUTPATIEN 5 5 T VISIT 15 MINUTES OFFICE 13752 LAUSE FED LAUSE FED OUTPATIEN 5 5 T VISIT 15 MINUTES OFFICE 70163 NEETA NEETA OUTPATIEN 5 5 JAMES JAMES T VISIT 15 MINUTES OFFICE 62926 LAUSE FED LAUSE FED OUTPATIEN 5 5 T VISIT 15 MINUTES OFFICE 72181 LAUSE FED LAUSE FED OUTPATIEN 5 5 T VISIT 15 MINUTES OFFICE 14774 NEETA NEETA OUTPATIEN 5 5 JAMES JAMES T VISIT 15 MINUTES OFFICE 36358 NEETA NEETA OUTPATIEN 5 5 JAMES JAMES T VISIT 25 MINUTES OFFICE 23919 [facility] OUTPATIEN 5 5 JAMES JAMES T VISIT 15 MINUTES OFFICE 29676 NEET[facility] NEETA OUTPATIEN 5 5 JAMES JAMES T VISIT 15 MINUTES [facility] - 5 5 [facility] T OFFICE 57847 NEETA NEETA OUTPATIEN 5 5 JAMES JAMES T VISIT 15 MINUTES OFFICE 16474 NEETA NEETA OUTPATIEN 4 4 AJMES JAMES T VISIT 15 MINUTES OFFICE 16142 LAUSE FED LAUSE FED OUTPATIEN 4 4 T NEW 30 MINUTES OFFICE 77972 [facility]ET[facility] NEETA OUTPATIEN 4 4 JAMES JAMES T VISIT 15 MINUTES OFFICE 44117 [facility]ET[facility] NEETA OUTPATIEN 4 4 JAMES JAMES T VISIT 15 MINUTES [facility]OS[facility] - 4 4 [facility] T OFFICE 66211 [facility] OUTPATIEN 4 4 HEALTH JAMES T VISIT ASSOCIATE 15 S PS MINUTES OFFICE 28476 [facility] OUTPATIEN 4 4 HEALTH JAMES T VISIT ASSOCIATE 15 S PS MINUTES
--- OUTSIDE RECORDS SUMMARY | 2017-03-25 22:40 | External Medical Summary Rpt | CCD ---
Author Author , MACIEJ WING Address Unknown Phone [email or web address] Immunization Name Date Rout CVX Reac Dose [...]
--- OUTSIDE RECORDS SUMMARY | 2017-03-25 22:40 | External Medical Summary Rpt | CCD ---
Author Author , MACIEJ WING Address Unknown Phone [email or web address] Immunization Name Date Rout CVX Reac Dose [...]
== END 2017-03-20 14:15 | disposition home or self-care (01) | DRG 194 ==
LOC: ER 16:49 → 2ND 18:43
PROVIDERS: Emergency Medicine
DX: J18.9 Pneumonia, unspecified organism (principal); J44.0 Chronic obstructive pulmonary disease with (acute) lower respiratory infection; I95.9 Hypotension, unspecified; C76.0 Malignant neoplasm of head, face and neck; N40.0 Benign prostatic hyperplasia without lower urinary tract symptoms; I10 Essential (primary) hypertension; R29.6 Repeated falls; F17.210 Nicotine dependence, cigarettes, uncomplicated; E11.9 Type 2 diabetes mellitus without complications; F41.9 Anxiety disorder, unspecified; F32.9 Major depressive disorder, single episode, unspecified; Z93.1 Gastrostomy status; Z79.4 Long term (current) use of insulin; Z79.51 Long term (current) use of inhaled steroids; Z79.899 Other long term (current) drug therapy; Z79.891 Long term (current) use of opiate analgesic; Z86.718 Personal history of other venous thrombosis and embolism
CPT/HCPCS: G0328; J0456; J2405

== ENCOUNTER → 2017-05-11 | Outpatient (CLI) | payer MEDICAID ==
[~2017-05-11] VITALS: Ht 180.3 cm; Wt 66.8 kg
[~2017-05-11] MED LIST changes: +AMITRIPTYLINE150 M1 PO; +AVPAK AZITHROM250 MG PO; +CLARITIN 10MG T10 MG PO; +GABAPENTIN 600600 MG PO; +LEVOTHYROXINE0.05 M2 PO; +METFORMIN ER500 MG PO; +TAMSULOSIN HCL0.4 MG PO; +TRAMADOL50 M1 PO
[2017-05-11 12:51] VITALS: BP 95/58
--- NOTE | 2017-05-11 12:53 | CONSULT NOTE-PODIATRY ---
Podiatry Initial Visit H&P Date of Visit 05/11/17 Presenting Problem 57 M referred by TALYA TELLES APRN Presented today with RIGHT FOOT OM Length of time pt has had problem: This problem was the result of an accident? Work related? Source patient Allergies Coded Allergies: Sulfa (Sulfonamide Antibiotics) (03/18/17) Home Medications Reported Medications Alprazolam (Xanax 1MG) 1 MG PO TID Levothyroxine Sodium 0.05 MG PO DAILY #30 Loratadine (Claritin 10MG) 10 MG PO DAILY #30 TAMSULOSIN HCL (Tamsulosin HCl) 0.4 MG PO BID #60 Gabapentin (Gabapentin 600MG) 600 MG PO TID #90 METFORMIN HCL (Metformin HCl ER) 500 MG PO BID #60 PMH General Medical HX Hypertension Yes CVA No Seizures No TB No COPD Yes Asthma No Diabetes Yes Insulin Dependent No Insulin Pump No Angina No [place] No Hyperlipidemia Yes Cancer Yes MRSA No GB Disease No Additional hx RHABDOMYOLOSIS, ATRIAL FIB; REMISSION FROM THROAT CA Surgical HX Previous Surgery?Y TONSILLECTOMY PEG TUBE Immunization HX DT/Tetanus Unknown Flu Refused Pneumonia Refuses Social HX Marital Status Occupation Smoker Alcohol Use Drugs N Does the patient participate in any fitness routines? At what level? Frequency? ROS All Other Systems Reviewed/Neg for visit Constitutional No: See HPI, chills. Musculoskeletal No: extremity pain, extremity swelling. Skin No: abrasion. GI No: nausea. Psychiatric No: anxious. Assessment/Plan VS/Wt/Labs/Orders/Meds Weight -LB: OZ: KG: Method:Digital Scales Height -FT:5 IN:11 CM: BMI: Foot Specific Exam Musculoskeletal Deformities Bunion, Hammertoes Comment Vascular: DP/PT pedal pulses palpable, minimal pedal hair growth, CFT wnl, skin temp warm to cool, negative varicose veins Dermatologic: toenails thick and elongated, no inter-digital macerations, well healed surgical amp scar over the 3rd interspace Right sub 2nd met callus surrounding an open ulcer, wound base fibrotic 1.3 x 0.7 cm and probes 1.4 cm deeply to bone. No purulence. No malodor. Neurologic: light touch protective sensation intact, no focal deficits, normal muscle mass Musculoskeletal: muscle strength wnl b/l, decreased arch height b/l, no pain noted with active or passive ROM to ankle, STJ, or midtarsal joints, gastroc soleus equinus Decreased ROM to both 1st MPJ with crepitus noted. Severe hallux valgus with large dorsal medial eminence noted right worse than the left. Rigid PIPJ contractures noted b/l. Right 2nd MPJ dislcoation with laterally toe deviation and positive [place]. 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 Trujillo is a 57-year-old diabetic male who presents today for follow up of right DM ulcer. Pain reports pain to right foot. He has been changing dressing daily. Patient has not been to his PCP, Talya Ray. He is FWB in shoe. He has not been using walker. Patient presents with his sister, Yarely (Mildred). He has a history of a diabetic wound that went on to a right third and fourth partial ray resection. Medical records not available yet. Surgery done [facility] this past year. Patient was septic and admitted for surgery and IV Abx. Patient is currently not wearing shoes thru Medicare's Therapeutic Shoe Program. He will need some after surgery. 05/2016: Ha1c 6.1 04/29/17: Ha1c 5.5 Physical Exam Findings General appearance: normal appearance Extremities: cool, no calf tenderness Musculoskeletal: motor intact, sensation intact (DECREASED) Skin: dry Neuro: normal exam Problem List 1. Osteomyelitis of metatarsal 2. 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 Type 2 diabetes mellitus Impression/Procedure/Plan RIGHT SUB 2ND MET DM ULCER: ESR: 65, CRP 4.7 Wbc: 8.7, Ha1c: 5.5 Wound culture, 04/29/17: GPB Discussed ulcer is being caused by overloading of the 2nd met. Prior amp of 3- 4th mets is putting extra pressure and soft tissue contracture causing 1-2nd toes to drift laterally and 5th toe to drift medially. Will need custom DM shoes to accomodate deformity post op. X-rays from 04/29/17 suspicious for second metatarsal osteomyelitis, 2nd toe displaced, large hallux valgus. Post surgical changes with 1-2 and 5th toes migrating laterally and medially together over prior 3-4th partial ray resections. WOUND: Callus minimal to the right sub 2nd met. It was not debrided with a number 15 blade today. Underlying ulcer noted with a fibrotic wound base. Wound base fibrotic and granular, 1.4 x 0.7 x 1.4cm. Wound packed with betadine, DSD applied. 1. Continue forefoot off loading post op surgical shoe 2. NWB right foot with shoe and walker 3. Betadine DSD daily 4. Continue Doxycycline 100 mg twice daily 3 weeks 5. Discussed with Talya Ray: will need medical clearance, plan for surgery next week, possible admission per PCP team vs. outpatient 6. Medical records from [facility] pending 7. ERNST/toe pressures pending for today 8. Follow up in one week for wound check, pre-op for surgery *Plan for Right foot TMA, ARIS next week at [phone]
--- NOTE | 2017-05-11 14:36 | RADIOLOGY REPORT PS360 ---
ARTERIAL/[id number] NON HEALING ULCER ORDERING PHYSICIAN: ADAM DUTTA DPM PATIENT AGE: 57 years TECHNIQUE: Segmental pressures obtained of both right and left leg. These are compared to brachial blood pressure to yield index at each level sampled including summary ERNST. The data sheets from the procedure are available in PACS FINDINGS Rest study only performed today No prior studies available for comparison. Blood pressures reported are in millimeters mercury. RIGHT LEG ERNST = noncompressible, unable to calculate. Brachial BP: 129 Thigh BP: 126 Calf BP: Noncompressible Ankle PT: Noncompressible Ankle DP : Noncompressible Digit =90 The TBI is 0.7 LEFT LEG ERNST = 1.2 Brachial BPD: 128 Thigh BP: 109 Calf BP: 97 Ankle PT:156 Ankle DP: Noncompressible Digit = 70 The TBI is 0.5 Pulses and waveforms: Diminished pulses and waveforms IMPRESSION: 1. ERNST on the right is undetermined due to incompressibility of the calf vessels. 2. Left ERNST is normal at 1.2 3. Right TBI slightly low indicating mild small vessel disease 4. Low left TBI of 0.5 indicating mild small vessel disease
== END ==
LOC: POD 12:45 → RT 15:15
DX: E11.621 Type 2 diabetes mellitus with foot ulcer (principal); L97.501 Non-pressure chronic ulcer of other part of unspecified foot limited to breakdown of skin

== ENCOUNTER → 2017-05-19 | Outpatient (CLI) | payer MEDICAID ==
--- NOTE | 2017-05-19 16:04 | CARDIOVASCULAR REPORT ---
"Cerebrovascular Exam Indications: 785.9 Bruit. IMPRESSIONS 1. The bilateral vertebral arteries are patent with normal antegrade flow. 2. Study suggests 20-49% stenosis involving the right internal carotid artery and the left internal carotid artery. Carotid duplex study. Complete study and Doppler flow study including spectral analysis, color and evans scale imaging. Height: Height: 180.3cm. Height: 71in. Weight: Weight: 68kg. Weight: 149.7lb. Body mass index: BMI: 20.9kg/m^2. Body surface area: BSA: 1.84m^2. Location: Vascular laboratory. Patient status: Outpatient. Tables: Arterial flow: + +--------+--------+ |Location |V sys |V ed | + +--------+--------+ |Right CCA - proximal|112cm/s |22cm/s | + +--------+--------+ |Right CCA - distal |92.7cm/s|20.4cm/s| + +--------+--------+ |Right ECA |84.9cm/s|--------| + +--------+--------+ |Right ICA - proximal|51.5cm/s|17.9cm/s| + +--------+--------+ |Right ICA - mid |66.8cm/s|28.8cm/s| + +--------+--------+ |Right ICA - distal |81.2cm/s|34.9cm/s| + +--------+--------+ |Right vertebral |67.6cm/s|--------| + +--------+--------+ |Left CCA - proximal |97cm/s |23.2cm/s| + +--------+--------+ |Left CCA - distal |77.7cm/s|23.7cm/s| + +--------+--------+ |Left ECA |81.3cm/s|--------| + +--------+--------+ |Left ICA - proximal |49.9cm/s|22.8cm/s| + +--------+--------+ |Left ICA - mid |80.1cm/s|32.2cm/s| + +--------+--------+ |Left ICA - distal |76.2cm/s|33cm/s | + +--------+--------+ |Left vertebral |30.6cm/s|--------| + +--------+--------+ Velocity ratios: + + + + + + | |Right, V sys|Right, V ed|Left, V sys|Left, V ed| + + + + + + |Max ICA/dist CCA|0.88 |1.71 |1.03 |1.39 | + + + + + + (Report amended ) Electronically signed by: Hakeem Wang [id number]"
== END ==
LOC: RT 15:03
DX: R09.89 Other specified symptoms and signs involving the circulatory and respiratory systems (principal)